=== PATIENT | male | born 1945 | race Caucasian/White ===

== ENCOUNTER 2018-01-09 21:49 | Inpatient (IN) | payer OTHER, MEDICARE ==
[2018-01-09] MEDS ORDERED: ONDANSETRON 4 MG/2 ML VIAL IVP STA ×2 (22:02→22:44)
[2018-01-09] MEDS ORDERED: SODIUM CHLORIDE 0.9% 1,000 ML IV STA (22:02)
[2018-01-09 22:05] LABS: Glucose,Whole Blood 136 mg/dL (75-99)
--- NOTE | 2018-01-09 22:11 | ED ---
Weakness HPI - General Stated complaint: nausea Time Seen by Provider: 01/09/18 21:51 - History of Present Illness Initial comments: Ruiz is a 72-year-old male who presents to the ED via EMS for evaluation of weakness and gait instability. Patient reports that [facility], he states after eating dinner with her he was walking down the [address] when he began to feel as though his whole body was being pulled to the left. He was noted to be falling to the left and holding onto the wall for support. Sanchez at the nursing facility evaluated him and felt as though his speech was a little bit slow but not slurred, at that time 911 was called for transfer to the ER. Patient reports he has a headache and feels pain in his entire left side of his body and feels that his left side of his body is being pulled on. Upon arrival the ER the patient is diaphoretic nauseated and vomiting. - Related Data Allergies Allergy/AdvReac Type Severity Reaction Status Date / Time No Known Allergies Allergy Verified 01/09/18 22:18 Review of Systems ROS Statement: Those systems with pertinent positive or pertinent negative responses have been documented in the HPI. ROS Other: All systems not noted in ROS Statement are negative. Past Medical History Past Medical History: Hyperlipidemia, Hypertension General Exam - General Exam Comments Initial Comments: GENERAL: Patient is well-developed and well-nourished. Patient is vomiting, diaphoretic and appears distressed HENT: Normocephalic, Atraumatic. Neck is soft and supple. No significant lymphadenopathy is noted. Oropharynx is clear. Moist mucous membranes. Neck has full range of motion without eliciting any pain. No carotid bruit EYES: The sclera were anicteric and conjunctiva were pink and moist. Extraocular movements were intact and pupils were equal round and reactive to light. Eyelids were unremarkable. No nystagmus PULMONARY: Unlabored respirations. Good breath sounds bilaterally. No audible rales rhonchi or wheezing was noted. CARDIOVASCULAR: There is a regular rate and rhythm without any murmurs gallops or rubs. ABDOMEN: Soft and nontender with normal bowel sounds. No pulsatile mass palpated SKIN: Skin is clear with no lesions or rashes and otherwise unremarkable. NEUROLOGIC: Patient is alert and oriented x3. Cranial nerves II through XII are grossly intact. Motor and sensory are also intact. Normal speech, volume and content. Symmetrical smile. Normal finger-nose, normal repetitive motions MUSCULOSKELETAL: Normal extremities with adequate strength and full range of motion. No lower extremity swelling or edema. No calf tenderness. LYMPHATICS: No significant lymphadenopathy is noted PSYCHIATRIC: Normal psychiatric evaluation. Limitations: no limitations Course Vital Signs 01/09/18 01/09/18 01/10/18 21:55 22:04 00:00 Temperature Pulse Rate 57 L 57 L 60 Respiratory 15 16 16 Rate Blood Pressure 160/91 147/93 147/81 O2 Sat by Pulse 97 100 95 Oximetry 01/10/18 00:46 Temperature 97.1 F L Pulse Rate 63 Respiratory 15 Rate Blood Pressure 148/86 O2 Sat by Pulse 99 Oximetry EKG Findings - EKG Comments: EKG Findings:: EKG obtained upon arrival at 9:56 PM. Rate of 63, there is significant baseline artifact but there appears to be a PE waves before each QRS , rhythm is sinus, there is prolonged QT with a QTC of 511. No acute ST elevations or depressions. Patient EKG obtained at 11:18 PM. Rate is 71, rhythm is sinus, there is a normal axis, there is a prolonged QT, WA is 126, QRS is 90, QTC is prolonged at 565. There are no acute ST elevations or depressions no evidence of acute ischemia or infarction. Medical Decision Making - Medical Decision Making The patient was seen and examined immediately upon arrival to the emergency department. The patient was reporting that he felt when he was walking that he was being pulled to the left, he felt weakness and was having a headache as well as pain in his left arm. Patient's initial NIH score is 0 he has good strength in the bilateral upper and lower extremity's, good coordination, cranial nerves intact A stroke workup was ordered When of care glucose 136 He was also noted to be vomiting, Zofran was ordered and given Head CT with no acute pathology Chest x-ray with no widening of the mediastinum or evidence of dissection Patient was reevaluated after returning from CT, he is resting much more comfortably, diaphoresis has resolved, is no longer vomiting. He reports feeling better but having pain all over. Repeat EKG was obtained after patient calmed down, EKG with persistently prolonged QTC but no other abnormalities Labs were reviewed, no elevated troponin, The patient was noted to be hypokalemic, IV replacement was ordered Patient's NIH score remained 0, patient remains hemodynamically stable At this time I will plan to admit the patient for subjective weakness, gait instability, headache, left arm pain and paresthesias Admission orders and consult to neurology and cardiology were placed - Lab Data Result diagrams: 01/09/18 21:58 01/09/18 21:58 Lab Results 01/09/18 01/09/18 01/09/18 Range/Units 21:58 21:58 21:58 WBC 8.8 (3.8-10.6) k/uL RBC 4.88 (4.30-5.90) m/uL Hgb 14.2 (13.0-17.5) gm/dL Hct 41.1 (39.0-53.0) % MCV 84.2 (80.0-100.0) fL MCH 29.1 (25.0-35.0) pg MCHC 34.6 (31.0-37.0) g/dL RDW 13.0 (11.5-15.5) % Plt Count 300 (150-450) k/uL Neutrophils % (Manual) 58 % Band Neutrophils % 1 % Lymphocytes % (Manual) 23 % Monocytes % (Manual) 13 % Eosinophils % (Manual) 4 % Basophils % (Manual) 1 % Neutrophils # (Manual) 5.10 (1.3-7.7) k/uL Lymphocytes # (Manual) 2.02 (1.0-4.8) k/uL Monocytes # (Manual) 1.14 H (0-1.0) k/uL Eosinophils # (Manual) 0.35 (0-0.7) k/uL Basophils # (Manual) 0.09 (0-0.2) k/uL Nucleated RBCs 0 (0-0) /100 WBC Manual Slide Review Performed PT (9.0-12.0) sec INR (<1.2) APTT (22.0-30.0) sec Sodium 138 (137-145) mmol/L Potassium 3.2 L (3.5-5.1) mmol/L Chloride 101 (98-107) mmol/L Carbon Dioxide 22 (22-30) mmol/L Anion Gap 15 mmol/L BUN 35 H (9-20) mg/dL Creatinine 1.26 H (0.66-1.25) mg/dL Est GFR (CKD-EPI)AfAm 66 (>60 ml/min/1.73 sqM) Est GFR (CKD-EPI)NonAf 57 (>60 ml/min/1.73 sqM) Glucose 124 H (74-99) mg/dL POC Glucose (mg/dL) (75-99) mg/dL POC Glu Aeronautical Design Engineer ID Calcium 9.8 (8.4-10.2) mg/dL Total Bilirubin 0.7 (0.2-1.3) mg/dL AST 22 (17-59) U/L ALT 26 (21-72) U/L Alkaline Phosphatase 86 (38-126) U/L Total Creatine Kinase 43 L (55-170) U/L CK-MB (CK-2) 0.6 (0.0-2.4) ng/mL CK-MB (CK-2) Rel Index 1.4 Troponin I <0.012 (0.000-0.034) ng/mL Total Protein 6.9 (6.3-8.2) g/dL Albumin 4.5 (3.5-5.0) g/dL 01/09/18 01/09/18 Range/Units 21:58 22:04 WBC (3.8-10.6) k/uL RBC (4.30-5.90) m/uL Hgb (13.0-17.5) gm/dL Hct (39.0-53.0) % MCV (80.0-100.0) fL MCH (25.0-35.0) pg MCHC (31.0-37.0) g/dL RDW (11.5-15.5) % Plt Count (150-450) k/uL Neutrophils % (Manual) % Band Neutrophils % % Lymphocytes % (Manual) % Monocytes % (Manual) % Eosinophils % (Manual) % Basophils % (Manual) % Neutrophils # (Manual) (1.3-7.7) k/uL Lymphocytes # (Manual) (1.0-4.8) k/uL Monocytes # (Manual) (0-1.0) k/uL Eosinophils # (Manual) (0-0.7) k/uL Basophils # (Manual) (0-0.2) k/uL Nucleated RBCs (0-0) /100 WBC Manual Slide Review PT 10.0 (9.0-12.0) sec INR 1.0 (<1.2) APTT 21.1 L (22.0-30.0) sec Sodium (137-145) mmol/L Potassium (3.5-5.1) mmol/L Chloride (98-107) mmol/L Carbon Dioxide (22-30) mmol/L Anion Gap mmol/L BUN (9-20) mg/dL Creatinine (0.66-1.25) mg/dL Est GFR (CKD-EPI)AfAm (>60 ml/min/1.73 sqM) Est GFR (CKD-EPI)NonAf (>60 ml/min/1.73 sqM) Glucose (74-99) mg/dL POC Glucose (mg/dL) 136 H (75-99) mg/dL POC Glu Aeronautical Design Engineer ID Bonilla Alberts Calcium (8.4-10.2) mg/dL Total Bilirubin (0.2-1.3) mg/dL AST (17-59) U/L ALT (21-72) U/L Alkaline Phosphatase (38-126) U/L Total Creatine Kinase (55-170) U/L CK-MB (CK-2) (0.0-2.4) ng/mL CK-MB (CK-2) Rel Index Troponin I (0.000-0.034) ng/mL Total Protein (6.3-8.2) g/dL Albumin (3.5-5.0) g/dL Disposition Clinical Impression: Weakness, Bradycardia, Nausea and vomiting, Hypokalemia, Gait instability, TIA (transient ischemic attack) Disposition: ADMITTED IP TO THIS HOSP Referrals: [facility],Clinic [Primary Care Provider] - 1-2 days
--- NOTE | 2018-01-09 22:37 | CT ---
EXAMINATION TYPE: CT brain wo con for TPA DATE OF EXAM: 01/09/2018 COMPARISON: None HISTORY: Weakness CT DLP: 1023.4 mGycm Automated exposure control for dose reduction was used. FINDINGS: Ventricles of normal size. There is no mass effect nor midline shift. There is no sign of intracrania l hemorrhage. Calvarium is intact. IMPRESSION: NEGATIVE CT SCAN OF THE BRAIN. SMALL MUCOUS RETENTION CYST NOTED IN RIGHT MAXILLARY SINUS.
[2018-01-09 22:54] LABS: HCT 41.1 % (39.0-53.0); HGB 14.2 gm/dL (13.0-17.5); MCH 29.1 pg (25.0-35.0); MCHC 34.6 g/dL (31.0-37.0); MCV 84.2 fL (80.0-100.0); Mean Platelet Volume 7.1; Platelet Count 300 k/uL (150-450); RBC 4.88 m/uL (4.30-5.90); WBC 8.8 k/uL (3.8-10.6)
[2018-01-09 22:56] LABS: Albumin 4.5 g/dL (3.5-5.0); Calcium 9.8 mg/dL (8.4-10.2); Potassium 3.2 mmol/L (3.5-5.1); Total Bilirubin 0.7 mg/dL (0.2-1.3); Total Protein 6.9 g/dL (6.3-8.2)
--- NOTE | 2018-01-09 22:58 | XR ---
EXAMINATION TYPE: XR chest 2V DATE OF EXAM: 01/09/2018 COMPARISON: None HISTORY: Left-sided weakness TECHNIQUE: Frontal and lateral views of the chest are obtained. FINDINGS: Heart and mediastinum are normal. Lungs are clear. Diaphragm is normal. Bony thorax is int act. There are chest leads. IMPRESSION: Normal chest.
[2018-01-09 23:05] LABS: Creatine Kinase 43 U/L (55-170)
[2018-01-09 23:18] LABS: Creatine Kinase MB 0.6 ng/mL (0.0-2.4); Troponin I <0.012 ng/mL (0.000-0.034)
[2018-01-09 23:26] LABS: Partial Thromboplastin Time 21.1 sec (22.0-30.0)
[2018-01-09] MEDS ORDERED: NALOXONE 0.4 MG/ML 1 ML VIAL IV PRN (23:29)
[2018-01-09 23:30] LABS: Band Neutrophils % 1 %; Basophils # (M) 0.09 k/uL (0-0.2); Eosinophils # (M) 0.35 k/uL (0-0.7); Lymphocytes # (M) 2.02 k/uL (1.0-4.8); Monocytes # (M) 1.14 k/uL (0-1.0); Neutrophils % (M) 58 %; Nucleated Red Blood Cells 0 /100 WBC (0-0); Total Cells Counted 100
[2018-01-10] MEDS ORDERED: Potassium Replacement Protocol 1 EACH MISC MISCELLANE PRN (00:26)
[2018-01-10] MEDS: POTASSIUM CHLORIDE 10 MEQ in WATER FOR INJECTION 1 100ML.BAG IVPB SCH ×4 (03:30→09:33)
[2018-01-10 04:53] LABS: Cholesterol 190 mg/dL (<200); HDL Cholesterol 43 mg/dL (40-60); LDL Cholesterol,Calculated 113 mg/dL (0-99); Triglycerides 172 mg/dL (<150)
[2018-01-10 05:05] LABS: Creatine Kinase 37 U/L (55-170)
[2018-01-10 05:18] LABS: Creatine Kinase MB 0.5 ng/mL (0.0-2.4); Troponin I <0.012 ng/mL (0.000-0.034)
--- NOTE | 2018-01-10 08:07 | US ---
EXAMINATION TYPE: US carotid duplex BILAT DATE OF EXAM: 01/10/2018 COMPARISON: NONE CLINICAL HISTORY: Stenosis. Pt states left side weakness EXAM MEASUREMENTS: RIGHT: Peak Systolic Velocity (PSV) cm/sec ----- Right CCA: 97.7 ----- Right ICA: 112.9 ----- Right ECA: 77.9 ICA/CCA ratio: 1.2 RIGHT: End Diastole cm/sec ----- Right CCA: 21.9 ----- Right ICA: 30.5 ----- Right ECA: 7.6 LEFT: Peak Systolic Velocity (PSV) cm/sec ----- Left CCA: 79.2 ----- Left ICA: 87.8 ----- Left ECA: 83.4 ICA/CCA ratio: 1.1 LEFT: End Diastole cm/sec ----- Left CCA: 26.3 ----- Left ICA: 25.2 ----- Left ECA: 12.0 VERTEBRALS (direction of flow): Right Vertebral: Antegrade Left Vertebral: Antegrade Rhythm: Arrhythmia Grayscale images show minimal eccentric plaque at right carotid bulb without significant plaque at le ft carotid bulb. Velocity measurements and ratios remain within normal limits bilaterally. IMPRESSION: No hemodynamically significant stenosis is noted bilaterally. Arrhythmia noted during re al-time scanning however. Advise cardiac Holter monitoring if this is not known finding. Criteria for Assigning % of Stenosis / Diameter reduction (Estimation based on the indirect measurements of the internal carotid artery velocities (ICA PSV). 1. Normal (no stenosis)=ICA PSV < 125 cm/s: ratio < 2.0: ICA EDV<40 cm/s. 2. Less than 50% stenosis=ICA PSV < 125 cm/s: ratio < 2.0: ICA EDV<40 cm/s. 3. 50 to 69% stenosis=ICA PSV of 125 to 230 cm/s: ration 2.0 ? 4.0: ICA EDV 40-100 cm/s. 4. Greater than 70% stenosis to near occlusion= ICA PSV > 230 cm/s: ratio > 4.0: ICA EDV > 100 cm/s. 5. Near occlusion= ICA PSV velocities may be low or undetectable: variable ratio and ICA EDV. 6. Total occlusion=unable to detect flow.
[2018-01-10] MEDS ORDERED: ASPIRIN 325 MG TAB PO SCH (09:00)
[2018-01-10 09:37] LABS: Creatine Kinase 40 U/L (55-170)
[2018-01-10 09:44] LABS: Creatine Kinase MB 0.5 ng/mL (0.0-2.4); Troponin I <0.012 ng/mL (0.000-0.034)
[2018-01-10] MEDS ORDERED: POTASSIUM CHLORIDE ER 20 MEQ TAB.ER PO STA (12:09)
[2018-01-10] MEDS ORDERED: TRIAMCINOLONE ACET 0.1% OINTMENT 15 GM TUBE TOPICAL PRN (12:09)
[2018-01-10] MEDS ORDERED: traMADol 50 MG TAB PO PRN (12:09)
[2018-01-10] MEDS ORDERED: ACETAMINOPHEN TAB 500 MG TAB PO PRN (12:09)
[2018-01-10] MEDS ORDERED: KETOCONAZOLE 2% SHAMPOO 1 APPLIC/ML TOPICAL SCH (12:15)
[2018-01-10] MEDS ORDERED: amLODIPine 5 MG TAB PO SCH (12:15)
--- NOTE | 2018-01-10 12:28 | ECHOF ---
Referral Reason:Thrombus MEASUREMENTS -------- HEIGHT: 172.7 cm WEIGHT: 81.2 kg BP: 145/88 IVSd: 1.5 cm (0.6 - 1.1) LVIDd: 4.5 cm (3.9 - 5.3) LVPWd: 1.3 cm (0.6 - 1.1) IVSs: 1.6 cm LVIDs: 2.8 cm LVPWs: 1.8 cm LAESV Index (A-L): 20.96 ml/m Ao Diam: 3.1 cm (2.0 - 3.7) AV Cusp: 2.2 cm (1.5 - 2.6) LA Diam: 3.2 cm (2.7 - 3.8) MV EXCURSION: 10.759 mm (> 18.000) MV EF SLOPE: 71 mm/s (70 - 150) EPSS: 0.8 cm MV E Ariel: 1.08 m/s MV DecT: 222 ms MV A Ariel: 1.33 m/s MV E/A Ratio: 0.81 RAP: 5.00 mmHg RVSP: 35.32 mmHg FINDINGS -------- Sinus rhythm with extra systolic beats. This was a technically good study. The left ventricular size is normal. There is moderate concentric left ventricular hypertrophy. O verall left ventricular systolic function is normal with, an EF between 55 - 60 %. POSSIBLE MILD IN FERIOR WALL HYPOKINESIS The right ventricle is normal in size and function. The left atrium is normal in size. The right atrium is normal in size. Aortic valve is trileaflet and is mildly thickened. The mitral valve leaflets are mildly thickened. Mild mitral annular calcification present. Mild m itral regurgitation is present. Mild tricuspid regurgitation present. The right ventricular systolic pressure, as measured by Doppl er, is 35.32mmHg. Pulmonic valve appears structurally normal. The aortic root size is normal. The pericardium is normal. CONCLUSIONS -------- 1. Sinus rhythm with extra systolic beats. 2. This was a technically good study. 3. The left ventricular size is normal. 4. There is moderate concentric left ventricular hypertrophy. 5. Overall left ventricular systolic function is normal with, an EF between 55 - 60 %. 6. The right ventricle is normal in size and function. 7. The left atrium is normal in size. 8. The right atrium is normal in size. 9. Aortic valve is trileaflet and is mildly thickened. 10. The mitral valve leaflets are mildly thickened. 11. Mild mitral annular calcification present. 12. Mild mitral regurgitation is present. 13. Mild tricuspid regurgitation present. 14. The right ventricular systolic pressure, as measured by Doppler, is 35.32mmHg. 15. Pulmonic valve appears structurally normal. 16. The aortic root size is normal. 17. The pericardium is normal. HEALTH LEAD: Lizy Perera RDCS
--- NOTE | 2018-01-10 14:48 | P.HPIM ---
History of Present Illness 72-year-old male who presents with the possible weakness and gait instability and appeared to have fallen towards right side patient sees his symptoms were still present when he came to ER although completely resolved at this point of time Patient reports that he was visiting his at the [facility], he states after eating dinner with her he was walking down the [address] when he began to feel as though his whole body was being pulled to the left. He was noted to be falling to the left and holding onto the wall for support. Sanchez at the nursing facility evaluated him and felt as though his speech was a little bit slow but not slurred, at that time 911 was called for transfer to the ER. Patient reports he has a headache and feels pain in his entire left side of his body and feels that his left side of his body is being pulled on. Upon arrival the ER the patient is diaphoretic nauseated and vomiting. Patient had generalized sense of not being well patient denied any seizure-like activity syncope. Review of Systems REVIEW OF SYSTEMS: CONSTITUTIONAL: No fever, no malaise, no fatigue. HEENT: No recent visual problems or hearing problems. Denied any sore throat. CARDIOVASCULAR: No chest pain, orthopnea, PND, no palpitations, no syncope. PULMONARY: No shortness of breath, no cough, no hemoptysis. GASTROINTESTINAL: No diarrhea, no nausea, no vomiting, no abdominal pain. Normoactive bowel sounds. NEUROLOGICAL: As mentioned in HPI HEMATOLOGICAL: Denies any bleeding or petechiae. GENITOURINARY: Denies any burning micturition, frequency, or urgency. MUSCULOSKELETAL/RHEUMATOLOGICAL: Denies any joint pain, swelling, or any muscle pain. ENDOCRINE: Denies any polyuria or polydipsia. The rest of the 14-point review of systems is negative. Past Medical History Past Medical History: Asthma, Cancer, Eye Disorder, Hyperlipidemia, Hypertension , Liver Disease, Osteoarthritis (OA) Additional Past Medical History / Comment(s): Pt states that past 2 weeks has had "blurred" vision and was seen at [facility] in [place] and told he has a "freckle" in that eye and will follow up with them, childhood asthma, liver "problem" before which pt states he was told was d/t taking tylenol #3, past ETOH abuse-sober for 19yrs then started drining 1-2 beers on occasion only, arthritis-bilateral shoulder and knee pains, skin cancer removed from nose. History of Any Multi-Drug Resistant Organisms: None Reported Additional Past Surgical History / Comment(s): colonoscopy, total R knee arthroplasty, bilateral knee arthroscopies, R foot titanium implant, bilateral shoulder surgery, L inguinal hernia repaix x3, septoplasty and skin cancer removed from nose. Past Anesthesia/Blood Transfusion Reactions: No Reported Reaction Smoking Status: Never smoker - Past Family History Father Family Medical History: Cancer Additional Family Medical History / Comment(s): Father had prostrate cancer. He is . Mother Family Medical History: Cancer, Thyroid Disorder Additional Family Medical History / Comment(s): Mother is . Pt states she had thyroid disease/surgeries. He thinks she had cancer in her "back". Medications and Allergies Home Medications Medication Instructions Recorded Confirmed Type Acetaminophen Tab [Tylenol Tab] 500 mg PO BID PRN MDD 8 TABS 01/10/18 01/10/18 History Cetirizine HCl [Zyrtec] 10 - 20 mg PO DAILY PRN 01/10/18 01/10/18 History Clopidogrel Bisulfate [Plavix] 75 mg PO DAILY #30 tab 01/10/18 Rx Colloidal Oatmeal [Eucerin Eczema 1 applic TOPICAL DAILY 01/10/18 01/10/18 History Relief] Cyanocobalamin [Vitamin B-12] 500 mcg PO DAILY 01/10/18 01/10/18 History Docusate [Colace] 100 mg PO TID 01/10/18 01/10/18 History Ferrous Sulfate [Feosol] 325 mg PO DAILY 01/10/18 01/10/18 History Ketoconazole 2% Cream [Nizoral 2%] 1 applic TOPICAL DAILY 01/10/18 01/10/18 History Ketoconazole 2% Shampoo [Nizoral] 1 applic TOPICAL DIRECTED 01/10/18 History Loratadine [Claritin] 10 mg PO DAILY 01/10/18 01/10/18 History Meloxicam [Mobic] 7.5 mg PO BID 01/10/18 01/10/18 History Naloxone HCl [Narcan] 4 mg NASAL DIRECTED 01/10/18 01/10/18 History PARoxetine HCL [Paxil] 20 mg PO DAILY 01/10/18 01/10/18 History Pravastatin Sodium [Pravachol] 10 mg PO HS 01/10/18 01/10/18 History Ranitidine HCl [Zantac] 150 mg PO HS 01/10/18 01/10/18 History Terazosin [Hytrin] 5 mg PO HS 01/10/18 01/10/18 History Triamcinolone 0.1% Ointment 1 applic TOPICAL BID PRN MDD 01/10/18 01/10/18 History [Kenalog 0.1% Ointment] LEGS/TRUNK amLODIPine [Norvasc] 5 mg PO BID 01/10/18 01/10/18 History hydrOXYzine PAMOATE [Vistaril] 25 mg PO QID PRN 01/10/18 01/10/18 History traMADol HCL [Ultram] 100 mg PO Q6HR PRN 01/10/18 01/10/18 History traZODone HCL 50 mg PO HS 01/10/18 01/10/18 History Allergies Allergy/AdvReac Type Severity Reaction Status Date / Time lisinopril Allergy Unknown Verified 01/10/18 09:29 simvastatin [From Zocor] Allergy Unknown Verified 01/10/18 09:29 Physical Exam Vitals: Vital Signs Temp Pulse Pulse Resp BP BP Pulse Ox 01/10/18 12:00 98.2 F 65 18 141/85 96 01/10/18 08:00 98.2 F 18 96 01/10/18 07:00 87 16 145/88 95 01/10/18 06:00 97.1 F L 76 16 130/83 93 L 01/10/18 04:54 16 L 60 H 147/87 95 01/10/18 03:00 61 16 149/82 97 01/10/18 02:00 144/79 96 01/10/18 00:46 97.1 F L 63 15 148/86 99 01/10/18 00:00 60 16 147/81 95 01/09/18 22:04 57 L 16 147/93 100 01/09/18 21:55 57 L 15 160/91 97 Intake and Output 01/09/18 01/10/18 01/10/18 22:59 06:59 14:59 Output Total 1300 Balance -1300 Output: Urine 1300 Other: Voiding Method Urinal Weight 81.193 kg 81.193 kg PHYSICAL EXAMINATION: GENERAL: The patient is alert and oriented x3, not in any acute distress. Well developed, well nourished. HEENT: Pupils are round and equally reacting to light. EOMI. No scleral icterus. No conjunctival pallor. Normocephalic, atraumatic. No pharyngeal erythema. No thyromegaly. CARDIOVASCULAR: S1 and S2 present. No murmurs, rubs, or gallops. PULMONARY: Chest is clear to auscultation, no wheezing or crackles. ABDOMEN: Soft, nontender, nondistended, normoactive bowel sounds. No palpable organomegaly. MUSCULOSKELETAL: No joint swelling or deformity. EXTREMITIES: No cyanosis, clubbing, or pedal edema. NEUROLOGICAL: Gross neurological examination did not reveal any focal deficits. SKIN: No rashes. Results CBC & Chem 7: 01/09/18 21:58 01/09/18 21:58 Labs: Abnormal Lab Results - Last 24 Hours (Table) 01/09/18 01/09/18 01/09/18 Range/Units 21:58 21:58 21:58 Monocytes # (Manual) 1.14 H (0-1.0) k/uL APTT (22.0-30.0) sec Potassium 3.2 L (3.5-5.1) mmol/L BUN 35 H (9-20) mg/dL Creatinine 1.26 H (0.66-1.25) mg/dL Glucose 124 H (74-99) mg/dL POC Glucose (mg/dL) (75-99) mg/dL Total Creatine Kinase 43 L (55-170) U/L Triglycerides (<150) mg/dL LDL Cholesterol, Calc (0-99) mg/dL 01/09/18 01/09/18 01/10/18 Range/Units 21:58 22:04 04:26 Monocytes # (Manual) (0-1.0) k/uL APTT 21.1 L (22.0-30.0) sec Potassium (3.5-5.1) mmol/L BUN (9-20) mg/dL Creatinine (0.66-1.25) mg/dL Glucose (74-99) mg/dL POC Glucose (mg/dL) 136 H (75-99) mg/dL Total Creatine Kinase 37 L (55-170) U/L Triglycerides (<150) mg/dL LDL Cholesterol, Calc (0-99) mg/dL 01/10/18 01/10/18 Range/Units 04:26 08:32 Monocytes # (Manual) (0-1.0) k/uL APTT (22.0-30.0) sec Potassium (3.5-5.1) mmol/L BUN (9-20) mg/dL Creatinine (0.66-1.25) mg/dL Glucose (74-99) mg/dL POC Glucose (mg/dL) (75-99) mg/dL Total Creatine Kinase 40 L (55-170) U/L Triglycerides 172 H (<150) mg/dL LDL Cholesterol, Calc 113 H (0-99) mg/dL Thrombosis Risk Factor Assmnt - Choose All That Apply Any of the Below Risk Factors Present?: Yes Each Factor Represents 1 point: Obesity (BMI >25) Other Risk Factors: Yes Each Risk Factor Represents 2 Points: Age 61-74 years Other congenital or acquired thrombophilia - If yes, enter type in comment: No Thrombosis Risk Factor Assessment Total Risk Factor Score: 3 Thrombosis Risk Factor Assessment Level: Moderate Risk Assessment and Plan Plan: Possibility of transient ischemic attack patient is already on aspirin, patient will be switched to Plavix and neurology will evaluate the patient patient had a carotid Doppler today which did not show any significant abnormality Riccardo and will be obtained CAT scan of the head did not show any significant abnormality either. Further management as per neurology -Hyperlipidemia - hypertension -Acute renal failure secondary to diuretic therapy which will be held patient will be started on IV fluids -Hypokalemia secondary to diuretics is receiving supple will be supplemented
[2018-01-10] MEDS ORDERED: DOCUSATE 100 MG CAP PO SCH (16:00)
[2018-01-10] MEDS: DOCUSATE 100 MG CAP PO SCH ×2 (17:02→21:24)
[2018-01-10] MEDS: SODIUM CHLORIDE 0.9% 1,000 ML IV SCH (17:03)
[2018-01-10] MEDS: amLODIPine 5 MG TAB PO SCH ×2 (17:03→21:23)
[2018-01-10] MEDS ORDERED: PRAVASTATIN SODIUM 20 MG TAB PO SCH ×2 (21:00)
[2018-01-10] MEDS ORDERED: DOXAZOSIN 4 MG TAB PO SCH (21:00)
[2018-01-10] MEDS ORDERED: FAMOTIDINE 20 MG TAB PO SCH (21:00)
[2018-01-10] MEDS ORDERED: traZODone HCL 50 MG TAB PO SCH (21:00)
[2018-01-11] MEDS: SODIUM CHLORIDE 0.9% 1,000 ML IV SCH ×2 (05:15→08:29)
--- NOTE | 2018-01-11 07:42 | P.CRDCN ---
History of Present Illness Consult date: 01/10/18 Requesting physician: Mallory Martínez Reason for Consult (text): chest pain Chief complaint: weakness, gait instability, dizziness History of present illness: This is a pleasant 72-year-old gentleman with history of hypertension. Presented to the emergency department p.m. EMS for evaluation of weakness and gait instability. [facility] and while he was walking down the agosto he began to feel as if his whole body was being pulled to the left. He sat for a bit and felt better but once he started and began ambulating again he felt he was being pulled left and also had complaints of dizziness and complaints of his speech being quiet. Denies complaints of chest discomfort, including pain, pressure, tightness or heaviness. He did complain of a left-sided headache. Also has a history of finding a spot during an eye exam in the left eye for which he is being followed every 3 months as he was told it could be cancer. He denies history of hyperlipidemia or diabetes. He does have an older brother who had an IL at the age of 70. She also admits to previous history of alcoholism, admits to drinking 2 beers about 3 times a week. Upon presentation, computed tomography scan of the brain was negative did show small mucous retention cyst in the right maxillary sinus. Chest x-ray showed normal chest. EKG showed normal sinus rhythm. Carotid Doppler study showed no hemodynamically significant stenosis bilaterally. Also noted arrhythmia during real-time scanning and advise cardiac Holter monitoring. Patient does not have a history of arrhythmias. Thus far, only documented rhythm is sinus. Echocardiogram with Doppler showed moderate concentric left ventricular hypertrophy, normal LV systolic function with an ejection fraction between 55-60%, mild mitral annular calcification, mild mitral regurgitation and mild tricuspid regurgitation. Wanted to have been negative 3. Upon examination, patient is resting comfortably in bed on the cardiac stepdown unit. Denies current complaints of dizziness, lightheadedness, weakness, headache. He denied having any chest discomfort at all. Vital signs are stable. Past Medical History Past Medical History: Asthma, Cancer, Eye Disorder, Hyperlipidemia, Hypertension , Liver Disease, Osteoarthritis (OA) Additional Past Medical History / Comment(s): Pt states that past 2 weeks has had "blurred" vision and was seen at [facility] in [place] and told he has a "freckle" in that eye and will follow up with them, childhood asthma, liver "problem" before which pt states he was told was d/t taking tylenol #3, past ETOH abuse-sober for 19yrs then started drining 1-2 beers on occasion only, arthritis-bilateral shoulder and knee pains, skin cancer removed from nose. History of Any Multi-Drug Resistant Organisms: None Reported Additional Past Surgical History / Comment(s): colonoscopy, total R knee arthroplasty, bilateral knee arthroscopies, R foot titanium implant, bilateral shoulder surgery, L inguinal hernia repaix x3, septoplasty and skin cancer removed from nose. Past Anesthesia/Blood Transfusion Reactions: No Reported Reaction Smoking Status: Never smoker - Past Family History Father Family Medical History: Cancer Additional Family Medical History / Comment(s): Father had prostrate cancer. He is . Mother Family Medical History: Cancer, Thyroid Disorder Additional Family Medical History / Comment(s): Mother is . Pt states she had thyroid disease/surgeries. He thinks she had cancer in her "back". Medications and Allergies Home Medications Medication Instructions Recorded Confirmed Type Acetaminophen Tab [Tylenol Tab] 500 mg PO BID PRN MDD 8 TABS 01/10/18 01/10/18 History Cetirizine HCl [Zyrtec] 10 - 20 mg PO DAILY PRN 01/10/18 01/10/18 History Clopidogrel Bisulfate [Plavix] 75 mg PO DAILY #30 tab 01/10/18 Rx Colloidal Oatmeal [Eucerin Eczema 1 applic TOPICAL DAILY 01/10/18 01/10/18 History Relief] Cyanocobalamin [Vitamin B-12] 500 mcg PO DAILY 01/10/18 01/10/18 History Docusate [Colace] 100 mg PO TID 01/10/18 01/10/18 History Ferrous Sulfate [Feosol] 325 mg PO DAILY 01/10/18 01/10/18 History Ketoconazole 2% Cream [Nizoral 2%] 1 applic TOPICAL DAILY 01/10/18 01/10/18 History Ketoconazole 2% Shampoo [Nizoral] 1 applic TOPICAL DIRECTED 01/10/18 History Loratadine [Claritin] 10 mg PO DAILY 01/10/18 01/10/18 History Meloxicam [Mobic] 7.5 mg PO BID 01/10/18 01/10/18 History Naloxone HCl [Narcan] 4 mg NASAL DIRECTED 01/10/18 01/10/18 History PARoxetine HCL [Paxil] 20 mg PO DAILY 01/10/18 01/10/18 History Pravastatin Sodium [Pravachol] 10 mg PO HS 01/10/18 01/10/18 History Ranitidine HCl [Zantac] 150 mg PO HS 01/10/18 01/10/18 History Terazosin [Hytrin] 5 mg PO HS 01/10/18 01/10/18 History Triamcinolone 0.1% Ointment 1 applic TOPICAL BID PRN MDD 01/10/18 01/10/18 History [Kenalog 0.1% Ointment] LEGS/TRUNK amLODIPine [Norvasc] 5 mg PO BID 01/10/18 01/10/18 History hydrOXYzine PAMOATE [Vistaril] 25 mg PO QID PRN 01/10/18 01/10/18 History traMADol HCL [Ultram] 100 mg PO Q6HR PRN 01/10/18 01/10/18 History traZODone HCL 50 mg PO HS 01/10/18 01/10/18 History Allergies Allergy/AdvReac Type Severity Reaction Status Date / Time lisinopril Allergy Unknown Verified 01/10/18 09:29 simvastatin [From Zocor] Allergy Unknown Verified 01/10/18 09:29 Physical Exam Vitals: Vital Signs Temp Pulse Pulse Resp BP BP Pulse Ox 01/10/18 12:00 98.2 F 65 18 141/85 96 01/10/18 08:00 98.2 F 18 96 01/10/18 07:00 87 16 145/88 95 01/10/18 06:00 97.1 F L 76 16 130/83 93 L 01/10/18 04:54 16 L 60 H 147/87 95 01/10/18 03:00 61 16 149/82 97 01/10/18 02:00 144/79 96 01/10/18 00:46 97.1 F L 63 15 148/86 99 01/10/18 00:00 60 16 147/81 95 01/09/18 22:04 57 L 16 147/93 100 01/09/18 21:55 57 L 15 160/91 97 Intake and Output 01/09/18 01/10/18 01/10/18 22:59 06:59 14:59 Output Total 1300 Balance -1300 Output: Urine 1300 Other: Voiding Method Urinal Weight 81.193 kg 81.193 kg PHYSICAL EXAMINATION: HEENT: Head is atraumatic, normocephalic. Pupils equal, round. Neck is supple. There is no elevated jugular venous pressure. HEART EXAMINATION: Heart sounds regular, S1 and S2 normal. No murmur or gallop heard. CHEST EXAMINATION: Lungs are clear to auscultation and precussion. No chest wall tenderness is noted on palpation or with deep breathing. ABDOMEN: Soft, nontender. Bowel sounds are heard. No organomegaly noted. EXTREMITIES: 2+ peripheral pulses with no evidence of peripheral edema and no calf tenderness noted. NEUROLOGIC patient is awake, alert and oriented x3. . Results 01/09/18 21:58 01/10/18 15:14 Cardiac Enzymes 01/09/18 01/09/18 01/10/18 Range/Units 21:58 21:58 04:26 AST 22 (17-59) U/L CK-MB (CK-2) 0.6 0.5 (0.0-2.4) ng/mL Troponin I <0.012 <0.012 (0.000-0.034) ng/mL 01/10/18 Range/Units 08:32 AST (17-59) U/L CK-MB (CK-2) 0.5 (0.0-2.4) ng/mL Troponin I <0.012 (0.000-0.034) ng/mL Coagulation 01/09/18 Range/Units 21:58 PT 10.0 (9.0-12.0) sec APTT 21.1 L (22.0-30.0) sec Lipids 01/10/18 Range/Units 04:26 Triglycerides 172 H (<150) mg/dL Cholesterol 190 (<200) mg/dL HDL Cholesterol 43 (40-60) mg/dL CBC 01/09/18 Range/Units 21:58 WBC 8.8 (3.8-10.6) k/uL RBC 4.88 (4.30-5.90) m/uL Hgb 14.2 (13.0-17.5) gm/dL Hct 41.1 (39.0-53.0) % Plt Count 300 (150-450) k/uL Comprehensive Metabolic Panel 01/09/18 Range/Units 21:58 Sodium 138 (137-145) mmol/L Potassium 3.2 L (3.5-5.1) mmol/L Chloride 101 (98-107) mmol/L Carbon Dioxide 22 (22-30) mmol/L BUN 35 H (9-20) mg/dL Creatinine 1.26 H (0.66-1.25) mg/dL Glucose 124 H (74-99) mg/dL Calcium 9.8 (8.4-10.2) mg/dL AST 22 (17-59) U/L ALT 26 (21-72) U/L Alkaline Phosphatase 86 (38-126) U/L Total Protein 6.9 (6.3-8.2) g/dL Albumin 4.5 (3.5-5.0) g/dL Current Medications Generic Name Dose Route Start Last Admin Trade Name Freq PRN Reason Stop Dose Admin Acetaminophen 500 mg 01/10/18 12:09 Tylenol Tab PO BID PRN MILD Pain Amlodipine Besylate 5 mg 01/10/18 12:15 Norvasc PO BID [facility] Aspirin 325 mg 01/10/18 09:00 01/10/18 11:04 Aspirin PO 325 mg DAILY [facility] Administration Clotrimazole 1 applic 01/11/18 09:00 Lotrimin Cream TOPICAL DAILY [facility] Docusate Sodium 100 mg 01/10/18 16:00 Colace PO TID [facility] Doxazosin Mesylate 4 mg 01/10/18 21:00 Cardura PO HS [facility] Famotidine 20 mg 01/10/18 21:00 Pepcid PO HS [facility] Ketoconazole 1 applic 01/10/18 12:15 Nizoral TOPICAL DIRECTED [facility] Loratadine 10 mg 01/11/18 09:00 Claritin PO DAILY [facility] Miscellaneous Information 1 each 01/10/18 00:26 Potassium Per Protocol MISCELLANE DAILY PRN Per Protocol Protocol Multi-Ingred Cream/Lotion/Oil/Oint 1 applic 01/11/18 09:00 Eucerin Cream TOPICAL DAILY [facility] Naloxone HCl 0.2 mg 01/09/18 23:29 Narcan IV Q2M PRN Opioid Reversal Paroxetine HCl 20 mg 01/11/18 09:00 Paxil PO DAILY [facility] Pravastatin Sodium 10 mg 01/10/18 21:00 Pravachol PO HS [facility]EE[facility] Tramadol HCl 100 mg 01/10/18 12:09 Ultram PO Q6HR PRN MODERATE Pain Trazodone HCl 50 mg 01/10/18 21:00 Desyrel PO HS DEENA Triamcinolone Acetonide 1 applic 01/10/18 12:09 Kenalog TOPICAL BID PRN ITCHING/IRRITATION Intake and Output 01/09/18 01/10/18 01/10/18 22:59 06:59 14:59 Output Total 1300 Balance -1300 Output: Urine 1300 Other: Voiding Method Urinal Weight 81.193 kg 81.193 kg Patient Weight 01/11/18 06:59 Weight 81.193 kg 01/09/18 21:58 01/09/18 21:58 Assessment and Plan Assessment: #1 symptoms of left-sided weakness, dizziness and gait instability #2 hypertension 3 hyperlipidemia 4. History of alcoholism Plan: From help desk team leader perspective, medications were reviewed and we will continue the same at this time. Change aspirin to 81 mg daily. Monitor the patient for arrhythmias. We will continue to follow the patient and write further recommendations accordingly. ROLL UP GUIDER OPERATOR note has been reviewed, I agree with a documented findings and plan of care. Patient was seen and examined.
[2018-01-11] MEDS: DOCUSATE 100 MG CAP PO SCH (08:27)
[2018-01-11] MEDS: amLODIPine 5 MG TAB PO SCH (08:27)
[2018-01-11 08:36] LABS: Anion Gap 6 mmol/L; Blood Urea Nitrogen 18 mg/dL (9-20); Calcium 8.7 mg/dL (8.4-10.2); Carbon Dioxide 28 mmol/L (22-30); Chloride 109 mmol/L (98-107); Glucose 91 mg/dL (74-99); Sodium 143 mmol/L (137-145)
[2018-01-11] MEDS ORDERED: PARoxetine 20 MG TAB PO SCH (09:00)
[2018-01-11] MEDS ORDERED: LORATADINE 10 MG TAB PO SCH (09:00)
[2018-01-11] MEDS ORDERED: ASPIRIN 81 MG PO SCH (09:00)
[2018-01-11] MEDS ORDERED: MINERAL OIL-WHITE PETROLATUM 120 GM JAR TOPICAL SCH (09:00)
[2018-01-11] MEDS ORDERED: CLOTRIMAZOLE 1% CREAM 15 GM TUBE TOPICAL SCH (09:00)
--- NOTE | 2018-01-11 09:07 | CONS ---
CONSULTATION DATE OF CONSULTATION: 01/10/2018 CHIEF COMPLAINT: Weakness. HISTORY OF PRESENT ILLNESS: Mr. Feliciano is a pleasant 72-year-old male, who was being evaluated today on 01/10/2018 by the Neurology Service per the request of Dr. Martínez for an episode of weakness. The patient states that he was at the skilled nursing visiting his . He was at his normal state of health without any complaints. When he left her room to go gated newspaper. He made it to the other side of the skilled nursing, got the newspaper, and on his way back, felt very weak. He felt that the weakness was generalized and it was from his neck down. He does not recall having any numbness or tingling. The nursing staff noticed this and made the patient sit down. After sitting down for a few minutes, he tried to get back up. Again felt pretty weak. He was brought into [facility] room for further workup and management. A CT scan of the brain was done, which was normal. A carotid Doppler was done, which showed no hemodynamically significant stenosis but there was evidence of arrhythmia on the study. His CBC and cardiac enzymes were normal. His comprehensive metabolic profile showed hypokalemia at 3.2, and azotemia with a BUN full of 35 and creatinine of 1.26. The patient was admitted for further workup and management. at the time of my evaluation, he is lying in his bed and appears to be in no acute distress. He denies any recurrence of any neurological symptoms since his admission. Overall, he feels like his symptoms lasted a couple of hours. He is on anti-platelet therapy at home with aspirin and Plavix. During the episode, he also noticed that he was off balance and his voice had changed. Again, all these symptoms have resolved. PAST MEDICAL HISTORY: Asthma, dyslipidemia, hypertension, arthritis. History of alcohol abuse, skin cancer, history of orthopedic surgeries, skin cancer resection, hernia repair. SOCIAL HISTORY: He denies any tobacco or drug use. He does have a history of alcohol abuse. FAMILY HISTORY: Positive for cancer. HOME MEDICATIONS: Reviewed in the chart. ALLERGIES: LISINOPRIL and ZOCOR. REVIEW OF SYSTEMS: CONSTITUTIONAL: Negative. EYES: Positive for occasional blurred vision. ENT: As mentioned above. CARDIOVASCULAR: As mentioned above. RESPIRATORY: Negative. NEUROLOGICAL: As mentioned above. GASTROINTESTINAL: Negative. GENITOURINARY: Negative. DERMATOLOGICAL: Negative. PSYCHIATRIC: Negative. ENDOCRINE: Negative. MUSCULOSKELETAL: Positive for occasional joint pain. PHYSICAL EXAM: Vital signs show a temperature of 98.2, pulse 65, respiration 18, blood pressure 141/85. GENERAL APPEARANCE: The patient is a well-developed, elderly male, who appears to be in no acute distress. HEENT: Normocephalic, atraumatic, no facial asymmetry is seen. NECK: Supple with no masses felt. CARDIOVASCULAR: Regular rate and rhythm. ABDOMEN: Nontender nondistended. EXTREMITIES: Showed no edema or clubbing. NEUROLOGICAL EXAM: The patient is awake and oriented x3. Speech and language are normal. Strength is full in all 4 extremities. Sensory exam was normal to light touch in all 4 extremities. No pronator drift is seen. Obdden-hszo-[id number] testing showed no dysmetria. No facial asymmetry is seen on cranial nerve testing. No tremors or seizure-like activity is seen. IMPRESSION: 1. Transient generalized weakness. 2. Questionable transient ischemic attack. 3. Cardiac dysrhythmia. 4. Renal insufficiency. RECOMMENDATION: The patient did have a transient episode of weakness with associated disequilibrium and dysphonia. His symptoms were nonlateralizing and I doubt any in his schematic etiology for his symptoms unless he had cerebellar and brain stem affect/involvement. Either way, the patient is already on Plavix and aspirin. His carotid Doppler showed no hemodynamically significant stenosis but there was evidence of dysrhythmia on the study. I do recommend continue telemetry monitoring and Cardiology consultation. His fasting lipid panel did show elevated LDL and his Pravachol has been increased from 10 mg daily to 20 mg daily. I will order an EEG and a serum homocystine level. Continue IV hydration as tolerated. Continue neuro checks. I will continue to follow with you. Further recommendations to follow. Thank you for allowing me to participate in the care of your patient. If you have any questions, please feel free to contact me. MMODL / IJN: [id number] /
--- NOTE | 2018-01-11 09:16 | P.PN ---
Subjective Progress Note Date: 01/11/18 Principal diagnosis: Dizziness and lightheadedness This is a pleasant 72-year-old gentleman with history of hypertension. Presented to the emergency department p.m. EMS for evaluation of weakness and gait instability. He was at [place] is attending his and while he was walking down the agosto he began to feel as if his whole body was being pulled to the left. He sat for a bit and felt better but once he started and began ambulating again he felt he was being pulled left and also had complaints of dizziness and complaints of his speech being quiet. Denies complaints of chest discomfort, including pain, pressure, tightness or heaviness. He did complain of a left-sided headache. Also has a history of finding a spot during an eye exam in the left eye for which he is being followed every 3 months as he was told it could be cancer. He denies history of hyperlipidemia or diabetes. He does have an older brother who had an UT at the age of 70. He also admits to previous history of alcoholism, admits to drinking 2 beers about 3 times a week. Upon presentation, computed tomography scan of the brain was negative did show small mucous retention cyst in the right maxillary sinus. Chest x-ray showed normal chest. EKG showed normal sinus rhythm. Carotid Doppler study showed no hemodynamically significant stenosis bilaterally. Also noted arrhythmia during real-time scanning and advise cardiac Holter monitoring. Patient does not have a history of arrhythmias. Thus far, only documented rhythm is sinus. Echocardiogram with Doppler showed moderate concentric left ventricular hypertrophy, normal LV systolic function with an ejection fraction between 55-60%, mild mitral annular calcification, mild mitral regurgitation and mild tricuspid regurgitation. On follow-up with the patient today, January [id number], the patient denies having any chest pain or discomfort. No arrhythmia noted overnight. The patient was seen and evaluated by the neurology service. Objective - Vital Signs Vital signs: Vital Signs Temp 97.9 F 01/11/18 04:00 Pulse 76 01/11/18 04:00 Resp 18 01/11/18 04:00 BP 141/78 01/11/18 04:00 Pulse Ox 95 01/11/18 04:00 Intake & Output 01/10/18 01/11/18 01/11/18 18:59 06:59 18:59 Intake Total 120 600 240 Output Total 1300 0 Balance -1180 600 240 Weight 81.193 kg 74 kg Intake: Intake, IV Titration 600 Amount Sodium Chloride 0.9% 1, 600 000 ml @ 100 mls/hr IV . Q10H [facility] Rx#:[id number] Oral 120 240 Output: Urine 1300 0 Other: Voiding Method Urinal Urinal # Voids 1 - Constitutional General appearance: Present: no acute distress - Respiratory Respiratory: bilateral: CTA - Cardiovascular Rhythm: regular Heart sounds: normal: S1, S2 - Labs CBC & Chem 7: 01/09/18 21:58 01/11/18 06:44 Labs: Abnormal Lab Results - Last 24 Hours (Table) 01/10/18 01/11/18 Range/Units 08:32 06:44 Chloride 109 H (98-107) mmol/L Total Creatine Kinase 40 L (55-170) U/L Assessment and Plan Assessment: Assessment Presyncope Plan Cardiac arrhythmia was ruled out The echo did not show any significant abnormalities The patient was ruled out for acute coronary event
[2018-01-11 13:23] VITALS: BP 137/85; PULSE 66; RESP 22; TEMP 97.1
--- NOTE | 2018-01-11 15:01 | P.PN ---
Subjective Progress Note Date: 01/11/18 Principal diagnosis: Weakness This pleasant 72 male is continuing be evaluated by the neurology service for an episode of weakness. Water assisted visiting his , he had an episode of generalized weakness. After sitting up for a few minutes he tried to get back up and still felt weak. She was brought to [facility] emergency room. CT of the brain was normal. Carotid Doppler showed no hemodynamically significant stenosis. There may have been evidence of an arrhythmia on his EKG. Cardiology has evaluated and cleared him. With no evidence of underlying arrhythmia. He has had no recurrence of any neurological symptoms since his admission. Physical therapy is evaluating him at the time of my exam. An EEG has been performed earlier today. Objective - Vital Signs Vital signs: Vital Signs Temp 97.1 F L 01/11/18 12:00 Pulse 66 01/11/18 12:00 Resp 22 01/11/18 12:00 BP 137/85 01/11/18 12:00 Pulse Ox 95 01/11/18 12:00 Intake & Output 01/10/18 01/11/18 01/11/18 18:59 06:59 18:59 Intake Total 120 600 420 Output Total 1300 0 Balance -1180 600 420 Weight 81.193 kg 74 kg Intake: Intake, IV Titration 600 Amount Sodium Chloride 0.9% 1, 600 000 ml @ 100 mls/hr IV . Q10H [facility] Rx#:[id number] Oral 120 420 Output: Urine 1300 0 Other: Voiding Method Urinal Urinal Urinal # Voids 1 - Constitutional General appearance: Present: average body habitus, cooperative, no acute distress - EENT Eyes: Present: EOMI, PERRLA. Absent: abnormal pupil, ptosis ENT: Present: hearing grossly normal - Neck Neck: Present: normal ROM. Absent: rigidity - Respiratory Respiratory: negative: prolonged expiration, prolonged inspiration - Cardiovascular Rhythm: regular - Gastrointestinal General gastrointestinal: Absent: distended, tenderness - Neurologic Neurologic Comment(s): The patient is alert awake and oriented 3. Speech and language are normal. There is no facial asymmetry. Strength is 5 out of 5 in bilateral upper and lower extremities. There is no sensory deficit. No tremors or seizures are seen. Cranial nerves II through XII are intact globally. - Labs CBC & Chem 7: 01/09/18 21:58 01/11/18 06:44 Labs: Abnormal Lab Results - Last 24 Hours (Table) 01/11/18 Range/Units 06:44 Chloride 109 H (98-107) mmol/L Assessment and Plan (1) Bradycardia Current Visit: Yes Status: Acute Code(s): R00.1 - BRADYCARDIA, UNSPECIFIED SNOMED Code(s): 51194512 (2) Weakness Current Visit: Yes Status: Resolved Code(s): R53.1 - WEAKNESS SNOMED Code( s): 88560613 (3) TIA (transient ischemic attack) Current Visit: Yes Status: Suspected Code(s): G45.9 - TRANSIENT CEREBRAL ISCHEMIC ATTACK, UNSPECIFIED SNOMED Code(s): 362296509 Plan: The patient's transient episode of weakness and disequilibrium could possibly be an episode of transient cerebral ischemia. However, his weakness was nonlateralizing which makes it less likely. He will continue aspirin 325 mg and Pravachol 20 mg. Continue cardiology consultation if needed. An EEG has been performed. Barring any unforeseen abnormalities on the EEG he would be cleared from a neurological standpoint. I have performed a history and physical on the above patient. I have reviewed the above note, and agree.
--- NOTE | 2018-01-11 15:32 | P.DS ---
Providers Date of admission: 01/10/18 00:55 Attending physician: Mallory Martínez Consults: 01/09/18 23:31 Consult Physician Routine Consulting Provider: [facility] Consult Reason/Comments: chest pain Do you want consulting provider notified?: Yes, Notify in am 01/10/18 09:11 Consult Physician Routine Consulting Provider: Erendira Arroyo Consult Reason/Comments: weakness, slurred speech Do you want consulting provider notified?: Yes Primary care physician: [facility] Hospital Course: 72-year-old admitted for an episode of generalized weakness was a valid for TIA. Patient did didn't have any symptoms when here about a year. Patient was a valid by neurology underwent the TIA workup with the CAT scan carotid Doppler echo cardiomyopathy which are essentially within normal limits and patient is being discharged today increasing the dose of statin no other changes in medications are being made at this time. PHYSICAL EXAMINATION: GENERAL: The patient is alert and oriented x3, not in any acute distress. Well developed, well nourished. HEENT: Pupils are round and equally reacting to light. EOMI. No scleral icterus. No conjunctival pallor. Normocephalic, atraumatic. No pharyngeal erythema. No thyromegaly. CARDIOVASCULAR: S1 and S2 present. No murmurs, rubs, or gallops. PULMONARY: Chest is clear to auscultation, no wheezing or crackles. ABDOMEN: Soft, nontender, nondistended, normoactive bowel sounds. No palpable organomegaly. MUSCULOSKELETAL: No joint swelling or deformity. EXTREMITIES: No cyanosis, clubbing, or pedal edema. NEUROLOGICAL: Gross neurological examination did not reveal any focal deficits. SKIN: No rashes. Please refer to my dictation of [facility] for further details of the other medical problems hospitalization course. Plan - Discharge Summary Discharge Rx Participant: No New Discharge Prescriptions: New Pravastatin Sodium [Pravachol] 20 mg PO HS tab Continue Cyanocobalamin [Vitamin B-12] 500 mcg PO DAILY hydrOXYzine PAMOATE [Vistaril] 25 mg PO QID PRN PRN Reason: Itching Ranitidine HCl [Zantac] 150 mg PO HS Ferrous Sulfate [Iron (65 MG Elemental)] 325 mg PO DAILY traZODone HCL 50 mg PO HS Triamcinolone 0.1% Ointment [Kenalog 0.1% Ointment] 1 applic TOPICAL BID PRN MDD LEGS/TRUNK PRN Reason: ITCHING/IRRITATION Colloidal Oatmeal [Eucerin Eczema Relief] 1 applic TOPICAL DAILY traMADol HCL [Ultram] 100 mg PO Q6HR PRN PRN Reason: Pain Terazosin [Hytrin] 5 mg PO HS Naloxone HCl [Narcan] 4 mg NASAL DIRECTED PARoxetine HCL [Paxil] 20 mg PO DAILY Meloxicam [Mobic] 7.5 mg PO BID Acetaminophen Tab [Tylenol] 500 mg PO BID PRN MDD 8 TABS PRN Reason: Pain Ketoconazole 2% Shampoo [Nizoral] 1 applic TOPICAL DIRECTED Ketoconazole 2% Cream [Nizoral 2%] 1 applic TOPICAL DAILY Docusate [Colace] 100 mg PO TID amLODIPine [Norvasc] 5 mg PO BID Loratadine [Claritin] 10 mg PO DAILY Cetirizine HCl [Zyrtec] 10 - 20 mg PO DAILY PRN PRN Reason: Itching Discontinued Pravastatin Sodium [Pravachol] 10 mg PO HS Hydrochlorothiazide [Hydrodiuril] 50 mg PO DAILY Aspirin EC [Ecotrin] 325 mg PO DAILY Discharge Medication List Acetaminophen Tab [Tylenol] 500 mg PO BID PRN MDD 8 TABS 01/10/18 [History] Cetirizine HCl [Zyrtec] 10 - 20 mg PO DAILY PRN 01/10/18 [History] Colloidal Oatmeal [Eucerin Eczema Relief] 1 applic TOPICAL DAILY 01/10/18 [ History] Cyanocobalamin [Vitamin B-12] 500 mcg PO DAILY 01/10/18 [History] Docusate [Colace] 100 mg PO TID 01/10/18 [History] Ferrous Sulfate [Iron (65 MG Elemental)] 325 mg PO DAILY 01/10/18 [History] Ketoconazole 2% Cream [Nizoral 2%] 1 applic TOPICAL DAILY 01/10/18 [History] Ketoconazole 2% Shampoo [Nizoral] 1 applic TOPICAL DIRECTED 01/10/18 [History ] Loratadine [Claritin] 10 mg PO DAILY 01/10/18 [History] Meloxicam [Mobic] 7.5 mg PO BID 01/10/18 [History] Naloxone HCl [Narcan] 4 mg NASAL DIRECTED 01/10/18 [History] PARoxetine HCL [Paxil] 20 mg PO DAILY 01/10/18 [History] Ranitidine HCl [Zantac] 150 mg PO HS 01/10/18 [History] Terazosin [Hytrin] 5 mg PO HS 01/10/18 [History] Triamcinolone 0.1% Ointment [Kenalog 0.1% Ointment] 1 applic TOPICAL BID PRN MDD LEGS/TRUNK 01/10/18 [History] amLODIPine [Norvasc] 5 mg PO BID 01/10/18 [History] hydrOXYzine PAMOATE [Vistaril] 25 mg PO QID PRN 01/10/18 [History] traMADol HCL [Ultram] 100 mg PO Q6HR PRN 01/10/18 [History] traZODone HCL 50 mg PO HS 01/10/18 [History] Pravastatin Sodium [Pravachol] 20 mg PO HS tab 01/11/18 [Rx] Follow up Appointment(s)/Referral(s): Eusebio Hill MD [STAFF PHYSICIAN] - 01/17/18 9:45 am (wednesday) Erendira Arroyo MD [STAFF PHYSICIAN] - 3 Weeks (Spoke to clinical nurse reviewer. Office will call with appointment time) [facility],Clinic [Primary Care Provider] - 3 Days (Please call to make appointment.) Patient Instructions/Handouts: Transient Ischemic Attack (ED), Weakness (DC) Discharge Disposition: HOME SELF-CARE
--- NOTE | 2018-01-11 18:16 | EEG ---
ELECTROENCEPHALOGRAM REPORT DATE OF SERVICE: 01/11/2018 REASON FOR TESTING: Transient ischemic attack. DESCRIPTION OF THE PROCEDURE: This EEG was performed using a 21-channel digital electroencephalograph, following international 10-20 system. DESCRIPTION OF THE RECORDING: From the beginning of the tracing, and with the patient's eyes closed, the background rhythm was mostly consisting of 9 Hz alpha frequency in the posterior occipital leads. No obvious asymmetry is seen. Photic stimulation was performed with no driving response seen. No pathological waves were elicited. Hyperventilation was not performed. Occasional movement and muscle artifacts are seen. The patient remains awake throughout the tracing. No epileptiform discharges were seen. His EKG lead showed an irregularly irregular rhythm with a normal rate. INTERPRETATION: This awake EEG can be considered within normal limits, except his EKG lead showed an irregularly irregular rhythm with a normal rate. No epileptiform discharges were seen. The absence of epileptiform discharges does not rule out the diagnosis of epilepsy; therefore clinical correlation is recommended. FOUZIA / TONY: [id number] /
== END 2018-01-11 18:22 | disposition home or self-care (01) | DRG 948 ==
LOC: EC 21:49 → 3SCARD 01-10 00:55
PROVIDERS: ADMIT Internal Medicine; ATTEND Internal Medicine
DX: R53.1 Weakness (principal); N17.9 Acute kidney failure, unspecified; E78.5 Hyperlipidemia, unspecified; E87.6 Hypokalemia; I08.1 Rheumatic disorders of both mitral and tricuspid valves; I10 Essential (primary) hypertension; T50.2X5A Adverse effect of carbonic-anhydrase inhibitors, benzothiadiazides and other diuretics, initial encounter; H53.8 Other visual disturbances; R00.1 Bradycardia, unspecified; R26.9 Unspecified abnormalities of gait and mobility; R94.31 Abnormal electrocardiogram [ECG] [EKG]; R51 Headache; M79.602 Pain in left arm; I65.23 Occlusion and stenosis of bilateral carotid arteries; M19.012 Primary osteoarthritis, left shoulder; M19.011 Primary osteoarthritis, right shoulder; M17.0 Bilateral primary osteoarthritis of knee; D49.81 Neoplasm of unspecified behavior of retina and choroid; J34.1 Cyst and mucocele of nose and nasal sinus; F10.21 Alcohol dependence, in remission; Z96.651 Presence of right artificial knee joint; Z85.828 Personal history of other malignant neoplasm of skin; Z79.02 Long term (current) use of antithrombotics/antiplatelets; Z79.82 Long term (current) use of aspirin; Z79.899 Other long term (current) drug therapy; Z88.8 Allergy status to other drugs, medicaments and biological substances; Z80.9 Family history of malignant neoplasm, unspecified; Z83.49 Family history of other endocrine, nutritional and metabolic diseases
CPT/HCPCS: 36415; 70450; 71046; 80048; 80053; 80061; 82550; 82553; 83090; 84132; 84484; 85025; 85610; 85730; 93306; 93880; 95816; 96361; 96365; 96366; 96375; 99285

== ENCOUNTER 2018-01-19 16:07 | Inpatient (IN) | payer OTHER, MEDICARE ==
[2018-01-19] MEDS ORDERED: SODIUM CHLORIDE 0.9% 1,000 ML IV STA (16:14)
--- NOTE | 2018-01-19 16:21 | ED ---
Neuro HPI - General Chief Complaint: Neuro Symptoms/Deficit Stated Complaint: poss CVA Time Seen by Provider: 01/19/18 16:07 Source: patient, EMS, RN notes reviewed Mode of arrival: EMS Limitations: no limitations - History of Present Illness Is the patient presenting with stroke symptoms?: No Initial Comments: This is a 72-year-old male(seen about a week ago for was believed to be a TIA who presents today with complaints of onset of left upper extremity around 3:30 today. Per paramedics when he arrived he had good vegetable trimmer strength bilaterally was able move everything no asymmetry but he seemed to have some slight left facial asymmetry and decreased vegetable trimmer strength on the left [facility] emergency department. No recent trauma no fevers chills nausea vomiting sweats or other symptoms. Patient does state he had a complete workup except for an MRI due to metal in his body when he was here. He believes he is a somewhat better with respect to his left upper extremity - Related Data Home Medications: Home Medications Medication Instructions Recorded Confirmed Acetaminophen Tab [Tylenol] 500 mg PO BID PRN MDD 8 TABS 01/10/18 01/19/18 Cetirizine HCl [Zyrtec] 10 - 20 mg PO DAILY PRN 01/10/18 01/19/18 Colloidal Oatmeal [Eucerin Eczema 1 applic TOPICAL DAILY 01/10/18 01/19/18 Relief] Cyanocobalamin [Vitamin B-12] 500 mcg PO DAILY 01/10/18 01/19/18 Docusate [Colace] 100 mg PO TID 01/10/18 01/19/18 Ferrous Sulfate [Iron (65 MG 325 mg PO DAILY 01/10/18 01/19/18 Elemental)] Ketoconazole 2% Cream [Nizoral 2%] 1 applic TOPICAL DAILY 01/10/18 01/19/18 Ketoconazole 2% Shampoo [Nizoral] 1 applic TOPICAL DIRECTED 01/10/18 01/19/18 Loratadine [Claritin] 10 mg PO DAILY 01/10/18 01/19/18 Meloxicam [Mobic] 7.5 mg PO BID 01/10/18 01/19/18 Naloxone HCl [Narcan] 4 mg NASAL DIRECTED 01/10/18 01/19/18 PARoxetine HCL [Paxil] 20 mg PO DAILY 01/10/18 01/19/18 Ranitidine HCl [Zantac] 150 mg PO HS 01/10/18 01/19/18 Terazosin [Hytrin] 5 mg PO HS 01/10/18 01/19/18 Triamcinolone 0.1% Ointment 1 applic TOPICAL BID PRN MDD 01/10/18 01/19/18 [Kenalog 0.1% Ointment] LEGS/TRUNK amLODIPine [Norvasc] 5 mg PO BID 01/10/18 01/19/18 hydrOXYzine PAMOATE [Vistaril] 25 mg PO QID PRN 01/10/18 01/19/18 traMADol HCL [Ultram] 100 mg PO Q6HR PRN 01/10/18 01/19/18 traZODone HCL 50 mg PO HS 01/10/18 01/19/18 Previous Rx's Medication Instructions Recorded Aspirin 81 mg PO DAILY #30 chewable 01/11/18 Atorvastatin Calcium [Lipitor] 20 mg PO HS #30 tab 01/11/18 Allergies/Adverse Reactions: Allergies Allergy/AdvReac Type Severity Reaction Status Date / Time lisinopril Allergy Unknown Verified 01/19/18 16:50 simvastatin [From Zocor] Allergy Unknown Verified 01/19/18 16:50 Review of Systems ROS Statement: Those systems with pertinent positive or pertinent negative responses have been documented in the HPI. ROS Other: All systems not noted in ROS Statement are negative. General Exam - General Exam Comments Initial Comments: This is a well-developed well-nourished awake alert anxious oriented 3 male Limitations: no limitations General appearance: alert, anxious Head exam: Present: atraumatic, normocephalic, normal inspection Eye exam: Present: normal appearance, PERRL, EOMI. Absent: scleral icterus, conjunctival injection, periorbital swelling ENT exam: Present: mucous membranes dry Neck exam: Present: normal inspection, full ROM, other (No stridor JVD or bruits ). Absent: tenderness, meningismus, lymphadenopathy Respiratory exam: Present: normal lung sounds bilaterally. Absent: respiratory distress, wheezes, rales, rhonchi, stridor Cardiovascular Exam: Present: normal rhythm, bradycardia, normal heart sounds. Absent: systolic murmur, diastolic murmur, rubs, gallop, clicks GI/Abdominal exam: Present: soft, normal bowel sounds. Absent: distended, tenderness, guarding, rebound, rigid Rectal exam: Present: deferred Extremities exam: Present: normal inspection, normal capillary refill. Absent: full ROM, tenderness Back exam: Present: normal inspection Neurological exam: Present: alert, oriented X3, CN II-XII intact, motor sensory deficit (Some decreased range of motion left upper extremity) Psychiatric exam: Present: normal affect, normal mood Skin exam: Present: warm, dry, intact, normal color. Absent: rash Stroke MDM - Lab Data Result diagrams: 01/19/18 16:24 01/19/18 16:24 Lab Results 01/19/18 01/19/18 01/19/18 Range/Units 16:24 16:24 16:24 WBC 5.8 (3.8-10.6) k/uL RBC 4.49 (4.30-5.90) m/uL Hgb 13.3 (13.0-17.5) gm/dL Hct 39.8 (39.0-53.0) % MCV 88.6 (80.0-100.0) fL MCH 29.6 (25.0-35.0) pg MCHC 33.4 (31.0-37.0) g/dL RDW 13.3 (11.5-15.5) % Plt Count 253 (150-450) k/uL Neutrophils % 63 % Lymphocytes % 18 % Monocytes % 7 % Eosinophils % 8 % Basophils % 1 % Neutrophils # 3.7 (1.3-7.7) k/uL Lymphocytes # 1.0 (1.0-4.8) k/uL Monocytes # 0.4 (0-1.0) k/uL Eosinophils # 0.5 (0-0.7) k/uL Basophils # 0.0 (0-0.2) k/uL PT (9.0-12.0) sec INR (<1.2) APTT (22.0-30.0) sec Sodium 139 (137-145) mmol/L Potassium 4.5 (3.5-5.1) mmol/L Chloride 109 H (98-107) mmol/L Carbon Dioxide 21 L (22-30) mmol/L Anion Gap 9 mmol/L BUN 14 (9-20) mg/dL Creatinine 0.92 (0.66-1.25) mg/dL Est GFR (CKD-EPI)AfAm >90 (>60 ml/min/1.73 sqM) Est GFR (CKD-EPI)NonAf 84 (>60 ml/min/1.73 sqM) Glucose 116 H (74-99) mg/dL Calcium 9.5 (8.4-10.2) mg/dL Magnesium 2.0 (1.6-2.3) mg/dL Total Bilirubin 0.6 (0.2-1.3) mg/dL AST 31 (17-59) U/L ALT 48 (21-72) U/L Alkaline Phosphatase 85 (38-126) U/L Total Creatine Kinase 52 L (55-170) U/L CK-MB (CK-2) 0.6 (0.0-2.4) ng/mL CK-MB (CK-2) Rel Index 1.2 Troponin I <0.012 (0.000-0.034) ng/mL Total Protein 6.5 (6.3-8.2) g/dL Albumin 4.1 (3.5-5.0) g/dL TSH 1.180 (0.465-4.680) mIU/L Urine Color Urine Appearance (Clear) Urine pH (5.0-8.0) Ur Specific [place] (1.001-1.035) Urine Protein (Negative) Urine Glucose (UA) (Negative) Urine Ketones (Negative) Urine Blood (Negative) Urine Nitrite (Negative) Urine Bilirubin (Negative) Urine Urobilinogen (<2.0) mg/dL Ur Leukocyte Esterase (Negative) Urine RBC (0-5) /hpf Urine WBC (0-5) /hpf Urine Mucus (None) /hpf 01/19/18 01/19/18 Range/Units 17:50 19:20 WBC (3.8-10.6) k/uL RBC (4.30-5.90) m/uL Hgb (13.0-17.5) gm/dL Hct (39.0-53.0) % MCV (80.0-100.0) fL MCH (25.0-35.0) pg MCHC (31.0-37.0) g/dL RDW (11.5-15.5) % Plt Count (150-450) k/uL Neutrophils % % Lymphocytes % % Monocytes % % Eosinophils % % Basophils % % Neutrophils # (1.3-7.7) k/uL Lymphocytes # (1.0-4.8) k/uL Monocytes # (0-1.0) k/uL Eosinophils # (0-0.7) k/uL Basophils # (0-0.2) k/uL PT 10.2 (9.0-12.0) sec INR 1.0 (<1.2) APTT 22.3 (22.0-30.0) sec Sodium (137-145) mmol/L Potassium (3.5-5.1) mmol/L Chloride (98-107) mmol/L Carbon Dioxide (22-30) mmol/L Anion Gap mmol/L BUN (9-20) mg/dL Creatinine (0.66-1.25) mg/dL Est GFR (CKD-EPI)AfAm (>60 ml/min/1.73 sqM) Est GFR (CKD-EPI)NonAf (>60 ml/min/1.73 sqM) Glucose (74-99) mg/dL Calcium (8.4-10.2) mg/dL Magnesium (1.6-2.3) mg/dL Total Bilirubin (0.2-1.3) mg/dL AST (17-59) U/L ALT (21-72) U/L Alkaline Phosphatase (38-126) U/L Total Creatine Kinase (55-170) U/L CK-MB (CK-2) (0.0-2.4) ng/mL CK-MB (CK-2) Rel Index Troponin I (0.000-0.034) ng/mL Total Protein (6.3-8.2) g/dL Albumin (3.5-5.0) g/dL TSH (0.465-4.680) mIU/L Urine Color Yellow Urine Appearance Cloudy (Clear) Urine pH 8.5 H (5.0-8.0) Ur Specific [place] 1.013 (1.001-1.035) Urine Protein 1+ H (Negative) Urine Glucose (UA) Negative (Negative) Urine Ketones 2+ H (Negative) Urine Blood Negative (Negative) Urine Nitrite Negative (Negative) Urine Bilirubin Negative (Negative) Urine Urobilinogen <2.0 (<2.0) mg/dL Ur Leukocyte Esterase Negative (Negative) Urine RBC <1 (0-5) /hpf Urine WBC 2 (0-5) /hpf Urine Mucus Rare H (None) /hpf - NIH Stroke Scale 1a. Level of Consciousness: (0) alert 1b. LOC Questions: (0) answers correctly 1c. LOC Commands: (0) performs tasks correctly 2. Best Gaze: (0) normal 3. Visual: (0) no visual loss 4. Facial Palsy: (0) normal symmetrical movement 5a. Motor Arm Left: (1) drift 5b. Motor Arm Right: (0) no drift 6a. Motor Leg Left: (0) no drift 6b. Motor Leg Right: (0) no drift 7. Limb Ataxia: (1) present 1 limb 8. Sensory: (0) normal 9. Best Language: (0) no aphasia 10. Dysarthria: (0) normal 11. Extinction/Inattention: (0) no abnormality (Examination of the left upper extremity is inconsistent patient time was spontaneously other time state he can 't) - Medical Decision Making I did review the imaging and report no acute findings. - EKG Data -: EKG Interpreted by Me EKG shows normal: sinus rhythm, axis, intervals, QRS complexes, ST-T waves Rate: bradycardia (Bradycardia with a rate of 51. Interval 1:30 QRS duration 84 QT since QTC 516/[address]-T wave changes) Past Medical History Past Medical History: Asthma, Cancer, CVA/TIA, Eye Disorder, Hyperlipidemia, Hypertension, Liver Disease, Osteoarthritis (OA) Additional Past Medical History / Comment(s): Pt states that past 2 weeks has had "blurred" vision and was seen at [facility] in [place] and told he has a "freckle" in that eye and will follow up with them, childhood asthma, liver "problem" before which pt states he was told was d/t taking tylenol #3, past ETOH abuse-sober for 19yrs then started drining 1-2 beers on occasion only, arthritis-bilateral shoulder and knee pains, skin cancer removed from nose. History of Any Multi-Drug Resistant Organisms: None Reported Past Surgical History: Hernia Repair Additional Past Surgical History / Comment(s): colonoscopy, total R knee arthroplasty, bilateral knee arthroscopies, R foot titanium implant, bilateral shoulder surgery, L inguinal hernia repaix x3, septoplasty and skin cancer removed from nose. Past Anesthesia/Blood Transfusion Reactions: No Reported Reaction Past Psychological History: Depression Smoking Status: Never smoker Past Alcohol Use History: Daily Past Drug Use History: None Reported - Past Family History Father Family Medical History: Cancer Additional Family Medical History / Comment(s): Father had prostrate cancer. He is . Mother Family Medical History: Cancer, Thyroid Disorder Additional Family Medical History / Comment(s): Mother is . Pt states she had thyroid disease/surgeries. He thinks she had cancer in her "back". Course Vital Signs 01/19/18 01/19/18 01/19/18 16:09 17:00 17:55 Temperature 97.5 F L Pulse Rate 54 L 58 L Respiratory 18 18 Rate Blood Pressure 124/80 133/75 154/83 O2 Sat by Pulse 99 98 Oximetry 01/19/18 01/19/18 19:00 20:00 Temperature Pulse Rate 62 53 L Respiratory 20 18 Rate Blood Pressure 173/87 126/83 O2 Sat by Pulse 97 95 Oximetry - Reevaluation(s) Reevaluation #1: 01/19/18 20:37 Reevaluation patient appears to be moving his left upper extremity better he does state he has numbness her left side of his extremities. Disposition Clinical Impression: Transient cerebral ischemia Disposition: ADMITTED IP TO THIS HOSP Condition: Stable Referrals: [facility],Clinic [Primary Care Provider] - 1-2 days
--- NOTE | 2018-01-19 17:47 | CT ---
EXAMINATION TYPE: CT brain veronica banks DATE OF EXAM: 01/19/2018 COMPARISON: CT brain 01/09/2018 HISTORY: Left sided arm numbness and weakness CT DLP: 1412.9 mGycm Automated exposure control for dose reduction was used. TECHNIQUE: CT scan of the head and cervical spine are performed without contrast. FINDINGS: There is mild cerebral cortical atrophy. There is no mass effect nor midline shift. There is no sign of intracranial hemorrhage. The calvarium is intact. There is small mucus retention cyst right maxillary sinus. Cervical vertebra have fairly normal spacing and alignment. Posterior elements are intact. There is m ild hypertrophic facet arthropathy throughout the cervical spine. The skull base is intact. IMPRESSION: Negative CT scan of the brain. No change. No acute abnormality of the cervical spine. Mild facet arthropathy.
[2018-01-19 17:56] LABS: Basophils % (A) 1 %; Eosinophils # (A) 0.5 k/uL (0-0.7); Eosinophils % (A) 8 %; HCT 39.8 % (39.0-53.0); HGB 13.3 gm/dL (13.0-17.5); Lymphocytes % (A) 18 %; MCH 29.6 pg (25.0-35.0); MCHC 33.4 g/dL (31.0-37.0); MCV 88.6 fL (80.0-100.0); Mean Platelet Volume 8.2; Monocytes # (A) 0.4 k/uL (0-1.0); Monocytes % (A) 7 %; Neutrophils # (A) 3.7 k/uL (1.3-7.7); Neutrophils % (A) 63 %; Platelet Count 253 k/uL (150-450); RBC 4.49 m/uL (4.30-5.90); RDW 13.3 % (11.5-15.5); WBC 5.8 k/uL (3.8-10.6)
[2018-01-19 18:02] LABS: ALT 48 U/L (21-72); AST 31 U/L (17-59); Albumin 4.1 g/dL (3.5-5.0); Alkaline Phosphatase 85 U/L (38-126); Anion Gap 9 mmol/L; Blood Urea Nitrogen 14 mg/dL (9-20); Calcium 9.5 mg/dL (8.4-10.2); Carbon Dioxide 21 mmol/L (22-30); Chloride 109 mmol/L (98-107); Glucose 116 mg/dL (74-99); Potassium 4.5 mmol/L (3.5-5.1); Sodium 139 mmol/L (137-145); Total Bilirubin 0.6 mg/dL (0.2-1.3); Total Protein 6.5 g/dL (6.3-8.2)
[2018-01-19 18:10] LABS: Creatine Kinase 52 U/L (55-170)
--- NOTE | 2018-01-19 18:22 | XR ---
EXAMINATION TYPE: XR chest 2V DATE OF EXAM: 01/19/2018 COMPARISON: 01/09/2018 HISTORY: Left-sided weakness TECHNIQUE: Frontal and lateral views of the chest are obtained. FINDINGS: There is no heart failure nor confluent pneumonic infiltrate. Costophrenic angles are sabrina r. Bony thorax is intact. There are chest leads. IMPRESSION: No active cardiopulmonary disease. Normal heart. No change.
[2018-01-19 18:25] LABS: Creatine Kinase MB 0.6 ng/mL (0.0-2.4); Troponin I <0.012 ng/mL (0.000-0.034)
[2018-01-19 19:12] LABS: Partial Thromboplastin Time 22.3 sec (22.0-30.0); Prothrombin Time 10.2 sec (9.0-12.0)
[2018-01-19 19:34] LABS: Appearance,Urine Cloudy (Clear); Bilirubin,Urine Negative (Negative); Blood,Urine Negative (Negative); Color,Urine Yellow; Glucose,Urine (UA) Negative (Negative); Ketones,Urine 2+ (Negative); Leukocyte Esterase,Urine Negative (Negative); Mucus,Urine Rare /hpf; Nitrite,Urine Negative (Negative); PH, Urine 8.5 (5.0-8.0); Protein,Urine 1+ (Negative); RBC,Urine <1 /hpf (0-5); Specific Gravity,Urine 1.013 (1.001-1.035); Urobilinogen,Urine <2.0 mg/dL (<2.0); WBC,Urine 2 /hpf (0-5)
[2018-01-19] MEDS ORDERED: ONDANSETRON 4 MG/2 ML VIAL IVP STA (20:47)
[2018-01-19] MEDS ORDERED: hydrOXYzine PAMOATE 25 MG CAP PO PRN (21:05)
[2018-01-19] MEDS ORDERED: ACETAMINOPHEN TAB 500 MG TAB PO PRN (21:05)
[2018-01-19] MEDS ORDERED: traMADol 50 MG TAB PO PRN (21:05)
[2018-01-19] MEDS ORDERED: TRIAMCINOLONE ACET 0.1% OINTMENT 15 GM TUBE TOPICAL PRN (21:05)
[2018-01-19] MEDS ORDERED: LORATADINE 10 MG TAB PO PRN (21:05)
[2018-01-19] MEDS: KETOCONAZOLE 2% SHAMPOO 1 APPLIC/ML TOPICAL SCH (22:26)
[2018-01-19] MEDS: NALOXONE HCL 4 MG NASAL SCH (22:27)
[2018-01-19] MEDS: DOCUSATE 100 MG CAP PO SCH (22:27)
[2018-01-19] MEDS: FAMOTIDINE 20 MG/2 ML VIAL IV SCH (22:40)
[2018-01-19] MEDS: SODIUM CHLORIDE 0.9% 1,000 ML IV SCH (22:41)
[2018-01-20] MEDS: SODIUM CHLORIDE 0.9% 1,000 ML IV SCH ×2 (05:40→18:16)
[2018-01-20 07:37] LABS: Cholesterol 124 mg/dL (<200); HDL Cholesterol 41 mg/dL (40-60); LDL Cholesterol,Calculated 72 mg/dL (0-99); Triglycerides 55 mg/dL (<150)
[2018-01-20] MEDS ORDERED: LORATADINE 10 MG TAB PO SCH (09:00)
[2018-01-20] MEDS ORDERED: NON-FORMULARY DRUG (Colloidal Oatmeal [Eucerin Eczema Relief] 1 APPLIC) TOPICAL SCH (09:00)
[2018-01-20] MEDS ORDERED: NON-FORMULARY DRUG (Ketoconazole 2% Cream 1 APPLIC) TOPICAL SCH (09:00)
[2018-01-20] MEDS: FAMOTIDINE 20 MG/2 ML VIAL IV SCH ×2 (11:31→20:12)
[2018-01-20] MEDS: DOCUSATE 100 MG CAP PO SCH ×3 (15:09→20:13)
[2018-01-20] MEDS: FERROUS SULFATE 325 MG TAB PO SCH (15:09)
[2018-01-20] MEDS: CYANOCOBALAMIN 500 MCG TAB PO SCH (15:09)
[2018-01-20] MEDS: MELOXICAM 7.5 MG TAB PO SCH ×2 (15:09→20:13)
[2018-01-20] MEDS: amLODIPine 5 MG TAB PO SCH ×2 (15:09→20:12)
[2018-01-20] MEDS: CLOPIDOGREL 75 MG TAB PO SCH (15:09)
[2018-01-20] MEDS: PARoxetine 20 MG TAB PO SCH (15:10)
[2018-01-20] MEDS ORDERED: ACETAMINOPHEN SUPPOSITORY 650 MG SUPP RECTAL STA (15:57)
--- NOTE | 2018-01-20 16:10 | FL ---
EXAMINATION TYPE: FL barium swallow w video DATE OF EXAM: 01/20/2018 MODIFIED SWALLOW / DEGLUTITION STUDY CLINICAL HISTORY: Dysphagia. TECHNIQUE: Deglutition study is performed utilizing thin liquid barium, honey and nectar thick liqui d barium, barium thick applesauce, and barium coated cracker. 2 min 55 sec fl time. The exam was vid eo recorded and therefore no fluoroscopic images were saved. COMPARISON: None. FINDINGS: The oral and pharyngeal phases show delayed initiation and propagation with all modalities tested. There is incomplete epiglottic closure and poor pharyngeal excursion. Normal mastication is s een with solid modalities tested. Repeated laryngeal transient penetration was seen with the thin, ho scotty, and nectar thick barium consistencies. Inconsistent swallow is seen as aspiration was appreciate d with the thin consistency in the setting of large volume vallecular retention at the end of the exa mination. No significant pharyngeal residue was appreciated. IMPRESSION: Inconsistent swallow. Jas aspiration with thin consistency limited to the setting of la rge volume vallecular retention of barium coated cracker. Persistent laryngeal penetration with thin ner consistencies. Please refer to speech therapist notes for further details if necessary.
[2018-01-20] MEDS ORDERED: MORPHINE SULFATE 2 MG/ML SYRINGE IVP STA (16:15)
[2018-01-20] MEDS: ASPIRIN 300 MG SUPP RECTAL SCH (16:22)
--- NOTE | 2018-01-20 17:11 | P.CNNES ---
History of Present Illness Consult date: 01/20/18 Requesting physician: Con Bhakta Reason for Consult: TIA History of Present Illness: Patient is a pleasant 72-year-old male who is being evaluated by the neurology service on 01/20/2018 per the request of Dr. Bhakta for TIA. Patient was recently seen approximately a week ago with complaints of weakness. Patient was visiting in the group home and felt very weak from the neck down. He does not recall having any numbness or tingling. Patient was brought to [facility] for further workup and management. Computed tomography scan of the brain at that time was normal. A carotid Doppler was done at previous visit which showed no hemodynamically significant stenosis but did show evidence of arrhythmia on the study. Patient presents this admission with same complaints of generalized weakness. Patient does state weakness seems to be more on the left as compared to the right. Patient does have slight left facial droop and is having significant difficulty swallowing. Patient had barium swallow study which showed ana aspiration with thin consistencies. Patient is nothing by mouth at this time and will have a repeat swallow study done in the morning. Computed tomography scan of the brain on this admission showed no acute abnormality. Patient also had computed tomography scan of the cervical spine which showed no acute abnormality as well. CT of the cervical spine did show mild facet arthropathy. Patient had EEG done approximately a week ago which was within normal limits. Patient cannot have an MRI due to metal in his body. Vital signs on admission when 97.5 , pulse rate 54, respirations 18, blood pressure 124/80, and oxygen saturation 99% on room air. At the time of my evaluation, patient is resting comfortably in bed and appears to be in no acute distress. Review of Systems REVIEW OF SYSTEMS: Otherwise unremarkable and noncontributory. Past Medical History Past Medical History: Asthma, Cancer, CVA/TIA, Eye Disorder, Hyperlipidemia, Hypertension, Liver Disease, Osteoarthritis (OA) Additional Past Medical History / Comment(s): Pt states that past 2 weeks has had "blurred" vision and was seen at [facility] in [place] and told he has a "freckle" in that eye and will follow up with them, childhood asthma, liver "problem" before which pt states he was told was d/t taking tylenol #3, past ETOH abuse-sober for 19yrs then started drining 1-2 beers on occasion only, arthritis-bilateral shoulder and knee pains, skin cancer removed from nose. History of Any Multi-Drug Resistant Organisms: None Reported Past Surgical History: Hernia Repair Additional Past Surgical History / Comment(s): colonoscopy, total R knee arthroplasty, bilateral knee arthroscopies, R foot titanium implant, bilateral shoulder surgery, L inguinal hernia repaix x3, septoplasty and skin cancer removed from nose. Past Anesthesia/Blood Transfusion Reactions: No Reported Reaction Past Psychological History: Depression Additional Psychological History / Comment(s): Pt resides alone. His spouse is in a prison care facilty. Pt is independent. He is a [place] vet. Smoking Status: Never smoker Past Alcohol Use History: Daily Additional Past Alcohol Use History / Comment(s): Pt statess he has past ETOH abuse and was sober for 19 yrs. He states he started drinking 1-2 beers on occasion only since about 2005. Past Drug Use History: None Reported - Past Family History Father Family Medical History: Cancer Additional Family Medical History / Comment(s): Father had prostrate cancer. He is . Mother Family Medical History: Cancer, Thyroid Disorder Additional Family Medical History / Comment(s): Mother is . Pt states she had thyroid disease/surgeries. He thinks she had cancer in her "back". Medications and Allergies Home Medications Medication Instructions Recorded Confirmed Type Acetaminophen Tab [Tylenol] 500 mg PO BID PRN MDD 8 TABS 01/10/18 01/19/18 History Cetirizine HCl [Zyrtec] 10 - 20 mg PO DAILY PRN 01/10/18 01/19/18 History Colloidal Oatmeal [Eucerin Eczema 1 applic TOPICAL DAILY 01/10/18 01/19/18 History Relief] Cyanocobalamin [Vitamin B-12] 500 mcg PO DAILY 01/10/18 01/19/18 History Docusate [Colace] 100 mg PO TID 01/10/18 01/19/18 History Ferrous Sulfate [Iron (65 MG 325 mg PO DAILY 01/10/18 01/19/18 History Elemental)] Ketoconazole 2% Cream [Nizoral 2%] 1 applic TOPICAL DAILY 01/10/18 01/19/18 History Ketoconazole 2% Shampoo [Nizoral] 1 applic TOPICAL DIRECTED 01/10/18 History Loratadine [Claritin] 10 mg PO DAILY 01/10/18 01/19/18 History Meloxicam [Mobic] 7.5 mg PO BID 01/10/18 01/19/18 History Naloxone HCl [Narcan] 4 mg NASAL DIRECTED 01/10/18 01/19/18 History PARoxetine HCL [Paxil] 20 mg PO DAILY 01/10/18 01/19/18 History Ranitidine HCl [Zantac] 150 mg PO HS 01/10/18 01/19/18 History Terazosin [Hytrin] 5 mg PO HS 01/10/18 01/19/18 History Triamcinolone 0.1% Ointment 1 applic TOPICAL BID PRN MDD 01/10/18 01/19/18 History [Kenalog 0.1% Ointment] LEGS/TRUNK amLODIPine [Norvasc] 5 mg PO BID 01/10/18 01/19/18 History hydrOXYzine PAMOATE [Vistaril] 25 mg PO QID PRN 01/10/18 01/19/18 History traMADol HCL [Ultram] 100 mg PO Q6HR PRN 01/10/18 01/19/18 History traZODone HCL 50 mg PO HS 01/10/18 01/19/18 History Aspirin 81 mg PO DAILY #30 chewable 01/11/18 01/19/18 Rx Atorvastatin Calcium [Lipitor] 20 mg PO HS #30 tab 01/11/18 01/19/18 Rx Allergies Allergy/AdvReac Type Severity Reaction Status Date / Time lisinopril Allergy Unknown Verified 01/19/18 16:50 simvastatin [From Zocor] Allergy Unknown Verified 01/19/18 16:50 Physical Examination - Vital Signs Vital Signs: Vital Signs Temp Pulse Pulse Resp BP BP Pulse Ox 01/20/18 16:00 97.8 F 67 17 166/64 96 01/20/18 11:33 98.1 F 69 16 138/72 96 01/20/18 11:16 63 16 01/20/18 08:00 59 L 16 01/20/18 07:57 97.7 F 59 L 16 134/71 96 01/20/18 04:00 97.8 F 80 16 128/64 97 01/20/18 00:00 97.8 F 68 18 147/79 96 01/19/18 21:49 97.8 F 56 L 18 128/80 96 01/19/18 21:39 97.8 F 70 18 158/70 97 01/19/18 20:00 53 L 18 126/83 95 01/19/18 19:00 62 20 173/87 97 01/19/18 17:55 58 L 18 154/83 98 01/19/18 17:00 133/75 Intake and Output 01/20/18 01/20/18 01/20/18 06:59 14:59 22:59 Intake Total 480 Output Total 300 600 Balance 180 -600 Intake: Oral 480 Output: Urine 300 600 Other: Voiding Method Urinal Urinal Urinal # Voids 2 Weight 71.214 kg PHYSICAL EXAM: GENERAL APPEARANCE: Patient is a well-developed, male who appears to be in no acute distress. HEENT: Normocephalic, atraumatic, facial asymmetry is seen. Neck is supple with no masses felt. CARDIOVASCULAR: Regular rate and rhythm. ABDOMEN: Nontender, nondistended. EXTREMITIES: Show no edema or clubbing. NEUROLOGICAL EXAM: Patient is awake, alert, and oriented 3. Speech and language are normal. Strength is 5/5 in right upper and lower extremity. During that is 4/5 in left upper extremity and 5-/5 in left lower extremity. Sensory exam to light touch is decreased on left upper and lower extremity. Trace left facial droop seen on cranial nerve testing. No tremors or seizure- like activity noted. Results - Laboratory Findings CBC and BMP: 01/19/18 16:24 01/19/18 16:24 Abnormal Lab Findings: Abnormal Labs 01/19/18 01/19/18 01/19/18 16:24 16:24 19:20 Chloride 109 H Carbon Dioxide 21 L Glucose 116 H Total Creatine Kinase 52 L Urine pH 8.5 H Urine Protein 1+ H Urine Ketones 2+ H Urine Mucus Rare H Assessment and Plan Plan: Impression: 1. Possible CVA 2. Left-sided weakness, improving 3. Left-sided sensory deficit 4. Dysphagia 5. History of TIA 6. Hyperlipidemia 7. Questionable cardiac arrhythmia Recommendation: The patient did have episode of left-sided weakness, left-sided sensory deficit, and dysphagia. Patient has mild left facial droop. Symptoms are slowly resolving. Patient is unable to have MRI due to metal in his body. I will repeat a CT of the brain in the morning. Continue antiplatelet therapy in the form of rectal aspirin 300 mg daily. I recommend PT OT to evaluate and treat. Continue speech therapy and swallow evaluation. Patient's lipid panel was recently elevated and statin drug was increased. Once patient has been cleared from swallow standpoint, patient can be switched to oral aspirin and statin drug will be resumed. Serum homocystine level was normal. EEG was normal. Carotid Doppler showed no significant stenosis. Continue neurological checks. Continue medical management. I will continue to follow with you. Further recommendations to follow. Thank you for allowing me to participate in the care of your patient. Feel free to call with any questions or concerns. I performed an examination of the patient and discussed the management with the SOCIAL MEDIA MARKETING ANALYST. I have reviewed the SOCIAL MEDIA MARKETING ANALYST notes and agree with the findings and plan of care.
[2018-01-20] MEDS: ATORVASTATIN 20 MG TAB PO SCH (20:12)
[2018-01-20] MEDS: DOXAZOSIN 4 MG TAB PO SCH (20:12)
[2018-01-20] MEDS: KETOCONAZOLE 2% SHAMPOO 1 APPLIC/ML TOPICAL SCH (20:13)
[2018-01-20] MEDS: NALOXONE HCL 4 MG NASAL SCH (20:13)
[2018-01-20] MEDS: traZODone HCL 50 MG TAB PO SCH (20:13)
[2018-01-20] MEDS ORDERED: NON-FORMULARY DRUG (Ranitidine Hcl [Zantac] 150 MG) PO SCH (21:00)
[2018-01-20] MEDS ORDERED: ASPIRIN 325 MG TAB PO SCH (21:04)
--- NOTE | 2018-01-20 21:38 | P.HPIM ---
History of Present Illness H&P Date: 01/20/18 Chief Complaint: Left-sided weakness Patient is a 72-year-old male with a known history of CVA/TIA, hypertension, hyperlipidemia, osteoarthritis, asthma, PE was history of alcohol abuse and multiple other medical problems presented to ER with complaints of left-sided weakness at around 3:30 PM yesterday. Patient went to store and suddenly developed left-sided weakness while he was walking. Patient leaned onto the boxs and to the floor. Denied any fall or streaking movements. Patient was brought to the hospital by EMS. Patient did have a good aqua ammonia operator bilaterally and was able to move everything by the time EMS arrived. Patient was having some left facial asymmetry and some residual left-sided weakness when he was seen in the emergency room. Patient was admitted to the hospital about a week ago with the TIA and had a workup including CT brain was normal. Carotid duplex showed no hemodynamically significant stenosis. Patient was found have bradycardic with heart rate around 50s at the time and was seen by cardiology. Recommended to follow-up as an outpatient for cardiac monitoring which is supposed to follow in next 1-2 days. MRI of the brain could not be done due to metal plates in the right shoulder and also bilateral ankles. EEG was normal at this time. Patient did improve clinically and was sent home. Patient denied any complaints of chest pain or shortness of breath. No fever no chills. No nausea vomiting or diarrhea. Patient has not been eating very well recently. Patient uses by himself and is at the extended care facility. Patient does have improvement in left sided weakness currently. Otherwise patient failed swallow evaluation and barium swallow was done which also showed dyslogia. Currently patient is nothing by mouth. Neurology was consulted for further evaluation. Heart rate was in 50s when he came to the hospital. CT head showed no acute abnormality. EKG showed sinus bradycardia CT cervical spine showed mild facet arthropathy Review of Systems Constitutional: Patient denies any fever or chills . No generalized weakness or weight loss. Abdomen: Patient denied nausea vomiting and diarrhea and abdominal pain. Cardiovascular: Patient denies any chest pain or short of breath no palpitations. Respiratory: patient denied any cough is from production. No shortness of breath Neurologic: Patient denied any numbness or tingling or headache. Left sided weakness. Musculoskeletal: Patient denies any complaints of joint swelling or deformity. Skin: Negative Psychiatric: Negative Endocrine: No heat or cold intolerance. No recent weight gain. Genitourinary: No dysuria or hematuria. All other 14 point ROS negative except the above Past Medical History Past Medical History: Asthma, Cancer, CVA/TIA, Eye Disorder, Hyperlipidemia, Hypertension, Liver Disease, Osteoarthritis (OA) Additional Past Medical History / Comment(s): Pt states that past 2 weeks has had "blurred" vision and was seen at [facility] in [place] and told he has a "freckle" in that eye and will follow up with them, childhood asthma, liver "problem" before which pt states he was told was d/t taking tylenol #3, past ETOH abuse-sober for 19yrs then started drining 1-2 beers on occasion only, arthritis-bilateral shoulder and knee pains, skin cancer removed from nose. History of Any Multi-Drug Resistant Organisms: None Reported Past Surgical History: Hernia Repair Additional Past Surgical History / Comment(s): colonoscopy, total R knee arthroplasty, bilateral knee arthroscopies, R foot titanium implant, bilateral shoulder surgery, L inguinal hernia repaix x3, septoplasty and skin cancer removed from nose. Past Anesthesia/Blood Transfusion Reactions: No Reported Reaction Past Psychological History: Depression Additional Psychological History / Comment(s): Pt resides alone. His spouse is in a retirement care facilty. Pt is independent. He is a [place] vet. Smoking Status: Never smoker Past Alcohol Use History: Daily Additional Past Alcohol Use History / Comment(s): Pt statess he has past ETOH abuse and was sober for 19 yrs. He states he started drinking 1-2 beers on occasion only since about 2005. Past Drug Use History: None Reported - Past Family History Father Family Medical History: Cancer Additional Family Medical History / Comment(s): Father had prostrate cancer. He is . Mother Family Medical History: Cancer, Thyroid Disorder Additional Family Medical History / Comment(s): Mother is . Pt states she had thyroid disease/surgeries. He thinks she had cancer in her "back". Medications and Allergies Home Medications Medication Instructions Recorded Confirmed Type Acetaminophen Tab [Tylenol] 500 mg PO BID PRN MDD 8 TABS 01/10/18 01/19/18 History Cetirizine HCl [Zyrtec] 10 - 20 mg PO DAILY PRN 01/10/18 01/19/18 History Colloidal Oatmeal [Eucerin Eczema 1 applic TOPICAL DAILY 01/10/18 01/19/18 History Relief] Cyanocobalamin [Vitamin B-12] 500 mcg PO DAILY 01/10/18 01/19/18 History Docusate [Colace] 100 mg PO TID 01/10/18 01/19/18 History Ferrous Sulfate [Iron (65 MG 325 mg PO DAILY 01/10/18 01/19/18 History Elemental)] Ketoconazole 2% Cream [Nizoral 2%] 1 applic TOPICAL DAILY 01/10/18 01/19/18 History Ketoconazole 2% Shampoo [Nizoral] 1 applic TOPICAL DIRECTED 01/10/18 History Loratadine [Claritin] 10 mg PO DAILY 01/10/18 01/19/18 History Meloxicam [Mobic] 7.5 mg PO BID 01/10/18 01/19/18 History Naloxone HCl [Narcan] 4 mg NASAL DIRECTED 01/10/18 01/19/18 History PARoxetine HCL [Paxil] 20 mg PO DAILY 01/10/18 01/19/18 History Ranitidine HCl [Zantac] 150 mg PO HS 01/10/18 01/19/18 History Terazosin [Hytrin] 5 mg PO HS 01/10/18 01/19/18 History Triamcinolone 0.1% Ointment 1 applic TOPICAL BID PRN MDD 01/10/18 01/19/18 History [Kenalog 0.1% Ointment] LEGS/TRUNK amLODIPine [Norvasc] 5 mg PO BID 01/10/18 01/19/18 History hydrOXYzine PAMOATE [Vistaril] 25 mg PO QID PRN 01/10/18 01/19/18 History traMADol HCL [Ultram] 100 mg PO Q6HR PRN 01/10/18 01/19/18 History traZODone HCL 50 mg PO HS 01/10/18 01/19/18 History Aspirin 81 mg PO DAILY #30 chewable 01/11/18 01/19/18 Rx Atorvastatin Calcium [Lipitor] 20 mg PO HS #30 tab 01/11/18 01/19/18 Rx Allergies Allergy/AdvReac Type Severity Reaction Status Date / Time lisinopril Allergy Unknown Verified 01/19/18 16:50 simvastatin [From Zocor] Allergy Unknown Verified 01/19/18 16:50 Physical Exam Vitals: Vital Signs Temp Pulse Pulse Resp BP BP Pulse Ox 01/20/18 08:00 59 L 16 01/20/18 07:57 97.7 F 59 L 16 134/71 96 01/20/18 04:00 97.8 F 80 16 128/64 97 01/20/18 00:00 97.8 F 68 18 147/79 96 01/19/18 21:49 97.8 F 56 L 18 128/80 96 01/19/18 21:39 97.8 F 70 18 158/70 97 01/19/18 20:00 53 L 18 126/83 95 01/19/18 19:00 62 20 173/87 97 01/19/18 17:55 58 L 18 154/83 98 01/19/18 17:00 133/75 01/19/18 16:09 97.5 F L 54 L 18 124/80 99 Intake and Output 01/19/18 01/20/18 01/20/18 22:59 06:59 14:59 Intake Total 480 480 Output Total 300 Balance 480 180 Intake: Oral 480 480 Output: Urine 300 Other: Voiding Method Urinal Urinal # Voids 2 2 Weight 79.333 kg 71.214 kg PHYSICAL EXAMINATION: Patient is lying in the bed comfortably, no acute distress, awake alert and oriented.. HEENT: Normocephalic. Neck is supple. Pupils reactive. Nostrils clear. Oral cavity is moist. Ears reveal no drainage. Neck reveals no JVD, carotid bruits, or thyromegaly. CHEST EXAMINATION: Trachea is central. Symmetrical expansion. Lung olivas clear to auscultation and percussion. CARDIAC: Normal S1, S2 with no gallops. No murmurs ABDOMEN: Soft. Bowel sounds normal. No organomegaly. No abdominal bruits. Extremities: reveal no edema. No clubbing or cyanosis Neurologically awake, alert, oriented x3 with well-coordinated movements. Patient does have left-sided weakness with muscle strength 4 /5 Skin: No rash or skin lesions. Psychiatric: Coperative. Nonsuicidal Musculoskeletal: No joint swelling or deformity. Normal range of motion. Results CBC & Chem 7: 01/19/18 16:24 01/19/18 16:24 Labs: Abnormal Lab Results - Last 24 Hours (Table) 01/19/18 01/19/18 01/19/18 Range/Units 16:24 16:24 19:20 Chloride 109 H (98-107) mmol/L Carbon Dioxide 21 L (22-30) mmol/L Glucose 116 H (74-99) mg/dL Total Creatine Kinase 52 L (55-170) U/L Urine pH 8.5 H (5.0-8.0) Urine Protein 1+ H (Negative) Urine Ketones 2+ H (Negative) Urine Mucus Rare H (None) /hpf Thrombosis Risk Factor Assmnt - DVT/VTE Prophylaxis DVT/VTE Prophylaxis: Pharmacologic Prophylaxis ordered - Choose All That Apply Each Risk Factor Represents 2 Points: Age 61-74 years Thrombosis Risk Factor Assessment Total Risk Factor Score: 2 Thrombosis Risk Factor Assessment Level: Low Risk Assessment and Plan Assessment: Left-sided weakness due to TIA. Possible CVA Dysphagia and failed swallow evaluation Recent history of TIA. Stroke workup was negative. MRI could not be done due to metal in the body. Hypertension Hyperlipidemia Sinus bradycardia. Questionable arrhythmia. Osteoarthritis Previous history of alcohol abuse DVT prophylaxis Plan: Patient will be continued on telemetry monitoring. Currently with aspirin Plavix and statins. Neurology and cardiology was consulted. Continue to follow closely and further recommendations based on the clinical course. Patient failed swallow evaluation with barium swallow study. Currently aspirin is being given rectally. Repeat CT head was ordered as per neurology recommendations. Prognosis is guarded. Time with Patient: Greater than 30
[2018-01-20] MEDS: HEPARIN SODIUM,PORCINE 5,000 UNIT/ML 1 ML VIAL SQ SCH (22:48)
[2018-01-21] MEDS: SODIUM CHLORIDE 0.9% 1,000 ML IV SCH (00:39)
[2018-01-21] MEDS ORDERED: SODIUM CHLORIDE 0.9% 1,000 ML IV SCH (05:15)
--- NOTE | 2018-01-21 08:28 | CT ---
EXAMINATION TYPE: CT brain wo con DATE OF EXAM: 01/21/2018 COMPARISON: 01/19/2018 INDICATION: CVA/TIA DLP: 1061.4 mGycm, Automated exposure control for dose reduction was used. CONTRAST: None CT of the brain is performed utilizing 3 mm thick sections through the posterior fossa and 3 mm thick sections through the remaining calvarium. Study is not performed within 24 hours of arrival to the hospital. No abnormal hyperdensity is present to suggest an acute intracranial hemorrhage. No mass lesion is evident. No acute infarcts are evident. Some mild white matter hypodensity may be present suggesting underlyin g chronic white matter ischemic changes. Findings are stable from the comparison. Ventricles and sulci are appropriate for the patient age. Small retention cyst is within the right maxillary sinus. Remaining paranasal sinuses and mastoid air cells are clear. IMPRESSIONS: 1. No significant interval change from comparison. 2. No acute intracranial process.
--- NOTE | 2018-01-21 08:53 | P.CRDCN ---
History of Present Illness Consult date: 01/21/18 Requesting physician: Brandyn Brar Reason for Consult (text): r/o cva Chief complaint: Left-sided weakness History of present illness: This is a 72-year-old gentleman with history of hypertension, who was recently in the hospital with a TIA approximately a week and a half ago. He presents to the hospital on this admission with a left-sided weakness, he also states that he is having a double vision and extreme weakness. According to the patient, he states that he feels a lot worse than he did a week and a half ago. Patient is unable to swallow, and he states that this is been present since his admission a week and a half ago. He was seen in consultation at that time by cardiology, he had no atrial fibrillation during that admission, was advised to have a Holter monitor in place, he states that this just arrived to his home prior to coming back on this admission. Patient does have history of hyperlipidemia and history of alcoholism. He had an echocardiogram with Doppler study performed on the of this month which revealed an ejection fraction of 55-60%. EKG on admission here showed a sinus bradycardia with no acute changes. Chest x-ray did not reveal any acute changes. CT of the head and cervical spine did not reveal any acute abnormality. Swallow evaluation was performed which revealed inconsistent swallow. Jas aspiration with thin consistency limited to the setting of large-volume vallecular retention of the barium coated cracker. Persistent laryngeal penetration with thin or consistencies. Evaluation by speech therapy for further swallow workup today. CAT scan of the brain did not reveal any significant interval change. No acute intracranial process. Blood pressure 156/70 with a heart rate in the 60s, 90% on 2 L of oxygen. White blood cell count 5.8, hemoglobin 13.3, platelet count 253. Sodium 139, potassium 4.5, BUN 14, creatinine 0.9. Troponins negative. TSH normal. At the time of my examination this morning, patient does complain of difficulty in swallowing, he is coughing up a significant amount of yellow sputum this morning. He is also complaining of some double vision and mild headache this morning. Past Medical History Past Medical History: Asthma, Cancer, CVA/TIA, Eye Disorder, Hyperlipidemia, Hypertension, Liver Disease, Osteoarthritis (OA) Additional Past Medical History / Comment(s): Pt states that past 2 weeks has had "blurred" vision and was seen at [facility] in [place] and told he has a "freckle" in that eye and will follow up with them, childhood asthma, liver "problem" before which pt states he was told was d/t taking tylenol #3, past ETOH abuse-sober for 19yrs then started drining 1-2 beers on occasion only, arthritis-bilateral shoulder and knee pains, skin cancer removed from nose. History of Any Multi-Drug Resistant Organisms: None Reported Past Surgical History: Hernia Repair Additional Past Surgical History / Comment(s): colonoscopy, total R knee arthroplasty, bilateral knee arthroscopies, R foot titanium implant, bilateral shoulder surgery, L inguinal hernia repaix x3, septoplasty and skin cancer removed from nose. Past Anesthesia/Blood Transfusion Reactions: No Reported Reaction Past Psychological History: Depression Additional Psychological History / Comment(s): Pt resides alone. His spouse is in a long-term care facilty. Pt is independent. He is a [place] vet. Smoking Status: Never smoker Past Alcohol Use History: Daily Additional Past Alcohol Use History / Comment(s): Pt statess he has past ETOH abuse and was sober for 19 yrs. He states he started drinking 1-2 beers on occasion only since about 2005. Past Drug Use History: None Reported - Past Family History Father Family Medical History: Cancer Additional Family Medical History / Comment(s): Father had prostrate cancer. He is . Mother Family Medical History: Cancer, Thyroid Disorder Additional Family Medical History / Comment(s): Mother is . Pt states she had thyroid disease/surgeries. He thinks she had cancer in her "back". Medications and Allergies Home Medications Medication Instructions Recorded Confirmed Type Acetaminophen Tab [Tylenol] 500 mg PO BID PRN MDD 8 TABS 01/10/18 01/19/18 History Cetirizine HCl [Zyrtec] 10 - 20 mg PO DAILY PRN 01/10/18 01/19/18 History Colloidal Oatmeal [Eucerin Eczema 1 applic TOPICAL DAILY 01/10/18 01/19/18 History Relief] Cyanocobalamin [Vitamin B-12] 500 mcg PO DAILY 01/10/18 01/19/18 History Docusate [Colace] 100 mg PO TID 01/10/18 01/19/18 History Ferrous Sulfate [Iron (65 MG 325 mg PO DAILY 01/10/18 01/19/18 History Elemental)] Ketoconazole 2% Cream [Nizoral 2%] 1 applic TOPICAL DAILY 01/10/18 01/19/18 History Ketoconazole 2% Shampoo [Nizoral] 1 applic TOPICAL DIRECTED 01/10/18 History Loratadine [Claritin] 10 mg PO DAILY 01/10/18 01/19/18 History Meloxicam [Mobic] 7.5 mg PO BID 01/10/18 01/19/18 History Naloxone HCl [Narcan] 4 mg NASAL DIRECTED 01/10/18 01/19/18 History PARoxetine HCL [Paxil] 20 mg PO DAILY 01/10/18 01/19/18 History Ranitidine HCl [Zantac] 150 mg PO HS 01/10/18 01/19/18 History Terazosin [Hytrin] 5 mg PO HS 01/10/18 01/19/18 History Triamcinolone 0.1% Ointment 1 applic TOPICAL BID PRN MDD 01/10/18 01/19/18 History [Kenalog 0.1% Ointment] LEGS/TRUNK amLODIPine [Norvasc] 5 mg PO BID 01/10/18 01/19/18 History hydrOXYzine PAMOATE [Vistaril] 25 mg PO QID PRN 01/10/18 01/19/18 History traMADol HCL [Ultram] 100 mg PO Q6HR PRN 01/10/18 01/19/18 History traZODone HCL 50 mg PO HS 01/10/18 01/19/18 History Aspirin 81 mg PO DAILY #30 chewable 01/11/18 01/19/18 Rx Atorvastatin Calcium [Lipitor] 20 mg PO HS #30 tab 01/11/18 01/19/18 Rx Allergies Allergy/AdvReac Type Severity Reaction Status Date / Time lisinopril Allergy Unknown Verified 01/19/18 16:50 simvastatin [From Zocor] Allergy Unknown Verified 01/19/18 16:50 Physical Exam Vitals: Vital Signs Temp Pulse Resp BP Pulse Ox 01/21/18 03:15 98.0 F 65 18 156/75 90 L 01/21/18 00:00 98.1 F 75 20 153/98 91 L 01/20/18 20:00 97.6 F 83 20 153/83 90 L 01/20/18 18:15 173/84 01/20/18 16:00 97.8 F 67 17 166/64 96 01/20/18 11:33 98.1 F 69 16 138/72 96 01/20/18 11:16 63 16 Intake and Output 01/20/18 01/21/18 01/21/18 22:59 06:59 14:59 Output Total 300 300 Balance -300 -300 Output: Urine 300 300 Other: Voiding Method Urinal Urinal Weight 70.76 kg PHYSICAL EXAMINATION: GENERAL: 72-year-old gentleman in no acute distress at the time of my examination HEENT: Head is atraumatic, normocephalic. Pupils equal, round. Sclera anicteric. Conjunctiva are clear. Mucous membranes of the mouth are moist. Neck is supple. There is no elevated jugular venous pressure. No carotid bruit is heard. HEART EXAMINATION: Heart S1, S2 normal. No murmur or gallop heard. CHEST EXAMINATION: Lungs are clear to auscultation and precussion. No chest wall tenderness is noted on palpation or with deep breathing. ABDOMEN: Soft, nontender. Bowel sounds are heard. No organomegaly noted. EXTREMITIES: 2+ peripheral pulses with no evidence of peripheral edema and no calf tenderness noted. NEUROLOGIC patient is awake, alert and oriented X3 patient does have weakness noted in the left side of his body, arm and leg both. Trace of left facial droop is noted. . Results 01/19/18 16:24 01/19/18 16:24 Current Medications Generic Name Dose Route Start Last Admin Trade Name Jayson PRN Reason Stop Dose Admin Acetaminophen 500 mg 01/19/18 21:05 Tylenol Tab PO BID PRN Mild Pain Amlodipine Besylate 5 mg 01/20/18 09:00 01/20/18 20:12 Norvasc PO Not Given BID DEENA Aspirin 300 mg 01/20/18 15:30 01/20/18 16:22 Aspirin RECTAL 300 mg DAILY DEENA Administration Atorvastatin Calcium 20 mg 01/20/18 21:00 01/20/18 20:12 Lipitor PO Not Given HS DEENA Clopidogrel Bisulfate 75 mg 01/20/18 09:00 01/20/18 15:09 Plavix PO Not Given DAILY [facility] Cyanocobalamin 500 mcg 01/20/18 09:00 01/20/18 15:09 Vitamin B-12 PO Not Given DAILY [facility] Docusate Sodium 100 mg 01/19/18 22:00 01/20/18 20:13 Colace PO Not Given TID [facility] Doxazosin Mesylate 4 mg 01/20/18 21:00 01/20/18 20:12 Cardura PO Not Given HS [facility] Famotidine 20 mg 01/19/18 21:00 01/20/18 20:12 Pepcid IV Not Given Q12HR [facility] Ferrous Sulfate 325 mg 01/20/18 09:00 01/20/18 15:09 Feosol PO Not Given DAILY [facility] Heparin Sodium (Porcine) 5,000 unit 01/21/18 00:00 01/20/18 22:48 Heparin SQ 5,000 unit Q8HR [facility] Administration Hydroxyzine Pamoate 25 mg 01/19/18 21:05 Vistaril PO QID PRN Itching Sodium Chloride 1,000 mls @ 50 mls/hr 01/21/18 05:15 01/21/18 05:45 Saline 0.9% IV Not Given .Q20H [facility] Ketoconazole 1 applic 01/19/18 21:15 01/20/18 20:13 Nizoral TOPICAL Not Given DIRECTED [facility] Loratadine 10 mg 01/19/18 21:05 Claritin PO DAILY PRN ALLERGY SYMPTOMS Meloxicam 7.5 mg 01/20/18 09:00 01/20/18 20:13 Mobic PO Not Given BID [facility] Naloxone Hcl [Narcan 4 mg 01/19/18 21:15 01/20/18 20:13 ] 4 Mg NASAL Not Given DIRECTED [facility] Paroxetine HCl 20 mg 01/20/18 09:00 01/20/18 15:10 Paxil PO Not Given DAILY [facility] Tramadol HCl 100 mg 01/19/18 21:05 Ultram PO Q6HR PRN Moderate Pain Trazodone HCl 50 mg 01/20/18 21:00 01/20/18 20:13 Desyrel PO Not Given HS [facility] Triamcinolone Acetonide 1 applic 01/19/18 21:05 Kenalog TOPICAL BID PRN ITCHING/IRRITATION Intake and Output 01/20/18 01/21/18 01/21/18 22:59 06:59 14:59 Output Total 300 300 Balance -300 -300 Output: Urine 300 300 Other: Voiding Method Urinal Urinal Weight 70.76 kg 01/19/18 16:24 01/19/18 16:24 EKG Interpretations (text) EKG shows a sinus bradycardia with no acute changes. Assessment and Plan Plan: Assessment and plan #1 left-sided weakness with associated double vision, rule out CVA. #2 recent TIA #3 hypertension #4 hyperlipidemia #5 history of alcoholism #6 dysphasia Plan Echocardiogram with Doppler study was performed one week ago which revealed a normal left ventricular systolic function. We will continue to monitor for any atrial fibrillation, at present he remains in normal sinus rhythm. Further recommendations to follow. DNP note has been reviewed, I agree with a documented findings and plan of care. Patient was seen and examined.
[2018-01-21] MEDS: ASPIRIN 300 MG SUPP RECTAL SCH (12:00)
[2018-01-21] MEDS: FAMOTIDINE 20 MG/2 ML VIAL IV SCH ×2 (12:00→20:23)
[2018-01-21] MEDS: HEPARIN SODIUM,PORCINE 5,000 UNIT/ML 1 ML VIAL SQ SCH ×3 (12:00→23:17)
[2018-01-21] MEDS: amLODIPine 5 MG TAB PO SCH ×2 (15:45→20:23)
[2018-01-21] MEDS: CLOPIDOGREL 75 MG TAB PO SCH (15:45)
[2018-01-21] MEDS: FERROUS SULFATE 325 MG TAB PO SCH (15:46)
[2018-01-21] MEDS: PARoxetine 20 MG TAB PO SCH (15:46)
[2018-01-21] MEDS: MELOXICAM 7.5 MG TAB PO SCH ×2 (15:46→20:23)
[2018-01-21] MEDS: DOCUSATE 100 MG CAP PO SCH ×2 (15:46→20:23)
[2018-01-21] MEDS: CYANOCOBALAMIN 500 MCG TAB PO SCH (15:46)
[2018-01-21] MEDS ORDERED: cloNIDine 0.1 MG/24HR PATCH TRANSDERM SCH (19:00)
[2018-01-21] MEDS: NALOXONE HCL 4 MG NASAL SCH (20:23)
[2018-01-21] MEDS: KETOCONAZOLE 2% SHAMPOO 1 APPLIC/ML TOPICAL SCH (20:23)
[2018-01-21] MEDS: traZODone HCL 50 MG TAB PO SCH (20:23)
[2018-01-21] MEDS: ATORVASTATIN 20 MG TAB PO SCH (20:23)
[2018-01-21] MEDS: DOXAZOSIN 4 MG TAB PO SCH (20:23)
[2018-01-21] MEDS ORDERED: cloNIDine 0.2 MG/24HR PATCH TRANSDERM SCH (22:00)
--- NOTE | 2018-01-21 22:11 | P.PN ---
Subjective Progress Note Date: 01/21/18 Patient is a 72-year-old male who is being followed by the neurology service for left-sided weakness. Patient was recently hospitalized approximately a week ago for TIA. Patient was sent home but only felt he was getting worse and came back to the hospital. Patient reports dysphagia and has failed his swallow test and remains nothing by mouth. Patient reports having double vision and continues to have left-sided weakness. CT of the head and cervical spine showed no acute abnormality. Follow-up computed tomography scan of the brain did not reveal any significant interval change. Patient stated he could not have an MRI due to the metal in his body. I had ordered an MRI of the brain and this was able to be performed today. At the time of my evaluation , patient is resting comfortably in bed and appears to be mildly frustrated with the inability to swallow. Patient does not appear to be in any acute distress. Objective - Vital Signs Vital signs: Vital Signs Temp 97.9 F 01/21/18 20:00 Pulse 68 01/21/18 20:00 Resp 19 01/21/18 20:00 BP 175/90 01/21/18 20:00 Pulse Ox 93 L 01/21/18 20:00 Intake & Output 01/21/18 01/21/18 01/22/18 06:59 18:59 06:59 Intake Total 10 Output Total 600 625 Balance -600 -625 10 Weight 70.76 kg Intake: IV 10 Invasive Line 2 10 Output: Urine 600 625 Other: Voiding Method Urinal Urinal # Voids 1 # Bowel Movements 0 - Exam PHYSICAL EXAM: GENERAL APPEARANCE: Patient is a well-developed, male who appears to be in no acute distress. HEENT: Normocephalic, atraumatic, no facial asymmetry is seen. Neck is supple with no masses felt. CARDIOVASCULAR: Regular rate and rhythm. ABDOMEN: Nontender, nondistended. EXTREMITIES: Show no edema or clubbing. NEUROLOGICAL EXAM: Patient is awake, alert, and oriented 3. Speech and language are normal. Voice is extremely hoarse. Strength is 5/5 in right upper and lower extremity. Strength is 4/5 in left upper extremity and 5-/5 in left lower extremity. Sensory exam to light touch is decreased in the left upper and lower extremity. Trace left facial droop is seen on cranial nerve testing. No tremors or seizure-like activity noted. - Labs CBC & Chem 7: 01/19/18 16:24 01/19/18 16:24 Assessment and Plan Plan: Impression: 1. Possible CVA 2. Left-sided weakness, improving 3. Left-sided sensory deficit 4. Dysphagia 5. History of TIA 6. Hyperlipidemia 7. Questionable cardiac arrhythmia Recommendation: The patient did have episode of left-sided weakness, left-sided sensory deficit, and dysphagia. Patient has mild left facial droop. Strength is slowly returning, however, dysphagia continues. Patient had repeat CT of the brain which showed no significant interval change. MRI of the brain was done and results are pending. Continue antiplatelet therapy in the form of rectal aspirin 300 mg daily. Continue PT OT to evaluate and treat. Continue speech therapy and swallow evaluation. Patient's lipid panel was recently elevated and statin drug was increased. Once patient has been cleared from swallow standpoint, patient can be switched to oral aspirin and statin drug will be resumed. Serum homocystine level was normal. EEG was normal. Carotid Doppler showed no significant stenosis. Continue neurological checks. Continue medical management. I will continue to follow with you. Further recommendations to follow. I performed an examination of the patient and discussed the management with the AUT[employer] WHEEL ALIGNMENT SPECIALIST. I have reviewed the AUT[employer] WHE[employer] ALIGNMENT SPECIALIST notes and agree with the findings and plan of care.
--- NOTE | 2018-01-21 22:18 | MR ---
EXAMINATION TYPE: MR brain wo/w con DATE OF EXAM: 01/21/2018 COMPARISON: CT brain from earlier today. HISTORY: rule out stroke, Left side weakness, unable to swallow TECHNIQUE: Multiplanar, multisequence images of the brain and brainstem is performed without and with IV contras t, utilizing 7.5 mL intravenous Gadavist . FINDINGS: Diffusion weighted images demonstrate an area of increased signal on diffusion weighted dixie ges with diminished signal on ADC mapping that shows low T1 and increased T2 signal without enhanceme nt involving the dorsal left aspect of the medulla consistent with evolving acute infarct measuring 1 1 mm AP diameter by 9 mm transverse diameter seen best on axial image 5 of T2 and FLAIR weighted sequ ences. There is no worrisome extra-axial fluid collection. There is ventricular and sulcal prominence consis tent with mild age-related cerebral atrophy. There are focal and confluent areas of T2 hyperintensity seen throughout the deep and periventricular white matter. Lesions are nonspecific in appearance and distribution are most likely on basis of product of chronic small vessel ischemic change in patient of this age. Midline structures demonstrate normal morphology. The craniocervical junction appears within normal limits. Post contrast images demonstrate no abnormal enhancement. The dural venous sinuses appear pa tent. There is 1.1 cm mucous retention cyst or polyp in the medial right maxillary sinus otherwise pa ranasal sinuses are clear. IMPRESSION: 1. 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 2. Background of mild diffuse cerebral atrophy and moderate chronic small vessel ischemic change is n oted. A Yellow level critical message alert has been initiated for Kin Urban MD via the [employer] Critical Results System on 01/21/2018 10:15 PM. This message alert has been sent to Ronnell Urban MD via the preferences provided by the clinician for the receipt of Radiology Critical Fin dings. Message ID [id number].
[2018-01-21] MEDS: DEXTROSE 5%-0.45% NACL 1,000 ML IV SCH (23:17)
[2018-01-22] MEDS: CLOPIDOGREL 75 MG TAB PO SCH (09:59)
[2018-01-22] MEDS: amLODIPine 5 MG TAB PO SCH ×2 (09:59→19:43)
[2018-01-22] MEDS: CYANOCOBALAMIN 500 MCG TAB PO SCH (09:59)
[2018-01-22] MEDS: FERROUS SULFATE 325 MG TAB PO SCH (09:59)
[2018-01-22] MEDS: PARoxetine 20 MG TAB PO SCH (09:59)
[2018-01-22] MEDS: MELOXICAM 7.5 MG TAB PO SCH ×2 (09:59→19:43)
[2018-01-22] MEDS: DOCUSATE 100 MG CAP PO SCH ×3 (09:59→19:43)
[2018-01-22] MEDS: HEPARIN SODIUM,PORCINE 5,000 UNIT/ML 1 ML VIAL SQ SCH ×3 (10:03→23:30)
[2018-01-22] MEDS: FAMOTIDINE 20 MG/2 ML VIAL IV SCH ×2 (10:04→20:00)
[2018-01-22] MEDS: DEXTROSE 5%-0.45% NACL 1,000 ML IV SCH ×2 (10:05→23:30)
[2018-01-22] MEDS: ASPIRIN 300 MG SUPP RECTAL SCH (12:08)
--- NOTE | 2018-01-22 13:28 | P.PN ---
Subjective Progress Note Date: 01/22/18 This is a 72-year-old gentleman with history of hypertension, who was recently in the hospital with a TIA approximately a week and a half ago. He presents to the hospital on this admission with a left-sided weakness, he also states that he is having a double vision and extreme weakness. According to the patient, he states that he feels a lot worse than he did a week and a half ago. Patient is unable to swallow, and he states that this is been present since his admission a week and a half ago. He was seen in consultation at that time by cardiology, he had no atrial fibrillation during that admission, was advised to have a Holter monitor in place, he states that this just arrived to his home prior to coming back on this admission. Patient does have history of hyperlipidemia and history of alcoholism. He had an echocardiogram with Doppler study performed on the of this month which revealed an ejection fraction of 55-60%. EKG on admission here showed a sinus bradycardia with no acute changes. Chest x-ray did not reveal any acute changes. CT of the head and cervical spine did not reveal any acute abnormality. Swallow evaluation was performed which revealed inconsistent swallow. Jas aspiration with thin consistency limited to the setting of large-volume vallecular retention of the barium coated cracker. Persistent laryngeal penetration with thin or consistencies. Evaluation by speech therapy for further swallow workup today. CAT scan of the brain did not reveal any significant interval change. No acute intracranial process. Blood pressure 156/70 with a heart rate in the 60s, 90% on 2 L of oxygen. White blood cell count 5.8, hemoglobin 13.3, platelet count 253. Sodium 139, potassium 4.5, BUN 14, creatinine 0.9. Troponins negative. TSH normal. At the time of my examination this morning, patient does complain of difficulty in swallowing, he is coughing up a significant amount of yellow sputum this morning. He is also complaining of some double vision and mild headache this morning. 01/22/2018 had an MRI of the brain performed which revealed an evolving 1.1 cm acute infarct involving the left dorsal aspect of the medulla in the brainstem. No evidence of any atrial fibrillation. Hemodynamically stable. Still nothing by mouth because of difficulty in swallowing. Objective - Vital Signs Vital signs: Vital Signs Temp 96.9 F L 01/22/18 08:00 Pulse 53 L 01/22/18 08:00 Resp 18 01/22/18 08:00 BP 135/68 01/22/18 08:00 Pulse Ox 95 01/22/18 08:00 Intake & Output 01/21/18 01/22/18 01/22/18 18:59 06:59 18:59 Intake Total 235 0 Output Total 625 Balance -625 235 0 Weight 86.5 kg Intake: IV 10 Invasive Line 2 10 Intake, IV Titration 225 Amount Dextrose 5%-0.45% NaCl 1, 225 000 ml @ 75 mls/hr IV . [id number] [facility] Rx#:[id number] Oral 0 Output: Urine 625 Other: Voiding Method Urinal # Voids 1 # Bowel Movements 0 1 - Exam PHYSICAL EXAMINATION: GENERAL: 72-year-old gentleman in no acute distress at the time of my examination HEENT: Head is atraumatic, normocephalic. Pupils equal, round. Sclera anicteric. Conjunctiva are clear. Mucous membranes of the mouth are moist. Neck is supple. There is no elevated jugular venous pressure. No carotid bruit is heard. HEART EXAMINATION: Heart S1, S2 normal. No murmur or gallop heard. CHEST EXAMINATION: Lungs are clear to auscultation and precussion. No chest wall tenderness is noted on palpation or with deep breathing. ABDOMEN: Soft, nontender. Bowel sounds are heard. No organomegaly noted. EXTREMITIES: 2+ peripheral pulses with no evidence of peripheral edema and no calf tenderness noted. NEUROLOGIC patient is awake, alert and oriented X3 patient does have weakness noted in the left side of his body, arm and leg both. Trace of left facial droop is noted. . - Labs CBC & Chem 7: 01/19/18 16:24 01/19/18 16:24 Assessment and Plan Plan: Assessment and plan #1 left-sided weakness with associated double vision, rule out CVA. #2 recent TIA #3 hypertension #4 hyperlipidemia #5 history of alcoholism #6 dysphasia Plan Echocardiogram with Doppler study was performed one week ago which revealed a normal left ventricular systolic function. No evidence of any atrial fibrillation. We will follow this patient with you now on an as-needed basis only, please don't hesitate to call with any questions. 30 day event monitor on discharge as previously ordered. Follow-up appointment in the office. DNP note has been reviewed, I agree with a documented findings and plan of care. Patient was seen and examined.
--- NOTE | 2018-01-22 17:44 | P.PN ---
Subjective Progress Note Date: 01/22/18 Patient is a 72-year-old male who is being followed by the neurology service for left-sided weakness. Patient was recently hospitalized approximately a week ago for TIA. Patient was sent home but only felt he was getting worse and came back to the hospital. Patient reports dysphagia and has failed his swallow test and remains nothing by mouth. Patient reports having double vision and continues to have left-sided weakness. CT of the head and cervical spine showed no acute abnormality. Follow-up computed tomography scan of the brain did not reveal any significant interval change. Patient stated he could not have an MRI due to the metal in his body. I had ordered an MRI of the brain and this was able to be performed today. At the time of my evaluation , patient is resting comfortably in bed and appears to be mildly frustrated with the inability to swallow. Patient does not appear to be in any acute distress. 01/22/2018 Patient is a 72-year-old male who is being followed by the neurology service for CVA. Patient was having left-sided weakness, double vision, and dysphagia at home and came to [facility] for further evaluation. EKG on admission showed sinus bradycardia and cardiology is following. CT of the head and cervical spine showed no acute abnormality. Follow-up CT of the brain did not reveal any significant interval change. MRI of the brain was ordered which showed an evolving 1.1 cm acute infarct involving the left dorsal aspect of the medulla in the brainstem. MRI also revealed mild diffuse cerebral atrophy and moderate chronic small vessel ischemic changes. Patient continues to have difficulty swallowing. Patient continues to be nothing by mouth. Patient will likely have a PEG tube placed prior to rehab placement. At the time of my evaluation, patient is resting comfortably in bed and appears to be in no acute distress. Objective - Vital Signs Vital signs: Vital Signs Temp 96.9 F L 01/22/18 08:00 Pulse 56 L 01/22/18 12:00 Resp 18 01/22/18 12:00 BP 137/69 01/22/18 12:00 Pulse Ox 96 01/22/18 12:00 Intake & Output 01/21/18 01/22/18 01/22/18 18:59 06:59 18:59 Intake Total 235 0 Output Total 625 Balance -625 235 0 Weight 86.5 kg Intake: IV 10 Invasive Line 2 10 Intake, IV Titration 225 Amount Dextrose 5%-0.45% NaCl 1, 225 000 ml @ 75 mls/hr IV . [id number] [facility] Rx#:[id number] Oral 0 Output: Urine 625 Other: Voiding Method Urinal # Voids 1 # Bowel Movements 0 1 - Exam PHYSICAL EXAM: GENERAL APPEARANCE: Patient is a well-developed, male who appears to be in no acute distress. HEENT: Normocephalic, atraumatic, no facial asymmetry is seen. Neck is supple with no masses felt. CARDIOVASCULAR: Regular rate and rhythm. ABDOMEN: Nontender, nondistended. EXTREMITIES: Show no edema or clubbing. NEUROLOGICAL EXAM: Patient is awake, alert, and oriented 3. Speech and language are normal. Voice is extremely hoarse. Strength is 5/5 in right upper and lower extremity. Strength is 4/5 in left upper extremity and 4/5 in left lower extremity. Sensory exam to light touch is decreased in the left upper and lower extremity. Trace left facial droop is seen on cranial nerve testing. No tremors or seizure-like activity noted. - Labs CBC & Chem 7: 01/19/18 16:24 01/19/18 16:24 Assessment and Plan Plan: Impression: 1. CVA, brainstem infarct 2. Left-sided weakness, improving 3. Left-sided sensory deficit 4. Dysphagia 5. History of TIA 6. Hyperlipidemia 7. Questionable cardiac arrhythmia Recommendation: The patient did have episode of left-sided weakness, left-sided sensory deficit, and dysphagia. Patient has mild left facial droop. Strength is slowly returning, however, dysphagia continues. Patient had repeat CT of the brain which showed no significant interval change. MRI of the brain was done and an evolving 1.1 cm acute infarct involving the left dorsal aspect of the maneuver in the brainstem. Continue antiplatelet therapy in the form of rectal aspirin 300 mg daily. Continue PT OT to evaluate and treat. Continue speech therapy and swallow evaluation. Patient will likely need a PEG tube placed prior to transfer to rehab. Patient's lipid panel was recently elevated and statin drug was increased. Serum homocystine level was normal. EEG was normal. Carotid Doppler showed no significant stenosis. Continue neurological checks. Continue medical management. I will continue to follow with you. Further recommendations to follow. I performed an examination of the patient and discussed the management with the INSURANCE SALES AGENT. I have reviewed the INSURANCE SALES AGENT notes and agree with the findings and plan of care.
[2018-01-22] MEDS: ATORVASTATIN 20 MG TAB PO SCH (19:43)
[2018-01-22] MEDS: KETOCONAZOLE 2% SHAMPOO 1 APPLIC/ML TOPICAL SCH (19:43)
[2018-01-22] MEDS: traZODone HCL 50 MG TAB PO SCH (19:43)
[2018-01-22] MEDS: NALOXONE HCL 4 MG NASAL SCH (19:43)
[2018-01-22] MEDS: DOXAZOSIN 4 MG TAB PO SCH (19:43)
[2018-01-23 06:00] LABS: Glucose,Whole Blood 120 mg/dL (75-99)
[2018-01-23] MEDS: MELOXICAM 7.5 MG TAB PO SCH ×2 (08:47→19:27)
[2018-01-23] MEDS: PARoxetine 20 MG TAB PO SCH (08:47)
[2018-01-23] MEDS: DOCUSATE 100 MG CAP PO SCH ×3 (08:47→19:28)
[2018-01-23] MEDS: CLOPIDOGREL 75 MG TAB PO SCH (08:47)
[2018-01-23] MEDS: FERROUS SULFATE 325 MG TAB PO SCH (08:47)
[2018-01-23] MEDS: CYANOCOBALAMIN 500 MCG TAB PO SCH (08:47)
[2018-01-23] MEDS: amLODIPine 5 MG TAB PO SCH ×2 (08:47→19:27)
[2018-01-23] MEDS: HEPARIN SODIUM,PORCINE 5,000 UNIT/ML 1 ML VIAL SQ SCH ×3 (08:57→23:31)
[2018-01-23] MEDS: FAMOTIDINE 20 MG/2 ML VIAL IV SCH ×2 (08:57→20:25)
[2018-01-23] MEDS: ASPIRIN 300 MG SUPP RECTAL SCH (09:05)
[2018-01-23] MEDS: DEXTROSE 5%-0.45% NACL 1,000 ML IV SCH ×2 (12:29→23:31)
--- NOTE | 2018-01-23 15:48 | P.PN ---
Subjective Progress Note Date: 01/23/18 Patient is a 72-year-old male who is being followed by the neurology service for left-sided weakness. Patient was recently hospitalized approximately a week ago for TIA. Patient was sent home but only felt he was getting worse and came back to the hospital. Patient reports dysphagia and has failed his swallow test and remains nothing by mouth. Patient reports having double vision and continues to have left-sided weakness. CT of the head and cervical spine showed no acute abnormality. Follow-up computed tomography scan of the brain did not reveal any significant interval change. Patient stated he could not have an MRI due to the metal in his body. I had ordered an MRI of the brain and this was able to be performed today. At the time of my evaluation , patient is resting comfortably in bed and appears to be mildly frustrated with the inability to swallow. Patient does not appear to be in any acute distress. 01/22/2018 Patient is a 72-year-old male who is being followed by the neurology service for CVA. Patient was having left-sided weakness, double vision, and dysphagia at home and came to [facility] for further evaluation. EKG on admission showed sinus bradycardia and cardiology is following. CT of the head and cervical spine showed no acute abnormality. Follow-up CT of the brain did not reveal any significant interval change. MRI of the brain was ordered which showed an evolving 1.1 cm acute infarct involving the left dorsal aspect of the medulla in the brainstem. MRI also revealed mild diffuse cerebral atrophy and moderate chronic small vessel ischemic changes. Patient continues to have difficulty swallowing. Patient continues to be nothing by mouth. Patient will likely have a PEG tube placed prior to rehab placement. At the time of my evaluation, patient is resting comfortably in bed and appears to be in no acute distress. 01/23/2018 Patient is a 72-year-old male who is being followed by the neurology service for CVA. Patient is having improvement in left-sided weakness. He continues to complain of double vision and dysphagia. Patient remains nothing by mouth. Patient will have another swallow eval done in the morning and if he fails he will likely need a PEG tube. At the time of my evaluation, patient's resting comfortably in bed and appears to be in no acute distress. Objective - Vital Signs Vital signs: Vital Signs Temp 96.9 F L 01/23/18 08:30 Pulse 51 L 01/23/18 12:00 Resp 17 01/23/18 12:00 BP 128/66 01/23/18 12:00 Pulse Ox 95 01/23/18 12:00 Intake & Output 01/22/18 01/23/18 01/23/18 18:59 06:59 18:59 Intake Total 600 450 Output Total 400 Balance 600 450 -400 Weight 69.5 kg Intake: Intake, IV Titration 600 450 Amount Dextrose 5%-0.45% NaCl 1, 600 450 000 ml @ 75 mls/hr IV . [id number] [facility] Rx#:[id number] Oral 0 Output: Urine 400 Other: Voiding Method Diaper Urinal Incontinent # Voids 2 0 # Bowel Movements 1 - Exam PHYSICAL EXAM: GENERAL APPEARANCE: Patient is a well-developed, male who appears to be in no acute distress. HEENT: Normocephalic, atraumatic, no facial asymmetry is seen. Neck is supple with no masses felt. CARDIOVASCULAR: Regular rate and rhythm. ABDOMEN: Nontender, nondistended. EXTREMITIES: Show no edema or clubbing. NEUROLOGICAL EXAM: Patient is awake, alert, and oriented 3. Speech and language are normal. Voice is extremely hoarse. Strength is 5/5 in right upper and lower extremity. Strength is 4/5 in left upper extremity and 4 -/5 in left lower extremity. Sensory exam to light touch is decreased in the left upper and lower extremity. Trace left facial droop is seen on cranial nerve testing. No tremors or seizure-like activity noted. - Labs CBC & Chem 7: 01/19/18 16:24 01/19/18 16:24 Labs: Abnormal Lab Results - Last 24 Hours (Table) 01/23/18 Range/Units 05:59 POC Glucose (mg/dL) 120 H (75-99) mg/dL Assessment and Plan Plan: Impression: 1. CVA, brainstem infarct 2. Left-sided weakness, improving 3. Left-sided sensory deficit 4. Dysphagia 5. History of TIA 6. Hyperlipidemia 7. Questionable cardiac arrhythmia Recommendation: The patient did have episode of left-sided weakness, left-sided sensory deficit, and dysphagia. Patient has mild left facial droop. Strength is slowly returning, however, dysphagia continues. Patient had repeat CT of the brain which showed no significant interval change. MRI of the brain was done and an evolving 1.1 cm acute infarct involving the left dorsal aspect of the maneuver in the brainstem. Continue antiplatelet therapy in the form of rectal aspirin 300 mg daily. Continue PT OT. Continue speech therapy and swallow evaluation. Patient will likely need a PEG tube placed prior to transfer to rehab. Patient's lipid panel was recently elevated and statin drug was increased. Serum homocystine level was normal. EEG was normal. Carotid Doppler showed no significant stenosis. Continue neurological checks. Continue medical management. Patient is stable for transfer to inpatient rehab from a neurological standpoint. I will continue to follow with you on an as- needed basis. Feel free to call with any questions or concerns. I performed an examination of the patient and discussed the management with the GUM COOK. I have reviewed the GUM COOK notes and agree with the findings and plan of care.
[2018-01-23] MEDS: DOXAZOSIN 4 MG TAB PO SCH (19:27)
[2018-01-23] MEDS: ATORVASTATIN 20 MG TAB PO SCH (19:27)
[2018-01-23] MEDS: KETOCONAZOLE 2% SHAMPOO 1 APPLIC/ML TOPICAL SCH (19:28)
[2018-01-23] MEDS: NALOXONE HCL 4 MG NASAL SCH (19:28)
[2018-01-23] MEDS: traZODone HCL 50 MG TAB PO SCH (19:28)
--- NOTE | 2018-01-23 23:07 | P.PN ---
Subjective Progress Note Date: 01/23/18 Principal diagnosis: Acute CVA Patient is a 72-year-old male with a known history of CVA/TIA, hypertension, hyperlipidemia, osteoarthritis, asthma, PE was history of alcohol abuse and multiple other medical problems presented to ER with complaints of left-sided weakness at around 3:30 PM yesterday. Patient went to store and suddenly developed left-sided weakness while he was walking. Patient leaned onto the boxs and to the floor. Denied any fall or streaking movements. Patient was brought to the hospital by EMS. Patient did have a good anthropometrist bilaterally and was able to move everything by the time EMS arrived. Patient was having some left facial asymmetry and some residual left-sided weakness when he was seen in the emergency room. Patient was admitted to the hospital about a week ago with the TIA and had a workup including CT brain was normal. Carotid duplex showed no hemodynamically significant stenosis. Patient was found have bradycardic with heart rate around 50s at the time and was seen by cardiology. Recommended to follow-up as an outpatient for cardiac monitoring which is supposed to follow in next 1-2 days. MRI of the brain could not be done due to metal plates in the right shoulder and also bilateral ankles. EEG was normal at this time. Patient did improve clinically and was sent home. Patient denied any complaints of chest pain or shortness of breath. No fever no chills. No nausea vomiting or diarrhea. Patient has not been eating very well recently. Patient uses by himself and is at the extended care facility. Patient does have improvement in left sided weakness currently. Otherwise patient failed swallow evaluation and barium swallow was done which also showed dyslogia. Currently patient is nothing by mouth. Neurology was consulted for further evaluation. Heart rate was in 50s when he came to the hospital. CT head showed no acute abnormality. EKG showed sinus bradycardia CT cervical spine showed mild facet arthropathy 01/23/2018 Patient says that his left sided weakness is improving. Able to lift his hand overhead slowly. Otherwise patient still having diplopia and left eyes covered at this time. Patient will be evaluated for swallowing tomorrow again. Patient will be continued on IV fluids and continued to monitor closely. Appears to be comfortable compared to yesterday. Neurology is following. Denied any chest pain or shortness of breath. No nausea vomiting or abdominal pain. No diarrhea. Current medications reviewed Objective - Vital Signs Vital signs: Vital Signs Temp 96.9 F L 01/23/18 08:30 Pulse 51 L 01/23/18 12:00 Resp 17 01/23/18 12:00 BP 128/66 01/23/18 12:00 Pulse Ox 95 01/23/18 12:00 Intake & Output 01/22/18 01/23/18 01/23/18 18:59 06:59 18:59 Intake Total 600 450 Output Total 400 Balance 600 450 -400 Weight 69.5 kg Intake: Intake, IV Titration 600 450 Amount Dextrose 5%-0.45% NaCl 1, 600 450 000 ml @ 75 mls/hr IV . [id number] [facility] Rx#:[id number] Oral 0 Output: Urine 400 Other: Voiding Method Diaper Urinal Incontinent # Voids 2 0 # Bowel Movements 1 - Exam PHYSICAL EXAMINATION: Patient is lying in the bed comfortably, no acute distress, awake alert and oriented.. HEENT: Normocephalic. Neck is supple. Pupils reactive. Nostrils clear. Oral cavity is moist. Ears reveal no drainage. Neck reveals no JVD, carotid bruits, or thyromegaly. CHEST EXAMINATION: Trachea is central. Symmetrical expansion. Lung olivas clear to auscultation and percussion. CARDIAC: Normal S1, S2 with no gallops. No murmurs ABDOMEN: Soft. Bowel sounds normal. No organomegaly. No abdominal bruits. Extremities: reveal no edema. No clubbing or cyanosis Neurologically awake, alert, oriented x3 with well-coordinated movements. Left eye double vision and was covered. Left upper extremity minimal weakness. Skin: No rash or skin lesions. Psychiatric: Coperative. Nonsuicidal Musculoskeletal: No joint swelling or deformity. Normal range of motion. - Labs CBC & Chem 7: 01/19/18 16:24 01/19/18 16:24 Labs: Abnormal Lab Results - Last 24 Hours (Table) 01/23/18 Range/Units 05:59 POC Glucose (mg/dL) 120 H (75-99) mg/dL Assessment and Plan Assessment: Left-sided weakness due acute CVA involving brainstem. Dysphagia and failed swallow evaluation Recent history of TIA. Stroke workup was negative. MRI could not be done due to metal in the body. Hypertension Hyperlipidemia Sinus bradycardia. Questionable arrhythmia. Osteoarthritis Previous history of alcohol abuse DVT prophylaxis Plan: Patient will be continued on telemetry monitoring. Currently with aspirin Plavix and statins. Neurology and cardiology was consulted. Continue to follow closely and further recommendations based on the clinical course. Patient failed swallow evaluation with barium swallow study. Currently aspirin is being given rectally. Patient had repeat CT of the brain which showed no significant interval change. MRI of the brain was done and an evolving 1.1 cm acute infarct involving the left dorsal aspect of the maneuver in the brainstem. Continue antiplatelet therapy in the form of rectal aspirin 300 mg daily. Continue PT OT. Continue speech therapy and swallow evaluation. Patient will likely need a PEG tube placed prior to transfer to rehab. Patient's lipid panel was recently elevated and statin drug was increased. Serum homocystine level was normal. EEG was normal. Carotid Doppler showed no significant stenosis. Continue neurological checks. Possible transfer to rehab when stable. Time with Patient: Greater than 30
[2018-01-23] MEDS: MORPHINE SULFATE 2 MG/ML SYRINGE IVP PRN (23:31)
[2018-01-24 06:27] LABS: Glucose,Whole Blood 118 mg/dL (75-99)
--- NOTE | 2018-01-24 06:39 | P.CONS ---
History of Present Illness - Chief Complaint Gait ataxia - History of Present Illness I had the opportunity to see patient for inpatient rehab consultation with regard to gait ataxia. He was admitted to [facility] January 19 with left arm weakness. History of TIA symptoms one week earlier. Seen in consultation by cardiology as well as neurology, Dr. Arroyo. Chest x-ray negative. Head CT negative 2. Brain MRI demonstrated evolving left medullary infarct as well as cerebral atrophy and ischemic change. PT reports moderate assistance for bed mobility and 2 person moderate assistance for transfer. OT reports minimal assistance for upper dressing, total assistance for lower dressing and toileting , maximal assistance for bathing and for bed mobility. Speech therapy assess swallowing unsafe and recommending nothing by mouth. Hospital notes indicating considering PEG tube. Previous functional history as elicited from patient: 72-year-old right-handed white male who is lives in [facility] home alone. and skilled nursing. Patient describes independent with own cooking, laundry, driving, tub bath. His been using standard cane for gait for the last week. Regular doctors the [facility]. History smoking in the remote past and 2 drinks a day. Family history both parents with cancer. Review of Systems Review of systems: ENT: Denies sneezes or discharge. Eyes: Double vision and left eye has patch. Cardiac: Denies chest pain or palpitation. Pulmonary: Denies cough or shortness of breath. Gastrointestinal: Denies nausea, emesis, constipation, diarrhea. Genitourinary: Denies discharge or frequency. Musculoskeletal: Denies muscle or bone aches. Neurologic: Left leg weakness. Discoordination left side. Endocrine: Denies shakes or sweats. Oncology: Denies cancers. Dermatologic: Denies rash, itching, pruritus. ALLERGY/immunology: Denies sneezes, rashes. Past Medical History Past Medical History: Asthma, Cancer, CVA/TIA, Eye Disorder, Hyperlipidemia, Hypertension, Liver Disease, Osteoarthritis (OA) Additional Past Medical History / Comment(s): Pt states that past 2 weeks has had "blurred" vision and was seen at [facility] in [place] and told he has a "freckle" in that eye and will follow up with them, childhood asthma, liver "problem" before which pt states he was told was d/t taking tylenol #3, past ETOH abuse-sober for 19yrs then started drining 1-2 beers on occasion only, arthritis-bilateral shoulder and knee pains, skin cancer removed from nose. History of Any Multi-Drug Resistant Organisms: None Reported Past Surgical History: Hernia Repair Additional Past Surgical History / Comment(s): colonoscopy, total R knee arthroplasty, bilateral knee arthroscopies, R foot titanium implant, bilateral shoulder surgery, L inguinal hernia repaix x3, septoplasty and skin cancer removed from nose. Past Anesthesia/Blood Transfusion Reactions: No Reported Reaction Past Psychological History: Depression Additional Psychological History / Comment(s): Pt resides alone. His spouse is in a dedicated intermodal truck driver care facilty. Pt is independent. He is a [place] vet. Smoking Status: Never smoker Past Alcohol Use History: Daily Additional Past Alcohol Use History / Comment(s): Pt statess he has past ETOH abuse and was sober for 19 yrs. He states he started drinking 1-2 beers on occasion only since about 2005. Past Drug Use History: None Reported - Past Family History Father Family Medical History: Cancer Additional Family Medical History / Comment(s): Father had prostrate cancer. He is . Mother Family Medical History: Cancer, Thyroid Disorder Additional Family Medical History / Comment(s): Mother is . Pt states she had thyroid disease/surgeries. He thinks she had cancer in her "back". Medications and Allergies Home Medications Medication Instructions Recorded Confirmed Type Acetaminophen Tab [Tylenol] 500 mg PO BID PRN MDD 8 TABS 01/10/18 01/19/18 History Cetirizine HCl [Zyrtec] 10 - 20 mg PO DAILY PRN 01/10/18 01/19/18 History Colloidal Oatmeal [Eucerin Eczema 1 applic TOPICAL DAILY 01/10/18 01/19/18 History Relief] Cyanocobalamin [Vitamin B-12] 500 mcg PO DAILY 01/10/18 01/19/18 History Docusate [Colace] 100 mg PO TID 01/10/18 01/19/18 History Ferrous Sulfate [Iron (65 MG 325 mg PO DAILY 01/10/18 01/19/18 History Elemental)] Ketoconazole 2% Cream [Nizoral 2%] 1 applic TOPICAL DAILY 01/10/18 01/19/18 History Ketoconazole 2% Shampoo [Nizoral] 1 applic TOPICAL DIRECTED 01/10/18 History Loratadine [Claritin] 10 mg PO DAILY 01/10/18 01/19/18 History Meloxicam [Mobic] 7.5 mg PO BID 01/10/18 01/19/18 History Naloxone HCl [Narcan] 4 mg NASAL DIRECTED 01/10/18 01/19/18 History PARoxetine HCL [Paxil] 20 mg PO DAILY 01/10/18 01/19/18 History Ranitidine HCl [Zantac] 150 mg PO HS 01/10/18 01/19/18 History Terazosin [Hytrin] 5 mg PO HS 01/10/18 01/19/18 History Triamcinolone 0.1% Ointment 1 applic TOPICAL BID PRN MDD 01/10/18 01/19/18 History [Kenalog 0.1% Ointment] LEGS/TRUNK amLODIPine [Norvasc] 5 mg PO BID 01/10/18 01/19/18 History hydrOXYzine PAMOATE [Vistaril] 25 mg PO QID PRN 01/10/18 01/19/18 History traMADol HCL [Ultram] 100 mg PO Q6HR PRN 01/10/18 01/19/18 History traZODone HCL 50 mg PO HS 01/10/18 01/19/18 History Aspirin 81 mg PO DAILY #30 chewable 01/11/18 01/19/18 Rx Atorvastatin Calcium [Lipitor] 20 mg PO HS #30 tab 01/11/18 01/19/18 Rx Allergies Allergy/AdvReac Type Severity Reaction Status Date / Time lisinopril Allergy Unknown Verified 01/19/18 16:50 simvastatin [From Zocor] Allergy Unknown Verified 01/19/18 16:50 Physical Exam Vitals: Vital Signs Temp Pulse Resp BP Pulse Ox 01/24/18 03:50 98.2 F 48 L 14 164/72 96 01/24/18 00:00 97.5 F L 42 L 14 166/74 99 01/23/18 20:00 97.9 F 49 L 16 156/75 97 01/23/18 16:00 97 F L 52 L 17 164/79 96 01/23/18 12:00 51 L 17 128/66 95 01/23/18 09:05 95 01/23/18 08:30 96.9 F L 45 L 18 137/69 97 Intake and Output 01/23/18 01/23/18 01/24/18 14:59 22:59 06:59 Intake Total 525 Output Total 400 1000 200 Balance 125 -1000 -200 Intake: Intake, IV Titration 525 Amount Dextrose 5%-0.45% NaCl 1, 525 000 ml @ 75 mls/hr IV . [id number] [facility] Rx#:[id number] Output: Urine 400 1000 200 Other: Voiding Method Urinal Urinal # Voids 0 # Bowel Movements 0 Weight 74.5 kg Skin: Good color, texture, turgor. General: Thin build and comfortable appearance. Head: Normocephalic, atraumatic. Eyes: Patch over left eye. Ears: Symmetric. Hearing within normal limits. Mouth: Clear. Neck: Supple. Carotid without bruit. Cardiac: Regular rate and rhythm. Lungs: Clear anteriorly and posteriorly. Abdomen: Soft active nontender. Extremities: Normal tone. Neurological: Mental status: Alert, cooperative, pleasant. Discoordination left arm and leg. Cranial nerves: Symmetric facial tone and trapezius. Motor: Active movement both arms and right leg. Left leg poor. Sensation: Intact throughout. DTRs: Symmetric and equal throughout. Mobility: Requires assistance for bed mobility. Results CBC & Chem 7: 01/19/18 16:24 01/19/18 16:24 Labs: Abnormal Lab Results - Last 24 Hours (Table) 01/24/18 Range/Units 05:46 POC Glucose (mg/dL) 118 H (75-99) mg/dL Assessment and Plan (1) Gait instability Current Visit: No Status: Acute Code(s): R26.81 - UNSTEADINESS ON FEET SNOMED Code(s): 01144317 Plan: Impression: 1. Gait disturbance. 2. 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 3. Diplopia. 4. Dysphagia. 5. Hypertension. 6. Dyslipidemia. 7. Asthma. 8. Osteoarthritis. Comments and plan: At this time PT, OT, RIVETER HELPER all ongoing. Definite safety concerns noted. Appears to be participating with therapy. Main problem is patient has no real help or support for discharge home. He is hopeful for much support services.
[2018-01-24] MEDS: ASPIRIN 300 MG SUPP RECTAL SCH (08:09)
[2018-01-24] MEDS: MORPHINE SULFATE 2 MG/ML SYRINGE IVP PRN ×3 (08:09→23:35)
[2018-01-24 08:11] LABS: Basophils % (A) 0 %; Eosinophils # (A) 0.2 k/uL (0-0.7); Eosinophils % (A) 1 %; HCT 37.2 % (39.0-53.0); HGB 12.8 gm/dL (13.0-17.5); Lymphocytes # (A) 0.8 k/uL (1.0-4.8); Lymphocytes % (A) 7 %; MCH 30.4 pg (25.0-35.0); MCHC 34.5 g/dL (31.0-37.0); MCV 88.1 fL (80.0-100.0); Mean Platelet Volume 7.9; Monocytes # (A) 0.8 k/uL (0-1.0); Monocytes % (A) 7 %; Neutrophils # (A) 9.6 k/uL (1.3-7.7); Neutrophils % (A) 83 %; Platelet Count 258 k/uL (150-450); RBC 4.23 m/uL (4.30-5.90); WBC 11.6 k/uL (3.8-10.6)
[2018-01-24] MEDS: DOCUSATE 100 MG CAP PO SCH ×3 (08:11→19:48)
[2018-01-24] MEDS: CLOPIDOGREL 75 MG TAB PO SCH (08:11)
[2018-01-24] MEDS: FERROUS SULFATE 325 MG TAB PO SCH (08:11)
[2018-01-24] MEDS: MELOXICAM 7.5 MG TAB PO SCH ×2 (08:11→19:49)
[2018-01-24] MEDS: PARoxetine 20 MG TAB PO SCH (08:11)
[2018-01-24] MEDS: CYANOCOBALAMIN 500 MCG TAB PO SCH (08:11)
[2018-01-24] MEDS: amLODIPine 5 MG TAB PO SCH ×2 (08:11→19:49)
[2018-01-24] MEDS: FAMOTIDINE 20 MG/2 ML VIAL IV SCH ×2 (08:14→20:06)
[2018-01-24] MEDS: HEPARIN SODIUM,PORCINE 5,000 UNIT/ML 1 ML VIAL SQ SCH ×3 (08:14→23:35)
[2018-01-24 08:40] LABS: Anion Gap 8 mmol/L; Blood Urea Nitrogen 14 mg/dL (9-20); Calcium 8.3 mg/dL (8.4-10.2); Carbon Dioxide 21 mmol/L (22-30); Chloride 109 mmol/L (98-107); Glucose 113 mg/dL (74-99); Potassium 3.3 mmol/L (3.5-5.1); Sodium 138 mmol/L (137-145)
[2018-01-24] MEDS ORDERED: Potassium Replacement Protocol 1 EACH MISC MISCELLANE PRN (11:35)
--- NOTE | 2018-01-24 12:12 | P.GSCN ---
History of Present Illness Consult date: 01/24/18 Reason for Consult: Malnutrition History of present illness: Patient admitted last week after acute CVA. Patient has esophageal dysfunction as a result of his recent stroke. Speech pathology is advising he remain nothing by mouth. We are consulted for PEG tube placement. Patient is quite alert. He is requesting the PEG tube be placed as soon as possible. 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 She is also supportive of his decision to proceed with PEG tube placement. No previous gastric problems. No previous upper abdominal surgeries. Review of Systems The patient denies any acute changes in hearing, no dysphagia or odynophagia, no chest pain or shortness of breath, no dysuria or hematuria, no headache, no runny nose, no rectal bleeding or melena, no unexplained weight loss Past Medical History Past Medical History: Asthma, Cancer, CVA/TIA, Eye Disorder, Hyperlipidemia, Hypertension, Liver Disease, Osteoarthritis (OA) Additional Past Medical History / Comment(s): Pt states that past 2 weeks has had "blurred" vision and was seen at [facility] in [place] and told he has a "freckle" in that eye and will follow up with them, childhood asthma, liver "problem" before which pt states he was told was d/t taking tylenol #3, past ETOH abuse-sober for 19yrs then started drining 1-2 beers on occasion only, arthritis-bilateral shoulder and knee pains, skin cancer removed from nose. History of Any Multi-Drug Resistant Organisms: None Reported Past Surgical History: Hernia Repair Additional Past Surgical History / Comment(s): colonoscopy, total R knee arthroplasty, bilateral knee arthroscopies, R foot titanium implant, bilateral shoulder surgery, L inguinal hernia repaix x3, septoplasty and skin cancer removed from nose. Past Anesthesia/Blood Transfusion Reactions: No Reported Reaction Past Psychological History: Depression Additional Psychological History / Comment(s): Pt resides alone. His spouse is in a [facility] care facilty. Pt is independent. He is a [place] vet. Smoking Status: Never smoker Past Alcohol Use History: Daily Additional Past Alcohol Use History / Comment(s): Pt statess he has past ETOH abuse and was sober for 19 yrs. He states he started drinking 1-2 beers on occasion only since about 2005. Past Drug Use History: None Reported - Past Family History Father Family Medical History: Cancer Additional Family Medical History / Comment(s): Father had prostrate cancer. He is . Mother Family Medical History: Cancer, Thyroid Disorder Additional Family Medical History / Comment(s): Mother is . Pt states she had thyroid disease/surgeries. He thinks she had cancer in her "back". Medications and Allergies Home Medications Medication Instructions Recorded Confirmed Type Acetaminophen Tab [Tylenol] 500 mg PO BID PRN MDD 8 TABS 01/10/18 01/19/18 History Cetirizine HCl [Zyrtec] 10 - 20 mg PO DAILY PRN 01/10/18 01/19/18 History Colloidal Oatmeal [Eucerin Eczema 1 applic TOPICAL DAILY 01/10/18 01/19/18 History Relief] Cyanocobalamin [Vitamin B-12] 500 mcg PO DAILY 01/10/18 01/19/18 History Docusate [Colace] 100 mg PO TID 01/10/18 01/19/18 History Ferrous Sulfate [Iron (65 MG 325 mg PO DAILY 01/10/18 01/19/18 History Elemental)] Ketoconazole 2% Cream [Nizoral 2%] 1 applic TOPICAL DAILY 01/10/18 01/19/18 History Ketoconazole 2% Shampoo [Nizoral] 1 applic TOPICAL DIRECTED 01/10/18 History Loratadine [Claritin] 10 mg PO DAILY 01/10/18 01/19/18 History Meloxicam [Mobic] 7.5 mg PO BID 01/10/18 01/19/18 History Naloxone HCl [Narcan] 4 mg NASAL DIRECTED 01/10/18 01/19/18 History PARoxetine HCL [Paxil] 20 mg PO DAILY 01/10/18 01/19/18 History Ranitidine HCl [Zantac] 150 mg PO HS 01/10/18 01/19/18 History Terazosin [Hytrin] 5 mg PO HS 01/10/18 01/19/18 History Triamcinolone 0.1% Ointment 1 applic TOPICAL BID PRN MDD 01/10/18 01/19/18 History [Kenalog 0.1% Ointment] LEGS/TRUNK amLODIPine [Norvasc] 5 mg PO BID 01/10/18 01/19/18 History hydrOXYzine PAMOATE [Vistaril] 25 mg PO QID PRN 01/10/18 01/19/18 History traMADol HCL [Ultram] 100 mg PO Q6HR PRN 01/10/18 01/19/18 History traZODone HCL 50 mg PO HS 01/10/18 01/19/18 History Aspirin 81 mg PO DAILY #30 chewable 01/11/18 01/19/18 Rx Atorvastatin Calcium [Lipitor] 20 mg PO HS #30 tab 01/11/18 01/19/18 Rx Allergies Allergy/AdvReac Type Severity Reaction Status Date / Time lisinopril Allergy Unknown Verified 01/19/18 16:50 simvastatin [From Zocor] Allergy Unknown Verified 01/19/18 16:50 Surgical - Exam Vital Signs Temp Pulse Resp BP Pulse Ox 97.5 F L 54 L 18 124/80 99 01/19/18 16:09 01/19/18 16:09 01/19/18 16:09 01/19/18 16:09 01/19/18 16:09 Physical exam: General: Well-developed, well-nourished HEENT: Normocephalic, sclerae nonicteric, patch over left eye Abdomen: Nontender, nondistended Extremities: Left-sided weakness Neuro: Alert and oriented Results - Labs 01/24/18 07:34 01/24/18 07:34 Abnormal Lab Results - Last 24 Hours (Table) 01/24/18 01/24/18 01/24/18 Range/Units 05:46 07:34 07:34 WBC 11.6 H (3.8-10.6) k/uL RBC 4.23 L (4.30-5.90) m/uL Hgb 12.8 L (13.0-17.5) gm/dL Hct 37.2 L (39.0-53.0) % Neutrophils # 9.6 H (1.3-7.7) k/uL Lymphocytes # 0.8 L (1.0-4.8) k/uL Potassium 3.3 L (3.5-5.1) mmol/L Chloride 109 H (98-107) mmol/L Carbon Dioxide 21 L (22-30) mmol/L Creatinine 0.65 L (0.66-1.25) mg/dL Glucose 113 H (74-99) mg/dL POC Glucose (mg/dL) 118 H (75-99) mg/dL Calcium 8.3 L (8.4-10.2) mg/dL Diabetes panel 01/24/18 Range/Units 07:34 Sodium 138 (137-145) mmol/L Potassium 3.3 L (3.5-5.1) mmol/L Chloride 109 H (98-107) mmol/L Carbon Dioxide 21 L (22-30) mmol/L BUN 14 (9-20) mg/dL Creatinine 0.65 L (0.66-1.25) mg/dL Glucose 113 H (74-99) mg/dL Calcium 8.3 L (8.4-10.2) mg/dL Calcium panel 01/24/18 Range/Units 07:34 Calcium 8.3 L (8.4-10.2) mg/dL Pituitary panel 01/24/18 Range/Units 07:34 Sodium 138 (137-145) mmol/L Potassium 3.3 L (3.5-5.1) mmol/L Chloride 109 H (98-107) mmol/L Carbon Dioxide 21 L (22-30) mmol/L BUN 14 (9-20) mg/dL Creatinine 0.65 L (0.66-1.25) mg/dL Glucose 113 H (74-99) mg/dL Calcium 8.3 L (8.4-10.2) mg/dL Adrenal panel 01/24/18 Range/Units 07:34 Sodium 138 (137-145) mmol/L Potassium 3.3 L (3.5-5.1) mmol/L Chloride 109 H (98-107) mmol/L Carbon Dioxide 21 L (22-30) mmol/L BUN 14 (9-20) mg/dL Creatinine 0.65 L (0.66-1.25) mg/dL Glucose 113 H (74-99) mg/dL Calcium 8.3 L (8.4-10.2) mg/dL Assessment and Plan (1) Protein calorie malnutrition Narrative/Plan: Patient with recent CVA and lack of oral intake. We'll proceed with PEG tube placement. Risks of bleeding, infection, bowel injury, catheter misplacement reviewed. Patient understands and wishes to proceed. Current Visit: Yes Status: Acute Code(s): E46 - UNSPECIFIED PROTEIN-CALORIE MALNUTRITION SNOMED Code(s): 088289193
[2018-01-24] MEDS ORDERED: POTASSIUM CHLORIDE 20 MEQ in WATER FOR INJECTION 1 100ML.BAG IVPB STA (12:29)
[2018-01-24] MEDS: DEXTROSE 5%-0.45% NACL 1,000 ML IV SCH (15:35)
--- NOTE | 2018-01-24 15:54 | P.PN ---
Subjective Progress Note Date: 01/24/18 This is a 72-year-old gentleman with history of hypertension, who was recently in the hospital with a TIA approximately a week and a half ago. He presents to the hospital on this admission with a left-sided weakness, he also states that he is having a double vision and extreme weakness. According to the patient, he states that he feels a lot worse than he did a week and a half ago. Patient is unable to swallow, and he states that this is been present since his admission a week and a half ago. He was seen in consultation at that time by cardiology, he had no atrial fibrillation during that admission, was advised to have a Holter monitor in place, he states that this just arrived to his home prior to coming back on this admission. Patient does have history of hyperlipidemia and history of alcoholism. He had an echocardiogram with Doppler study performed on the of this month which revealed an ejection fraction of 55-60%. EKG on admission here showed a sinus bradycardia with no acute changes. Chest x-ray did not reveal any acute changes. CT of the head and cervical spine did not reveal any acute abnormality. Swallow evaluation was performed which revealed inconsistent swallow. Jas aspiration with thin consistency limited to the setting of large-volume vallecular retention of the barium coated cracker. Persistent laryngeal penetration with thin or consistencies. Evaluation by speech therapy for further swallow workup today. CAT scan of the brain did not reveal any significant interval change. No acute intracranial process. Blood pressure 156/70 with a heart rate in the 60s, 90% on 2 L of oxygen. White blood cell count 5.8, hemoglobin 13.3, platelet count 253. Sodium 139, potassium 4.5, BUN 14, creatinine 0.9. Troponins negative. TSH normal. At the time of my examination this morning, patient does complain of difficulty in swallowing, he is coughing up a significant amount of yellow sputum this morning. He is also complaining of some double vision and mild headache this morning. 01/22/2018 Patient had an MRI of the brain performed which revealed an evolving 1.1 cm acute infarct involving the left dorsal aspect of the medulla in the brainstem. No evidence of any atrial fibrillation. Hemodynamically stable. Still nothing by mouth because of difficulty in swallowing. 01/24/2018 Patient was seen and examined this morning, hemodynamically stable. White blood cell count 11.6, hemoglobin 12.8, platelet count 258. Sodium 138, potassium 3.3, BUN 14, creatinine 0.6. Objective - Vital Signs Vital signs: Vital Signs Temp 98.7 F 01/24/18 12:00 Pulse 52 L 01/24/18 12:00 Resp 16 01/24/18 12:00 BP 175/75 01/24/18 12:00 Pulse Ox 96 01/24/18 12:00 Intake & Output 01/23/18 01/24/18 01/24/18 18:59 06:59 18:59 Intake Total 525 450 Output Total 1200 400 Balance -675 -400 450 Weight 74.5 kg 74.5 kg Intake: Intake, IV Titration 525 450 Amount Dextrose 5%-0.45% NaCl 1, 525 450 000 ml @ 75 mls/hr IV . [id number] DEENA Rx#:[id number] Output: Urine 1200 400 Other: Voiding Method Urinal Urinal # Voids 0 1 # Bowel Movements 0 - Exam PHYSICAL EXAMINATION: GENERAL: 72-year-old gentleman in no acute distress at the time of my examination HEENT: Head is atraumatic, normocephalic. Pupils equal, round. Sclera anicteric. Conjunctiva are clear. Mucous membranes of the mouth are moist. Neck is supple. There is no elevated jugular venous pressure. No carotid bruit is heard. HEART EXAMINATION: Heart S1, S2 normal. No murmur or gallop heard. CHEST EXAMINATION: Lungs are clear to auscultation and precussion. No chest wall tenderness is noted on palpation or with deep breathing. ABDOMEN: Soft, nontender. Bowel sounds are heard. No organomegaly noted. EXTREMITIES: 2+ peripheral pulses with no evidence of peripheral edema and no calf tenderness noted. NEUROLOGIC patient is awake, alert and oriented X3 patient does have weakness noted in the left side of his body, arm and leg both. Trace of left facial droop is noted. . - Labs CBC & Chem 7: 01/24/18 07:34 01/24/18 07:34 Labs: Abnormal Lab Results - Last 24 Hours (Table) 01/24/18 01/24/18 01/24/18 Range/Units 05:46 07:34 07:34 WBC 11.6 H (3.8-10.6) k/uL RBC 4.23 L (4.30-5.90) m/uL Hgb 12.8 L (13.0-17.5) gm/dL Hct 37.2 L (39.0-53.0) % Neutrophils # 9.6 H (1.3-7.7) k/uL Lymphocytes # 0.8 L (1.0-4.8) k/uL Potassium 3.3 L (3.5-5.1) mmol/L Chloride 109 H (98-107) mmol/L Carbon Dioxide 21 L (22-30) mmol/L Creatinine 0.65 L (0.66-1.25) mg/dL Glucose 113 H (74-99) mg/dL POC Glucose (mg/dL) 118 H (75-99) mg/dL Calcium 8.3 L (8.4-10.2) mg/dL Assessment and Plan Plan: Assessment and plan #1 left-sided weakness with associated double vision, rule out CVA. #2 recent TIA #3 hypertension #4 hyperlipidemia #5 history of alcoholism #6 dysphasia Plan No evidence of any atrial fibrillation. From cardiology's perspective, we will recommend patient wear the event monitor he has at home. We will follow him along with you now on an as-needed basis only, please don't hesitate to call with any questions. DNP note has been reviewed, I agree with a documented findings and plan of care. Patient was seen and examined.
[2018-01-24] MEDS: traZODone HCL 50 MG TAB PO SCH (19:48)
[2018-01-24] MEDS: ATORVASTATIN 20 MG TAB PO SCH (19:49)
[2018-01-24] MEDS: DOXAZOSIN 4 MG TAB PO SCH (19:49)
[2018-01-24] MEDS: KETOCONAZOLE 2% SHAMPOO 1 APPLIC/ML TOPICAL SCH (19:55)
[2018-01-24] MEDS: NALOXONE HCL 4 MG NASAL SCH (19:55)
[2018-01-24] MEDS ORDERED: hydrALAZINE HCL 20 MG/ML 1 ML VIAL IVP PRN (21:36)
--- NOTE | 2018-01-24 23:33 | P.PN ---
Subjective Progress Note Date: 01/24/18 Principal diagnosis: Acute CVA Patient is a 72-year-old male with a known history of CVA/TIA, hypertension, hyperlipidemia, osteoarthritis, asthma, PE was history of alcohol abuse and multiple other medical problems presented to ER with complaints of left-sided weakness at around 3:30 PM yesterday. Patient went to store and suddenly developed left-sided weakness while he was walking. Patient leaned onto the boxs and to the floor. Denied any fall or streaking movements. Patient was brought to the hospital by EMS. Patient did have a good international student advisor bilaterally and was able to move everything by the time EMS arrived. Patient was having some left facial asymmetry and some residual left-sided weakness when he was seen in the emergency room. Patient was admitted to the hospital about a week ago with the TIA and had a workup including CT brain was normal. Carotid duplex showed no hemodynamically significant stenosis. Patient was found have bradycardic with heart rate around 50s at the time and was seen by cardiology. Recommended to follow-up as an outpatient for cardiac monitoring which is supposed to follow in next 1-2 days. MRI of the brain could not be done due to metal plates in the right shoulder and also bilateral ankles. EEG was normal at this time. Patient did improve clinically and was sent home. Patient denied any complaints of chest pain or shortness of breath. No fever no chills. No nausea vomiting or diarrhea. Patient has not been eating very well recently. Patient uses by himself and is at the extended care facility. Patient does have improvement in left sided weakness currently. Otherwise patient failed swallow evaluation and barium swallow was done which also showed dyslogia. Currently patient is nothing by mouth. Neurology was consulted for further evaluation. Heart rate was in 50s when he came to the hospital. CT head showed no acute abnormality. EKG showed sinus bradycardia CT cervical spine showed mild facet arthropathy 01/23/2018 Patient says that his left sided weakness is improving. Able to lift his hand overhead slowly. Otherwise patient still having diplopia and left eyes covered at this time. Patient will be evaluated for swallowing tomorrow again. Patient will be continued on IV fluids and continued to monitor closely. Appears to be comfortable compared to yesterday. Neurology is following. 01/24/2018 Patient failed swallow evaluation again today. Gen. surgery was consulted for PEG tube placement. Otherwise patient denied any chest pain or shortness of breath. Left-sided weakness is slightly improving. Continued on IV hydration and current medications. Denied any chest pain or shortness of breath. No nausea vomiting or abdominal pain. No diarrhea. Current medications reviewed Objective - Vital Signs Vital signs: Vital Signs Temp 98.7 F 01/24/18 12:00 Pulse 52 L 01/24/18 12:00 Resp 16 01/24/18 12:00 BP 175/75 01/24/18 12:00 Pulse Ox 96 01/24/18 12:00 Intake & Output 01/23/18 01/24/18 01/24/18 18:59 06:59 18:59 Intake Total 525 450 Output Total 1200 400 Balance -675 -400 450 Weight 74.5 kg 74.5 kg Intake: Intake, IV Titration 525 450 Amount Dextrose 5%-0.45% NaCl 1, 525 450 000 ml @ 75 mls/hr IV . [id number] DEENA Rx#:[id number] Output: Urine 1200 400 Other: Voiding Method Urinal Urinal # Voids 0 1 # Bowel Movements 0 - Exam PHYSICAL EXAMINATION: Patient is lying in the bed comfortably, no acute distress, awake alert and oriented.. HEENT: Normocephalic. Neck is supple. Pupils reactive. Nostrils clear. Oral cavity is moist. Ears reveal no drainage. Neck reveals no JVD, carotid bruits, or thyromegaly. CHEST EXAMINATION: Trachea is central. Symmetrical expansion. Lung olivas clear to auscultation and percussion. CARDIAC: Normal S1, S2 with no gallops. No murmurs ABDOMEN: Soft. Bowel sounds normal. No organomegaly. No abdominal bruits. Extremities: reveal no edema. No clubbing or cyanosis Neurologically awake, alert, oriented x3 with well-coordinated movements. Left eye double vision and was covered. Left upper extremity minimal weakness. Skin: No rash or skin lesions. Psychiatric: Coperative. Nonsuicidal Musculoskeletal: No joint swelling or deformity. Normal range of motion. - Labs CBC & Chem 7: 01/24/18 07:34 01/24/18 07:34 Labs: Abnormal Lab Results - Last 24 Hours (Table) 01/24/18 01/24/18 01/24/18 Range/Units 05:46 07:34 07:34 WBC 11.6 H (3.8-10.6) k/uL RBC 4.23 L (4.30-5.90) m/uL Hgb 12.8 L (13.0-17.5) gm/dL Hct 37.2 L (39.0-53.0) % Neutrophils # 9.6 H (1.3-7.7) k/uL Lymphocytes # 0.8 L (1.0-4.8) k/uL Potassium 3.3 L (3.5-5.1) mmol/L Chloride 109 H (98-107) mmol/L Carbon Dioxide 21 L (22-30) mmol/L Creatinine 0.65 L (0.66-1.25) mg/dL Glucose 113 H (74-99) mg/dL POC Glucose (mg/dL) 118 H (75-99) mg/dL Calcium 8.3 L (8.4-10.2) mg/dL Assessment and Plan Assessment: Left-sided weakness due acute CVA involving brainstem. Dysphagia and failed swallow evaluation Recent history of TIA. Stroke workup was negative. MRI could not be done due to metal in the body. Hypertension Hyperlipidemia Sinus bradycardia. Questionable arrhythmia. Osteoarthritis Previous history of alcohol abuse DVT prophylaxis Plan: Patient will be continued on telemetry monitoring. Currently with aspirin Plavix and statins. Neurology and cardiology was consulted. Continue to follow closely and further recommendations based on the clinical course. Patient failed swallow evaluation with barium swallow study. Currently aspirin is being given rectally. Patient had repeat CT of the brain which showed no significant interval change. MRI of the brain was done and an evolving 1.1 cm acute infarct involving the left dorsal aspect of the maneuver in the brainstem. Continue antiplatelet therapy in the form of rectal aspirin 300 mg daily. Continue PT OT. Continue speech therapy and swallow evaluation. Patient will need a PEG tube placed prior to transfer to rehab. Patient's lipid panel was recently elevated and statin drug was increased. Serum homocystine level was normal. EEG was normal. Carotid Doppler showed no significant stenosis. Continue neurological checks. Possible transfer to rehab when stable. Time with Patient: Greater than 30
[2018-01-25] MEDS: MORPHINE SULFATE 2 MG/ML SYRINGE IVP PRN (05:12)
[2018-01-25] MEDS: DEXTROSE 5%-0.45% NACL 1,000 ML IV SCH ×2 (05:12→18:13)
[2018-01-25 05:51] LABS: Glucose,Whole Blood 112 mg/dL (75-99)
[2018-01-25 07:02] LABS: Anion Gap 11 mmol/L; Blood Urea Nitrogen 11 mg/dL (9-20); Calcium 8.9 mg/dL (8.4-10.2); Carbon Dioxide 22 mmol/L (22-30); Chloride 107 mmol/L (98-107); Glucose 108 mg/dL (74-99); Potassium 3.6 mmol/L (3.5-5.1); Sodium 140 mmol/L (137-145)
[2018-01-25] MEDS: HEPARIN SODIUM,PORCINE 5,000 UNIT/ML 1 ML VIAL SQ SCH ×3 (08:50→23:44)
[2018-01-25] MEDS: DOCUSATE 100 MG CAP PO SCH ×3 (12:40→23:44)
[2018-01-25] MEDS: FAMOTIDINE 20 MG/2 ML VIAL IV SCH ×2 (12:49→21:12)
[2018-01-25] MEDS ORDERED: PROPOFOL 10 MG/ML 20 ML VIAL IV ONE (13:24)
[2018-01-25] MEDS ORDERED: LIDOCAINE 1% INJ 10MG/ML (20 ML MDV) ONE (13:24)
[2018-01-25] MEDS ORDERED: fentaNYL (PF) 50 MCG/ML 2 ML AMP ONE (13:24)
[2018-01-25] MEDS ORDERED: MIDAZOLAM 2 MG/2 ML VIAL ONE (13:24)
--- NOTE | 2018-01-25 13:41 | P.PCN ---
Date of Procedure: 01/25/18 Procedure(s) Performed: PREOPERATIVE DIAGNOSIS: Malnutrition POSTOPERATIVE DIAGNOSIS: Same PROCEDURE: EGD with PEG tube placement SURGEON: Michael EBL: Minimal ANESTHESIA: Sedation COMPLICATIONS: None OPERATIVE PROCEDURE: The patient was placed in the supine position on the endoscopy table. The patient was sedated per anesthesia that time. The Olympus gastroscope was inserted into the oropharynx and passed under direct visualization to the region of the duodenum. No obstruction was seen. The pylorus was widely patent. The stomach was carefully inspected. The stomach was fully insufflated with air. The abdominal wall was inspected. The light was seen shining through the abdominal wall in the left upper quadrant. This site was chosen for PEG tube placement. The area was prepped in the usual sterile fashion. This area was then localized with lidocaine. A small vertical incision was made using the scalpel. The Seldinger needle was advanced into the lumen of the stomach the wire was advanced. The wire was grasped with an endoscopic snare. The wire was pulled through the oropharynx. The catheter was then threaded over the guidewire and the guidewire and catheter were pulled anteriorly until the hub of the PEG tube catheter was seated against the anterior wall the stomach. The circular bolster was applied and tightened down. The endoscope was then readvanced into the stomach. There was no evidence of any bleeding and there was appropriate tightness on the bolster. The catheter was cut appropriately. The dual port feeding adapter was applied. DISPOSITION: Stable to recovery room
[2018-01-25] MEDS ORDERED: IV FLUID CONTINUATION 1,000 ML IV ONE (13:44)
[2018-01-25] MEDS: FERROUS SULFATE 325 MG TAB PO SCH (16:41)
[2018-01-25] MEDS: CYANOCOBALAMIN 500 MCG TAB PO SCH (17:08)
[2018-01-25] MEDS: MELOXICAM 7.5 MG TAB PO SCH (18:12)
[2018-01-25] MEDS: PARoxetine 20 MG TAB PO SCH (18:12)
[2018-01-25] MEDS: amLODIPine 5 MG TAB PO SCH ×2 (18:12→21:12)
[2018-01-25] MEDS: CLOPIDOGREL 75 MG TAB PO SCH (18:13)
[2018-01-25] MEDS: ASPIRIN 300 MG SUPP RECTAL SCH (18:13)
[2018-01-25] MEDS: DOXAZOSIN 4 MG TAB PO SCH (21:12)
[2018-01-25] MEDS: ATORVASTATIN 20 MG TAB PO SCH (21:12)
[2018-01-25] MEDS: traZODone HCL 50 MG TAB PO SCH (21:12)
[2018-01-25] MEDS: KETOCONAZOLE 2% SHAMPOO 1 APPLIC/ML TOPICAL SCH (22:09)
[2018-01-25] MEDS: NALOXONE HCL 4 MG NASAL SCH (22:10)
[2018-01-26] MEDS: MELOXICAM 7.5 MG TAB PO SCH ×3 (06:37→21:07)
[2018-01-26] MEDS: PARoxetine 20 MG TAB PO SCH (10:29)
[2018-01-26] MEDS: FERROUS SULFATE 325 MG TAB PO SCH (10:29)
[2018-01-26] MEDS: HEPARIN SODIUM,PORCINE 5,000 UNIT/ML 1 ML VIAL SQ SCH ×3 (10:29→22:52)
[2018-01-26] MEDS: CYANOCOBALAMIN 500 MCG TAB PO SCH (10:29)
[2018-01-26] MEDS: CLOPIDOGREL 75 MG TAB PO SCH (10:29)
[2018-01-26] MEDS: DOCUSATE 100 MG CAP PO SCH ×3 (10:30→21:06)
[2018-01-26] MEDS: amLODIPine 5 MG TAB PO SCH ×2 (10:30→21:06)
[2018-01-26] MEDS: ASPIRIN 325 MG TAB PO SCH (10:34)
[2018-01-26] MEDS: FAMOTIDINE 20 MG/2 ML VIAL IV SCH ×2 (10:34→21:07)
[2018-01-26 11:40] VITALS: BMI 25.2
--- NOTE | 2018-01-26 12:48 | P.PN ---
Subjective Progress Note Date: 01/25/18 Principal diagnosis: Acute CVA Patient is a 72-year-old male with a known history of CVA/TIA, hypertension, hyperlipidemia, osteoarthritis, asthma, PE was history of alcohol abuse and multiple other medical problems presented to ER with complaints of left-sided weakness at around 3:30 PM yesterday. Patient went to store and suddenly developed left-sided weakness while he was walking. Patient leaned onto the boxs and to the floor. Denied any fall or streaking movements. Patient was brought to the hospital by EMS. Patient did have a good exercise manager bilaterally and was able to move everything by the time EMS arrived. Patient was having some left facial asymmetry and some residual left-sided weakness when he was seen in the emergency room. Patient was admitted to the hospital about a week ago with the TIA and had a workup including CT brain was normal. Carotid duplex showed no hemodynamically significant stenosis. Patient was found have bradycardic with heart rate around 50s at the time and was seen by cardiology. Recommended to follow-up as an outpatient for cardiac monitoring which is supposed to follow in next 1-2 days. MRI of the brain could not be done due to metal plates in the right shoulder and also bilateral ankles. EEG was normal at this time. Patient did improve clinically and was sent home. Patient denied any complaints of chest pain or shortness of breath. No fever no chills. No nausea vomiting or diarrhea. Patient has not been eating very well recently. Patient uses by himself and is at the extended care facility. Patient does have improvement in left sided weakness currently. Otherwise patient failed swallow evaluation and barium swallow was done which also showed dyslogia. Currently patient is nothing by mouth. Neurology was consulted for further evaluation. Heart rate was in 50s when he came to the hospital. CT head showed no acute abnormality. EKG showed sinus bradycardia CT cervical spine showed mild facet arthropathy 01/23/2018 Patient says that his left sided weakness is improving. Able to lift his hand overhead slowly. Otherwise patient still having diplopia and left eyes covered at this time. Patient will be evaluated for swallowing tomorrow again. Patient will be continued on IV fluids and continued to monitor closely. Appears to be comfortable compared to yesterday. Neurology is following. 01/24/2018 Patient failed swallow evaluation again today. Gen. surgery was consulted for PEG tube placement. Otherwise patient denied any chest pain or shortness of breath. Left-sided weakness is slightly improving. Continued on IV hydration and current medications. 01/25/2018 Patient denied any new complaints today. Scheduled for PEG tube placement today afternoon. Left-sided weakness slightly improved. Otherwise patient feels that left leg is very heavy otherwise. Still having diplopia. No fever no chills. Continued on IV hydration. Continue the PT OT and speech therapy. Denied any chest pain or shortness of breath. No nausea vomiting or abdominal pain. No diarrhea. Current medications reviewed Objective - Vital Signs Vital signs: Vital Signs Temp 98.8 F 01/25/18 08:00 Pulse 66 01/25/18 08:00 Resp 16 01/25/18 11:46 BP 171/85 01/25/18 08:00 Pulse Ox 97 01/25/18 08:00 Intake & Output 01/24/18 01/25/18 01/25/18 18:59 06:59 18:59 Intake Total 450 700 Output Total 1300 300 Balance 450 -600 -300 Weight 74.5 kg 74 kg Intake: Intake, IV Titration 450 700 Amount Dextrose 5%-0.45% NaCl 1, 450 700 000 ml @ 75 mls/hr IV . [id number] DEENA Rx#:[id number] Output: Urine 1300 300 Other: Voiding Method Urinal Urinal Urinal # Voids 1 1 - Exam PHYSICAL EXAMINATION: Patient is lying in the bed comfortably, no acute distress, awake alert and oriented.. HEENT: Normocephalic. Neck is supple. Pupils reactive. Nostrils clear. Oral cavity is moist. Ears reveal no drainage. Neck reveals no JVD, carotid bruits, or thyromegaly. CHEST EXAMINATION: Trachea is central. Symmetrical expansion. Lung olivas clear to auscultation and percussion. CARDIAC: Normal S1, S2 with no gallops. No murmurs ABDOMEN: Soft. Bowel sounds normal. No organomegaly. No abdominal bruits. Extremities: reveal no edema. No clubbing or cyanosis Neurologically awake, alert, oriented x3 with well-coordinated movements. Left eye double vision and was covered. Left upper extremity minimal weakness. Skin: No rash or skin lesions. Psychiatric: Coperative. Nonsuicidal Musculoskeletal: No joint swelling or deformity. Normal range of motion. - Labs CBC & Chem 7: 01/24/18 07:34 01/25/18 05:52 Labs: Abnormal Lab Results - Last 24 Hours (Table) 01/25/18 01/25/18 Range/Units 05:35 05:52 Glucose 108 H (74-99) mg/dL POC Glucose (mg/dL) 112 H (75-99) mg/dL Assessment and Plan Assessment: Left-sided weakness and diplopia due acute CVA involving brainstem. Dysphagia and failed swallow evaluation Recent history of TIA. Stroke workup was negative. MRI could not be done due to metal in the body. Hypertension Hyperlipidemia Sinus bradycardia. Questionable arrhythmia. Osteoarthritis Previous history of alcohol abuse DVT prophylaxis Plan: Patient will be continued on telemetry monitoring. Currently with aspirin Plavix and statins. Neurology and cardiology was consulted. Continue to follow closely and further recommendations based on the clinical course. Patient failed swallow evaluation with barium swallow study. Currently aspirin is being given rectally. Patient had repeat CT of the brain which showed no significant interval change. MRI of the brain was done and an evolving 1.1 cm acute infarct involving the left dorsal aspect of the maneuver in the brainstem. Continue antiplatelet therapy in the form of rectal aspirin 300 mg daily. Continue PT OT. Continue speech therapy and swallow evaluation. Patient will need a PEG tube placed prior to transfer to rehab. Patient's lipid panel was recently elevated and statin drug was increased. Serum homocystine level was normal. EEG was normal. Carotid Doppler showed no significant stenosis. Continue neurological checks. Possible transfer to rehab when stable. Time with Patient: Greater than 30
--- NOTE | 2018-01-26 13:29 | P.PN ---
Subjective Progress Note Date: 01/26/18 Principal diagnosis: Patient doing well today. Tube feeds are just now starting. Mild pain at the PEG tube site. Objective - Vital Signs Vital signs: Vital Signs Temp 98.4 F 01/26/18 04:00 Pulse 74 01/26/18 08:00 Resp 18 01/26/18 12:00 BP 135/84 01/26/18 08:00 Pulse Ox 95 01/26/18 08:00 Intake & Output 01/25/18 01/26/18 01/26/18 18:59 06:59 18:59 Intake Total 50 Output Total 700 850 Balance -650 -850 Weight 75.5 kg 75.5 kg Intake: IV 50 Output: Urine 700 850 Other: Voiding Method Urinal Urinal Urinal # Voids 1 1 # Bowel Movements 0 - Exam Abdomen: Soft, nondistended, mild tenderness at PEG tube site - Labs CBC & Chem 7: 01/24/18 07:34 01/25/18 05:52 Assessment and Plan (1) Protein calorie malnutrition Narrative/Plan: Begin tube feeds today. Monitor patient's complaints of discomfort. Current Visit: Yes Status: Acute Code(s): E46 - UNSPECIFIED PROTEIN-CALORIE MALNUTRITION SNOMED Code(s): 464110152
[2018-01-26] MEDS: traZODone HCL 50 MG TAB PO SCH (21:06)
[2018-01-26] MEDS: DOXAZOSIN 4 MG TAB PO SCH (21:07)
[2018-01-26] MEDS: KETOCONAZOLE 2% SHAMPOO 1 APPLIC/ML TOPICAL SCH (21:07)
[2018-01-26] MEDS: ATORVASTATIN 20 MG TAB PO SCH (21:07)
[2018-01-26] MEDS: DEXTROSE 5%-0.45% NACL 1,000 ML IV SCH (21:10)
[2018-01-26 22:18] VITALS: RESP 18
--- NOTE | 2018-01-26 22:18 | P.PN ---
Subjective Progress Note Date: 01/26/18 Principal diagnosis: Acute CVA Patient is a 72-year-old male with a known history of CVA/TIA, hypertension, hyperlipidemia, osteoarthritis, asthma, PE was history of alcohol abuse and multiple other medical problems presented to ER with complaints of left-sided weakness at around 3:30 PM yesterday. Patient went to store and suddenly developed left-sided weakness while he was walking. Patient leaned onto the boxs and to the floor. Denied any fall or streaking movements. Patient was brought to the hospital by EMS. Patient did have a good artist color separation bilaterally and was able to move everything by the time EMS arrived. Patient was having some left facial asymmetry and some residual left-sided weakness when he was seen in the emergency room. Patient was admitted to the hospital about a week ago with the TIA and had a workup including CT brain was normal. Carotid duplex showed no hemodynamically significant stenosis. Patient was found have bradycardic with heart rate around 50s at the time and was seen by cardiology. Recommended to follow-up as an outpatient for cardiac monitoring which is supposed to follow in next 1-2 days. MRI of the brain could not be done due to metal plates in the right shoulder and also bilateral ankles. EEG was normal at this time. Patient did improve clinically and was sent home. Patient denied any complaints of chest pain or shortness of breath. No fever no chills. No nausea vomiting or diarrhea. Patient has not been eating very well recently. Patient uses by himself and is at the extended care facility. Patient does have improvement in left sided weakness currently. Otherwise patient failed swallow evaluation and barium swallow was done which also showed dyslogia. Currently patient is nothing by mouth. Neurology was consulted for further evaluation. Heart rate was in 50s when he came to the hospital. CT head showed no acute abnormality. EKG showed sinus bradycardia CT cervical spine showed mild facet arthropathy 01/23/2018 Patient says that his left sided weakness is improving. Able to lift his hand overhead slowly. Otherwise patient still having diplopia and left eyes covered at this time. Patient will be evaluated for swallowing tomorrow again. Patient will be continued on IV fluids and continued to monitor closely. Appears to be comfortable compared to yesterday. Neurology is following. 01/24/2018 Patient failed swallow evaluation again today. Gen. surgery was consulted for PEG tube placement. Otherwise patient denied any chest pain or shortness of breath. Left-sided weakness is slightly improving. Continued on IV hydration and current medications. 01/25/2018 Patient denied any new complaints today. Scheduled for PEG tube placement today afternoon. Left-sided weakness slightly improved. Otherwise patient feels that left leg is very heavy otherwise. Still having diplopia. No fever no chills. Continued on IV hydration. Continue the PT OT and speech therapy. 01/26/2018 Patient denied any new complaints. Status post PEG tube placement and tube feeding was started. Patient still having difficulty swallowing otherwise and also complaining of left-sided neck pain. States that left lower extremity is heavy. Able to move left upper and lower extremity while in the bed. No fever no chills. Denied any chest pain or shortness of breath. No nausea vomiting or abdominal pain. No diarrhea. Current medications reviewed Objective - Vital Signs Vital signs: Vital Signs Temp 98.4 F 01/26/18 04:00 Pulse 61 01/26/18 17:42 Resp 16 01/26/18 17:42 BP 150/70 01/26/18 17:42 Pulse Ox 98 01/26/18 17:11 Intake & Output 01/26/18 01/26/18 01/27/18 06:59 18:59 06:59 Intake Total 26 Output Total 850 Balance -850 26 Weight 75.5 kg 75.5 kg Intake: Tube Feeding 26 Output: Urine 850 Other: Voiding Method Urinal Urinal # Voids 1 2 # Bowel Movements 0 - Exam PHYSICAL EXAMINATION: Patient is lying in the bed comfortably, no acute distress, awake alert and oriented.. HEENT: Normocephalic. Neck is supple. Pupils reactive. Nostrils clear. Oral cavity is moist. Ears reveal no drainage. Neck reveals no JVD, carotid bruits, or thyromegaly. CHEST EXAMINATION: Trachea is central. Symmetrical expansion. Lung olivas clear to auscultation and percussion. CARDIAC: Normal S1, S2 with no gallops. No murmurs ABDOMEN: Soft. Bowel sounds normal. No organomegaly. No abdominal bruits. Extremities: reveal no edema. No clubbing or cyanosis Neurologically awake, alert, oriented x3 with well-coordinated movements. Left eye double vision and was covered. Left upper extremity minimal weakness. Skin: No rash or skin lesions. Psychiatric: Coperative. Nonsuicidal Musculoskeletal: No joint swelling or deformity. Normal range of motion. - Labs CBC & Chem 7: 01/24/18 07:34 01/25/18 05:52 Assessment and Plan Assessment: Left-sided weakness and diplopia due acute CVA involving brainstem showed in the MRI of the brain. Dysphagia and failed swallow evaluation. Status post PEG tube placement Recent history of TIA. Hypertension Hyperlipidemia Sinus bradycardia. Questionable arrhythmia. Osteoarthritis Previous history of alcohol abuse DVT prophylaxis Plan: Patient will be continued on telemetry monitoring. Currently with aspirin Plavix and statins. Neurology and cardiology was consulted. Continue to follow closely and further recommendations based on the clinical course. Patient failed swallow evaluation with barium swallow study. Currently aspirin is being given rectally. Patient had repeat CT of the brain which showed no significant interval change. MRI of the brain was done and an evolving 1.1 cm acute infarct involving the left dorsal aspect of the maneuver in the brainstem. Continue antiplatelet therapy in the form of rectal aspirin 300 mg daily. Continue PT OT. Continue speech therapy and swallow evaluation. Patient will need a PEG tube placed prior to transfer to rehab. Patient's lipid panel was recently elevated and statin drug was increased. Serum homocystine level was normal. EEG was normal. Carotid Doppler showed no significant stenosis. Continue neurological checks. Possible transfer to rehab when stable. Time with Patient: Greater than 30
[2018-01-26] MEDS: NALOXONE HCL 4 MG NASAL SCH (22:20)
[2018-01-26] MEDS: ASPIRIN 300 MG SUPP RECTAL SCH (22:22)
[2018-01-27 06:17] LABS: Basophils % (A) 0 %; Eosinophils # (A) 0.1 k/uL (0-0.7); Eosinophils % (A) 1 %; HCT 37.6 % (39.0-53.0); Lymphocytes % (A) 7 %; MCH 28.8 pg (25.0-35.0); MCHC 31.9 g/dL (31.0-37.0); Mean Platelet Volume 7.3; Monocytes # (A) 0.9 k/uL (0-1.0); Monocytes % (A) 6 %; Neutrophils # (A) 11.8 k/uL (1.3-7.7); Neutrophils % (A) 85 %; Platelet Count 293 k/uL (150-450); RBC 4.18 m/uL (4.30-5.90); RDW 13.1 % (11.5-15.5); WBC 13.9 k/uL (3.8-10.6)
[2018-01-27 06:31] LABS: Anion Gap 8 mmol/L; Blood Urea Nitrogen 13 mg/dL (9-20); Calcium 8.6 mg/dL (8.4-10.2); Carbon Dioxide 24 mmol/L (22-30); Chloride 105 mmol/L (98-107); Glucose 133 mg/dL (74-99); Potassium 3.2 mmol/L (3.5-5.1); Sodium 137 mmol/L (137-145)
[2018-01-27] MEDS: POTASSIUM CHLORIDE ER 20 MEQ TAB.ER PO SCH ×2 (06:55→09:17)
[2018-01-27] MEDS: DOCUSATE 100 MG CAP PO SCH ×2 (09:16→15:53)
[2018-01-27] MEDS: ASPIRIN 325 MG TAB PO SCH ×2 (09:17→15:52)
[2018-01-27] MEDS: MELOXICAM 7.5 MG TAB PO SCH (09:17)
[2018-01-27] MEDS: PARoxetine 20 MG TAB PO SCH (09:18)
[2018-01-27] MEDS: HEPARIN SODIUM,PORCINE 5,000 UNIT/ML 1 ML VIAL SQ SCH ×2 (09:18→15:52)
[2018-01-27] MEDS: CYANOCOBALAMIN 500 MCG TAB PO SCH (09:18)
[2018-01-27] MEDS: amLODIPine 5 MG TAB PO SCH (09:18)
[2018-01-27] MEDS: CLOPIDOGREL 75 MG TAB PO SCH (09:18)
[2018-01-27] MEDS: FAMOTIDINE 20 MG/2 ML VIAL IV SCH (09:20)
[2018-01-27] MEDS: FERROUS SULFATE 325 MG TAB PO SCH (10:47)
--- NOTE | 2018-01-27 13:26 | P.PN ---
<Maria L Islas - Last Filed: 01/27/18 13:20> Subjective Progress Note Date: 01/27/18 72-year-old being seen in follow-up visit. Patient status post January 25 EGD with PEG tube placement for malnutrition. No redness around the PEG tube site tube feeds started at 40cc/hr tolerating denies any abdominal cramping Objective - Vital Signs Vital signs: Vital Signs Temp 96 F L 01/27/18 08:00 Pulse 72 01/27/18 08:00 Resp 18 01/27/18 08:00 BP 121/61 01/27/18 08:00 Pulse Ox 92 L 01/27/18 08:00 Intake & Output 01/26/18 01/27/18 01/27/18 18:59 06:59 18:59 Intake Total 26 300 90 Output Total 500 Balance 26 -200 90 Weight 75.5 kg Intake: Oral 0 Tube Feeding 26 300 90 Output: Urine 500 Other: Voiding Method Urinal Urinal # Voids 2 2 # Bowel Movements 0 - Exam Physical exam Abdomen remains soft not distended no redness around the PEG tube site no drainage tube feeds at 40 no stool - Labs CBC & Chem 7: 01/27/18 05:37 01/27/18 05:37 Labs: Abnormal Lab Results - Last 24 Hours (Table) 01/27/18 01/27/18 Range/Units 05:37 05:37 WBC 13.9 H (3.8-10.6) k/uL RBC 4.18 L (4.30-5.90) m/uL Hgb 12.0 L (13.0-17.5) gm/dL Hct 37.6 L (39.0-53.0) % Neutrophils # 11.8 H (1.3-7.7) k/uL Potassium 3.2 L (3.5-5.1) mmol/L Glucose 133 H (74-99) mg/dL Assessment and Plan Assessment: Impression Status post PEG tube placement for protein calorie malnutrition Plan Tube feeds have been initiated at 40ml/ hour monitor the response Continue current plan of care Will follow with you Discharge plan per the attending The above impression and plan of care have been discussed and directed by signing physician. Maria L Islas nurse practitioner acting as scribe for signing physician. <Russell Rodriguez - Last Filed: 01/27/18 15:44> Objective - Vital Signs Vital signs: Vital Signs Temp 100 F H 01/27/18 13:00 Pulse 71 01/27/18 13:00 Resp 18 01/27/18 13:00 BP 125/85 01/27/18 13:00 Pulse Ox 96 01/27/18 13:00 Intake & Output 01/26/18 01/27/18 01/27/18 18:59 06:59 18:59 Intake Total 26 300 180 Output Total 500 Balance 26 -200 180 Weight 75.5 kg Intake: Oral 0 Tube Feeding 26 300 180 Output: Urine 500 Other: Voiding Method Urinal Urinal # Voids 2 2 # Bowel Movements 0 - Labs CBC & Chem 7: 01/27/18 05:37 01/27/18 05:37 Labs: Abnormal Lab Results - Last 24 Hours (Table) 01/27/18 01/27/18 Range/Units 05:37 05:37 WBC 13.9 H (3.8-10.6) k/uL RBC 4.18 L (4.30-5.90) m/uL Hgb 12.0 L (13.0-17.5) gm/dL Hct 37.6 L (39.0-53.0) % Neutrophils # 11.8 H (1.3-7.7) k/uL Potassium 3.2 L (3.5-5.1) mmol/L Glucose 133 H (74-99) mg/dL Assessment and Plan Assessment: As above. Patient doing well at this time. Bolster loosened from 2.5-3 cm. We 'll sign off. Please contact if needed. (1) Protein calorie malnutrition Current Visit: Yes Status: Acute Code(s): E46 - UNSPECIFIED PROTEIN-CALORIE MALNUTRITION SNOMED Code(s): 204051759
--- NOTE | 2018-01-27 15:00 | P.DS ---
Providers Date of admission: 01/21/18 13:40 Expected date of discharge: 01/27/18 Attending physician: Kin Brar Consults: 01/19/18 21:03 Consult Physician Routine Consulting Provider: Erendira Arroyo Consult Reason/Comments: TIA Do you want consulting provider notified?: Yes 01/20/18 16:11 Consult Physician Routine Consulting Provider: [facility] Consult Reason/Comments: Bradycardia Do you want consulting provider notified?: Yes 01/21/18 15:26 Consult Physician Routine Consulting Provider: Eliezer Etienne Consult Reason/Comments: Inpatient rehab Do you want consulting provider notified?: Yes 01/24/18 05:23 Consult Physician Routine Consulting Provider: Terra Randolph Consult Reason/Comments: Bradycardia Do you want consulting provider notified?: Yes 01/24/18 11:32 Consult Physician Routine Consulting Provider: Russell Rodriguez Consult Reason/Comments: PEG tube Do you want consulting provider notified?: Yes Primary care physician: [facility] Final Diagnoses: Left-sided weakness and diplopia due acute CVA involving brainstem showed in the MRI of the brain. Dysphagia and failed swallow evaluation. Status post PEG tube placement Recent history of TIA. Hypertension Hyperlipidemia Sinus bradycardia. Questionable arrhythmia. Osteoarthritis Previous history of alcohol abuse Hospital course:Acute CVA Patient is a 72-year-old male with a known history of CVA/TIA, hypertension, hyperlipidemia, osteoarthritis, asthma, PE was history of alcohol abuse and multiple other medical problems presented to ER with complaints of left-sided weakness at around 3:30 PM yesterday. Patient went to store and suddenly developed left-sided weakness while he was walking. Patient leaned onto the boxs and to the floor. Denied any fall or streaking movements. Patient was brought to the hospital by EMS. Patient did have a good anti tank missileman bilaterally and was able to move everything by the time EMS arrived. Patient was having some left facial asymmetry and some residual left-sided weakness when he was seen in the emergency room. Patient was admitted to the hospital about a week ago with the TIA and had a workup including CT brain was normal. Carotid duplex showed no hemodynamically significant stenosis. Patient was found have bradycardic with heart rate around 50s at the time and was seen by cardiology. Recommended to follow-up as an outpatient for cardiac monitoring which is supposed to follow in next 1-2 days. MRI of the brain could not be done due to metal plates in the right shoulder and also bilateral ankles. EEG was normal at this time. Patient did improve clinically and was sent home. Patient denied any complaints of chest pain or shortness of breath. No fever no chills. No nausea vomiting or diarrhea. Patient has not been eating very well recently. Patient uses by himself and is at the extended care facility. Patient does have improvement in left sided weakness currently. Otherwise patient failed swallow evaluation and barium swallow was done which also showed dyslogia. Currently patient is nothing by mouth. Neurology was consulted for further evaluation. Heart rate was in 50s when he came to the hospital. CT head showed no acute abnormality. EKG showed sinus bradycardia CT cervical spine showed mild facet arthropathy Evaluated by multiple consults including cardiology, neurology .Patient failed swallow evaluation again. Maintained on IV hydration, and underwent peg tube placement. Tolerating tube feeds with minimal to no residual. Significant clinical improvement. Patient has been cleared by all consults. Patient is being discharged to [facility] inpatient rehab today in a stable condition with guarded prognosis. EXAMINATION: General: no acute distress, awake alert and oriented. CHEST EXAMINATION: Trachea is central. Symmetrical expansion. Lung olivas clear to auscultation and percussion. CARDIAC: Normal S1, S2 with no gallops. No murmurs ABDOMEN: Soft. Bowel sounds normal. No organomegaly. No abdominal bruits. Extremities: reveal no edema. No clubbing or cyanosis Neurologically awake, alert, oriented x3 with well-coordinated movements. Left eye double vision and was covered. Left upper extremity minimal weakness. Musculoskeletal: No joint swelling or deformity. Normal range of motion. The impression and plan of care has been dictated as directed. : I performed a history and examination of this patient, discussed the same with the dictator. I agree with the dictator's note ,documented as a scribe. Any additional findings or plans will be noted. Time taken: 35 minutes Patient Condition at Discharge: Stable Plan - Discharge Summary Discharge Rx Participant: No New Discharge Prescriptions: New Aspirin 325 mg PO DAILY #30 tab Continue Cyanocobalamin [Vitamin B-12] 500 mcg PO DAILY hydrOXYzine PAMOATE [Vistaril] 25 mg PO QID PRN PRN Reason: Itching Ranitidine HCl [Zantac] 150 mg PO HS Ferrous Sulfate [Iron (65 MG Elemental)] 325 mg PO DAILY traZODone HCL 50 mg PO HS Triamcinolone 0.1% Ointment [Kenalog 0.1% Ointment] 1 applic TOPICAL BID PRN MDD LEGS/TRUNK PRN Reason: ITCHING/IRRITATION Colloidal Oatmeal [Eucerin Eczema Relief] 1 applic TOPICAL DAILY Terazosin [Hytrin] 5 mg PO HS Naloxone HCl [Narcan] 4 mg NASAL DIRECTED PARoxetine HCL [Paxil] 20 mg PO DAILY Meloxicam [Mobic] 7.5 mg PO BID Acetaminophen Tab [Tylenol] 500 mg PO BID PRN MDD 8 TABS PRN Reason: Pain Ketoconazole 2% Shampoo [Nizoral] 1 applic TOPICAL DIRECTED Docusate [Colace] 100 mg PO TID amLODIPine [Norvasc] 5 mg PO BID Cetirizine HCl [Zyrtec] 10 - 20 mg PO DAILY PRN PRN Reason: Itching Atorvastatin Calcium [Lipitor] 20 mg PO HS #30 tab Changed traMADol HCL [Ultram] 100 mg PEG/G-TUBE Q6HR PRN 3 Days #12 tablet PRN Reason: Pain Discontinued Ketoconazole 2% Cream [Nizoral 2%] 1 applic TOPICAL DAILY Loratadine [Claritin] 10 mg PO DAILY Aspirin 81 mg PO DAILY #30 chewable Discharge Medication List Acetaminophen Tab [Tylenol] 500 mg PO BID PRN MDD 8 TABS 01/10/18 [History] Cetirizine HCl [Zyrtec] 10 - 20 mg PO DAILY PRN 01/10/18 [History] Colloidal Oatmeal [Eucerin Eczema Relief] 1 applic TOPICAL DAILY 01/10/18 [ History] Cyanocobalamin [Vitamin B-12] 500 mcg PO DAILY 01/10/18 [History] Docusate [Colace] 100 mg PO TID 01/10/18 [History] Ferrous Sulfate [Iron (65 MG Elemental)] 325 mg PO DAILY 01/10/18 [History] Ketoconazole 2% Shampoo [Nizoral] 1 applic TOPICAL DIRECTED 01/10/18 [History ] Meloxicam [Mobic] 7.5 mg PO BID 01/10/18 [History] Naloxone HCl [Narcan] 4 mg NASAL DIRECTED 01/10/18 [History] PARoxetine HCL [Paxil] 20 mg PO DAILY 01/10/18 [History] Ranitidine HCl [Zantac] 150 mg PO HS 01/10/18 [History] Terazosin [Hytrin] 5 mg PO HS 01/10/18 [History] Triamcinolone 0.1% Ointment [Kenalog 0.1% Ointment] 1 applic TOPICAL BID PRN MDD LEGS/TRUNK 01/10/18 [History] amLODIPine [Norvasc] 5 mg PO BID 01/10/18 [History] hydrOXYzine PAMOATE [Vistaril] 25 mg PO QID PRN 01/10/18 [History] traZODone HCL 50 mg PO HS 01/10/18 [History] Atorvastatin Calcium [Lipitor] 20 mg PO HS #30 tab 01/11/18 [Rx] Aspirin 325 mg PO DAILY #30 tab 01/27/18 [Rx] traMADol HCL [Ultram] 100 mg PEG/G-TUBE Q6HR PRN 3 Days #12 tablet 01/27/18 [Rx] Follow up Appointment(s)/Referral(s): Russell Rodriguez MD [Medical Doctor] - 1 Week Eusebio Hill MD [STAFF PHYSICIAN] - 1 Week Erendira Arroyo MD [STAFF PHYSICIAN] - 1 Week [facility] [Primary Care Provider] - 1-2 days Patient Instructions/Handouts: Transient Ischemic Attack (DC), How to Use and Care for Your PEG Tube (DC), Self Care Measures After a Stroke (DC) Activity/Diet/Wound Care/Special Instructions: JANAK
[2018-01-27 17:31] VITALS: BP 119/86; PULSE 64; TEMP 99.8
== END 2018-01-27 18:36 | DRG 65 ==
LOC: EC 16:07 → 3SCARD 21:00 → OBSVTOIN 01-21 13:40 → 3SCARD 01-24 11:34
PROVIDERS: ADMIT Internal Medicine; ATTEND Internal Medicine
PROC: 0DH63UZ Insertion of Feeding Device into Stomach, Percutaneous Approach (ICD-10-PCS; principal; 2018-01-25 12:30)
DX: I63.9 Cerebral infarction, unspecified (principal); G81.94 Hemiplegia, unspecified affecting left nondominant side; E46 Unspecified protein-calorie malnutrition; R13.10 Dysphagia, unspecified; R00.1 Bradycardia, unspecified; G46.3 Brain stem stroke syndrome; H53.2 Diplopia; R29.810 Facial weakness; R47.02 Dysphasia; R26.0 Ataxic gait; R40.2142 Coma scale, eyes open, spontaneous, at arrival to emergency department; R40.2362 Coma scale, best motor response, obeys commands, at arrival to emergency department; R40.2252 Coma scale, best verbal response, oriented, at arrival to emergency department; R29.703 NIHSS score 3; I10 Essential (primary) hypertension; E78.5 Hyperlipidemia, unspecified; J45.909 Unspecified asthma, uncomplicated; F32.9 Major depressive disorder, single episode, unspecified; K76.9 Liver disease, unspecified; M46.92 Unspecified inflammatory spondylopathy, cervical region; H53.8 Other visual disturbances; F10.20 Alcohol dependence, uncomplicated; Z79.82 Long term (current) use of aspirin; Z79.1 Long term (current) use of non-steroidal anti-inflammatories (NSAID); Z79.891 Long term (current) use of opiate analgesic; Z79.899 Other long term (current) drug therapy; Z86.73 Personal history of transient ischemic attack (TIA), and cerebral infarction without residual deficits; Z85.828 Personal history of other malignant neoplasm of skin; Z96.651 Presence of right artificial knee joint; Z87.891 Personal history of nicotine dependence; Z88.8 Allergy status to other drugs, medicaments and biological substances; Z80.42 Family history of malignant neoplasm of prostate; Z80.8 Family history of malignant neoplasm of other organs or systems; Z83.49 Family history of other endocrine, nutritional and metabolic diseases
CPT/HCPCS: 36415; 43246; 70450; 70553; 71046; 72125; 74230; 80048; 80053; 80061; 81001; 82550; 82553; 83519; 83735; 84443; 84484; 85025; 85610; 85730; 86255; 93005; 94760; 96361; 96374; 99285

== ENCOUNTER 2018-03-01 23:43 | Emergency (ER) | payer OTHER, MEDICARE ==
--- NOTE | 2018-03-02 00:42 | CT ---
EXAMINATION TYPE: CT brain veronica banks DATE OF EXAM: 03/02/2018 COMPARISON: 01/19/2018 HISTORY: Patient presents after fall. Pain. Neck pain. Headache. CT DLP: 1281.5 mGycm Automated exposure control for dose reduction was used. TECHNIQUE: CT scan of the head and cervical spine are performed without contrast. FINDINGS: Ventricles have normal size. There is no mass effect nor midline shift. There is no sign of intracranial hemorrhage. Calvarium is intact. There is mild cerebral atrophy. There is small area of hypodensity adjacent to frontal horn left lateral ventricle. Cervical vertebra have fairly normal spacing and alignment. Posterior elements are intact. There is h ypertrophic multilevel cervical facet arthropathy.. Skull base is intact. There is no evidence of a f racture. IMPRESSION: Small area of white matter ischemia left frontal lobe. No acute intracranial abnormality. No change. Spondylotic minimal changes in the cervical spine. No acute abnormality of the cervical spine. No checo nge.
--- NOTE | 2018-03-02 00:47 | ED ---
Neck Injury/Pain HPI <Purvi Dietz - Last Filed: 03/02/18 02:45> <Amy Salas - Last Filed: 03/02/18 08:02> - General Chief Complaint: Neck Pain/Injury Stated Complaint: fall,neck pain Time Seen by Provider: 03/01/18 23:51 - History of Present Illness Initial Comments: 72-year-old male patient presents the emergency department today for complaints of neck pain and right frontal head pain after expressing a fall. Patient states he is walking he tripped over his feeding tube and fell. He states initially he was fine however when he went to go to bed he started having neck pain so staff at [facility] for further evaluation. Patient denies any current headache, blurred vision, double vision, nausea, vomiting, dizziness, or weakness. He is reporting right-sided neck pain. Denies any radiation of the pain down his arms. Denies any numbness or tingling to his hands. He denies any other injuries. Patient denies any back pain, chest pain, shortness of breath, abdominal pain, or difficulties with bowel movements or urination. (Purvi Dietz) - Related Data Home Medications Medication Instructions Recorded Confirmed Acetaminophen Tab [Tylenol] 500 mg PEG/G-TUBE Q12H PRN 01/10/18 03/02/18 Cetirizine HCl [Zyrtec] 10 mg PEG/G-TUBE DAILY PRN 01/10/18 03/02/18 Cyanocobalamin [Vitamin B-12] 500 mcg PEG/G-TUBE DAILY 01/10/18 03/02/18 Ketoconazole 2% Shampoo [Nizoral] 1 applic TOPICAL MOFR 01/10/18 03/02/18 Ranitidine HCl [Zantac] 150 mg PEG/G-TUBE HS 01/10/18 03/02/18 Terazosin [Hytrin] 5 mg PEG/G-TUBE HS 01/10/18 03/02/18 amLODIPine [Norvasc] 5 mg PEG/G-TUBE BID 01/10/18 03/02/18 traZODone HCL 50 mg PEG/G-TUBE HS 01/10/18 03/02/18 Baclofen [Lioresal] 10 mg PEG/G-TUBE TID@0800,1200,1800 03/01/18 03/02/18 Bisacodyl [Dulcolax] 10 mg RECTAL DAILY PRN 03/01/18 03/02/18 Docusate Oral Soln [Colace Oral 100 mg PEG/G-TUBE 03/01/18 03/02/18 Soln] TID@0800,1200,1800 Eucerin Emollient Lotion 1 applic TOPICAL Q1H PRN 03/01/18 03/02/18 Ferrous Sulfate 330 mg PEG/G-TUBE TID 03/01/18 03/02/18 Jevity 1.5 Jay Liquid 100 ml PEG/G-TUBE DIRECTED 03/01/18 03/02/18 Magnesium Hydroxide [Milk of 1,200 mg PEG/G-TUBE DAILY PRN 03/01/18 03/02/18 Magnesia] Melatonin 1.5 mg PEG/G-TUBE HS 03/01/18 03/02/18 Metoclopramide [Reglan] 5 mg PEG/G-TUBE TID@0800,1200,1800 03/01/18 03/02/18 Oxymetazoline 0.05% Nasl [place] 2 spray EA NOSTRIL BID 03/01/18 03/02/18 [Afrin 0.05% Nasal [place]] PARoxetine [Paxil] 20 mg PEG/G-TUBE DAILY 03/01/18 03/02/18 Potassium Chloride Oral Liquid 10 meq PEG/G-TUBE BID 03/01/18 03/02/18 Saliva Stimulant Agents Comb.3 1 spray MUCOUS MEM Q1H PRN 03/01/18 03/02/18 [Biotene Moisturizing Mouth] diphenhydrAMINE ELIXIR [Benadryl 25 mg PEG/G-TUBE Q6H PRN 03/01/18 03/02/18 Elixir] Aspirin 325 mg PEG/G-TUBE DAILY 03/02/18 03/02/18 Atorvastatin Calcium [Lipitor] 20 mg PEG/G-TUBE HS 03/02/18 03/02/18 Previous Rx's Medication Instructions Recorded traMADol HCL [Ultram] 100 mg PEG/G-TUBE Q6HR PRN 3 Days 01/27/18 #12 tablet Allergies Allergy/AdvReac Type Severity Reaction Status Date / Time lisinopril Allergy Unknown Verified 03/01/18 23:47 simvastatin [From Zocor] Allergy Unknown Verified 03/01/18 23:47 Review of Systems ROS Other: All systems not noted in ROS Statement are negative. <Purvi Dietz - Last Filed: 03/02/18 02:45> ROS Other: All systems not noted in ROS Statement are negative. <Dinh Salasssica P - Last Filed: 03/02/18 08:02> ROS Statement: Those systems with pertinent positive or pertinent negative responses have been documented in the HPI. Past Medical History Past Medical History: Asthma, Cancer, CVA/TIA, Eye Disorder, Hyperlipidemia, Hypertension, Liver Disease, Osteoarthritis (OA) Additional Past Medical History / Comment(s): Pt states that past 2 weeks has had "blurred" vision and was seen at [facility] in [place] and told he has a "freckle" in that eye and will follow up with them, childhood asthma, liver "problem" before which pt states he was told was d/t taking tylenol #3, past ETOH abuse-sober for 19yrs then started drining 1-2 beers on occasion only, arthritis-bilateral shoulder and knee pains, skin cancer removed from nose. TIA/ Stroke 01/2018 History of Any Multi-Drug Resistant Organisms: None Reported Past Surgical History: Hernia Repair Additional Past Surgical History / Comment(s): colonoscopy, total R knee arthroplasty, bilateral knee arthroscopies, R foot titanium implant, bilateral shoulder surgery, L inguinal hernia repaix x3, septoplasty and skin cancer removed from nose. Past Anesthesia/Blood Transfusion Reactions: No Reported Reaction Past Psychological History: Depression Smoking Status: Never smoker Past Alcohol Use History: Daily Past Drug Use History: None Reported - Past Family History Father Family Medical History: Cancer Additional Family Medical History / Comment(s): Father had prostrate cancer. He is . Mother Family Medical History: Cancer, Thyroid Disorder Additional Family Medical History / Comment(s): Mother is . Pt states she had thyroid disease/surgeries. He thinks she had cancer in her "back". <Purvi Dietz - Last Filed: 03/02/18 02:45> General Exam General appearance: alert, in no apparent distress, other (This is a well- developed, thin appearing elderly male patient in no acute distress. Vital signs upon presentation are temperature 98.9F, pulse 62, respiration 16, blood pressure 125/82, pulse ox 95% on room air.) Eye exam: Present: normal appearance, PERRL, EOMI. Absent: scleral icterus, conjunctival injection, periorbital swelling ENT exam: Present: normal exam, normal oropharynx, mucous membranes moist Neck exam: Present: normal inspection, other (No tenderness to for midline palpation of the posterior cervical spine, no step-off or deformity noted). Absent: tenderness, meningismus, full ROM (C-collar in place), lymphadenopathy Respiratory exam: Present: normal lung sounds bilaterally. Absent: respiratory distress, wheezes, rales, rhonchi, stridor Cardiovascular Exam: Present: regular rate, normal rhythm, normal heart sounds. Absent: systolic murmur, diastolic murmur, rubs, gallop, clicks Extremities exam: Present: normal inspection, full ROM, normal capillary refill. Absent: tenderness, pedal edema, joint swelling, calf tenderness Neurological exam: Present: alert, oriented X3, CN II-XII intact Psychiatric exam: Present: normal affect, normal mood Skin exam: Present: warm, dry, intact, normal color. Absent: rash <Purvi Dietz M - Last Filed: 03/02/18 02:45> Vital Signs 03/01/18 03/02/18 23:46 01:13 Temperature 98.9 F 98.7 F Pulse Rate 62 87 Respiratory 16 18 Rate Blood Pressure 125/82 115/81 O2 Sat by Pulse 95 97 Oximetry Medical Decision Making - Radiology Data Radiology results: report reviewed, image reviewed <Purvi Dietz M - Last Filed: 03/02/18 02:45> <Amy Salas - Last Filed: 03/02/18 08:02> - Medical Decision Making 72-year-old male patient presents the emergency department today for evaluation of neck pain after expressing a trip and fall accident. Physical examination is relatively unremarkable. Patient does have left-sided deficit from an old stroke. 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 Patient is neurologically intact per his baseline. CT brain C-spine was obtained and showed no evidence of acute abnormalities. C-collar was removed, patient did exhibit full range of motion with minimal pain no limitation. Patient declined pain medication in the emergency department. He'll be discharged back to [facility]. Is instructed to follow-up with his primary care physician for recheck as soon as possible. Return parameters discussed in detail. He verbalizes understanding and agrees with this plan. (Purvi Dietz) I was available for consultation in the emergency department. The history and physical exam were done by the midlevel provider. I was consulted for this patient's care. I reviewed the case with the midlevel provider and based on their presentation of the patient, I agree with the assessment, medical decision making and plan of care as documented. (Amy Salas) - Radiology Data CT brain C-spine without contrast was obtained. Report was reviewed in its entirety. Impression by Dr. Brandt shows small area of white matter ischemia left frontal lobe. No acute intracranial abnormality. No change. Spondylotic minimal changes in the cervical spine. No acute abnormalities cervical spine. No change. (Purvi Dietz) Disposition Is patient prescribed a controlled substance at d/c from ED?: No Time of Disposition: 00:46 <Purvi Dietz - Last Filed: 03/02/18 02:45> <Amy Salas - Last Filed: 03/02/18 08:02> Clinical Impression: Head injury, Cervical strain Disposition: HOME SELF-CARE Condition: Good Instructions: Cervical Strain (ED), Head Injury (ED) Additional Instructions: Take over the counter tylenol for pain control. Follow up with the primary care physician for recheck in 1-2 days. Return immediately for any new, worsening, or concerning symptoms. Referrals: Haider Alfred DO [Primary Care Provider] - 1-2 days
[2018-03-02 01:15] VITALS: BP 115/81; PULSE 87; RESP 18; TEMP 98.7
== END 2018-03-02 01:13 | disposition home or self-care (01) ==
LOC: EC 23:43
DX: S16.1XXA Strain of muscle, fascia and tendon at neck level, initial encounter (principal); S09.90XA Unspecified injury of head, initial encounter; J45.909 Unspecified asthma, uncomplicated; E78.5 Hyperlipidemia, unspecified; I10 Essential (primary) hypertension; M19.90 Unspecified osteoarthritis, unspecified site; F32.9 Major depressive disorder, single episode, unspecified; Z86.73 Personal history of transient ischemic attack (TIA), and cerebral infarction without residual deficits; Z85.828 Personal history of other malignant neoplasm of skin; Z53.29 Procedure and treatment not carried out because of patient's decision for other reasons; Z96.653 Presence of artificial knee joint, bilateral; Z79.82 Long term (current) use of aspirin; Z79.899 Other long term (current) drug therapy; Z88.8 Allergy status to other drugs, medicaments and biological substances; Z93.1 Gastrostomy status; W01.0XXA Fall on same level from slipping, tripping and stumbling without subsequent striking against object, initial encounter
CPT/HCPCS: 70450; 72125; 99284

== ENCOUNTER 2018-03-25 18:24 | Inpatient (IN) | payer OTHER, MEDICARE ==
[2018-03-25] MEDS ORDERED: PANTOPRAZOLE 40 MG/10 ML VIAL IVP STA (18:30)
--- NOTE | 2018-03-25 18:41 | ED ---
General Adult HPI - General Chief complaint: Recheck/Abnormal Lab/Rx Stated complaint: Bleeding Time Seen by Provider: 03/25/18 18:27 Source: patient, EMS, RN notes reviewed, old records reviewed Mode of arrival: EMS Limitations: no limitations - History of Present Illness Initial comments: 72-year-old male presenting for evaluation of suspected GI bleed. Patient had CVA in December of this year with residual left-sided weakness and dysarthria. PEG tube was placed on January 24 for feeding. Patient is presenting from retirement today with blood clot in his PEG tube. Patient is able to answer simple questions, denies abdominal pain, denies any pain complaints, no history of fever. EMS reports stable vitals during transport. According to review of previous medications patient was on the only antiplatelet or anticoagulant that the patient is on is 325 mg of aspirin. - Related Data Home Medications Medication Instructions Recorded Confirmed Acetaminophen Tab [Tylenol] 500 mg PEG/G-TUBE Q12H PRN 01/10/18 03/25/18 Cetirizine HCl [Zyrtec] 10 mg PEG/G-TUBE DAILY PRN 01/10/18 03/25/18 Cyanocobalamin [Vitamin B-12] 500 mcg PEG/G-TUBE DAILY 01/10/18 03/25/18 Ketoconazole 2% Shampoo [Nizoral] 1 applic TOPICAL MOFR 01/10/18 03/25/18 Ranitidine HCl [Zantac] 150 mg PEG/G-TUBE HS 01/10/18 03/25/18 Terazosin [Hytrin] 5 mg PEG/G-TUBE HS 01/10/18 03/25/18 amLODIPine [Norvasc] 5 mg PEG/G-TUBE BID 01/10/18 03/25/18 traZODone HCL 50 mg PEG/G-TUBE HS 01/10/18 03/25/18 Baclofen [Lioresal] 10 mg PEG/G-TUBE TID@0800,1200,1800 03/01/18 03/25/18 Bisacodyl [Dulcolax] 10 mg RECTAL DAILY PRN 03/01/18 03/25/18 Docusate Oral Soln [Colace Oral 100 mg PEG/G-TUBE 03/01/18 03/25/18 Soln] TID@0800,1200,1800 Eucerin Emollient Lotion 1 applic TOPICAL Q1H PRN 03/01/18 03/25/18 Jevity 1.5 Jay Liquid 100 ml PEG/G-TUBE DIRECTED 03/01/18 03/25/18 Magnesium Hydroxide [Milk of 2,400 mg PEG/G-TUBE DAILY PRN 03/01/18 03/25/18 Magnesia] Melatonin 1.5 mg PEG/G-TUBE HS 03/01/18 03/25/18 Metoclopramide [Reglan] 5 mg PEG/G-TUBE TID@0800,1200,1800 03/01/18 03/25/18 Oxymetazoline 0.05% Nasl [place] 2 spray EA NOSTRIL BID 03/01/18 03/25/18 [Afrin 0.05% Nasal [place]] PARoxetine [Paxil] 20 mg PEG/G-TUBE DAILY 03/01/18 03/25/18 Potassium Chloride Oral Liquid 10 meq PEG/G-TUBE BID 03/01/18 03/25/18 Saliva Stimulant Agents Comb.3 1 spray MUCOUS MEM Q1H PRN 03/01/18 03/25/18 [Biotene Moisturizing Mouth] diphenhydrAMINE ELIXIR [Benadryl 25 mg PEG/G-TUBE Q6H PRN 03/01/18 03/25/18 Elixir] Aspirin 325 mg PEG/G-TUBE DAILY 03/02/18 03/25/18 Atorvastatin Calcium [Lipitor] 20 mg PEG/G-TUBE HS 03/02/18 03/25/18 Polyethylene Glycol 3350 [Miralax] 17 gm PEG/G-TUBE DAILY 03/25/18 03/25/18 Triamcinolone 0.1% Cream [Kenalog 1 applicatio TOPICAL Q12H PRN 03/25/18 0.1% Cream] Previous Rx's Medication Instructions Recorded traMADol HCL [Ultram] 100 mg PEG/G-TUBE Q6HR PRN 3 Days 01/27/18 #12 tablet Allergies Allergy/AdvReac Type Severity Reaction Status Date / Time lisinopril Allergy Unknown Verified 03/25/18 19:03 simvastatin [From Zocor] Allergy Unknown Verified 03/25/18 19:03 Review of Systems ROS Statement: Those systems with pertinent positive or pertinent negative responses have been documented in the HPI. ROS Other: All systems not noted in ROS Statement are negative. Past Medical History Past Medical History: Asthma, Cancer, CVA/TIA, Eye Disorder, Hyperlipidemia, Hypertension, Liver Disease, Osteoarthritis (OA) Additional Past Medical History / Comment(s): Pt states that past 2 weeks has had "blurred" vision and was seen at [facility] in [place] and told he has a "freckle" in that eye and will follow up with them, childhood asthma, liver "problem" before which pt states he was told was d/t taking tylenol #3, past ETOH abuse-sober for 19yrs then started drining 1-2 beers on occasion only, arthritis-bilateral shoulder and knee pains, skin cancer removed from nose. TIA/ Stroke 01/2018 History of Any Multi-Drug Resistant Organisms: None Reported Past Surgical History: Hernia Repair Additional Past Surgical History / Comment(s): colonoscopy, total R knee arthroplasty, bilateral knee arthroscopies, R foot titanium implant, bilateral shoulder surgery, L inguinal hernia repaix x3, septoplasty and skin cancer removed from nose. Past Anesthesia/Blood Transfusion Reactions: No Reported Reaction Past Psychological History: Depression Smoking Status: Never smoker Past Alcohol Use History: Daily Past Drug Use History: None Reported - Past Family History Father Family Medical History: Cancer Additional Family Medical History / Comment(s): Father had prostrate cancer. He is . Mother Family Medical History: Cancer, Thyroid Disorder Additional Family Medical History / Comment(s): Mother is . Pt states she had thyroid disease/surgeries. He thinks she had cancer in her "back". General Exam Limitations: no limitations General appearance: alert, in no apparent distress Head exam: Present: atraumatic, normocephalic Eye exam: Present: normal appearance, PERRL, EOMI ENT exam: Present: normal exam Neck exam: Present: normal inspection. Absent: tenderness, meningismus Respiratory exam: Present: normal lung sounds bilaterally. Absent: respiratory distress, wheezes Cardiovascular Exam: Present: regular rate, normal rhythm GI/Abdominal exam: Present: soft, other ( dried blood in PEG tube). Absent: distended, tenderness, guarding Extremities exam: Present: normal inspection, normal capillary refill. Absent: pedal edema Neurological exam: Present: alert, oriented X3, CN II-XII intact. Absent: motor sensory deficit Psychiatric exam: Present: normal affect, normal mood Skin exam: Present: warm, dry, intact. Absent: cyanosis, diaphoretic Course Vital Signs 03/25/18 03/25/18 18:26 19:43 Temperature 98.2 F Pulse Rate 69 116 H Respiratory 18 20 Rate Blood Pressure 120/86 126/101 O2 Sat by Pulse 93 L 95 Oximetry Medical Decision Making - Medical Decision Making 72-year-old male presenting from retirement with suspected broader2. Patient has no complaints, he has previous stroke with some dysarthria and residual left -sided weakness. There is some dark blood within the PEG tube. PEG tube is irrigated, no bright red blood or significant hemorrhage noted. Gastric contents were sent and test positive for blood. Rectal exam reveals no melena, no active bleeding. Patient has mildly elevated white blood cell count 12.8 hemoglobin is 11.8 previous whereas 14.2 earlier this month. Patient started on proton pump inhibitor and will be admitted for serial hemoglobin, general surgery placed on consult for evaluation of suspected upper GI bleed. Vital signs remained stable, patient is otherwise well-appearing. Case discussed with admitting physician, who will accept admission. - Lab Data Result diagrams: 03/25/18 18:44 03/25/18 18:44 Lab Results 03/25/18 03/25/18 03/25/18 Range/Units 18:44 18:44 18:44 WBC 12.8 H (3.8-10.6) k/uL RBC 4.23 L (4.30-5.90) m/uL Hgb 11.8 L (13.0-17.5) gm/dL Hct 37.7 L (39.0-53.0) % MCV 89.3 (80.0-100.0) fL MCH 28.0 (25.0-35.0) pg MCHC 31.4 (31.0-37.0) g/dL RDW 13.9 (11.5-15.5) % Plt Count 384 (150-450) k/uL Neutrophils % 80 % Lymphocytes % 7 % Monocytes % 5 % Eosinophils % 6 % Basophils % 1 % Neutrophils # 10.2 H (1.3-7.7) k/uL Lymphocytes # 0.9 L (1.0-4.8) k/uL Monocytes # 0.6 (0-1.0) k/uL Eosinophils # 0.8 H (0-0.7) k/uL Basophils # 0.1 (0-0.2) k/uL PT 10.2 (9.0-12.0) sec INR 0.9 (<1.2) APTT 22.9 (22.0-30.0) sec Sodium 141 (137-145) mmol/L Potassium 4.3 (3.5-5.1) mmol/L Chloride 106 (98-107) mmol/L Carbon Dioxide 28 (22-30) mmol/L Anion Gap 7 mmol/L BUN 24 H (9-20) mg/dL Creatinine 0.75 (0.66-1.25) mg/dL Est GFR (CKD-EPI)AfAm >90 (>60 ml/min/1.73 sqM) Est GFR (CKD-EPI)NonAf >90 (>60 ml/min/1.73 sqM) Glucose 91 (74-99) mg/dL Calcium 9.3 (8.4-10.2) mg/dL Total Bilirubin 0.3 (0.2-1.3) mg/dL AST 32 (17-59) U/L ALT 59 (21-72) U/L Alkaline Phosphatase 103 (38-126) U/L Total Protein 6.2 L (6.3-8.2) g/dL Albumin 3.5 (3.5-5.0) g/dL Gastric Occult Blood (Negative) Stool Occult Blood (Negative) 03/25/18 03/25/18 Range/Units 19:53 19:53 WBC (3.8-10.6) k/uL RBC (4.30-5.90) m/uL Hgb (13.0-17.5) gm/dL Hct (39.0-53.0) % MCV (80.0-100.0) fL MCH (25.0-35.0) pg MCHC (31.0-37.0) g/dL RDW (11.5-15.5) % Plt Count (150-450) k/uL Neutrophils % % Lymphocytes % % Monocytes % % Eosinophils % % Basophils % % Neutrophils # (1.3-7.7) k/uL Lymphocytes # (1.0-4.8) k/uL Monocytes # (0-1.0) k/uL Eosinophils # (0-0.7) k/uL Basophils # (0-0.2) k/uL PT (9.0-12.0) sec INR (<1.2) APTT (22.0-30.0) sec Sodium (137-145) mmol/L Potassium (3.5-5.1) mmol/L Chloride (98-107) mmol/L Carbon Dioxide (22-30) mmol/L Anion Gap mmol/L BUN (9-20) mg/dL Creatinine (0.66-1.25) mg/dL Est GFR (CKD-EPI)AfAm (>60 ml/min/1.73 sqM) Est GFR (CKD-EPI)NonAf (>60 ml/min/1.73 sqM) Glucose (74-99) mg/dL Calcium (8.4-10.2) mg/dL Total Bilirubin (0.2-1.3) mg/dL AST (17-59) U/L ALT (21-72) U/L Alkaline Phosphatase (38-126) U/L Total Protein (6.3-8.2) g/dL Albumin (3.5-5.0) g/dL Gastric Occult Blood Positive (Negative) Stool Occult Blood Negative (Negative) Disposition Clinical Impression: Upper GI bleed Disposition: ADMITTED IP TO THIS [facility] Condition: Stable Is patient prescribed a controlled substance at d/c from ED?: No Referrals: Haider Alfred DO [Primary Care Provider] - 1-2 days Decision to Admit Reason: Admit from EC Decision Date: 03/25/18 Decision Time: 20:24
[2018-03-25 18:56] LABS: Basophils # (A) 0.1 k/uL (0-0.2); Basophils % (A) 1 %; Eosinophils # (A) 0.8 k/uL (0-0.7); Eosinophils % (A) 6 %; HCT 37.7 % (39.0-53.0); HGB 11.8 gm/dL (13.0-17.5); Lymphocytes # (A) 0.9 k/uL (1.0-4.8); Lymphocytes % (A) 7 %; MCHC 31.4 g/dL (31.0-37.0); MCV 89.3 fL (80.0-100.0); Mean Platelet Volume 6.9; Monocytes # (A) 0.6 k/uL (0-1.0); Monocytes % (A) 5 %; Neutrophils # (A) 10.2 k/uL (1.3-7.7); Neutrophils % (A) 80 %; Platelet Count 384 k/uL (150-450); RBC 4.23 m/uL (4.30-5.90); RDW 13.9 % (11.5-15.5); WBC 12.8 k/uL (3.8-10.6)
[2018-03-25 19:04] LABS: INR 0.9 (<1.2); Partial Thromboplastin Time 22.9 sec (22.0-30.0); Prothrombin Time 10.2 sec (9.0-12.0)
[2018-03-25 19:07] LABS: ALT 59 U/L (21-72); AST 32 U/L (17-59); Albumin 3.5 g/dL (3.5-5.0); Alkaline Phosphatase 103 U/L (38-126); Anion Gap 7 mmol/L; Blood Urea Nitrogen 24 mg/dL (9-20); Calcium 9.3 mg/dL (8.4-10.2); Carbon Dioxide 28 mmol/L (22-30); Chloride 106 mmol/L (98-107); Glucose 91 mg/dL (74-99); Potassium 4.3 mmol/L (3.5-5.1); Sodium 141 mmol/L (137-145); Total Bilirubin 0.3 mg/dL (0.2-1.3); Total Protein 6.2 g/dL (6.3-8.2)
[2018-03-25] MEDS ORDERED: NALOXONE 0.4 MG/ML 1 ML VIAL IV PRN (20:19)
[2018-03-25] MEDS: PANTOPRAZOLE 40 MG/10 ML VIAL IVP SCH (23:24)
[2018-03-26] MEDS: SODIUM CHLORIDE 0.9% 1,000 ML IV SCH ×3 (00:07→10:54)
[2018-03-26 07:26] LABS: Basophils # (A) 0.1 k/uL (0-0.2); Basophils % (A) 1 %; Eosinophils # (A) 0.6 k/uL (0-0.7); Eosinophils % (A) 6 %; HCT 37.9 % (39.0-53.0); HGB 12.2 gm/dL (13.0-17.5); Hypochromasia Slight; Lymphocytes # (A) 0.9 k/uL (1.0-4.8); Lymphocytes % (A) 9 %; MCH 28.9 pg (25.0-35.0); MCHC 32.1 g/dL (31.0-37.0); MCV 89.9 fL (80.0-100.0); Mean Platelet Volume 7.3; Monocytes # (A) 0.5 k/uL (0-1.0); Monocytes % (A) 5 %; Neutrophils # (A) 7.2 k/uL (1.3-7.7); Neutrophils % (A) 77 %; Platelet Count 339 k/uL (150-450); RBC 4.21 m/uL (4.30-5.90); RDW 13.9 % (11.5-15.5); WBC 9.4 k/uL (3.8-10.6)
[2018-03-26 07:43] LABS: ALT 55 U/L (21-72); AST 30 U/L (17-59); Albumin 3.4 g/dL (3.5-5.0); Alkaline Phosphatase 111 U/L (38-126); Anion Gap 6 mmol/L; Blood Urea Nitrogen 20 mg/dL (9-20); Calcium 9.2 mg/dL (8.4-10.2); Carbon Dioxide 31 mmol/L (22-30); Chloride 108 mmol/L (98-107); Glucose 104 mg/dL (74-99); Potassium 4.2 mmol/L (3.5-5.1); Sodium 145 mmol/L (137-145); Total Bilirubin 0.4 mg/dL (0.2-1.3); Total Protein 6.2 g/dL (6.3-8.2)
[2018-03-26] MEDS: PANTOPRAZOLE 40 MG/10 ML VIAL IVP SCH ×2 (10:51→22:30)
[2018-03-26] MEDS ORDERED: cloNIDine 0.1 MG/24HR PATCH TRANSDERM SCH (12:00)
--- NOTE | 2018-03-26 13:41 | XR ---
EXAMINATION TYPE: XR chest 1V DATE OF EXAM: 03/26/2018 COMPARISON: 01/19/2018 INDICATION: Short of breath TECHNIQUE: Single frontal view of the chest is obtained. FINDINGS: The heart size is normal. The pulmonary vasculature is normal. The lungs are clear. IMPRESSION: 1. No acute pulmonary process.
[2018-03-26] MEDS ORDERED: JEVITY 1.5 CAL PEG/G-TUBE SCH (14:15)
[2018-03-26 15:46] VITALS: BMI 23.8
--- NOTE | 2018-03-26 15:52 | P.GSCN ---
History of Present Illness Consult date: 03/26/18 History of present illness: CHIEF COMPLAINT: Gastric bleed through PEG tube HISTORY OF PRESENT ILLNESS: The patient is a 72-year-old male patient transferred from halfway for transient blood clots in his feeding tube. His feeding tube has been present for [address] Rodriguez. Since admission to the floor, no blood in PEG tube. He denies any abdominal pain. He receives nutrition and medications only through his PEG tube. As a result of blood in his PEG tube, general surgery is consulted. PAST MEDICAL HISTORY: Please see list PAST SURGICAL HISTORY: Please see list MEDICATIONS: Please see list ALLERGIES: Please see list SOCIAL HISTORY: No illicit drug use or recent tobacco use. Past alcohol abuse. FAMILY HISTORY: Noncontributory REVIEW OF ORGAN SYSTEMS: CONSTITUTIONAL: No reports of fevers or chills. HEENT: Denies any troubles with the vision or hearing. ENDOCRINE: No reports of hypothyroidism. No diabetes. RESPIRATORY: No recent pneumonias. Has COPD CARDIOVASCULAR: Denies chest pain or palpitations GI: Recent blood in PEG tube. Has constipation. Oral medications and feedings through PEG tube. MUSCULOSKELETAL: Has occasional joint pain including back pain. NEURO: No seizure disorders or headaches. Recent history of stroke. PSYCH: Has depression. No suicidal ideation. HEMATOLOGIC: No personal or family history of DVTs or pulmonary emboli. PHYSICAL EXAM: VITAL SIGNS: Reviewed GENERAL: Well-developed pleasant male in no acute distress. HEENT: No scleral icterus. Extraocular movements grossly intact. Moist buccal mucosa. NECK: Supple without lymphadenopathy. CHEST: Unlabored respirations. Equal bilateral excursions. CARDIOVASCULAR: Regular rate regular rhythm rhythm. Distal 2+ pulses. ABDOMEN: Soft, nontender. Nondistended. No blood in PEG tube. Dressing is clean , dry and intact. MUSCULOSKELETAL: No clubbing, cyanosis, or edema. NEURO : No focal or lateralizing signs. Cranial nerves II-12 within normal limits. PSYCH: Alert and oriented to person, place and time. SKIN: Well perfused. Good skin turgor. ASSESSMENT: 1. History of upper GI bleed resolved 2. Gastrostomy tube status PLAN: 1. May re-start tube feeds and medications through PEG tube 2. Recommend PPIs for gastritis. 3. No surgical intervention. Past Medical History Past Medical History: Asthma, Cancer, CVA/TIA, Eye Disorder, Hyperlipidemia, Hypertension, Liver Disease, Osteoarthritis (OA) Additional Past Medical History / Comment(s): Pt states that past 2 weeks has had "blurred" vision and was seen at [facility] in [place] and told he has a "freckle" in that eye and will follow up with them, childhood asthma, liver "problem" before which pt states he was told was d/t taking tylenol #3, past ETOH abuse-sober for 19yrs then started drining 1-2 beers on occasion only, arthritis-bilateral shoulder and knee pains, skin cancer removed from nose. TIA/ Stroke 01/2018 History of Any Multi-Drug Resistant Organisms: None Reported Past Surgical History: Hernia Repair Additional Past Surgical History / Comment(s): colonoscopy, total R knee arthroplasty, bilateral knee arthroscopies, R foot titanium implant, bilateral shoulder surgery, L inguinal hernia repaix x3, septoplasty and skin cancer removed from nose. Past Anesthesia/Blood Transfusion Reactions: No Reported Reaction Past Psychological History: Depression Additional Psychological History / Comment(s): Pt resides [place]. His spouse is in a natural resources instructor care facilty. He is a [place] vet. Smoking Status: Never smoker Past Alcohol Use History: Daily Additional Past Alcohol Use History / Comment(s): Pt statess he has past ETOH abuse and was sober for 19 yrs. He states he started drinking 1-2 beers on occasion only since about 2005. Past Drug Use History: None Reported - Past Family History Father Family Medical History: Cancer Additional Family Medical History / Comment(s): Father had prostrate cancer. He is . Mother Family Medical History: Cancer, Thyroid Disorder Additional Family Medical History / Comment(s): Mother is . Pt states she had thyroid disease/surgeries. He thinks she had cancer in her "back". Medications and Allergies Home Medications Medication Instructions Recorded Confirmed Type Acetaminophen Tab [Tylenol] 500 mg PEG/G-TUBE Q12H PRN 01/10/18 03/25/18 History Cetirizine HCl [Zyrtec] 10 mg PEG/G-TUBE DAILY PRN 01/10/18 03/25/18 History Cyanocobalamin [Vitamin B-12] 500 mcg PEG/G-TUBE DAILY 01/10/18 03/25/18 History Ketoconazole 2% Shampoo [Nizoral] 1 applic TOPICAL MOFR 01/10/18 03/25/18 History Ranitidine HCl [Zantac] 150 mg PEG/G-TUBE HS 01/10/18 03/25/18 History Terazosin [Hytrin] 5 mg PEG/G-TUBE HS 01/10/18 03/25/18 History amLODIPine [Norvasc] 5 mg PEG/G-TUBE BID 01/10/18 03/25/18 History traZODone HCL 50 mg PEG/G-TUBE HS 01/10/18 03/25/18 History traMADol HCL [Ultram] 100 mg PEG/G-TUBE Q6HR PRN 3 Days 01/27/18 03/25/18 Rx #12 tablet Baclofen [Lioresal] 10 mg PEG/G-TUBE TID@0800,1200,1800 03/01/18 03/25/18 History Bisacodyl [Dulcolax] 10 mg RECTAL DAILY PRN 03/01/18 03/25/18 History Docusate Oral Soln [Colace Oral 100 mg PEG/G-TUBE 03/01/18 03/25/18 History Soln] TID@0800,1200,1800 Eucerin Emollient Lotion 1 applic TOPICAL Q1H PRN 03/01/18 03/25/18 History Jevity 1.5 Jay Liquid 100 ml PEG/G-TUBE DIRECTED 03/01/18 03/25/18 History Magnesium Hydroxide [Milk of 2,400 mg PEG/G-TUBE DAILY PRN 03/01/18 03/25/18 History Magnesia] Melatonin 1.5 mg PEG/G-TUBE HS 03/01/18 03/25/18 History Metoclopramide [Reglan] 5 mg PEG/G-TUBE TID@0800,1200,1800 03/01/18 03/25/18 History Oxymetazoline 0.05% Nasl [place] 2 spray EA NOSTRIL BID 03/01/18 03/25/18 History [Afrin 0.05% Nasal [place]] PARoxetine [Paxil] 20 mg PEG/G-TUBE DAILY 03/01/18 03/25/18 History Potassium Chloride Oral Liquid 10 meq PEG/G-TUBE BID 03/01/18 03/25/18 History Saliva Stimulant Agents Comb.3 1 spray MUCOUS MEM Q1H PRN 03/01/18 03/25/18 History [Biotene Moisturizing Mouth] diphenhydrAMINE ELIXIR [Benadryl 25 mg PEG/G-TUBE Q6H PRN 03/01/18 03/25/18 History Elixir] Aspirin 325 mg PEG/G-TUBE DAILY 03/02/18 03/25/18 History Atorvastatin Calcium [Lipitor] 20 mg PEG/G-TUBE HS 03/02/18 03/25/18 History Polyethylene Glycol 3350 [Miralax] 17 gm PEG/G-TUBE DAILY 03/25/18 03/25/18 History Triamcinolone 0.1% Cream [Kenalog 1 applicatio TOPICAL Q12H PRN 03/25/18 History 0.1% Cream] Allergies Allergy/AdvReac Type Severity Reaction Status Date / Time lisinopril Allergy Unknown Verified 03/25/18 19:03 simvastatin [From Zocor] Allergy Unknown Verified 03/25/18 19:03 Surgical - Exam Vital Signs Temp Pulse Resp BP Pulse Ox 98.2 F 69 18 120/86 93 L 03/25/18 18:26 03/25/18 18:26 03/25/18 18:26 03/25/18 18:26 03/25/18 18:26 Results - Labs 03/27/18 06:34 03/27/18 06:34 Abnormal Lab Results - Last 24 Hours (Table) 03/25/18 03/25/18 03/26/18 Range/Units 18:44 18:44 06:39 WBC 12.8 H (3.8-10.6) k/uL RBC 4.23 L 4.21 L (4.30-5.90) m/uL Hgb 11.8 L 12.2 L (13.0-17.5) gm/dL Hct 37.7 L 37.9 L (39.0-53.0) % Neutrophils # 10.2 H (1.3-7.7) k/uL Lymphocytes # 0.9 L 0.9 L (1.0-4.8) k/uL Eosinophils # 0.8 H (0-0.7) k/uL Chloride (98-107) mmol/L Carbon Dioxide (22-30) mmol/L BUN 24 H (9-20) mg/dL Glucose (74-99) mg/dL Total Protein 6.2 L (6.3-8.2) g/dL Albumin (3.5-5.0) g/dL 03/26/18 Range/Units 06:39 WBC (3.8-10.6) k/uL RBC (4.30-5.90) m/uL Hgb (13.0-17.5) gm/dL Hct (39.0-53.0) % Neutrophils # (1.3-7.7) k/uL Lymphocytes # (1.0-4.8) k/uL Eosinophils # (0-0.7) k/uL Chloride 108 H (98-107) mmol/L Carbon Dioxide 31 H (22-30) mmol/L BUN (9-20) mg/dL Glucose 104 H (74-99) mg/dL Total Protein 6.2 L (6.3-8.2) g/dL Albumin 3.4 L (3.5-5.0) g/dL Diabetes panel 03/25/18 03/26/18 Range/Units 18:44 06:39 Sodium 141 145 (137-145) mmol/L Potassium 4.3 4.2 (3.5-5.1) mmol/L Chloride 106 108 H (98-107) mmol/L Carbon Dioxide 28 31 H (22-30) mmol/L BUN 24 H 20 (9-20) mg/dL Creatinine 0.75 0.74 (0.66-1.25) mg/dL Glucose 91 104 H (74-99) mg/dL Calcium 9.3 9.2 (8.4-10.2) mg/dL AST 32 30 (17-59) U/L ALT 59 55 (21-72) U/L Alkaline Phosphatase 103 111 (38-126) U/L Total Protein 6.2 L 6.2 L (6.3-8.2) g/dL Albumin 3.5 3.4 L (3.5-5.0) g/dL Calcium panel 03/25/18 03/26/18 Range/Units 18:44 06:39 Calcium 9.3 9.2 (8.4-10.2) mg/dL Albumin 3.5 3.4 L (3.5-5.0) g/dL Pituitary panel 03/25/18 03/26/18 Range/Units 18:44 06:39 Sodium 141 145 (137-145) mmol/L Potassium 4.3 4.2 (3.5-5.1) mmol/L Chloride 106 108 H (98-107) mmol/L Carbon Dioxide 28 31 H (22-30) mmol/L BUN 24 H 20 (9-20) mg/dL Creatinine 0.75 0.74 (0.66-1.25) mg/dL Glucose 91 104 H (74-99) mg/dL Calcium 9.3 9.2 (8.4-10.2) mg/dL Adrenal panel 03/25/18 03/26/18 Range/Units 18:44 06:39 Sodium 141 145 (137-145) mmol/L Potassium 4.3 4.2 (3.5-5.1) mmol/L Chloride 106 108 H (98-107) mmol/L Carbon Dioxide 28 31 H (22-30) mmol/L BUN 24 H 20 (9-20) mg/dL Creatinine 0.75 0.74 (0.66-1.25) mg/dL Glucose 91 104 H (74-99) mg/dL Calcium 9.3 9.2 (8.4-10.2) mg/dL Total Bilirubin 0.3 0.4 (0.2-1.3) mg/dL AST 32 30 (17-59) U/L ALT 59 55 (21-72) U/L Alkaline Phosphatase 103 111 (38-126) U/L Total Protein 6.2 L 6.2 L (6.3-8.2) g/dL Albumin 3.5 3.4 L (3.5-5.0) g/dL Assessment and Plan (1) Gastrostomy tube dependent Current Visit: Yes Status: Acute Code(s): Z93.1 - GASTROSTOMY STATUS SNOMED Code(s): 544737265 (2) Upper GI bleed Current Visit: Yes Status: Acute Code(s): K92.2 - GASTROINTESTINAL HEMORRHAGE, UNSPECIFIED SNOMED Code(s): 64483534 (3) Protein calorie malnutrition Current Visit: No Status: Acute Code(s): E46 - UNSPECIFIED PROTEIN-CALORIE MALNUTRITION SNOMED Code(s): 610883833 (4) Transient cerebral ischemia Current Visit: No Status: Acute Code(s): G45.9 - TRANSIENT CEREBRAL ISCHEMIC ATTACK, UNSPECIFIED SNOMED Code(s): 070547925 (5) TIA (transient ischemic attack) Current Visit: No Status: Suspected Code(s): G45.9 - TRANSIENT CEREBRAL ISCHEMIC ATTACK, UNSPECIFIED SNOMED Code(s): 286524985
[2018-03-26] MEDS ORDERED: diphenhydrAMINE ELIXIR 25 MG/10 ML CUP PEG/G-TUBE PRN (17:51)
[2018-03-26] MEDS ORDERED: TRIAMCINOLONE 0.1% CREAM 80 GM TUBE TOPICAL PRN (17:51)
[2018-03-26] MEDS ORDERED: traMADol 50 MG TAB PEG/G-TUBE PRN (17:51)
[2018-03-26] MEDS ORDERED: BISACODYL 10 MG SUPP RECTAL PRN (17:51)
[2018-03-26] MEDS ORDERED: MINERAL OIL-WHITE PETROLATUM 120 GM JAR TOPICAL PRN (17:51)
[2018-03-26] MEDS ORDERED: MAGNESIUM HYDROXIDE 2,400 MG/10 ML CUP PEG/G-TUBE PRN (17:51)
[2018-03-26] MEDS ORDERED: LORATADINE 10 MG TAB PEG/G-TUBE PRN (17:51)
[2018-03-26] MEDS ORDERED: DRY MOUTH SPRAY 44.3 SPRAY/44.3 ML SPRAY MUCOUS MEM PRN (17:51)
[2018-03-26] MEDS ORDERED: ACETAMINOPHEN TAB 500 MG TAB PEG/G-TUBE PRN (17:51)
[2018-03-26] MEDS ORDERED: HYDROmorphone 0.5 MG/0.5 ML SYRINGE IVP PRN (17:54)
--- NOTE | 2018-03-26 20:30 | HP ---
HISTORY AND PHYSICAL DATE OF SERVICE: 03/26/2018 CHIEF COMPLAINTS: Bleeding from the PEG tube. HISTORY OF PRESENT ILLNESS: This 72-year-old gentleman with a past medical history of multiple medical problems including CVA, history of asthma, hypertension, hyperlipidemia, history of liver disease, history of DJD being followed by Dr. Alfred, and the [facility], is currently a resident of [facility]. The patient had left-sided weakness and the patient also had dysphagia. PEG tube inserted recently. The patient was noted to have blood return from the PEG tube. Nursing staff in the E[facility] documented blood clot in the PEG tube and the patient sent to [facility] for further evaluation and treatment. The hemoglobin was found to be 11.8 and 12.2 and gastroenterology and surgery are following the patient closely. There is no history of fever, rigors or chills. No history of headache, loss of consciousness, seizures. The patient is unable to provide a coherent history because of some dysphasia associated with possibly the stroke. PAST MEDICAL HISTORY: History of asthma, CVA, TIA, hypertension, hyperlipidemia, history of liver disease, history of DJD. MEDICATIONS: Prior to admission include home medications are: 1. Trazodone 50 mg per PEG. 2. Ultram 100 mg per PEG. 3. Benadryl elixir 25 mg per PEG. 4. Norvasc 5 mg per PEG. 5. Triamcinolone. 6. Hytrin. 7. Biotin. 8. Zantac 150 mg per PEG. 9. Potassium chloride 10 mEq. 10.MiraLAX 17 g. 11.Paxil 20 mg. 12.Oxymetazoline 5 mg. 13.Reglan 5 mg. 14.Melatonin 1.5 mg. 15.Milk of magnesia 2.4 g. 16. 1 application. 17.Jevity 100. 18.Eucerin 1 application. 19.Colace 100 mg p.o. b.i.d. 20.Senna. 21.Vitamin B12 500 mg. 22.Zyrtec 10 mg. 23.Dulcolax 10 mg. 24.Lioresal 10 mg. 25.Lipitor 20 mg. 26.Aspirin 320 mg. 27.Tylenol 500 mg. ALLERGIES: LISINOPRIL AND SIMVASTATIN. FAMILY HISTORY: History of prostate cancer. SOCIAL HISTORY: No history of smoking. Occasional alcohol intake. REVIEW OF SYSTEMS: Could not be taken because of the above mentioned neurological issues. PHYSICAL EXAM: VITAL SIGNS: Pulse is 68, blood pressure 154/80, respirations 16, temperature 98 degrees. Pulse ox 100 percent on 2 L. HEENT is conjunctivae normal. Oral mucosa moist.\ NECK: No jugular venous distention. No carotid bruit. No lymph node enlargement. CARDIOVASCULAR: S1, S2 muffled. RESPIRATIONS: Breath sounds diminished in the bases. A few scattered rhonchi. ABDOMEN: Soft, nontender. Not distended. PEG tube in situ. No blood visible in the PEG tube. LEGS: No edema. No swelling. NERVOUS SYSTEM: Higher functions as mentioned earlier. Moves all 4 limbs. Left sided weakness present. Otherwise skin no ulcer, rash or bleeding. Lymphatics: No lymph nodes palpable in the neck, axillae or groin. JOINTS: No active deforming arthropathy. LABS: WBC 9.4, hemoglobin 12.2. ASSESSMENT: 1. Upper gastrointestinal bleeding from PEG tube bleeding. 2. Anemia possibly acute blood-loss anemia. 3. History of recent stroke. 4. History of asthma. 5. History of hypertension. 6. Hyperlipidemia. 7. History of liver disease. 8. History of hernia repair. 9. History of depression. 10.FULL CODE. RECOMMENDATIONS AND DISCUSSION: In this 72-year-old gentleman who presented with multiple medical issues, at this time, I would recommend to continue current medications, management and symptomatic treatment. Repeat hemoglobin. Otherwise, I would recommend a surgical and Gastroenterology consultation. Restart tube feeds slowly if okay with them. Otherwise aspiration precautions. I would also recommend resume the home medications. Prognosis guarded because of multiple complex medical issues. A copy of dictation being forwarded to Dr. Alfred who is following in the [facility] and as well as [facility], Dr. Ramos. MMODL / IJN: [id number] / [facility]
--- NOTE | 2018-03-26 20:42 | P.CONS ---
History of Present Illness - Reason for Consult Consult date: 03/26/18 Blood clot in PEG Requesting physician: Brandyn Brar - Chief Complaint Blood clot in PEG - History of Present Illness The patient is a very pleasant 72-year-old male with a past medical history that is including but not limited to asthma, hypertension, dyslipidemia, prior alcohol abuse and CVA in 12/2017 for which the patient has residual left-sided weakness and dysarthria and has had PEG tube placed to presents to the hospital due to blood being noted in his PEG tube. On discussion with the patient he denies any antiplatelets or anticoagulation except for the use of full dose aspirin. He denies any hematochezia or melena. There was blood noted in his PEG tube by the nursing staff at the facility which she was at and he was sent into the hospital for further evaluation. On presentation the patient was noted to have a hemoglobin of 11.8 which was found to be 12.2 on repeat. The patient had stool sent for occult blood which was found to be negative. He does have a gastric aspirate which was found to be positive for blood. Review of Systems REVIEW OF SYSTEMS: CARDIO: Denies any chest pain or palpitations. PULMONARY: Denies any shortness of breath or wheezing. GENITOURINARY: No dysuria or hematuria. MUSCULOSKELETAL: Residual left-sided weakness since CVA. SKIN: Denies any new rashes or lesions, jaundice or pallor. PSYCHIATRIC: Denies any depression or anxiety. NEUROLOGY: Denies headache, denies any new focal deficits. EARS: No tinnitus, discharge or new hearing loss. NOSE: No discharge or congestion. EYES: No pain in eyes or change in vision. CONSTITUTIONAL: No recent weight loss. No fever, chills, night sweats. Past Medical History Past Medical History: Asthma, Cancer, CVA/TIA, Eye Disorder, Hyperlipidemia, Hypertension, Liver Disease, Osteoarthritis (OA) Additional Past Medical History / Comment(s): Pt states that past 2 weeks has had "blurred" vision and was seen at [facility] in [place] and told he has a "freckle" in that eye and will follow up with them, childhood asthma, liver "problem" before which pt states he was told was d/t taking tylenol #3, past ETOH abuse-sober for 19yrs then started drining 1-2 beers on occasion only, arthritis-bilateral shoulder and knee pains, skin cancer removed from nose. TIA/ Stroke 01/2018 History of Any Multi-Drug Resistant Organisms: None Reported Past Surgical History: Hernia Repair Additional Past Surgical History / Comment(s): colonoscopy, total R knee arthroplasty, bilateral knee arthroscopies, R foot titanium implant, bilateral shoulder surgery, L inguinal hernia repaix x3, septoplasty and skin cancer removed from nose. Past Anesthesia/Blood Transfusion Reactions: No Reported Reaction Past Psychological History: Depression Additional Psychological History / Comment(s): Pt resides [place]. His spouse is in a termite helper care facilty. He is a [place] vet. Smoking Status: Never smoker Past Alcohol Use History: Daily Additional Past Alcohol Use History / Comment(s): Pt statess he has past ETOH abuse and was sober for 19 yrs. He states he started drinking 1-2 beers on occasion only since about 2005. Past Drug Use History: None Reported - Past Family History Father Family Medical History: Cancer Additional Family Medical History / Comment(s): Father had prostrate cancer. He is . Mother Family Medical History: Cancer, Thyroid Disorder Additional Family Medical History / Comment(s): Mother is . Pt states she had thyroid disease/surgeries. He thinks she had cancer in her "back". Medications and Allergies Home Medications Medication Instructions Recorded Confirmed Type Acetaminophen Tab [Tylenol] 500 mg PEG/G-TUBE Q12H PRN 01/10/18 03/25/18 History Cetirizine HCl [Zyrtec] 10 mg PEG/G-TUBE DAILY PRN 01/10/18 03/25/18 History Cyanocobalamin [Vitamin B-12] 500 mcg PEG/G-TUBE DAILY 01/10/18 03/25/18 History Ketoconazole 2% Shampoo [Nizoral] 1 applic TOPICAL MOFR 01/10/18 03/25/18 History Ranitidine HCl [Zantac] 150 mg PEG/G-TUBE HS 01/10/18 03/25/18 History Terazosin [Hytrin] 5 mg PEG/G-TUBE HS 01/10/18 03/25/18 History amLODIPine [Norvasc] 5 mg PEG/G-TUBE BID 01/10/18 03/25/18 History traZODone HCL 50 mg PEG/G-TUBE HS 01/10/18 03/25/18 History traMADol HCL [Ultram] 100 mg PEG/G-TUBE Q6HR PRN 3 Days 01/27/18 03/25/18 Rx #12 tablet Baclofen [Lioresal] 10 mg PEG/G-TUBE TID@0800,1200,1800 03/01/18 03/25/18 History Bisacodyl [Dulcolax] 10 mg RECTAL DAILY PRN 03/01/18 03/25/18 History Docusate Oral Soln [Colace Oral 100 mg PEG/G-TUBE 03/01/18 03/25/18 History Soln] TID@0800,1200,1800 Eucerin Emollient Lotion 1 applic TOPICAL Q1H PRN 03/01/18 03/25/18 History Jevity 1.5 Jay Liquid 100 ml PEG/G-TUBE DIRECTED 03/01/18 03/25/18 History Magnesium Hydroxide [Milk of 2,400 mg PEG/G-TUBE DAILY PRN 03/01/18 03/25/18 History Magnesia] Melatonin 1.5 mg PEG/G-TUBE HS 03/01/18 03/25/18 History Metoclopramide [Reglan] 5 mg PEG/G-TUBE TID@0800,1200,1800 03/01/18 03/25/18 History Oxymetazoline 0.05% Nasl [place] 2 spray EA NOSTRIL BID 03/01/18 03/25/18 History [Afrin 0.05% Nasal [place]] PARoxetine [Paxil] 20 mg PEG/G-TUBE DAILY 03/01/18 03/25/18 History Potassium Chloride Oral Liquid 10 meq PEG/G-TUBE BID 03/01/18 03/25/18 History Saliva Stimulant Agents Comb.3 1 spray MUCOUS MEM Q1H PRN 03/01/18 03/25/18 History [Biotene Moisturizing Mouth] diphenhydrAMINE ELIXIR [Benadryl 25 mg PEG/G-TUBE Q6H PRN 03/01/18 03/25/18 History Elixir] Aspirin 325 mg PEG/G-TUBE DAILY 03/02/18 03/25/18 History Atorvastatin Calcium [Lipitor] 20 mg PEG/G-TUBE HS 12/05/18 12/28/18 History Polyethylene Glycol 3350 [Miralax] 17 gm PEG/G-TUBE DAILY 03/25/18 03/25/18 History Triamcinolone 0.1% Cream [Kenalog 1 applicatio TOPICAL Q12H PRN 03/25/18 History 0.1% Cream] Allergies Allergy/AdvReac Type Severity Reaction Status Date / Time lisinopril Allergy Unknown Verified 03/25/18 19:03 simvastatin [From Zocor] Allergy Unknown Verified 03/25/18 19:03 Physical Exam Vitals: Vital Signs Temp Pulse Pulse Pulse Resp BP BP 03/26/18 18:15 03/26/18 18:04 97.6 F 64 16 03/26/18 15:00 98.0 F 68 16 154/80 03/26/18 11:22 154/81 03/26/18 11:21 75 03/26/18 08:27 98.1 F 70 16 03/25/18 23:24 97.9 F 61 18 03/25/18 22:00 83 20 128/101 03/25/18 21:52 98.1 F 98 20 128/101 03/25/18 21:00 142/103 03/25/18 20:00 126/101 03/25/18 19:43 116 H 20 126/101 BP BP Pulse Ox 03/26/18 18:15 98 03/26/18 18:04 147/75 03/26/18 15:00 100 03/26/18 11:22 03/26/18 11:21 97 03/26/18 08:27 160/83 100 03/25/18 23:24 142/75 03/25/18 22:00 98 03/25/18 21:52 97 03/25/18 21:00 03/25/18 20:00 92 L 03/25/18 19:43 95 Intake and Output 03/26/18 03/26/18 03/26/18 06:59 14:59 22:59 Output Total 100 80 Balance -100 -80 Output: Urine 100 80 Other: Voiding Method Diaper Urinal Incontinent # Voids 1 1 Weight 72.5 kg On physical examination, patient appears comfortable in no apparent distress. HEAD: Normocephalic, atraumatic. EYES: No scleral icterus. No conjunctival injection. MOUTH: No lesions, tongue midline. NECK: Trachea midline, no gross abnormalities. CHEST: Clear to auscultation with no wheezing or rhonchi appreciated. HEART: Regular rate and rhythm. ABDOMEN: Soft, PEG site is clean/dry/intact. Bowel sounds are positive. No organomegaly. No guarding or rigidity. EXTREMITIES: No pedal edema. SKIN: No rashes, no jaundice. NEUROLOGIC: Alert and oriented, significant dysarthria secondary to recent CVA Results CBC & Chem 7: 03/26/18 06:39 03/26/18 06:39 Labs: Abnormal Lab Results - Last 24 Hours (Table) 03/26/18 03/26/18 Range/Units 06:39 06:39 RBC 4.21 L (4.30-5.90) m/uL Hgb 12.2 L (13.0-17.5) gm/dL Hct 37.9 L (39.0-53.0) % Lymphocytes # 0.9 L (1.0-4.8) k/uL Chloride 108 H (98-107) mmol/L Carbon Dioxide 31 H (22-30) mmol/L Glucose 104 H (74-99) mg/dL Total Protein 6.2 L (6.3-8.2) g/dL Albumin 3.4 L (3.5-5.0) g/dL Assessment and Plan (1) Upper GI bleed Narrative/Plan: patient who presented due to blood noted in his PEG tube. He subsequently had stool testing which was negative for occult blood and gastric aspirate which was positive for occult blood. Hemoglobin has remained stable at 11.8 on presentation and 12.2 on repeat. Patient was not on PPI therapy prior to presentation. Current Visit: Yes Status: Acute Code(s): K92.2 - GASTROINTESTINAL HEMORRHAGE, UNSPECIFIED SNOMED Code(s): 28051819 Plan: Supportive care Okay for tube feeds Continue Protonix therapy Monitor hemoglobin and transfuse as needed Please discussed with the patient would prefer conservative management at this time and monitoring of hemoglobin, however if patient has further signs or symptoms of GI bleeding or fall in blood count will consider further workup Thank you for allowing us to this patient in the care of this patient
[2018-03-26] MEDS ORDERED: MELATONIN 3 MG TABLET PO SCH (21:00)
[2018-03-26] MEDS: traZODone HCL 50 MG TAB PEG/G-TUBE SCH (22:33)
[2018-03-26] MEDS: ATORVASTATIN 20 MG TAB PEG/G-TUBE SCH (22:34)
[2018-03-26] MEDS: POTASSIUM BICARBONATE/CIT AC 20 MEQ TABLET.EFF PO SCH (22:34)
[2018-03-26] MEDS: FAMOTIDINE 20 MG TAB PEG/G-TUBE SCH (22:34)
[2018-03-26] MEDS: BACLOFEN 10 MG TAB PEG/G-TUBE SCH (22:42)
[2018-03-26] MEDS: OXYMETAZOLINE 0.05% NASL SPRAY 1 SPRAY BOTTLE EA NOSTRIL SCH (22:45)
[2018-03-26] MEDS: DOXAZOSIN 4 MG TAB PO SCH (22:54)
[2018-03-26] MEDS: amLODIPine 5 MG TAB PEG/G-TUBE SCH (22:54)
[2018-03-26] MEDS: METOCLOPRAMIDE 5 MG TAB PEG/G-TUBE SCH (22:55)
[2018-03-26] MEDS: DOCUSATE ORAL SOLN 100 MG/10 ML CUP PEG/G-TUBE SCH (23:03)
[2018-03-27 01:38] LABS: Amorphous Sediment,Urine Rare /hpf; Appearance,Urine Cloudy (Clear); Bilirubin,Urine Negative (Negative); Blood,Urine Negative (Negative); Color,Urine Yellow; Glucose,Urine (UA) Negative (Negative); Ketones,Urine Negative (Negative); Leukocyte Esterase,Urine Negative (Negative); Mucus,Urine Rare /hpf; Nitrite,Urine Negative (Negative); Protein,Urine Negative (Negative); RBC,Urine 1 /hpf (0-5)
[2018-03-27 06:59] LABS: Basophils # (A) 0.1 k/uL (0-0.2); Basophils % (A) 1 %; Eosinophils # (A) 0.6 k/uL (0-0.7); Eosinophils % (A) 6 %; HCT 37.1 % (39.0-53.0); Lymphocytes # (A) 0.8 k/uL (1.0-4.8); Lymphocytes % (A) 9 %; MCHC 32.4 g/dL (31.0-37.0); MCV 89.5 fL (80.0-100.0); Mean Platelet Volume 7.5; Monocytes # (A) 0.6 k/uL (0-1.0); Monocytes % (A) 6 %; Neutrophils # (A) 7.4 k/uL (1.3-7.7); Neutrophils % (A) 77 %; Platelet Count 292 k/uL (150-450); RBC 4.15 m/uL (4.30-5.90); WBC 9.6 k/uL (3.8-10.6)
[2018-03-27 07:17] LABS: Anion Gap 6 mmol/L; Blood Urea Nitrogen 19 mg/dL (9-20); Calcium 8.8 mg/dL (8.4-10.2); Carbon Dioxide 27 mmol/L (22-30); Chloride 107 mmol/L (98-107); Glucose 141 mg/dL (74-99); Potassium 4.1 mmol/L (3.5-5.1); Sodium 140 mmol/L (137-145)
[2018-03-27] MEDS: PANTOPRAZOLE 40 MG/10 ML VIAL IVP SCH ×2 (09:33→22:48)
[2018-03-27] MEDS: METOCLOPRAMIDE 5 MG TAB PEG/G-TUBE SCH ×3 (09:34→18:08)
[2018-03-27] MEDS: DOCUSATE ORAL SOLN 100 MG/10 ML CUP PEG/G-TUBE SCH ×3 (09:34→18:08)
[2018-03-27] MEDS: ASPIRIN 325 MG TAB PEG/G-TUBE SCH (09:34)
[2018-03-27] MEDS: BACLOFEN 10 MG TAB PEG/G-TUBE SCH ×3 (09:36→18:08)
[2018-03-27] MEDS: amLODIPine 5 MG TAB PEG/G-TUBE SCH ×2 (09:36→22:49)
[2018-03-27] MEDS: PARoxetine 20 MG TAB PEG/G-TUBE SCH (09:36)
[2018-03-27] MEDS: OXYMETAZOLINE 0.05% NASL SPRAY 1 SPRAY BOTTLE EA NOSTRIL SCH ×2 (10:03→22:50)
[2018-03-27] MEDS: POTASSIUM BICARBONATE/CIT AC 20 MEQ TABLET.EFF PO SCH ×2 (11:27→22:47)
[2018-03-27] MEDS: POLYETHYLENE GLYCOL 3350 17 GM POWD.PACK PO SCH (11:27)
[2018-03-27] MEDS ORDERED: MELATONIN 3 MG TABLET PEG/G-TUBE SCH (12:48)
--- NOTE | 2018-03-27 13:13 | P.PN ---
Subjective Progress Note Date: 03/27/18 CHIEF COMPLAINT: Gastric bleed through PEG tube HISTORY OF PRESENT ILLNESS: The patient is a 72-year-old male patient transferred from [facility] for transient blood clots in his feeding tube. Since admission, no further blood in feeding tube. He is on tube feeds and tolerating. No reports of abdominal pain. No nausea or vomiting. No hematemesis. No blood in gastrostomy tube. PHYSICAL EXAM: VITAL SIGNS: Reviewed GENERAL: Well-developed pleasant male in no acute distress. HEENT: No scleral icterus. Extraocular movements grossly intact. Moist buccal mucosa. NECK: Supple without lymphadenopathy. CHEST: Unlabored respirations. Equal bilateral excursions. CARDIOVASCULAR: Regular rate regular rhythm rhythm. Distal 2+ pulses. ABDOMEN: Soft, nontender. Nondistended. No blood in PEG tube. Dressing is clean , dry and intact. MUSCULOSKELETAL: No clubbing, cyanosis, or edema. NEURO : No focal or lateralizing signs. Cranial nerves II-12 within normal limits. PSYCH: Alert and oriented to person, place and time. SKIN: Well perfused. Good skin turgor. ASSESSMENT: 1. History of upper GI bleed resolved 2. Gastrostomy tube status PLAN: 1. Tube feeds as tolerated. 2. No surgical intervention. 3. Will sign off. Please reconsult if needed Objective - Vital Signs Vital signs: Vital Signs Temp 98.2 F 03/27/18 07:35 Pulse 88 03/27/18 07:35 Resp 20 03/27/18 07:35 BP 165/76 03/27/18 07:35 Pulse Ox 95 03/27/18 07:35 Intake & Output 03/26/18 03/27/18 03/27/18 18:59 06:59 18:59 Intake Total 888 383 Output Total 80 850 Balance -80 38 383 Weight 72.5 kg Intake: Intake, IV Titration 600 Amount Sodium Chloride 0.9% 1, 600 000 ml @ 75 mls/hr IV . [id number] [facility] Rx#:[id number] Tube Feeding 288 383 Output: Urine 80 850 Other: Voiding Method Urinal Urinal # Voids 1 - Labs CBC & Chem 7: 03/27/18 06:34 03/27/18 06:34 Labs: Abnormal Lab Results - Last 24 Hours (Table) 03/27/18 03/27/18 03/27/18 Range/Units 01:13 06:34 06:34 RBC 4.15 L (4.30-5.90) m/uL Hgb 12.0 L (13.0-17.5) gm/dL Hct 37.1 L (39.0-53.0) % Lymphocytes # 0.8 L (1.0-4.8) k/uL Creatinine 0.64 L (0.66-1.25) mg/dL Glucose 141 H (74-99) mg/dL Amorphous Sediment Rare H (None) /hpf Urine Mucus Rare H (None) /hpf Assessment and Plan (1) Gastrostomy tube dependent Current Visit: Yes Status: Acute Code(s): Z93.1 - GASTROSTOMY STATUS SNOMED Code(s): 034529037 (2) Upper GI bleed Current Visit: Yes Status: Acute Code(s): K92.2 - GASTROINTESTINAL HEMORRHAGE, UNSPECIFIED SNOMED Code(s): 54212260 (3) Protein calorie malnutrition Current Visit: No Status: Acute Code(s): E46 - UNSPECIFIED PROTEIN-CALORIE MALNUTRITION SNOMED Code(s): 692971519 (4) Transient cerebral ischemia Current Visit: No Status: Acute Code(s): G45.9 - TRANSIENT CEREBRAL ISCHEMIC ATTACK, UNSPECIFIED SNOMED Code(s): 169182028 (5) TIA (transient ischemic attack) Current Visit: No Status: Suspected Code(s): G45.9 - TRANSIENT CEREBRAL ISCHEMIC ATTACK, UNSPECIFIED SNOMED Code(s): 777664295
[2018-03-27] MEDS: CYANOCOBALAMIN 500 MCG TAB PO SCH (13:22)
[2018-03-27] MEDS: SODIUM CHLORIDE 0.9% 1,000 ML IV SCH (17:39)
--- NOTE | 2018-03-27 20:18 | P.PN ---
Subjective Progress Note Date: 03/27/18 Principal diagnosis: Upper GI bleed Patient doing well. No abdominal pain. 2 feeds have been restarted. No bleeding noted from PEG tube. Objective - Vital Signs Vital signs: Vital Signs Temp 98.0 F 03/27/18 14:32 Pulse 76 03/27/18 14:32 Resp 20 03/27/18 14:32 BP 142/79 03/27/18 14:32 Pulse Ox 94 L 03/27/18 14:32 Intake & Output 03/27/18 03/27/18 03/28/18 06:59 18:59 06:59 Intake Total 888 594 Output Total 850 300 Balance 38 294 Weight 74.5 kg Intake: Intake, IV Titration 600 Amount Sodium Chloride 0.9% 1, 600 000 ml @ 75 mls/hr IV . [id number] [facility] Rx#:[id number] Tube Feeding 288 594 Output: Urine 850 300 Other: Voiding Method Urinal Diaper Incontinent - Exam On physical examination, patient appears comfortable in no apparent distress. HEAD: Normocephalic, atraumatic. EYES: No scleral icterus. No conjunctival injection. MOUTH: No lesions, tongue midline. NECK: Trachea midline, no gross abnormalities. CHEST: Clear to auscultation with no wheezing or rhonchi appreciated. HEART: Regular rate and rhythm. ABDOMEN: Soft, PEG site is clean/dry/intact. Bowel sounds are positive. No organomegaly. No guarding or rigidity. EXTREMITIES: No pedal edema. SKIN: No rashes, no jaundice. NEUROLOGIC: Alert and oriented, significant dysarthria secondary to recent CVA - Labs CBC & Chem 7: 03/27/18 06:34 03/27/18 06:34 Labs: Abnormal Lab Results - Last 24 Hours (Table) 03/27/18 03/27/18 03/27/18 Range/Units 01:13 06:34 06:34 RBC 4.15 L (4.30-5.90) m/uL Hgb 12.0 L (13.0-17.5) gm/dL Hct 37.1 L (39.0-53.0) % Lymphocytes # 0.8 L (1.0-4.8) k/uL Creatinine 0.64 L (0.66-1.25) mg/dL Glucose 141 H (74-99) mg/dL Amorphous Sediment Rare H (None) /hpf Urine Mucus Rare H (None) /hpf Assessment and Plan (1) Upper GI bleed Narrative/Plan: Patient who presented due to blood noted in his PEG tube. He subsequently had stool testing which was negative for occult blood and gastric aspirate which was positive for occult blood. Hemoglobin has remained stable at 11.8 on presentation and 12.2 on repeat. Patient was not on PPI therapy prior to presentation. Hemoglobin has remained stable. Current Visit: Yes Status: Acute Code(s): K92.2 - GASTROINTESTINAL HEMORRHAGE, UNSPECIFIED SNOMED Code(s): 38471346 Plan: Supportive care Okay for tube feeds Continue Protonix therapy Monitor hemoglobin and transfuse as needed Please discussed with the patient would prefer conservative management at this time and monitoring of hemoglobin, however if patient has further signs or symptoms of GI bleeding or fall in blood count will consider further workup Thank you for allowing us to this patient in the care of this patient
--- NOTE | 2018-03-27 21:57 | PN ---
PROGRESS NOTE DATE OF SERVICE: 03/27/2018. HISTORY: This 72-year-old gentleman is an [facility] resident with PEG tube, was admitted GI bleed and PEG tube bleeding. The patient was seen by Gastroenterology and Surgery and recommend to continue medical treatment. PEG tube has been initiated. However the goal rate is 100 mL which the patient is receiving at the senior living. No chest pain. No palpitations. No fever. EXAM: Alert and oriented x2. Pulse 76, blood pressure 140/70, respirations 18, temperature 98 degrees, pulse ox 94% on room air. HEENT: Conjunctivae normal. NECK: Supple. No JVD. CARDIOVASCULAR: S1 and S2 muffled. LUNGS: Breath sounds diminished at the bases. Few scattered rhonchi. ABDOMEN: Soft, status post PEG tube placement. LEGS: No edema. NERVOUS SYSTEM: Mild diffuse weakness. LAB STUDIES: WBC 9.2, hemoglobin 12. Other labs are noted. ASSESSMENT: 1. Acute upper gastrointestinal bleeding from the PEG tube. 2. Anemia possibly acute blood-loss anemia, stable. 3. History of recent stroke. 4. History of asthma. 5. History of hypertension. 6. History of hyperlipidemia. 7. History of liver disease. 8. History of hernia repair. 9. History of depression. 10.FULL CODE. RECOMMENDATIONS: Continue current management. Symptomatic treatment. Repeat labs will be ordered. I would also recommend dietitian to evaluate and see if the goal rate can be reduced. Otherwise, continue to monitor. Further recommendations to follow. MMODL / IJN: [id number] /
[2018-03-27] MEDS: ATORVASTATIN 20 MG TAB PEG/G-TUBE SCH (22:49)
[2018-03-27] MEDS: FAMOTIDINE 20 MG TAB PEG/G-TUBE SCH (22:49)
[2018-03-27] MEDS: traZODone HCL 50 MG TAB PEG/G-TUBE SCH (22:49)
[2018-03-27] MEDS: DOXAZOSIN 4 MG TAB PO SCH (22:53)
[2018-03-28 07:10] LABS: Basophils % (A) 0 %; Eosinophils # (A) 0.6 k/uL (0-0.7); Eosinophils % (A) 6 %; HCT 37.1 % (39.0-53.0); HGB 12.1 gm/dL (13.0-17.5); Lymphocytes # (A) 0.7 k/uL (1.0-4.8); Lymphocytes % (A) 7 %; MCH 29.1 pg (25.0-35.0); MCHC 32.6 g/dL (31.0-37.0); MCV 89.4 fL (80.0-100.0); Mean Platelet Volume 7.7; Monocytes # (A) 0.6 k/uL (0-1.0); Monocytes % (A) 7 %; Neutrophils # (A) 7.4 k/uL (1.3-7.7); Neutrophils % (A) 79 %; Platelet Count 267 k/uL (150-450); RBC 4.15 m/uL (4.30-5.90); RDW 14.1 % (11.5-15.5); WBC 9.4 k/uL (3.8-10.6)
[2018-03-28 07:39] LABS: Anion Gap 6 mmol/L; Blood Urea Nitrogen 16 mg/dL (9-20); Calcium 9.1 mg/dL (8.4-10.2); Carbon Dioxide 29 mmol/L (22-30); Chloride 108 mmol/L (98-107); Glucose 135 mg/dL (74-99); Potassium 4.5 mmol/L (3.5-5.1); Sodium 143 mmol/L (137-145)
[2018-03-28] MEDS: OXYMETAZOLINE 0.05% NASL SPRAY 1 SPRAY BOTTLE EA NOSTRIL SCH (11:44)
[2018-03-28] MEDS: PARoxetine 20 MG TAB PEG/G-TUBE SCH (11:48)
[2018-03-28] MEDS: amLODIPine 5 MG TAB PEG/G-TUBE SCH (11:48)
[2018-03-28] MEDS: DOCUSATE ORAL SOLN 100 MG/10 ML CUP PEG/G-TUBE SCH ×2 (11:48→16:15)
[2018-03-28] MEDS: POLYETHYLENE GLYCOL 3350 17 GM POWD.PACK PO SCH (11:49)
[2018-03-28] MEDS: METOCLOPRAMIDE 5 MG TAB PEG/G-TUBE SCH ×2 (11:49→16:14)
[2018-03-28] MEDS: ASPIRIN 325 MG TAB PEG/G-TUBE SCH (11:49)
[2018-03-28] MEDS: BACLOFEN 10 MG TAB PEG/G-TUBE SCH ×2 (11:49→16:19)
[2018-03-28] MEDS: POTASSIUM BICARBONATE/CIT AC 20 MEQ TABLET.EFF PO SCH (11:50)
[2018-03-28] MEDS: PANTOPRAZOLE 40 MG/10 ML VIAL IVP SCH (12:13)
--- NOTE | 2018-03-28 13:07 | P.DS ---
Providers Date of admission: 03/25/18 20:20 Expected date of discharge: 03/28/18 Attending physician: Brandyn Garcia Consults: 03/25/18 20:20 Consult Physician Routine Consulting Provider: Karly Camilo Consult Reason/Comments: Upper GI bleed Do you want consulting provider notified?: Yes 03/26/18 09:39 Consult Physician Routine Consulting Provider: Karlos Blackburn Consult Reason/Comments: upper gi bleed Do you want consulting provider notified?: Yes Primary care physician: Ha[facility] Hospital Course: Final Diagnoses: -Acute upper GI bleed from PEG tube -Anemia, possibly acute blood loss anemia, stable -Recent CVA -Hypertension -History of liver disease Hospital course: This a 72-year-old gentleman currently at [facility], admitted with GI bleed, PEG tube bleeding. Evaluated by both GI and surgery with recommendations to continue medical treatment. PEG tube feeding has been resumed, tolerating well with minimal to no residuals. No abdominal pain. No further bleeding from PEG tube. Hemoglobin 12.1. Tube feeding recommendations as per dietitian. Cleared by both GI and surgery for discharge. Patient is being discharged to [facility] in a stable condition with guarded prognosis. EXAM:General: Alert and oriented 2, no acute distress. CV: S1, S2 muffled .LUNGS: Bilateral bases diminished, occasional scattered rhonchi. ABD: Soft,Peg tube present.NERVOUS: Mild diffuse weakness, no gross focal deficits. The impression and plan of care has been dictated as directed. : I performed a history and examination of this patient, discussed the same with the dictator. I agree with the dictator's note ,documented as a scribe. Any additional findings or plans will be noted. Time taken: 35 minutes Patient Condition at Discharge: Stable Plan - Discharge Summary Discharge Rx Participant: No New Discharge Prescriptions: New cloNIDine 0.1 MG/24HR PATCH [Catapres-TTS] 1 patch TRANSDERM Q7D patch Pantoprazole Sodium [Protonix] 40 mg PEG/G-TUBE BID #60 tablet.dr Woods Cyanocobalamin [Vitamin B-12] 500 mcg PEG/G-TUBE DAILY traZODone HCL 50 mg PEG/G-TUBE HS Terazosin [Hytrin] 5 mg PEG/G-TUBE HS Acetaminophen Tab [Tylenol] 500 mg PEG/G-TUBE Q12H PRN PRN Reason: Pain Ketoconazole 2% Shampoo [Nizoral] 1 applic TOPICAL MOFR amLODIPine [Norvasc] 5 mg PEG/G-TUBE BID Cetirizine HCl [Zyrtec] 10 mg PEG/G-TUBE DAILY PRN PRN Reason: Allergy Symptoms Saliva Stimulant Agents Comb.3 [Biotene Moisturizing Mouth] 1 spray MUCOUS MEM Q1H PRN PRN Reason: Dry Mouth Potassium Chloride Oral Liquid 10 meq PEG/G-TUBE BID PARoxetine [Paxil] 20 mg PEG/G-TUBE DAILY Oxymetazoline 0.05% Nasl Wendell [Afrin 0.05% Nasal Wendell] 2 spray EA NOSTRIL BID Metoclopramide [Reglan] 5 mg PEG/G-TUBE TID@0800,1200,1800 Melatonin 1.5 mg PEG/G-TUBE HS Magnesium Hydroxide [Milk of Magnesia] 2,400 mg PEG/G-TUBE DAILY PRN PRN Reason: Constipation Eucerin Emollient Lotion 1 applic TOPICAL Q1H PRN PRN Reason: Dry Skin Docusate Oral Soln [Colace Oral Soln] 100 mg PEG/G-TUBE TID@0800,1200,1800 diphenhydrAMINE ELIXIR [Benadryl Elixir] 25 mg PEG/G-TUBE Q6H PRN PRN Reason: Itching Bisacodyl [Dulcolax] 10 mg RECTAL DAILY PRN PRN Reason: Constipation Baclofen [Lioresal] 10 mg PEG/G-TUBE TID@0800,1200,1800 Atorvastatin Calcium [Lipitor] 20 mg PEG/G-TUBE HS Aspirin 325 mg PEG/G-TUBE DAILY Triamcinolone 0.1% Cream [Kenalog 0.1% Cream] 1 applicatio TOPICAL Q12H PRN PRN Reason: Skin Irritation Polyethylene Glycol 3350 [Miralax] 17 gm PEG/G-TUBE DAILY traMADol HCL [Ultram] 100 mg PEG/G-TUBE Q6HR PRN 3 Days #12 tablet PRN Reason: Pain Discontinued Ranitidine HCl [Zantac] 150 mg PEG/G-TUBE HS Jevity 1.5 Jay Liquid 100 ml PEG/G-TUBE DIRECTED Discharge Medication List Acetaminophen Tab [Tylenol] 500 mg PEG/G-TUBE Q12H PRN 01/10/18 [History] Cetirizine HCl [Zyrtec] 10 mg PEG/G-TUBE DAILY PRN 01/10/18 [History] Cyanocobalamin [Vitamin B-12] 500 mcg PEG/G-TUBE DAILY 01/10/18 [History] Ketoconazole 2% Shampoo [Nizoral] 1 applic TOPICAL MOFR 01/10/18 [History] Terazosin [Hytrin] 5 mg PEG/G-TUBE HS 01/10/18 [History] amLODIPine [Norvasc] 5 mg PEG/G-TUBE BID 01/10/18 [History] traZODone HCL 50 mg PEG/G-TUBE HS 01/10/18 [History] Baclofen [Lioresal] 10 mg PEG/G-TUBE TID@0800,1200,1800 03/01/18 [History] Bisacodyl [Dulcolax] 10 mg RECTAL DAILY PRN 03/01/18 [History] Docusate Oral Soln [Colace Oral Soln] 100 mg PEG/G-TUBE TID@0800,1200,1800 03/01 [History] Eucerin Emollient Lotion 1 applic TOPICAL Q1H PRN 03/01/18 [History] Magnesium Hydroxide [Milk of Magnesia] 2,400 mg PEG/G-TUBE DAILY PRN 03/01/18 [ History] Melatonin 1.5 mg PEG/G-TUBE HS 03/01/18 [History] Metoclopramide [Reglan] 5 mg PEG/G-TUBE TID@0800,1200,1800 03/01/18 [History] Oxymetazoline 0.05% Nasl Wendell [Afrin 0.05% Nasal Wendell] 2 spray EA NOSTRIL BID 03/01/18 [History] PARoxetine [Paxil] 20 mg PEG/G-TUBE DAILY 03/01/18 [History] Potassium Chloride Oral Liquid 10 meq PEG/G-TUBE BID 03/01/18 [History] Saliva Stimulant Agents Comb.3 [Biotene Moisturizing Mouth] 1 spray MUCOUS MEM Q1H PRN 03/01/18 [History] diphenhydrAMINE ELIXIR [Benadryl Elixir] 25 mg PEG/G-TUBE Q6H PRN 03/01/18 [ History] Aspirin 325 mg PEG/G-TUBE DAILY 03/02/18 [History] Atorvastatin Calcium [Lipitor] 20 mg PEG/G-TUBE HS 03/02/18 [History] Polyethylene Glycol 3350 [Miralax] 17 gm PEG/G-TUBE DAILY 03/25/18 [History] Triamcinolone 0.1% Cream [Kenalog 0.1% Cream] 1 applicatio TOPICAL Q12H PRN [History] Pantoprazole Sodium [Protonix] 40 mg PEG/G-TUBE BID #60 tablet.dr 03/28/18 [Rx] cloNIDine 0.1 MG/24HR PATCH [Catapres-TTS] 1 patch TRANSDERM Q7D patch [Rx] traMADol HCL [Ultram] 100 mg PEG/G-TUBE Q6HR PRN 3 Days #12 tablet 03/28/18 [Rx] Follow up Appointment(s)/Referral(s): Haider Alfred DO [Primary Care Provider] - 3 Days Karlos Blackburn MD [STAFF PHYSICIAN] - 2 Weeks Activity/Diet/Wound Care/Special Instructions: MEDI PH tube feedings as per dietary Strict aspiration precautions Activity: As tolerated CBC, BMP in 3 days Discharge Disposition: TRANSFER TO SNF/ECF
[2018-03-28 15:15] VITALS: BP 128/75; PULSE 67; RESP 12; TEMP 99
[2018-03-28] MEDS ORDERED: KETOCONAZOLE 2% SHAMPOO 1 APPLIC/ML TOPICAL SCH (16:00)
[2018-03-28] MEDS: CYANOCOBALAMIN 500 MCG TAB PO SCH (16:19)
== END 2018-03-28 16:20 | DRG 378 ==
LOC: EC 18:24 → 4SSUR 20:20
PROVIDERS: ADMIT Internal Medicine; ATTEND Internal Medicine
DX: K92.2 Gastrointestinal hemorrhage, unspecified (principal); I69.354 Hemiplegia and hemiparesis following cerebral infarction affecting left non-dominant side; D62 Acute posthemorrhagic anemia; E46 Unspecified protein-calorie malnutrition; I69.321 Dysphasia following cerebral infarction; R13.10 Dysphagia, unspecified; Z93.1 Gastrostomy status; I69.322 Dysarthria following cerebral infarction; I69.391 Dysphagia following cerebral infarction; R40.2362 Coma scale, best motor response, obeys commands, at arrival to emergency department; R40.2142 Coma scale, eyes open, spontaneous, at arrival to emergency department; I10 Essential (primary) hypertension; R40.2252 Coma scale, best verbal response, oriented, at arrival to emergency department; E78.5 Hyperlipidemia, unspecified; J45.909 Unspecified asthma, uncomplicated; M19.012 Primary osteoarthritis, left shoulder; M17.12 Unilateral primary osteoarthritis, left knee; M19.011 Primary osteoarthritis, right shoulder; K76.9 Liver disease, unspecified; R19.5 Other fecal abnormalities; F32.9 Major depressive disorder, single episode, unspecified; F10.11 Alcohol abuse, in remission; Z79.82 Long term (current) use of aspirin; Z79.899 Other long term (current) drug therapy; Z96.651 Presence of right artificial knee joint; Z85.828 Personal history of other malignant neoplasm of skin; Z88.8 Allergy status to other drugs, medicaments and biological substances; Z80.42 Family history of malignant neoplasm of prostate; Z80.8 Family history of malignant neoplasm of other organs or systems
CPT/HCPCS: 36415; 71045; 80048; 80053; 81001; 82271; 82272; 85025; 85610; 85730; 96374; 99285

== ENCOUNTER 2018-03-31 02:31 | Inpatient (IN) | payer OTHER, MEDICARE ==
--- NOTE | 2018-03-31 02:44 | ED ---
SOB HPI - General Chief Complaint: Shortness of Breath Stated Complaint: Difficulty Breathing Time Seen by Provider: 03/31/18 02:42 Source: EMS - History of Present Illness Initial Comments: Ruiz is a 72-year-old gentleman who presents the ED today via EMS from [facility] for evaluation of difficulty breathing and concern for aspiration. The patient has a PEG tube at baseline, there is concerned that he may have aspirated during feeding. Caregivers at the facility report the patient is usually awake alert and oriented 4 however this evening he seemed to be having difficulty breathing and has become nonverbal. Decision was made to send her to the ER for evaluation. - Related Data Home Medications Medication Instructions Recorded Confirmed RX: Acetaminophen Tab [Tylenol] 500 mg PEG/G-TUBE Q12H PRN 01/10/18 03/31/18 RX: Cetirizine HCl [Zyrtec] 10 mg PEG/G-TUBE DAILY PRN 01/10/18 03/31/18 RX: Cyanocobalamin [Vitamin B-12] 500 mcg PEG/G-TUBE DAILY 01/10/18 03/31/18 RX: Ketoconazole 2% Shampoo 1 applic TOPICAL MOFR 01/10/18 03/31/18 [Nizoral] RX: Terazosin [Hytrin] 5 mg PEG/G-TUBE HS 01/10/18 03/31/18 RX: amLODIPine [Norvasc] 5 mg PEG/G-TUBE BID 01/10/18 03/31/18 RX: traZODone HCL 50 mg PEG/G-TUBE HS 01/10/18 03/31/18 Eucerin Emollient Lotion 1 applic TOPICAL Q1H PRN 03/01/18 03/31/18 RX: Baclofen [Lioresal] 10 mg PEG/G-TUBE TID@0800,1200,1800 03/01/18 03/31/18 RX: Bisacodyl [Dulcolax] 10 mg RECTAL DAILY PRN 03/01/18 03/31/18 RX: Docusate Oral Soln [Colace 100 mg PEG/G-TUBE 03/01/18 03/31/18 Oral Soln] TID@0800,1200,1800 RX: Magnesium Hydroxide [Milk of 2,400 mg PEG/G-TUBE DAILY PRN 03/01/18 03/31/18 Magnesia] RX: Melatonin 1.5 mg PEG/G-TUBE HS 03/01/18 03/31/18 RX: Metoclopramide [Reglan] 5 mg PEG/G-TUBE TID@0800,1200,1800 03/01/18 03/31/18 RX: Oxymetazoline 0.05% Nasl Stanton 2 spray EA NOSTRIL BID 03/01/18 03/31/18 [Afrin 0.05% Nasal Stanton] RX: PARoxetine [Paxil] 20 mg PEG/G-TUBE DAILY 03/01/18 03/31/18 RX: Potassium Chloride Oral Liquid 10 meq PEG/G-TUBE BID 03/01/18 03/31/18 RX: Saliva Stimulant Agents Comb.3 1 spray MUCOUS MEM Q1H 03/01/18 03/31/18 [Biotene Moisturizing Mouth] RX: diphenhydrAMINE ELIXIR 25 mg PEG/G-TUBE Q6H PRN 03/01/18 03/31/18 [Benadryl Elixir] RX: Aspirin 325 mg PEG/G-TUBE BID PRN 03/02/18 03/31/18 RX: Atorvastatin Calcium [Lipitor] 20 mg PEG/G-TUBE HS 03/02/18 03/31/18 RX: Polyethylene Glycol 3350 17 gm PEG/G-TUBE DAILY 03/25/18 03/31/18 [Miralax] RX: Triamcinolone 0.1% Cream 1 applicatio TOPICAL Q12H PRN 03/25/18 03/31/18 [Kenalog 0.1% Cream] Omeprazole [PriLOSEC] 20 mg PEG/G-TUBE BID 03/31/18 03/31/18 Previous Rx's Medication Instructions Recorded RX: cloNIDine 0.1 MG/24HR PATCH 1 patch TRANSDERM Q7D patch 03/28/18 [Catapres-TTS] RX: traMADol HCL [Ultram] 100 mg PEG/G-TUBE Q6HR PRN 3 Days 03/28/18 #12 tablet Allergies Allergy/AdvReac Type Severity Reaction Status Date / Time lisinopril Allergy Unknown Verified 03/31/18 06:59 simvastatin [From Zocor] Allergy Unknown Verified 03/31/18 06:59 Review of Systems ROS Statement: Those systems with pertinent positive or pertinent negative responses have been documented in the HPI. ROS Other: All systems not noted in ROS Statement are negative. Past Medical History Past Medical History: Asthma, Cancer, CVA/TIA, Eye Disorder, Hyperlipidemia, Hypertension, Liver Disease, Osteoarthritis (OA) Additional Past Medical History / Comment(s): Pt states that past 2 weeks has had "blurred" vision and was seen at [facility] in [place] and told he has a "freckle" in that eye and will follow up with them, childhood asthma, liver "problem" before which pt states he was told was d/t taking tylenol #3, past ETOH abuse-sober for 19yrs then started drining 1-2 beers on occasion only, arthritis-bilateral shoulder and knee pains, skin cancer removed from nose. TIA/ Stroke 01/2018 History of Any Multi-Drug Resistant Organisms: None Reported Past Surgical History: Hernia Repair Additional Past Surgical History / Comment(s): colonoscopy, total R knee arthroplasty, bilateral knee arthroscopies, R foot titanium implant, bilateral shoulder surgery, L inguinal hernia repaix x3, septoplasty and skin cancer removed from nose. Past Anesthesia/Blood Transfusion Reactions: No Reported Reaction Past Psychological History: Depression Smoking Status: Never smoker Past Alcohol Use History: Daily Past Drug Use History: None Reported - Past Family History Father Family Medical History: Cancer Additional Family Medical History / Comment(s): Father had prostrate cancer. He is . Mother Family Medical History: Cancer, Thyroid Disorder Additional Family Medical History / Comment(s): Mother is . Pt states she had thyroid disease/surgeries. He thinks she had cancer in her "back". General Exam - General Exam Comments Initial Comments: Physical Exam GENERAL: Dilatated elderly male in moderate distress HENT: Normocephalic, Atraumatic. EYES: PERRL, EOMI PULMONARY: Very loud transmitted upper airway noises, tachypnea CARDIOVASCULAR: There is a regular rate and rhythm without any murmurs gallops or rubs. ABDOMEN: Soft and nontender with normal bowel sounds. PEG tube in place, no surrounding erythema or signs of infection SKIN: Skin is clear with no lesions or rashes and otherwise unremarkable. : Deferred NEUROLOGIC: Oriented to self, slurred speech MUSCULOSKELETAL: Normal extremities with adequate strength and full range of motion. No lower extremity swelling or edema. No calf tenderness. PSYCHIATRIC: Normal psychiatric evaluation. Limitations: no limitations Course Vital Signs 03/31/18 03/31/18 02:37 03:33 Temperature 98.6 F Pulse Rate 97 91 Respiratory 16 24 Rate Blood Pressure 105/70 123/62 O2 Sat by Pulse 98 98 Oximetry - Reevaluation(s) Reevaluation #1: Patient was suctioned by respiratory using nasotracheal suctioning. Patient's work of breathing improved significantly. 03/31/18 05:19 Medical Decision Making - Medical Decision Making Patient was seen and evaluated history was obtained from the patient and review of medical record Patient with very extensive past medical history presenting from [facility] for evaluation of difficulty breathing concern for aspiration of gastric contents during a tube feed Patient has very loud transmitted upper airway sounds, oral suctioning was attempted Chest x-ray was clear for any acute pathology including pneumonia Labs were obtained with no significant abnormalities mild leukocytosis, chronic anemia Patient with worsening difficult - respiratory therapy was able to perform deep nasotracheal suctioning, a significant amount of thick airway secretions and what we suspect is feed were suctioned from the patient's airway with significant improvement in his work of breathing and overall discomfort. Patient now able to speak in full sentences. Patient denies chest pain. Patient care was discussed with his care provider at the [facility] who reports the patient does have very poor speech which is difficult to understand at baseline but he is able to communicate effectively. Head CT with no acute findings I suspect that the patient's difficulty in speech was secondary to aspiration, he was ordered a single dose of Levaquin upon arrival for presumed pneumonia Patient care was discussed with . she accepts the admission for aspiration - Lab Data Result diagrams: 03/31/18 02:51 03/31/18 02:51 Lab Results 03/31/18 03/31/18 03/31/18 Range/Units 02:51 02:51 02:51 WBC 12.3 H (3.8-10.6) k/uL RBC 3.73 L (4.30-5.90) m/uL Hgb 10.8 L (13.0-17.5) gm/dL Hct 32.8 L (39.0-53.0) % MCV 88.1 (80.0-100.0) fL MCH 28.9 (25.0-35.0) pg MCHC 32.8 (31.0-37.0) g/dL RDW 14.1 (11.5-15.5) % Plt Count 249 (150-450) k/uL Neutrophils % 80 % Lymphocytes % 8 % Monocytes % 8 % Eosinophils % 1 % Basophils % 0 % Neutrophils # 9.8 H (1.3-7.7) k/uL Lymphocytes # 1.0 (1.0-4.8) k/uL Monocytes # 1.0 (0-1.0) k/uL Eosinophils # 0.1 (0-0.7) k/uL Basophils # 0.0 (0-0.2) k/uL PT (9.0-12.0) sec INR (<1.2) APTT (22.0-30.0) sec Sodium 139 (137-145) mmol/L Potassium 4.2 (3.5-5.1) mmol/L Chloride 104 (98-107) mmol/L Carbon Dioxide 27 (22-30) mmol/L Anion Gap 8 mmol/L BUN 24 H (9-20) mg/dL Creatinine 0.77 (0.66-1.25) mg/dL Est GFR (CKD-EPI)AfAm >90 (>60 ml/min/1.73 sqM) Est GFR (CKD-EPI)NonAf >90 (>60 ml/min/1.73 sqM) Glucose 134 H (74-99) mg/dL Plasma Lactic Acid Darci (0.7-2.0) mmol/L Calcium 8.6 (8.4-10.2) mg/dL Total Bilirubin 0.5 (0.2-1.3) mg/dL AST 21 (17-59) U/L ALT 36 (21-72) U/L Alkaline Phosphatase 104 (38-126) U/L Total Creatine Kinase 73 (55-170) U/L CK-MB (CK-2) 0.3 (0.0-2.4) ng/mL CK-MB (CK-2) Rel Index 0.4 Troponin I <0.012 (0.000-0.034) ng/mL Total Protein 5.9 L (6.3-8.2) g/dL Albumin 3.2 L (3.5-5.0) g/dL Urine Color Urine Appearance (Clear) Urine pH (5.0-8.0) Ur Specific [place] (1.001-1.035) Urine Protein (Negative) Urine Glucose (UA) (Negative) Urine Ketones (Negative) Urine Blood (Negative) Urine Nitrite (Negative) Urine Bilirubin (Negative) Urine Urobilinogen (<2.0) mg/dL Ur Leukocyte Esterase (Negative) Urine RBC (0-5) /hpf Urine WBC (0-5) /hpf Urine Mucus (None) /hpf 03/31/18 03/31/18 03/31/18 Range/Units 02:51 02:51 06:21 WBC (3.8-10.6) k/uL RBC (4.30-5.90) m/uL Hgb (13.0-17.5) gm/dL Hct (39.0-53.0) % MCV (80.0-100.0) fL MCH (25.0-35.0) pg MCHC (31.0-37.0) g/dL RDW (11.5-15.5) % Plt Count (150-450) k/uL Neutrophils % % Lymphocytes % % Monocytes % % Eosinophils % % Basophils % % Neutrophils # (1.3-7.7) k/uL Lymphocytes # (1.0-4.8) k/uL Monocytes # (0-1.0) k/uL Eosinophils # (0-0.7) k/uL Basophils # (0-0.2) k/uL PT 10.7 (9.0-12.0) sec INR 1.0 (<1.2) APTT 24.8 (22.0-30.0) sec Sodium (137-145) mmol/L Potassium (3.5-5.1) mmol/L Chloride (98-107) mmol/L Carbon Dioxide (22-30) mmol/L Anion Gap mmol/L BUN (9-20) mg/dL Creatinine (0.66-1.25) mg/dL Est GFR (CKD-EPI)AfAm (>60 ml/min/1.73 sqM) Est GFR (CKD-EPI)NonAf (>60 ml/min/1.73 sqM) Glucose (74-99) mg/dL Plasma Lactic Acid Darci 0.9 (0.7-2.0) mmol/L Calcium (8.4-10.2) mg/dL Total Bilirubin (0.2-1.3) mg/dL AST (17-59) U/L ALT (21-72) U/L Alkaline Phosphatase (38-126) U/L Total Creatine Kinase (55-170) U/L CK-MB (CK-2) (0.0-2.4) ng/mL CK-MB (CK-2) Rel Index Troponin I (0.000-0.034) ng/mL Total Protein (6.3-8.2) g/dL Albumin (3.5-5.0) g/dL Urine Color Yellow Urine Appearance Clear (Clear) Urine pH 6.5 (5.0-8.0) Ur Specific [place] 1.021 (1.001-1.035) Urine Protein 1+ H (Negative) Urine Glucose (UA) Negative (Negative) Urine Ketones Negative (Negative) Urine Blood Negative (Negative) Urine Nitrite Negative (Negative) Urine Bilirubin Negative (Negative) Urine Urobilinogen 4.0 (<2.0) mg/dL Ur Leukocyte Esterase Negative (Negative) Urine RBC 2 (0-5) /hpf Urine WBC 2 (0-5) /hpf Urine Mucus Moderate H (None) /hpf - EKG Data -: EKG Interpreted by Ct EKG shows normal: sinus rhythm EKG Comments: EKG obtained at 238, rate is 94 rhythm is sinus with sinus arrhythmia, normal axis, normal intervals, SD 112, QRS 78, QTC 440. There is no acute ST elevations or depressions or evidence of acute ischemia or infarction. Disposition Clinical Impression: Aspiration into airway Disposition: ADMITTED IP TO THIS HOSP Referrals: Haider Alfred DO [Primary Care Provider] - 1-2 days
[2018-03-31] MEDS ORDERED: LEVOFLOXACIN 750MG-D5W PMX 750 MG in DEXTROSE/WATER 1 150ML.BAG IVPB STA (02:52)
[2018-03-31 03:05] LABS: Basophils % (A) 0 %; Eosinophils # (A) 0.1 k/uL (0-0.7); Eosinophils % (A) 1 %; HCT 32.8 % (39.0-53.0); HGB 10.8 gm/dL (13.0-17.5); Lymphocytes % (A) 8 %; MCH 28.9 pg (25.0-35.0); MCHC 32.8 g/dL (31.0-37.0); MCV 88.1 fL (80.0-100.0); Mean Platelet Volume 7.8; Monocytes % (A) 8 %; Neutrophils # (A) 9.8 k/uL (1.3-7.7); Neutrophils % (A) 80 %; Platelet Count 249 k/uL (150-450); RBC 3.73 m/uL (4.30-5.90); RDW 14.1 % (11.5-15.5); WBC 12.3 k/uL (3.8-10.6)
[2018-03-31 03:12] LABS: ALT 36 U/L (21-72); AST 21 U/L (17-59); Albumin 3.2 g/dL (3.5-5.0); Alkaline Phosphatase 104 U/L (38-126); Anion Gap 8 mmol/L; Blood Urea Nitrogen 24 mg/dL (9-20); Calcium 8.6 mg/dL (8.4-10.2); Carbon Dioxide 27 mmol/L (22-30); Chloride 104 mmol/L (98-107); Glucose 134 mg/dL (74-99); Potassium 4.2 mmol/L (3.5-5.1); Sodium 139 mmol/L (137-145); Total Bilirubin 0.5 mg/dL (0.2-1.3); Total Protein 5.9 g/dL (6.3-8.2)
[2018-03-31 03:17] LABS: Creatine Kinase 73 U/L (55-170)
[2018-03-31 03:26] LABS: Partial Thromboplastin Time 24.8 sec (22.0-30.0); Prothrombin Time 10.7 sec (9.0-12.0)
[2018-03-31 03:30] LABS: Creatine Kinase MB 0.3 ng/mL (0.0-2.4); Troponin I <0.012 ng/mL (0.000-0.034)
--- NOTE | 2018-03-31 03:58 | XR ---
EXAMINATION TYPE: XR chest 2V DATE OF EXAM: 03/31/2018 COMPARISON: 03/26/2018 HISTORY: Asthma. Short of breath TECHNIQUE: Frontal and lateral views of the chest are obtained. FINDINGS: There is slight elevated right diaphragm. There is minimal linear density at the lung base s. There is no heart failure. Heart size is normal. There are chest leads. Bony thorax appears intact . IMPRESSION: Subsegmental atelectasis at the lung bases. No change. No heart failure. Normal heart.
[2018-03-31] MEDS: SODIUM CHLORIDE 0.9% 500 ML 500 ML IV SCH ×2 (04:09→08:20)
--- NOTE | 2018-03-31 05:39 | CT ---
EXAM: CT Head Without Intravenous Contrast CLINICAL HISTORY: ITS.REASON CT Reason: altered TECHNIQUE: Axial computed tomography images of the head/brain without intravenous contrast. CTDI is 49.1 mGy and DLP is 1087 mGy-cm. This CT exam was performed using one or more of the following dose reduction techniques: automated exposure control, adjustment of the mA and/or kV according to patient size, and/or use of iterative reconstruction technique. COMPARISON: CT head on 01/21/2018. MRI brain on 01/21/2018. FINDINGS: Brain: No acute infarct or hemorrhage identified. No extra-axial fluid collection. No mass effect or midline shift. Stable areas of hypoattenuation in the supratentorial white matter likely represent chronic small vessel ischemic changes. Old infarct changes in the left medulla. Ventricles and sulci: Stable mild prominence of the ventricles and sulci is likely secondary to cerebral volume loss. Skull: Normal. No bony lesion or fracture. Subcutaneous tissues: Normal. Sinuses: Polyp versus mucous retention cyst in the right maxillary sinus. Orbits: Grossly unremarkable. Other: Atherosclerotic calcifications in the intracranial vasculature. IMPRESSION: 1. No acute intracranial abnormality. 2. Stable chronic small vessel ischemic changes and cerebral volume loss.
[2018-03-31 06:35] LABS: Appearance,Urine Clear (Clear); Bilirubin,Urine Negative (Negative); Blood,Urine Negative (Negative); Color,Urine Yellow; Glucose,Urine (UA) Negative (Negative); Ketones,Urine Negative (Negative); Leukocyte Esterase,Urine Negative (Negative); Mucus,Urine Moderate /hpf; Nitrite,Urine Negative (Negative); PH, Urine 6.5 (5.0-8.0); Protein,Urine 1+ (Negative); RBC,Urine 2 /hpf (0-5); Specific Gravity,Urine 1.021 (1.001-1.035); WBC,Urine 2 /hpf (0-5)
[2018-03-31] MEDS ORDERED: NALOXONE 0.4 MG/ML 1 ML VIAL IV PRN (07:09)
[2018-03-31] MEDS ORDERED: ACETAMINOPHEN IV (For NPO) 1,000 MG in EMPTY BAG 1 BAG IVPB PRN (09:12)
[2018-03-31] MEDS ORDERED: HYDROmorphone 0.5 MG/0.5 ML SYRINGE IVP PRN (11:45)
[2018-03-31] MEDS ORDERED: MINERAL OIL-WHITE PETROLATUM 120 GM JAR TOPICAL PRN (14:52)
[2018-03-31] MEDS ORDERED: TRIAMCINOLONE 0.1% CREAM 80 GM TUBE TOPICAL PRN (14:52)
[2018-03-31] MEDS ORDERED: LORATADINE 10 MG TAB PEG/G-TUBE PRN (14:52)
[2018-03-31] MEDS ORDERED: diphenhydrAMINE ELIXIR 25 MG/10 ML CUP PEG/G-TUBE PRN (14:52)
[2018-03-31] MEDS ORDERED: MAGNESIUM HYDROXIDE 2,400 MG/10 ML CUP PEG/G-TUBE PRN (14:52)
[2018-03-31] MEDS ORDERED: traMADol 50 MG TAB PEG/G-TUBE PRN (14:52)
[2018-03-31] MEDS ORDERED: BISACODYL 10 MG SUPP RECTAL PRN (14:52)
[2018-03-31] MEDS ORDERED: ASPIRIN 325 MG TAB PEG/G-TUBE PRN (14:52)
[2018-03-31] MEDS ORDERED: IPRATROPIUM-ALBUTEROL 3 ML NEB INHALATION PRN (14:54)
[2018-03-31] MEDS ORDERED: cloNIDine 0.1 MG/24HR PATCH TRANSDERM SCH (16:00)
[2018-03-31] MEDS: PIPERACILLIN-TAZOBACTAM 3.375 GM in SODIUM CHLORIDE 0.9% 100 ML IVPB SCH (16:34)
[2018-03-31] MEDS: DRY MOUTH SPRAY 44.3 SPRAY/44.3 ML SPRAY MUCOUS MEM SCH ×7 (16:35→23:58)
[2018-03-31 17:37] LABS: Glucose,Whole Blood 99 mg/dL (75-99)
[2018-03-31] MEDS: IPRATROPIUM-ALBUTEROL 3 ML NEB INHALATION SCH (19:07)
[2018-03-31] MEDS: SODIUM CHLORIDE 0.9% 1,000 ML IV SCH (19:49)
[2018-03-31] MEDS: INSULIN ASPART 100 UNIT/ML 1 ML 10 ML VIAL SQ SCH (19:50)
[2018-03-31] MEDS: methylPREDNISolone SOD SUCCI 125 MG/2 ML VIAL IV SCH (19:50)
[2018-03-31] MEDS: BACLOFEN 10 MG TAB PEG/G-TUBE SCH (19:51)
--- NOTE | 2018-03-31 19:51 | HP ---
HISTORY AND PHYSICAL DATE OF SERVICE: 03/31/2018 CHIEF COMPLAINTS: Cough and possibly aspiration. HISTORY OF PRESENT ILLNESS: This 72-year-old gentleman with a past medical history of multiple medical problems, including history of asthma, CVA, TIA, history of hypertension, hyperlipidemia, is a resident of [facility] at this time. Currently patient is fed through the PEG tube. Recently patient was admitted with a suspicion of PEG tube aspiration. The feeding amount was reduced and Gastroenterology saw the patient and recommended outpatient followup, but apparently currently in the [facility] there was a suspicion of aspiration during feeding, and the patient was taken to [facility] and admitted for further evaluation. Chest x-ray showed some infiltrates in the lower lobes. Otherwise, the patient is currently stuporous and unable to give a coherent history. Most of the history is taken from my discussion with staff and review of the chart. The CT scan did not show any acute changes. No history of trauma per history. PAST MEDICAL HISTORY: 1. Recent stroke. 2. History of PEG tube feeding. 3. CVA, TIA. 4. Hypertension. 5. Hyperlipidemia. 6. History of liver disease. 7. History of DJD. HOME MEDICATIONS: 1. Ultram 50 mg p.o. at bedtime. 2. Ultram 100 mg p.o. q.6 p.r.n. 3. Benadryl Elixir 25 mg daily. 4. Catapres TTS daily. 5. Norvasc. 6. Kenalog b.i.d. 7. Hytrin 5 mg per tube. 8. Biotene. 9. Potassium oral liquid 10 mEq b.i.d. 10.MiraLAX 17 grams daily. 11.Paxil 20 mg b.i.d. 12.Oxymetazoline 2 sprays b.i.d. 13.Prilosec 20 mg per PEG tube b.i.d. 14.Reglan 5 mg per PEG tube t.i.d. 15.Melatonin 1.5 per PEG tube at bedtime. 16.Milk of Magnesia 2.4 grams daily p.r.n. 17.Nizoral 1 application t.i.d. p.r.n. 18.Eucerin b.i.d. p.r.n. 19.Colace. 20.B12 500 mcg daily. 21.Zyrtec 10 mg daily. 22.Dulcolax 10 mg rectally. 23.Lioresal 10 mg PEG tube daily. 24.Lipitor 20 mg per at bedtime. 25.Aspirin 325 mg daily. 26.Tylenol 500 mg b.i.d. p.r.n. ALLERGIES: LISINOPRIL and ZOCOR. FAMILY HISTORY, SOCIAL HISTORY AND REVIEW OF SYSTEMS: Could not be taken at this time. PHYSICAL EXAMINATION: Patient is stuporous. Pulse is 106, blood pressure 115/88, respiration 28, temperature 100.2, pulse ox 96% on 4 L. HEENT: Conjunctivae normal. Oral mucosa moist. NECK: No jugular venous distention. No carotid bruit. No lymph node enlargement. CARDIOVASCULAR SYSTEM: S1, S2 muffled. RESPIRATORY SYSTEM: Breath sounds diminished at the bases. Bilateral scattered rhonchi and crackles. ABDOMEN: Soft. PEG tube in situ. LEGS: No edema. No swelling. NERVOUS SYSTEM: Diffusely weak. SKIN: No ulcer, rash, bleeding. JOINTS: No active deforming arthropathy. LABS: Labs at this time show WBC 12.3, hemoglobin 10.8, sodium 134. ASSESSMENT: 1. Acute aspiration pneumonia with possible sepsis, present on admission. 2. Change in mental status secondary to metabolic encephalopathy, present on admission. 3. Increased white count. 4. Anemia. 5. History of recent stroke. 6. Recent PEG tube and suspected gastrointestinal bleeding from the PEG tube. 7. History of asthma. 8. History of hypertension. 9. Hyperlipidemia. 10.History of liver disease. 11.History of degenerative joint disease. 12.Remote history of ethanol. 13.History of hernia repair. 14.History of depression. 15.NO CODE, NO CPR, NO VENT. RECOMMENDATIONS AND DISCUSSION: In this 72-year-old gentleman who presented with multiple complex medical issues, we will monitor the patient closely, continue the current management, continue with symptomatic treatment. I recommend intensive bronchodilators as well as steroids, IV Zosyn. Obtain cultures. Consult Dr. Quezada. Will also consult Neurology. Repeat labs. Guarded prognosis because of multiple complex medical issues. Further recommendations to follow. See orders for further details. The patient is being followed by Dr. Alfred in [facility]. MMODL / IJN: [id number] /
[2018-03-31] MEDS: METOCLOPRAMIDE 5 MG TAB PEG/G-TUBE SCH (19:52)
[2018-03-31] MEDS: DOCUSATE ORAL SOLN 100 MG/10 ML CUP PEG/G-TUBE SCH (19:52)
--- NOTE | 2018-03-31 21:07 | P.CNNES ---
History of Present Illness Consult date: 03/31/18 History of Present Illness: The patient is a 72-year-old man with history of recent brainstem stroke. In December he presented with symptoms of facial droop and weakness and was worked up for TIA. Several weeks later he came back to the hospital with dysphagia inability to swallow end of increasing weakness and was found to have a brainstem infarct on MRI. Patient has been at [facility] and has a PEG tube. He is admitted to the hospital now with difficulty breathing and concern for aspiration. 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 As a history of of stem stroke causing left-sided weakness and difficulty swallowing. The patient is not able to give much history. He has saw some confusion. He is aware that he is in the hospital in [place] and he knows increased states at [facility]. Apparently the patient does have poor quality of speech since his stroke in December 2017. But he is able to communicate. He had a CT of the head which showed no acute findings. Review of Systems ROS unobtainable: due to mental status Past Medical History Past Medical History: Asthma, Cancer, CVA/TIA, Eye Disorder, Hyperlipidemia, Hypertension, Liver Disease, Osteoarthritis (OA) Additional Past Medical History / Comment(s): Pt states that past 2 weeks has had "blurred" vision and was seen at [facility] in [place] and told he has a "freckle" in that eye and will follow up with them, childhood asthma, liver "problem" before which pt states he was told was d/t taking tylenol #3, past ETOH abuse-sober for 19yrs then started drining 1-2 beers on occasion only, arthritis-bilateral shoulder and knee pains, skin cancer removed from nose. TIA/ Stroke 01/2018 History of Any Multi-Drug Resistant Organisms: None Reported Past Surgical History: Hernia Repair Additional Past Surgical History / Comment(s): colonoscopy, total R knee arthroplasty, bilateral knee arthroscopies, R foot titanium implant, bilateral shoulder surgery, L inguinal hernia repaix x3, septoplasty and skin cancer removed from nose. Past Anesthesia/Blood Transfusion Reactions: No Reported Reaction Past Psychological History: Depression Additional Psychological History / Comment(s): Pt resides [place]. His spouse is in a lobsterman care facilty. He is a [place] vet. Smoking Status: Never smoker Past Alcohol Use History: Daily Additional Past Alcohol Use History / Comment(s): Pt statess he has past ETOH abuse and was sober for 19 yrs. He states he started drinking 1-2 beers on occasion only since about 2005. Past Drug Use History: None Reported - Past Family History Father Family Medical History: Cancer Additional Family Medical History / Comment(s): Father had prostrate cancer. He is . Mother Family Medical History: Cancer, Thyroid Disorder Additional Family Medical History / Comment(s): Mother is . Pt states she had thyroid disease/surgeries. He thinks she had cancer in her "back". Medications and Allergies Home Medications Medication Instructions Recorded Confirmed Type Acetaminophen Tab [Tylenol] 500 mg PEG/G-TUBE Q12H PRN 01/10/18 03/31/18 History Cetirizine HCl [Zyrtec] 10 mg PEG/G-TUBE DAILY PRN 01/10/18 03/31/18 History Cyanocobalamin [Vitamin B-12] 500 mcg PEG/G-TUBE DAILY 01/10/18 03/31/18 History Ketoconazole 2% Shampoo [Nizoral] 1 applic TOPICAL MOFR 01/10/18 03/31/18 History Terazosin [Hytrin] 5 mg PEG/G-TUBE HS 01/10/18 03/31/18 History amLODIPine [Norvasc] 5 mg PEG/G-TUBE BID 01/10/18 03/31/18 History traZODone HCL 50 mg PEG/G-TUBE HS 01/10/18 03/31/18 History Baclofen [Lioresal] 10 mg PEG/G-TUBE TID@0800,1200,1800 03/01/18 03/31/18 History Bisacodyl [Dulcolax] 10 mg RECTAL DAILY PRN 03/01/18 03/31/18 History Docusate Oral Soln [Colace Oral 100 mg PEG/G-TUBE 03/01/18 03/31/18 History Soln] TID@0800,1200,1800 Eucerin Emollient Lotion 1 applic TOPICAL Q1H PRN 03/01/18 03/31/18 History Magnesium Hydroxide [Milk of 2,400 mg PEG/G-TUBE DAILY PRN 03/01/18 03/31/18 History Magnesia] Melatonin 1.5 mg PEG/G-TUBE HS 03/01/18 03/31/18 History Metoclopramide [Reglan] 5 mg PEG/G-TUBE TID@0800,1200,1800 03/01/18 03/31/18 History Oxymetazoline 0.05% Nasl [place] 2 spray EA NOSTRIL BID 03/01/18 03/31/18 History [Afrin 0.05% Nasal [place]] PARoxetine [Paxil] 20 mg PEG/G-TUBE DAILY 03/01/18 03/31/18 History Potassium Chloride Oral Liquid 10 meq PEG/G-TUBE BID 03/01/18 03/31/18 History Saliva Stimulant Agents Comb.3 1 spray MUCOUS MEM Q1H 03/01/18 03/31/18 History [Biotene Moisturizing Mouth] diphenhydrAMINE ELIXIR [Benadryl 25 mg PEG/G-TUBE Q6H PRN 03/01/18 03/31/18 History Elixir] Aspirin 325 mg PEG/G-TUBE BID PRN 03/02/18 03/31/18 History Atorvastatin Calcium [Lipitor] 20 mg PEG/G-TUBE HS 03/02/18 03/31/18 History Polyethylene Glycol 3350 [Miralax] 17 gm PEG/G-TUBE DAILY 03/25/18 03/31/18 History Triamcinolone 0.1% Cream [Kenalog 1 applicatio TOPICAL Q12H PRN 03/25/18 History 0.1% Cream] cloNIDine 0.1 MG/24HR PATCH 1 patch TRANSDERM Q7D patch 03/28/18 03/31/18 Rx [Catapres-TTS] traMADol HCL [Ultram] 100 mg PEG/G-TUBE Q6HR PRN 3 Days 03/28/18 03/31/18 Rx #12 tablet Omeprazole [PriLOSEC] 20 mg PEG/G-TUBE BID 03/31/18 03/31/18 History Allergies Allergy/AdvReac Type Severity Reaction Status Date / Time lisinopril Allergy Unknown Verified 03/31/18 06:59 simvastatin [From Zocor] Allergy Unknown Verified 03/31/18 06:59 Physical Examination - Vital Signs Vital Signs: Vital Signs Temp Pulse Pulse Resp BP BP Pulse Ox 03/31/18 19:17 96 03/31/18 19:09 96 03/31/18 14:57 98.2 F 93 16 106/67 94 L 03/31/18 12:08 99.6 F 84 28 H 105/57 96 03/31/18 08:20 100.3 F H 106 H 28 H 115/88 96 03/31/18 07:00 116 H 16 104/93 96 03/31/18 06:40 105 H 15 104/93 03/31/18 06:10 111 H 16 111/58 03/31/18 06:00 111 H 17 126/78 03/31/18 05:40 107 H 12 126/78 03/31/18 05:27 115 H 15 132/83 96 03/31/18 04:40 108 H 16 108/67 03/31/18 04:10 112 H 16 106/72 96 03/31/18 03:40 87 16 123/62 95 03/31/18 03:33 98.6 F 91 24 123/62 98 03/31/18 03:30 82 15 106/67 93 L 03/31/18 03:10 83 16 106/64 94 L 03/31/18 03:00 92 17 96/71 93 L 03/31/18 02:40 96 16 105/70 99 03/31/18 02:37 97 16 105/70 98 03/31/18 02:36 99 Intake and Output 03/31/18 03/31/18 03/31/18 06:59 14:59 22:59 Other: Voiding Method Diaper Weight 72.575 kg 72.575 kg - Constitutional General appearance: cooperative - EENT EENT: PERRL - Respiratory Respiratory: rhonchi - Cardiovascular Cardiovascular: regular rate - Neurologic Neurologic examination: Mental status: Patient was awake his eyes were open he was able to respond to questions he knew he was at [facility] he knew his name he knew he lives at [facility]. His speech was slow Cranial nerve examination pupils are 2 mm equal and reactive Motor examination: Left arm was weaker than the right. He did not cooperate to lift either leg next Ordination and gait could not be checked Results - Laboratory Findings CBC and BMP: 03/31/18 02:51 03/31/18 02:51 Abnormal Lab Findings: Abnormal Labs 03/31/18 03/31/18 03/31/18 02:51 02:51 06:21 WBC 12.3 H RBC 3.73 L Hgb 10.8 L Hct 32.8 L Neutrophils # 9.8 H BUN 24 H Glucose 134 H Total Protein 5.9 L Albumin 3.2 L Urine Protein 1+ H Urine Mucus Moderate H Assessment and Plan (1) Aspiration into airway Current Visit: Yes Status: Acute SNOMED Code(s): 638972940 (2) Hx of ischemic vertebrobasilar artery brainstem stroke Current Visit: Yes Status: Acute SNOMED Code(s): 131300060 Plan: The patient has a history of medullary infarct and dysphagia. He is admitted to the hospital with difficulty breathing and aspiration. He is oriented to person place and time. His speech is slow. His CT of the brain did not show any acute findings. His stroke which occurred in December 2017 has him left with left-sided weakness and dysphagia. Recommend speech evaluation. Continue aspirin.
[2018-03-31] MEDS: ATORVASTATIN 20 MG TAB PEG/G-TUBE SCH (22:34)
[2018-03-31] MEDS: traZODone HCL 50 MG TAB PEG/G-TUBE SCH (22:34)
[2018-03-31] MEDS: amLODIPine 5 MG TAB PEG/G-TUBE SCH (22:34)
[2018-03-31] MEDS: DOXAZOSIN 4 MG TAB PEG/G-TUBE SCH (22:35)
[2018-03-31] MEDS: HEPARIN SODIUM,PORCINE 5,000 UNIT/ML 1 ML VIAL SQ SCH (22:35)
[2018-03-31] MEDS: POTASSIUM BICARBONATE/CIT AC 20 MEQ TABLET.EFF PEG/G-TUBE SCH (22:35)
[2018-03-31] MEDS: OXYMETAZOLINE 0.05% NASL SPRAY 1 SPRAY BOTTLE EA NOSTRIL SCH (22:36)
[2018-03-31] MEDS: PANTOPRAZOLE SODIUM 40 MG GRANULE PKT PEG/G-TUBE SCH (22:36)
[2018-03-31] MEDS: MELATONIN 3 MG TABLET PEG/G-TUBE SCH (22:41)
[2018-04-01 00:37] LABS: Glucose,Whole Blood 136 mg/dL (75-99)
[2018-04-01] MEDS: PIPERACILLIN-TAZOBACTAM 3.375 GM in SODIUM CHLORIDE 0.9% 100 ML IVPB SCH ×3 (00:42→17:10)
[2018-04-01] MEDS: methylPREDNISolone SOD SUCCI 125 MG/2 ML VIAL IV SCH ×4 (00:43→18:07)
[2018-04-01] MEDS: DRY MOUTH SPRAY 44.3 SPRAY/44.3 ML SPRAY MUCOUS MEM SCH ×21 (00:43→23:21)
[2018-04-01] MEDS: INSULIN ASPART 100 UNIT/ML 1 ML 10 ML VIAL SQ SCH ×4 (00:43→18:07)
[2018-04-01 06:18] LABS: Glucose,Whole Blood 178 mg/dL (75-99)
[2018-04-01] MEDS: LEVOFLOXACIN 500MG-D5W PMX 500 MG in DEXTROSE/WATER 1 100ML.BAG IVPB SCH (06:24)
[2018-04-01 07:36] LABS: Anion Gap 10 mmol/L; Basophils % (A) 0 %; Blood Urea Nitrogen 23 mg/dL (9-20); Calcium 9.1 mg/dL (8.4-10.2); Carbon Dioxide 25 mmol/L (22-30); Chloride 108 mmol/L (98-107); Eosinophils # (A) 0.1 k/uL (0-0.7); Eosinophils % (A) 1 %; Glucose 154 mg/dL (74-99); HGB 11.5 gm/dL (13.0-17.5); Hypochromasia Slight; Lymphocytes # (A) 0.7 k/uL (1.0-4.8); Lymphocytes % (A) 4 %; MCH 29.8 pg (25.0-35.0); MCHC 32.8 g/dL (31.0-37.0); MCV 90.8 fL (80.0-100.0); Mean Platelet Volume 8.5; Monocytes # (A) 1.6 k/uL (0-1.0); Monocytes % (A) 8 %; Neutrophils # (A) 16.5 k/uL (1.3-7.7); Neutrophils % (A) 86 %; Platelet Count 243 k/uL (150-450); Potassium 4.1 mmol/L (3.5-5.1); RBC 3.86 m/uL (4.30-5.90); RDW 14.2 % (11.5-15.5); Sodium 143 mmol/L (137-145); WBC 19.1 k/uL (3.8-10.6)
[2018-04-01] MEDS: IPRATROPIUM-ALBUTEROL 3 ML NEB INHALATION SCH ×3 (08:55→20:26)
[2018-04-01] MEDS: POLYETHYLENE GLYCOL 3350 17 GM POWD.PACK PEG/G-TUBE SCH (10:46)
[2018-04-01] MEDS: PARoxetine 20 MG TAB PEG/G-TUBE SCH (10:46)
[2018-04-01] MEDS: CYANOCOBALAMIN 500 MCG TAB PEG/G-TUBE SCH (10:47)
[2018-04-01] MEDS: amLODIPine 5 MG TAB PEG/G-TUBE SCH ×2 (10:47→23:18)
[2018-04-01] MEDS: POTASSIUM BICARBONATE/CIT AC 20 MEQ TABLET.EFF PEG/G-TUBE SCH ×2 (10:47→23:44)
[2018-04-01] MEDS: BACLOFEN 10 MG TAB PEG/G-TUBE SCH ×3 (10:47→18:08)
[2018-04-01] MEDS: PANTOPRAZOLE SODIUM 40 MG GRANULE PKT PEG/G-TUBE SCH ×2 (10:48→23:17)
[2018-04-01] MEDS: METOCLOPRAMIDE 5 MG TAB PEG/G-TUBE SCH ×3 (10:48→18:08)
[2018-04-01] MEDS: OXYMETAZOLINE 0.05% NASL SPRAY 1 SPRAY BOTTLE EA NOSTRIL SCH ×2 (10:48→23:20)
[2018-04-01] MEDS: DOCUSATE ORAL SOLN 100 MG/10 ML CUP PEG/G-TUBE SCH ×3 (10:49→18:07)
[2018-04-01] MEDS: HEPARIN SODIUM,PORCINE 5,000 UNIT/ML 1 ML VIAL SQ SCH ×2 (10:49→23:18)
[2018-04-01 12:01] LABS: Glucose,Whole Blood 150 mg/dL (75-99)
[2018-04-01] MEDS: KETOCONAZOLE 2% SHAMPOO 1 APPLIC/ML TOPICAL SCH (13:04)
[2018-04-01] MEDS: SODIUM CHLORIDE 0.9% 1,000 ML IV SCH (14:06)
[2018-04-01] MEDS ORDERED: guaiFENesin-DM 100-10MG/5ML 10 ML CUP PO PRN (15:33)
[2018-04-01] MEDS ORDERED: TEMAZEPAM 15 MG CAP PO PRN (15:35)
[2018-04-01] MEDS ORDERED: FUROSEMIDE 40 MG TAB PO SCH (16:00)
--- NOTE | 2018-04-01 16:00 | P.CNPUL ---
History of Present Illness Consult date: 04/01/18 Requesting physician: Hector E Sheet Reason for consult: dyspnea, abnormal CXR/CT Chief complaint: Altered mental status History of present illness: This is a 72-year-old gentleman follows with Dr. Alfred as his primary care physician. 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 History of left-sided weakness and dysphagia. He subsequently received a PEG tube placement and has been residing at an extended care facility. He was brought here to the emergency room yesterday with difficulty in breathing concerning for aspiration and altered mental status. Chest x-ray revealed subsegmental atelectasis at the lung bases. Slightly elevated right hemidiaphragm. Computed tomography scan of the brain revealed no acute intracranial abnormality. He is seen today in consultation on the regular medical floor. He is opening his eyes to verbal stimulation. His PEG tube feedings are on hold. He did have a T-max of 100.3. He is currently afebrile. Maintaining O2 saturations in the 90s on 5 L/m per nasal cannula. Blood culture shows no growth to date. Urine cultures no growth. White count 19.1. Hemoglobin 11.5. Creatinine 0.69. He has been initiated on Zosyn and Levaquin. Review of Systems ROS unobtainable: due to mental status Past Medical History Past Medical History: Asthma, Cancer, CVA/TIA, Eye Disorder, Hyperlipidemia, Hypertension, Liver Disease, Osteoarthritis (OA) Additional Past Medical History / Comment(s): Pt states that past 2 weeks has had "blurred" vision and was seen at [facility] in [place] and told he has a "freckle" in that eye and will follow up with them, childhood asthma, liver "problem" before which pt states he was told was d/t taking tylenol #3, past ETOH abuse-sober for 19yrs then started drining 1-2 beers on occasion only, arthritis-bilateral shoulder and knee pains, skin cancer removed from nose. TIA/ Stroke 01/2018 History of Any Multi-Drug Resistant Organisms: None Reported Past Surgical History: Hernia Repair Additional Past Surgical History / Comment(s): colonoscopy, total R knee arthroplasty, bilateral knee arthroscopies, R foot titanium implant, bilateral shoulder surgery, L inguinal hernia repaix x3, septoplasty and skin cancer removed from nose. Past Anesthesia/Blood Transfusion Reactions: No Reported Reaction Past Psychological History: Depression Additional Psychological History / Comment(s): Pt resides [place]. His spouse is in a termite helper care facilty. He is a [place] vet. Smoking Status: Never smoker Past Alcohol Use History: Daily Additional Past Alcohol Use History / Comment(s): Pt statess he has past ETOH abuse and was sober for 19 yrs. He states he started drinking 1-2 beers on occasion only since about 2005. Past Drug Use History: None Reported - Past Family History Father Family Medical History: Cancer Additional Family Medical History / Comment(s): Father had prostrate cancer. He is . Mother Family Medical History: Cancer, Thyroid Disorder Additional Family Medical History / Comment(s): Mother is . Pt states she had thyroid disease/surgeries. He thinks she had cancer in her "back". Medications and Allergies Home Medications Medication Instructions Recorded Confirmed Type Acetaminophen Tab [Tylenol] 500 mg PEG/G-TUBE Q12H PRN 01/10/18 03/31/18 History Cetirizine HCl [Zyrtec] 10 mg PEG/G-TUBE DAILY PRN 01/10/18 03/31/18 History Cyanocobalamin [Vitamin B-12] 500 mcg PEG/G-TUBE DAILY 01/10/18 03/31/18 History Ketoconazole 2% Shampoo [Nizoral] 1 applic TOPICAL MOFR 01/10/18 03/31/18 History Terazosin [Hytrin] 5 mg PEG/G-TUBE HS 01/10/18 03/31/18 History amLODIPine [Norvasc] 5 mg PEG/G-TUBE BID 01/10/18 03/31/18 History traZODone HCL 50 mg PEG/G-TUBE HS 01/10/18 03/31/18 History Baclofen [Lioresal] 10 mg PEG/G-TUBE TID@0800,1200,1800 03/01/18 03/31/18 History Bisacodyl [Dulcolax] 10 mg RECTAL DAILY PRN 03/01/18 03/31/18 History Docusate Oral Soln [Colace Oral 100 mg PEG/G-TUBE 03/01/18 03/31/18 History Soln] TID@0800,1200,1800 Eucerin Emollient Lotion 1 applic TOPICAL Q1H PRN 03/01/18 03/31/18 History Magnesium Hydroxide [Milk of 2,400 mg PEG/G-TUBE DAILY PRN 03/01/18 03/31/18 History Magnesia] Melatonin 1.5 mg PEG/G-TUBE HS 03/01/18 03/31/18 History Metoclopramide [Reglan] 5 mg PEG/G-TUBE TID@0800,1200,1800 03/01/18 03/31/18 History Oxymetazoline 0.05% Nasl [place] 2 spray EA NOSTRIL BID 03/01/18 03/31/18 History [Afrin 0.05% Nasal [place]] PARoxetine [Paxil] 20 mg PEG/G-TUBE DAILY 03/01/18 03/31/18 History Potassium Chloride Oral Liquid 10 meq PEG/G-TUBE BID 03/01/18 03/31/18 History Saliva Stimulant Agents Comb.3 1 spray MUCOUS MEM Q1H 03/01/18 03/31/18 History [Biotene Moisturizing Mouth] diphenhydrAMINE ELIXIR [Benadryl 25 mg PEG/G-TUBE Q6H PRN 03/01/18 03/31/18 History Elixir] Aspirin 325 mg PEG/G-TUBE BID PRN 03/02/18 03/31/18 History Atorvastatin Calcium [Lipitor] 20 mg PEG/G-TUBE HS 03/02/18 03/31/18 History Polyethylene Glycol 3350 [Miralax] 17 gm PEG/G-TUBE DAILY 03/25/18 03/31/18 History Triamcinolone 0.1% Cream [Kenalog 1 applicatio TOPICAL Q12H PRN 03/25/18 History 0.1% Cream] cloNIDine 0.1 MG/24HR PATCH 1 patch TRANSDERM Q7D patch 03/28/18 03/31/18 Rx [Catapres-TTS] traMADol HCL [Ultram] 100 mg PEG/G-TUBE Q6HR PRN 3 Days 03/28/18 03/31/18 Rx #12 tablet Omeprazole [PriLOSEC] 20 mg PEG/G-TUBE BID 03/31/18 03/31/18 History Allergies Allergy/AdvReac Type Severity Reaction Status Date / Time lisinopril Allergy Unknown Verified 03/31/18 06:59 simvastatin [From Zocor] Allergy Unknown Verified 03/31/18 06:59 Physical Exam Vitals: Vital Signs Temp Pulse Pulse Resp BP Pulse Ox 04/01/18 14:29 98.3 F 117 H 19 111/47 93 L 04/01/18 14:02 100 04/01/18 13:36 100 04/01/18 09:05 106 H 04/01/18 08:55 106 H 04/01/18 07:40 100.0 F H 111 H 25 H 120/66 88 L 04/01/18 00:25 98.2 F 78 14 132/70 93 L 03/31/18 22:30 89 124/70 03/31/18 21:00 104 H 03/31/18 19:47 98.8 F 85 14 111/63 93 L 03/31/18 19:17 96 03/31/18 19:09 96 Intake and Output 04/01/18 04/01/18 04/01/18 06:59 14:59 22:59 Intake Total 500 Balance 500 Intake: Intake, IV Titration 500 Amount Levofloxacin 500Mg-D5w 100 Pmx 500 mg In Dextrose/ Water 1 100ml.bag @ 100 mls/hr IVPB Q24H DEENA Rx#: [id number] Sodium Chloride 0.9% 1, 400 000 ml @ 50 mls/hr IV . Q20H DEENA Rx#:[id number] Other: Voiding Method Diaper Incontinent # Voids 1 GENERAL EXAM: Frail, cachectic, minimally responsive. On nasal cannula. HEAD: Normocephalic. EYES: Normal reaction of pupils, equal size. NOSE: Clear with pink turbinates. THROAT: No erythema or exudates. NECK: No masses, no JVD. CHEST: No chest wall deformity. LUNGS: Equal air entry with echoes in the posterior bases. CVS: S1 and S2 normal with no audible murmur, regular rhythm. ABDOMEN: PEG tube exit site is clean and dry. No hepatosplenomegaly, normal bowel sounds, no guarding or rigidity. SPINE: No scoliosis or deformity SKIN: No rashes CENTRAL NERVOUS SYSTEM: Generalized weakness left side greater than right EXTREMITIES: There is no peripheral edema. No clubbing, no cyanosis. Peripheral pulses are intact. Results - Laboratory Findings CBC and BMP: 04/01/18 07:03 04/01/18 07:03 PT/INR, D-dimer PT 10.7 sec (9.0-12.0) 03/31/18 02:51 INR 1.0 (<1.2) 03/31/18 02:51 Abnormal lab findings: Abnormal Labs 03/31/18 03/31/18 03/31/18 02:51 02:51 06:21 WBC 12.3 H RBC 3.73 L Hgb 10.8 L Hct 32.8 L Neutrophils # 9.8 H Lymphocytes # Monocytes # Chloride BUN 24 H Glucose 134 H POC Glucose (mg/dL) Total Protein 5.9 L Albumin 3.2 L Urine Protein 1+ H Urine Mucus Moderate H 04/01/18 04/01/18 04/01/18 00:25 06:05 07:03 WBC 19.1 H RBC 3.86 L Hgb 11.5 L Hct 35.0 L Neutrophils # 16.5 H Lymphocytes # 0.7 L Monocytes # 1.6 H Chloride BUN Glucose POC Glucose (mg/dL) 136 H 178 H Total Protein Albumin Urine Protein Urine Mucus 04/01/18 04/01/18 07:03 11:49 WBC RBC Hgb Hct Neutrophils # Lymphocytes # Monocytes # Chloride 108 H BUN 23 H Glucose 154 H POC Glucose (mg/dL) 150 H Total Protein Albumin Urine Protein Urine Mucus - Diagnostic Findings Chest x-ray: image reviewed Assessment and Plan Assessment: Impression: #1 Acute hypoxic respiratory failure secondary to suspected aspiration pneumonia. #2 CVA with dysphagia requiring PEG tube insertion. #3 Hypertension. #4 Hyperlipidemia. #5 senior living resident. Plan: The patient was seen and evaluated by Dr. Quezada. Chest x-ray and labs were reviewed. We will continue with bronchodilators, IV Solu-Medrol. Continue antibiotics in the form of Zosyn and Levaquin. Aspiration precautions. We will continue to follow and make further recommendations based on his clinical status. I, the cosigning physician, performed a history & physical examination of the patient. Lungs sounds with few scattered rhonchi crackles in the bases. Maintaining good O2 saturations in the 90s on 5 L/m per nasal cannula. I discussed the assessment and plan of care with my nurse practitioner, Tia Cruz. I attest to the above consultation as dictated by her. Time with Patient: Greater than 30
[2018-04-01] MEDS: ACETAMINOPHEN IV (For NPO) 1,000 MG in EMPTY BAG 1 BAG IVPB SCH (17:01)
[2018-04-01 17:15] LABS: Glucose,Whole Blood 181 mg/dL (75-99)
[2018-04-01 20:45] LABS: Glucose,Whole Blood 96 mg/dL (75-99)
--- NOTE | 2018-04-01 20:47 | PN ---
PROGRESS NOTE DATE OF SERVICE: 04/01/2018 This 72-year-old gentleman admitted with cough and aspiration pneumonia is on broad- spectrum IV antibiotics. Sensorium is slightly improved and suction revealed whitish material. Neurology and Pulmonary are following the patient closely. No chest pain. No palpitations. Past medical history reviewed. Review of systems could not be taken; the patient is dysphasic. CURRENT MEDICATIONS: 1. Tylenol p.r.n. 2. DuoNeb q.i.d. and p.r.n. 3. Norvasc 5 mg daily. 4. Aspirin. 5. Lipitor. 6. Lioresal. 7. Catapres TTS patch. 8. Vitamin B12. 9. Colace. 10.Cardura. 11.Heparin. 12.NovoLog. 13.Nizoral. 14.Levaquin. 15.Solu-Medrol. 16.Reglan. 17.Eucerin cream. 18.Afrin. 19.Paxil. 20.Zosyn IV. 21.Singulair. 22.Restoril. 23.Ultram. 24.Desyrel. PHYSICAL EXAMINATION: Patient is alert but dysphasic. Pulse is 117, blood pressure 111/47, respiration 19, temperature 98.2, pulse ox 93% on room air. HEENT: Conjunctivae normal. Oral mucosa moist. NECK: No jugular venous distention. No carotid bruit. No lymph node enlargement. CARDIOVASCULAR SYSTEM: S1, S2 muffled. RESPIRATORY SYSTEM: Breath sounds diminished at the bases. Bilateral scattered rhonchi and crackles. Expiratory wheezing also present. ABDOMEN: Soft, non-tender. PEG tube in situ. LEGS: No edema. No swelling. NERVOUS SYSTEM: Unchanged. LABS: WBC 19.1, hemoglobin 11.5. Cultures are negative so far. ASSESSMENT: 1. Acute aspiration pneumonia with possible sepsis, present on admission. 2. Change in mental status secondary to metabolic encephalopathy, present on admission. 3. Increased white count. 4. Anemia. 5. History of recent stroke. 6. History of recent PEG tube and suspected gastrointestinal bleeding from the PEG tube. 7. History of asthma. 8. History of hypertension. 9. History of hyperlipidemia. 10.History of liver disease. 11.History of degenerative joint disease. 12.Remote history of ethanol. 13.History of hernia repair. 14.History of depression. 15.NO CODE, NO CPR, NO VENT. RECOMMENDATIONS AND DISCUSSION: I recommend to continue current medications, continue with the monitoring, symptomatic treatment. Otherwise at this time I recommend broad-spectrum IV antibiotics, bronchodilators. Monitor fluid/electrolyte balance closely. Closely follow with Pulmonary Critical Care. Guarded prognosis. Further recommendations to follow. FOUZIA / TONY: [id number] /
[2018-04-01] MEDS: ATORVASTATIN 20 MG TAB PEG/G-TUBE SCH (23:17)
[2018-04-01] MEDS: DOXAZOSIN 4 MG TAB PEG/G-TUBE SCH (23:18)
[2018-04-01] MEDS: MELATONIN 3 MG TABLET PEG/G-TUBE SCH (23:18)
[2018-04-01] MEDS: traZODone HCL 50 MG TAB PEG/G-TUBE SCH (23:18)
[2018-04-02 01:05] LABS: Glucose,Whole Blood 149 mg/dL (75-99)
[2018-04-02] MEDS: PIPERACILLIN-TAZOBACTAM 3.375 GM in SODIUM CHLORIDE 0.9% 100 ML IVPB SCH ×3 (01:45→14:39)
[2018-04-02] MEDS: SODIUM CHLORIDE 0.9% 1,000 ML IV SCH (01:45)
[2018-04-02] MEDS: ACETAMINOPHEN IV (For NPO) 1,000 MG in EMPTY BAG 1 BAG IVPB SCH ×3 (01:45→11:08)
[2018-04-02] MEDS: DRY MOUTH SPRAY 44.3 SPRAY/44.3 ML SPRAY MUCOUS MEM SCH ×16 (01:46→22:48)
[2018-04-02] MEDS: methylPREDNISolone SOD SUCCI 125 MG/2 ML VIAL IV SCH ×4 (01:46→17:34)
[2018-04-02] MEDS: INSULIN ASPART 100 UNIT/ML 1 ML 10 ML VIAL SQ SCH ×4 (01:54→17:30)
[2018-04-02 06:28] LABS: Glucose,Whole Blood 136 mg/dL (75-99)
[2018-04-02] MEDS: LEVOFLOXACIN 500MG-D5W PMX 500 MG in DEXTROSE/WATER 1 100ML.BAG IVPB SCH (07:02)
[2018-04-02 08:13] LABS: Basophils % (A) 0 %; Eosinophils # (A) 0.1 k/uL (0-0.7); Eosinophils % (A) 0 %; HCT 31.8 % (39.0-53.0); Hypochromasia Slight; Lymphocytes # (A) 0.6 k/uL (1.0-4.8); Lymphocytes % (A) 4 %; MCHC 30.8 g/dL (31.0-37.0); MCV 90.8 fL (80.0-100.0); Mean Platelet Volume 8.1; Monocytes # (A) 0.4 k/uL (0-1.0); Monocytes % (A) 2 %; Neutrophils % (A) 93 %; Platelet Count 299 k/uL (150-450); RBC 3.51 m/uL (4.30-5.90); RDW 14.2 % (11.5-15.5); WBC 16.1 k/uL (3.8-10.6)
[2018-04-02 08:17] LABS: HGB 9.8 gm/dL (13.0-17.5)
[2018-04-02 08:27] LABS: Anion Gap 7 mmol/L; Blood Urea Nitrogen 35 mg/dL (9-20); Calcium 9.1 mg/dL (8.4-10.2); Carbon Dioxide 26 mmol/L (22-30); Chloride 114 mmol/L (98-107); Glucose 137 mg/dL (74-99); Potassium 3.9 mmol/L (3.5-5.1); Sodium 147 mmol/L (137-145)
[2018-04-02] MEDS: IPRATROPIUM-ALBUTEROL 3 ML NEB INHALATION SCH ×3 (09:10→19:44)
[2018-04-02] MEDS: POTASSIUM BICARBONATE/CIT AC 20 MEQ TABLET.EFF PEG/G-TUBE SCH ×2 (11:03→22:49)
[2018-04-02] MEDS: BACLOFEN 10 MG TAB PEG/G-TUBE SCH ×3 (11:03→17:34)
[2018-04-02] MEDS: CYANOCOBALAMIN 500 MCG TAB PEG/G-TUBE SCH (11:03)
[2018-04-02] MEDS: POLYETHYLENE GLYCOL 3350 17 GM POWD.PACK PEG/G-TUBE SCH (11:03)
[2018-04-02] MEDS: HEPARIN SODIUM,PORCINE 5,000 UNIT/ML 1 ML VIAL SQ SCH ×2 (11:03→22:50)
[2018-04-02] MEDS: amLODIPine 5 MG TAB PEG/G-TUBE SCH ×2 (11:03→22:49)
[2018-04-02] MEDS: PARoxetine 20 MG TAB PEG/G-TUBE SCH (11:03)
[2018-04-02] MEDS: OXYMETAZOLINE 0.05% NASL SPRAY 1 SPRAY BOTTLE EA NOSTRIL SCH ×2 (11:04→22:50)
[2018-04-02] MEDS: DOCUSATE ORAL SOLN 100 MG/10 ML CUP PEG/G-TUBE SCH ×3 (11:05→17:35)
[2018-04-02] MEDS: METOCLOPRAMIDE 5 MG TAB PEG/G-TUBE SCH ×3 (11:06→17:35)
[2018-04-02] MEDS: PANTOPRAZOLE SODIUM 40 MG GRANULE PKT PEG/G-TUBE SCH ×2 (11:06→22:49)
[2018-04-02 11:40] LABS: Glucose,Whole Blood 130 mg/dL (75-99)
--- NOTE | 2018-04-02 13:41 | P.PN ---
Subjective Progress Note Date: 04/02/18 Principal diagnosis: Acute hypoxic respiratory failure secondary to suspected aspiration pneumonia. This is a 72-year-old gentleman follows with Dr. Alfred as his primary care physician. 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 History of left-sided weakness and dysphagia. He subsequently received a PEG tube placement and has been residing at an extended care facility. He was brought here to the emergency room yesterday with difficulty in breathing concerning for aspiration and altered mental status. Chest x-ray revealed subsegmental atelectasis at the lung bases. Slightly elevated right hemidiaphragm. Computed tomography scan of the brain revealed no acute intracranial abnormality. He is seen today in consultation on the regular medical floor. He is opening his eyes to verbal stimulation. His PEG tube feedings are on hold. He did have a T-max of 100.3. He is currently afebrile. Maintaining O2 saturations in the 90s on 5 L/m per nasal cannula. Blood culture shows no growth to date. Urine cultures no growth. White count 19.1. Hemoglobin 11.5. Creatinine 0.69. He has been initiated on Zosyn and Levaquin. Patient is seen today 04/02/2018 in follow-up on the regular medical floor. He is much more awake and alert today as compared to yesterday. Answering yes/no questions appropriately. Denies any worsening shortness of breath. Less coughing and congestion. He is maintaining good O2 saturations in the 90s on room air. Currently afebrile. Hemodynamically stable. Blood culture reveals no growth to date. Urine culture no growth. White count 16.1. Hemoglobin 9.8. Creatinine 0.79. He remains on Zosyn and Levaquin. Objective - Vital Signs Vital signs: Vital Signs Temp 98.8 F 04/02/18 07:00 Pulse 88 04/02/18 13:30 Resp 18 04/02/18 08:00 BP 119/69 04/02/18 07:00 Pulse Ox 98 04/02/18 07:00 Intake & Output 04/01/18 04/02/18 04/02/18 18:59 06:59 18:59 Intake Total 500 Balance 500 Intake: Intake, IV Titration 500 Amount Levofloxacin 500Mg-D5w 100 Pmx 500 mg In Dextrose/ Water 1 100ml.bag @ 100 mls/hr IVPB Q24H [facility] Rx#: [id number] Sodium Chloride 0.9% 1, 400 000 ml @ 50 mls/hr IV . Q20H [facility] Rx#:[id number] Other: Voiding Method Diaper Diaper Diaper Incontinent Incontinent Incontinent # Voids 1 - Exam GENERAL EXAM: Frail, cachectic, more awake and alert. On nasal cannula. HEAD: Normocephalic. EYES: Normal reaction of pupils, equal size. NOSE: Clear with pink turbinates. THROAT: No erythema or exudates. NECK: No masses, no JVD. CHEST: No chest wall deformity. LUNGS: Equal air entry with crackles in the posterior bases. CVS: S1 and S2 normal with no audible murmur, regular rhythm. ABDOMEN: PEG tube exit site is clean and dry. No hepatosplenomegaly, normal bowel sounds, no guarding or rigidity. SPINE: No scoliosis or deformity SKIN: No rashes CENTRAL NERVOUS SYSTEM: Generalized weakness left side greater than right EXTREMITIES: There is no peripheral edema. No clubbing, no cyanosis. Peripheral pulses are intact. - Labs CBC & Chem 7: 04/02/18 07:43 04/02/18 07:43 Labs: Abnormal Lab Results - Last 24 Hours (Table) 04/01/18 04/02/18 04/02/18 Range/Units 17:04 00:54 06:17 WBC (3.8-10.6) k/uL RBC (4.30-5.90) m/uL Hgb (13.0-17.5) gm/dL Hct (39.0-53.0) % MCHC (31.0-37.0) g/dL Neutrophils # (1.3-7.7) k/uL Lymphocytes # (1.0-4.8) k/uL Sodium (137-145) mmol/L Chloride (98-107) mmol/L BUN (9-20) mg/dL Glucose (74-99) mg/dL POC Glucose (mg/dL) 181 H 149 H 136 H (75-99) mg/dL 04/02/18 04/02/18 04/02/18 Range/Units 07:43 07:43 11:24 WBC 16.1 H (3.8-10.6) k/uL RBC 3.51 L (4.30-5.90) m/uL Hgb 9.8 L D (13.0-17.5) gm/dL Hct 31.8 L (39.0-53.0) % MCHC 30.8 L (31.0-37.0) g/dL Neutrophils # 15.0 H (1.3-7.7) k/uL Lymphocytes # 0.6 L (1.0-4.8) k/uL Sodium 147 H (137-145) mmol/L Chloride 114 H (98-107) mmol/L BUN 35 H (9-20) mg/dL Glucose 137 H (74-99) mg/dL POC Glucose (mg/dL) 130 H (75-99) mg/dL Microbiology - Last 24 Hours (Table) 03/31/18 02:51 Blood Culture - Preliminary Blood No Growth after 48 hours 03/31/18 06:21 Urine Culture - Final Urine,Clean Catch Assessment and Plan Assessment: Impression: #1 Acute hypoxic respiratory failure secondary to suspected aspiration pneumonia. #2 CVA with dysphagia requiring PEG tube insertion. #3 Hypertension. #4 Hyperlipidemia. #5 assisted resident. Plan: The patient was seen and evaluated by Dr. Quezada. The patient is more awake and alert today. We will continue with bronchodilators, IV Solu-Medrol. Continue antibiotics in the form of Zosyn and Levaquin. Aspiration precautions. Repeat chest x-ray in the a.m. We will continue to follow and make further recommendations based on his clinical status. I, the cosigning physician, performed a history & physical examination of the patient. Lungs sounds with few scattered rhonchi crackles in the bases. Maintaining good O2 saturations in the 90s on 3 L/m per nasal cannula. I discussed the assessment and plan of care with my nurse practitioner, Tia Cruz. I attest to the above consultation as dictated by her.
--- NOTE | 2018-04-02 17:22 | P.PN ---
Subjective Progress Note Date: 04/02/18 The patient is a 72-year-old man with history of medullary infarct which occurred in December 2017. [facility] He has a PEG tube and he was admitted to the hospital with aspiration. He is being treated for aspiration pneumonia. The patient is looking better today. He is more alert and able to respond to questions. Long-term memory is good.'s is at his bedside. He is neurologically stable and there is no new deficit. Objective - Vital Signs Vital signs: Vital Signs Temp 98.9 F 04/02/18 14:27 Pulse 101 H 04/02/18 16:00 Resp 17 04/02/18 16:00 BP 127/72 04/02/18 14:27 Pulse Ox 98 04/02/18 14:27 Intake & Output 04/01/18 04/02/18 04/02/18 18:59 06:59 18:59 Intake Total 500 350 Balance 500 350 Weight 72.575 kg Intake: Intake, IV Titration 500 350 Amount Levofloxacin 500Mg-D5w 100 Pmx 500 mg In Dextrose/ Water 1 100ml.bag @ 100 mls/hr IVPB Q24H [facility] Rx#: [id number] Sodium Chloride 0.9% 1, 400 350 000 ml @ 50 mls/hr IV . Q20H [facility] Rx#:[id number] Other: Voiding Method Diaper Diaper Diaper Incontinent Incontinent Incontinent # Voids 1 - Constitutional General appearance: Present: cooperative - Respiratory Respiratory: bilateral: rhonchi - Cardiovascular Rhythm: regular - Neurologic Neurologic Comment(s): Neurologic examination: Mental status: He was awake and oriented to person and place. He has dysarthria. Remote memory was sharp. Radial nerve examination: Pupils were 2 mm and equal next Motor examination he was having left-sided weakness but was able to lift leg and arm up against gravity. - Labs CBC & Chem 7: 04/02/18 07:43 04/02/18 07:43 Labs: Abnormal Lab Results - Last 24 Hours (Table) 04/02/18 04/02/18 04/02/18 Range/Units 00:54 06:17 07:43 WBC 16.1 H (3.8-10.6) k/uL RBC 3.51 L (4.30-5.90) m/uL Hgb 9.8 L D (13.0-17.5) gm/dL Hct 31.8 L (39.0-53.0) % MCHC 30.8 L (31.0-37.0) g/dL Neutrophils # 15.0 H (1.3-7.7) k/uL Lymphocytes # 0.6 L (1.0-4.8) k/uL Sodium (137-145) mmol/L Chloride (98-107) mmol/L BUN (9-20) mg/dL Glucose (74-99) mg/dL POC Glucose (mg/dL) 149 H 136 H (75-99) mg/dL 04/02/18 04/02/18 Range/Units 07:43 11:24 WBC (3.8-10.6) k/uL RBC (4.30-5.90) m/uL Hgb (13.0-17.5) gm/dL Hct (39.0-53.0) % MCHC (31.0-37.0) g/dL Neutrophils # (1.3-7.7) k/uL Lymphocytes # (1.0-4.8) k/uL Sodium 147 H (137-145) mmol/L Chloride 114 H (98-107) mmol/L BUN 35 H (9-20) mg/dL Glucose 137 H (74-99) mg/dL POC Glucose (mg/dL) 130 H (75-99) mg/dL Microbiology - Last 24 Hours (Table) 03/31/18 02:51 Blood Culture - Preliminary Blood No Growth after 48 hours 03/31/18 06:21 Urine Culture - Final Urine,Clean Catch Assessment and Plan (1) Aspiration into airway Current Visit: Yes Status: Acute SNOMED Code(s): 691096675 (2) Hx of ischemic vertebrobasilar artery brainstem stroke Current Visit: Yes Status: Acute SNOMED Code(s): 005185368 Plan: The patient has a history of medullary infarct with left sided weakness and dysphagia. He is admitted to the hospital with difficulty breathing and aspiration. His CT of the brain did not show any acute finding. He is neurologically stable.
[2018-04-02 17:37] LABS: Glucose,Whole Blood 133 mg/dL (75-99)
[2018-04-02] MEDS: traZODone HCL 50 MG TAB PEG/G-TUBE SCH (22:49)
[2018-04-02] MEDS: ATORVASTATIN 20 MG TAB PEG/G-TUBE SCH (22:49)
[2018-04-02] MEDS: MELATONIN 3 MG TABLET PEG/G-TUBE SCH (22:49)
[2018-04-02] MEDS: DOXAZOSIN 4 MG TAB PEG/G-TUBE SCH (22:49)
[2018-04-03 00:06] LABS: Glucose,Whole Blood 172 mg/dL (75-99)
[2018-04-03] MEDS: PIPERACILLIN-TAZOBACTAM 3.375 GM in SODIUM CHLORIDE 0.9% 100 ML IVPB SCH ×3 (02:08→17:21)
[2018-04-03] MEDS: methylPREDNISolone SOD SUCCI 125 MG/2 ML VIAL IV SCH ×4 (02:08→18:08)
[2018-04-03] MEDS: INSULIN ASPART 100 UNIT/ML 1 ML 10 ML VIAL SQ SCH ×4 (02:08→18:04)
[2018-04-03] MEDS: DRY MOUTH SPRAY 44.3 SPRAY/44.3 ML SPRAY MUCOUS MEM SCH ×19 (02:08→22:46)
[2018-04-03] MEDS: LEVOFLOXACIN 500MG-D5W PMX 500 MG in DEXTROSE/WATER 1 100ML.BAG IVPB SCH (05:49)
[2018-04-03] MEDS: SODIUM CHLORIDE 0.9% 1,000 ML IV SCH (06:00)
[2018-04-03 06:23] LABS: Glucose,Whole Blood 176 mg/dL (75-99)
--- NOTE | 2018-04-03 07:27 | XR ---
EXAMINATION TYPE: XR chest 1V portable DATE OF EXAM: 04/03/2018 HISTORY: Aspiration pneumonia. REFERENCE: Previous study dated 03/31/2018. FINDINGS: Lung volumes are prominent. There is minimal bibasilar atelectasis. Pleural spaces are sabrina r. The heart is not enlarged. IMPRESSION: 1. COPD. 2. MINIMAL BIBASILAR ATELECTASIS.
--- NOTE | 2018-04-03 07:43 | PN ---
PROGRESS NOTE DATE OF SERVICE: 04/02/2018 This 72-year-old gentleman admitted with significant aspiration and aspiration pneumonia also had features of sepsis. The patient also had change in mental status. Patient was given IV antibiotics. PEG tube has been held at this time. The patient's sensorium is improving. Cultures are negative so far. Multiple consultants are following the patient closely including Neurology and as well as Pulmonology. PAST MEDICAL HISTORY: Reviewed. REVIEW OF SYSTEMS: Could not be taken. The patient is still confused. CURRENT MEDICATIONS: Reviewed and include: 1. DuoNeb q.i.d. and p.r.n. 2. Norvasc 5 mg per PEG b.i.d. 3. Aspirin 325. 4. Lipitor 20 mg. 5. Lioresal. 6. Dulcolax. 7. Vitamin D. 8. Benadryl. 9. Colace. 10.Cardura. 12.Levaquin. 13.Milk of magnesia. 14.Melatonin. 15.Solu-Medrol 60 IV q.6. 16.Eucerin. 17.Narcan. 18.Protonix. 19.Zosyn IV. 20.K-Lyte. 21.Restoril. 22.Ultram. 23.Desyrel. 24.Kenalog. Doses were reviewed. PHYSICAL EXAM: Patient is alert oriented x1. Pulse is 91, blood pressure 151/75, respiration 20, temperature 98.4, pulse ox 97% on 3 L. HEENT: Conjunctivae normal. NECK: No jugular venous distention. CARDIOVASCULAR: S1, S2. RESPIRATORY: Breath sounds diminished in the bases. Scattered rhonchi and crackles. ABDOMEN: Soft, nontender. LEGS: No edema. NERVOUS SYSTEM: Diffusely weak. Full exam not possible. LABS: WBC 16, hemoglobin 9.2, sodium 147. ASSESSMENT: 1. Acute aspiration pneumonia with possible sepsis, present on admission. 2. Change in mental status secondary to metabolic encephalopathy secondary to sepsis, present on admission. 3. Increased WBC. 4. History of anemia. 5. History of recent stroke. 6. History of recent PEG tube and suspected GI bleed from the PEG tube treated conservatively. 7. History of asthma. 8. History of hypertension. 9. History of hyperlipidemia. 10.History of liver disease. 11.History of degenerative joint disease. 12.Remote history of EtOH. 13.History of hernia repair. 14.History of depression. 15.No code, no CPR, no vent. RECOMMENDATIONS AND DISCUSSION: I recommend to continue current management, continue with monitoring and symptomatic treatment. Will cautiously start tube feeds at 36 and continue to monitor. Otherwise continue to monitor lytes and closely monitor. Free water added to the PEG to 50 mL q.6 at least. Continue to monitor. Guarded prognosis. Further recommendations to follow. MMVAZQUEZL / IJN: [id number] / TERI
[2018-04-03] MEDS: POLYETHYLENE GLYCOL 3350 17 GM POWD.PACK PEG/G-TUBE SCH (07:52)
[2018-04-03] MEDS: DOCUSATE ORAL SOLN 100 MG/10 ML CUP PEG/G-TUBE SCH ×3 (07:52→18:09)
[2018-04-03] MEDS: PARoxetine 20 MG TAB PEG/G-TUBE SCH (07:54)
[2018-04-03] MEDS: POTASSIUM BICARBONATE/CIT AC 20 MEQ TABLET.EFF PEG/G-TUBE SCH ×2 (07:54→22:17)
[2018-04-03] MEDS: BACLOFEN 10 MG TAB PEG/G-TUBE SCH ×3 (07:54→18:09)
[2018-04-03] MEDS: METOCLOPRAMIDE 5 MG TAB PEG/G-TUBE SCH ×3 (07:54→18:09)
[2018-04-03] MEDS: CYANOCOBALAMIN 500 MCG TAB PEG/G-TUBE SCH (07:54)
[2018-04-03] MEDS: PANTOPRAZOLE SODIUM 40 MG GRANULE PKT PEG/G-TUBE SCH ×2 (07:55→22:46)
[2018-04-03] MEDS: HEPARIN SODIUM,PORCINE 5,000 UNIT/ML 1 ML VIAL SQ SCH ×2 (07:55→22:19)
[2018-04-03] MEDS: amLODIPine 5 MG TAB PEG/G-TUBE SCH ×2 (07:55→22:18)
[2018-04-03] MEDS: IPRATROPIUM-ALBUTEROL 3 ML NEB INHALATION SCH ×3 (09:40→21:00)
[2018-04-03] MEDS: OXYMETAZOLINE 0.05% NASL SPRAY 1 SPRAY BOTTLE EA NOSTRIL SCH ×2 (10:14→22:19)
[2018-04-03 11:07] LABS: Basophils % (A) 0 %; Eosinophils % (A) 0 %; HCT 34.9 % (39.0-53.0); HGB 10.8 gm/dL (13.0-17.5); Hypochromasia Slight; Lymphocytes # (A) 0.7 k/uL (1.0-4.8); Lymphocytes % (A) 5 %; MCH 28.2 pg (25.0-35.0); MCV 90.9 fL (80.0-100.0); Monocytes # (A) 0.3 k/uL (0-1.0); Monocytes % (A) 2 %; Neutrophils % (A) 92 %; Platelet Count 291 k/uL (150-450); RBC 3.84 m/uL (4.30-5.90); RDW 14.4 % (11.5-15.5); WBC 13.1 k/uL (3.8-10.6)
[2018-04-03 11:15] LABS: Anion Gap 10 mmol/L; Blood Urea Nitrogen 34 mg/dL (9-20); Calcium 9.2 mg/dL (8.4-10.2); Carbon Dioxide 20 mmol/L (22-30); Chloride 118 mmol/L (98-107); Glucose 150 mg/dL (74-99); Sodium 148 mmol/L (137-145)
[2018-04-03 12:21] LABS: Glucose,Whole Blood 212 mg/dL (75-99)
--- NOTE | 2018-04-03 16:22 | P.PN ---
Subjective Progress Note Date: 04/03/18 Principal diagnosis: Aspiration pneumonia This is a 72-year-old gentleman follows with Dr. Alfred as his primary care physician. 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 History of left-sided weakness and dysphagia. He subsequently received a PEG tube placement and has been residing at an extended care facility. He was brought here to the emergency room yesterday with difficulty in breathing concerning for aspiration and altered mental status. Chest x-ray revealed subsegmental atelectasis at the lung bases. Slightly elevated right hemidiaphragm. Computed tomography scan of the brain revealed no acute intracranial abnormality. He is seen today in consultation on the regular medical floor. He is opening his eyes to verbal stimulation. His PEG tube feedings are on hold. He did have a T-max of 100.3. He is currently afebrile. Maintaining O2 saturations in the 90s on 5 L/m per nasal cannula. Blood culture shows no growth to date. Urine cultures no growth. White count 19.1. Hemoglobin 11.5. Creatinine 0.69. He has been initiated on Zosyn and Levaquin. Patient is seen today 04/02/2018 in follow-up on the regular medical floor. He is much more awake and alert today as compared to yesterday. Answering yes/no questions appropriately. Denies any worsening shortness of breath. Less coughing and congestion. He is maintaining good O2 saturations in the 90s on room air. Currently afebrile. Hemodynamically stable. Blood culture reveals no growth to date. Urine culture no growth. White count 16.1. Hemoglobin 9.8. Creatinine 0.79. He remains on Zosyn and Levaquin. Reevaluated today on 04/03/2018, patient is feeling better, hardly any shortness of breath, no cough, no wheezing, no recurrent episodes of aspiration, patient remains nothing by mouth, and PEG tube is being utilized post-. Chest x-ray showed significant improvement in his infiltrates bilaterally. Minimal basilar atelectasis is noted. Significant improvement overall. All labs were reviewed , continues to have a bit of leukocytosis, renal profile is normal basic metabolic profile is normal Objective - Vital Signs Vital signs: Vital Signs Temp 98.6 F 04/03/18 13:04 Pulse 101 H 04/03/18 13:04 Resp 44 H 04/03/18 09:40 BP 138/79 04/03/18 13:04 Pulse Ox 96 04/03/18 13:04 Intake & Output 04/02/18 04/03/18 04/03/18 18:59 06:59 18:59 Intake Total 350 0 Balance 350 0 Weight 72.575 kg Intake: Intake, IV Titration 350 Amount Sodium Chloride 0.9% 1, 350 000 ml @ 50 mls/hr IV . Q20H [facility] Rx#:[id number] Tube Feeding 0 Other: Voiding Method Diaper Diaper Diaper Incontinent Incontinent Incontinent # Bowel Movements 1 - Exam GENERAL EXAM: Frail, cachectic, more awake and alert. On nasal cannula. HEAD: Normocephalic. EYES: Normal reaction of pupils, equal size. NOSE: Clear with pink turbinates. THROAT: No erythema or exudates. NECK: No masses, no JVD. CHEST: No chest wall deformity. LUNGS: Equal air entry with crackles in the posterior bases. CVS: S1 and S2 normal with no audible murmur, regular rhythm. ABDOMEN: PEG tube exit site is clean and dry. No hepatosplenomegaly, normal bowel sounds, no guarding or rigidity. PEG tube is noted. SPINE: No scoliosis or deformity SKIN: No rashes CENTRAL NERVOUS SYSTEM: Generalized weakness left side greater than right EXTREMITIES: There is no peripheral edema. No clubbing, no cyanosis. Peripheral pulses are intact. - Labs CBC & Chem 7: 04/03/18 10:02 04/03/18 10:02 Labs: Abnormal Lab Results - Last 24 Hours (Table) 04/02/18 04/02/18 04/03/18 Range/Units 17:25 23:55 05:53 WBC (3.8-10.6) k/uL RBC (4.30-5.90) m/uL Hgb (13.0-17.5) gm/dL Hct (39.0-53.0) % Neutrophils # (1.3-7.7) k/uL Lymphocytes # (1.0-4.8) k/uL Sodium (137-145) mmol/L Chloride (98-107) mmol/L Carbon Dioxide (22-30) mmol/L BUN (9-20) mg/dL Glucose (74-99) mg/dL POC Glucose (mg/dL) 133 H 172 H 176 H (75-99) mg/dL 04/03/18 04/03/18 04/03/18 Range/Units 10:02 10:02 12:09 WBC 13.1 H (3.8-10.6) k/uL RBC 3.84 L (4.30-5.90) m/uL Hgb 10.8 L (13.0-17.5) gm/dL Hct 34.9 L (39.0-53.0) % Neutrophils # 12.0 H (1.3-7.7) k/uL Lymphocytes # 0.7 L (1.0-4.8) k/uL Sodium 148 H (137-145) mmol/L Chloride 118 H (98-107) mmol/L Carbon Dioxide 20 L (22-30) mmol/L BUN 34 H (9-20) mg/dL Glucose 150 H (74-99) mg/dL POC Glucose (mg/dL) 212 H (75-99) mg/dL Microbiology - Last 24 Hours (Table) 03/31/18 02:51 Blood Culture - Preliminary Blood No Growth after 72 hours Assessment and Plan Assessment: #1 Acute hypoxic respiratory failure secondary to suspected aspiration pneumonia. #2 CVA with dysphagia requiring PEG tube insertion. #3 Hypertension. #4 Hyperlipidemia. #5 detention resident. Considering the significant improvement clinically and the significant improvement in his chest x-ray, I believe the patient could be switched to antibiotics to be given via PEG tube, and that would be Augmentin, consider discharge planning in the next 24 hours. Strict feeding via PEG tube. Time with Patient: Less than 30
[2018-04-03 17:44] LABS: Glucose,Whole Blood 145 mg/dL (75-99)
[2018-04-03] MEDS: ATORVASTATIN 20 MG TAB PEG/G-TUBE SCH (22:17)
[2018-04-03] MEDS: MELATONIN 3 MG TABLET PEG/G-TUBE SCH (22:18)
[2018-04-03] MEDS: traZODone HCL 50 MG TAB PEG/G-TUBE SCH (22:18)
[2018-04-03] MEDS: DOXAZOSIN 4 MG TAB PEG/G-TUBE SCH (22:46)
--- NOTE | 2018-04-04 00:37 | PN ---
PROGRESS NOTE DATE OF SERVICE: 04/03/2018. HISTORY: This 72-year-old gentleman admitted with significant aspiration pneumonia, has improved significantly. No chest pain. No palpitations. also improved. Most recent chest x-ray shows improvement. The patient is on tube feeds at 30 mL/hour. PAST MEDICAL HISTORY: Reviewed. PHYSICAL EXAM: Patient is alert, oriented x2. Dysarthric, dysphasic. VITAL SIGNS: Pulse 64, blood pressure 140/48, respirations 16, temperature 98.4 , pulse ox 98% on 3 L. HEENT: Conjunctivae normal. CARDIOVASCULAR: S1 and S2 muffled. RESPIRATORY: Breath sounds diminished in the bases. Scattered rhonchi. ABDOMEN: Soft, nontender. PEG tube in situ. LEGS: No swelling, no edema. NERVOUS SYSTEM: Diffusely weak. LAB STUDIES: WBC 13, hemoglobin 10.9. Sodium 148. ASSESSMENT: 1. Acute aspiration pneumonia with possible sepsis present on admission. 2. Change in mental status secondary to metabolic encephalopathy secondary to sepsis present on admission. 3. Increased WBC. 4. History of anemia. 5. History of recent stroke. 6. Recent PEG tube and suspected GI bleed suspected, treated conservatively. 7. History of asthma. 8. History of hypertension. 9. History of hyperlipidemia. 10.History of liver disease. 11.History of degenerative joint disease. 12.History of EtOH. 13.History of hernia repair. 14.History of depression. 15.NO CODE, NO CPR, NO VENT. RECOMMENDATIONS: Continue current management and symptomatic treatment. Otherwise we will repeat the sodium and increase the free water. Further recommendations to follow. MMODL / IJN: [id number] / TERI
[2018-04-04 01:07] LABS: Glucose,Whole Blood 176 mg/dL (75-99)
[2018-04-04] MEDS: SODIUM CHLORIDE 0.9% 1,000 ML IV SCH (01:12)
[2018-04-04] MEDS: methylPREDNISolone SOD SUCCI 125 MG/2 ML VIAL IV SCH ×3 (01:12→12:45)
[2018-04-04] MEDS: PIPERACILLIN-TAZOBACTAM 3.375 GM in SODIUM CHLORIDE 0.9% 100 ML IVPB SCH ×3 (01:12→15:12)
[2018-04-04] MEDS: INSULIN ASPART 100 UNIT/ML 1 ML 10 ML VIAL SQ SCH ×4 (01:17→18:07)
[2018-04-04] MEDS: DRY MOUTH SPRAY 44.3 SPRAY/44.3 ML SPRAY MUCOUS MEM SCH ×17 (01:19→22:42)
[2018-04-04 05:57] LABS: Glucose,Whole Blood 199 mg/dL (75-99)
[2018-04-04] MEDS: LEVOFLOXACIN 500MG-D5W PMX 500 MG in DEXTROSE/WATER 1 100ML.BAG IVPB SCH (06:26)
[2018-04-04] MEDS: IPRATROPIUM-ALBUTEROL 3 ML NEB INHALATION SCH ×3 (07:23→20:18)
[2018-04-04] MEDS: DOCUSATE ORAL SOLN 100 MG/10 ML CUP PEG/G-TUBE SCH ×2 (07:53→12:45)
[2018-04-04] MEDS: PANTOPRAZOLE SODIUM 40 MG GRANULE PKT PEG/G-TUBE SCH ×2 (07:53→22:45)
[2018-04-04] MEDS: amLODIPine 5 MG TAB PEG/G-TUBE SCH ×2 (07:53→22:43)
[2018-04-04] MEDS: BACLOFEN 10 MG TAB PEG/G-TUBE SCH ×3 (07:53→17:36)
[2018-04-04] MEDS: HEPARIN SODIUM,PORCINE 5,000 UNIT/ML 1 ML VIAL SQ SCH ×2 (07:53→22:44)
[2018-04-04] MEDS: POTASSIUM BICARBONATE/CIT AC 20 MEQ TABLET.EFF PEG/G-TUBE SCH ×2 (07:53→22:45)
[2018-04-04] MEDS: METOCLOPRAMIDE 5 MG TAB PEG/G-TUBE SCH ×3 (07:53→17:36)
[2018-04-04] MEDS: CYANOCOBALAMIN 500 MCG TAB PEG/G-TUBE SCH (07:53)
[2018-04-04] MEDS: PARoxetine 20 MG TAB PEG/G-TUBE SCH (07:53)
[2018-04-04] MEDS: OXYMETAZOLINE 0.05% NASL SPRAY 1 SPRAY BOTTLE EA NOSTRIL SCH ×2 (07:54→22:45)
[2018-04-04] MEDS: POLYETHYLENE GLYCOL 3350 17 GM POWD.PACK PEG/G-TUBE SCH (07:54)
[2018-04-04] MEDS: KETOCONAZOLE 2% SHAMPOO 1 APPLIC/ML TOPICAL SCH (07:56)
[2018-04-04 08:57] LABS: Basophils % (A) 0 %; Eosinophils % (A) 0 %; HCT 39.8 % (39.0-53.0); Hypochromasia Moderate; Lymphocytes # (A) 0.3 k/uL (1.0-4.8); Lymphocytes % (A) 3 %; MCH 27.4 pg (25.0-35.0); MCHC 30.1 g/dL (31.0-37.0); MCV 90.9 fL (80.0-100.0); Mean Platelet Volume 7.7; Monocytes # (A) 0.3 k/uL (0-1.0); Monocytes % (A) 3 %; Neutrophils # (A) 9.1 k/uL (1.3-7.7); Neutrophils % (A) 93 %; Platelet Count 314 k/uL (150-450); RBC 4.38 m/uL (4.30-5.90); RDW 14.4 % (11.5-15.5); WBC 9.7 k/uL (3.8-10.6)
[2018-04-04 09:00] LABS: Anion Gap 9 mmol/L; Blood Urea Nitrogen 29 mg/dL (9-20); Calcium 9.4 mg/dL (8.4-10.2); Carbon Dioxide 26 mmol/L (22-30); Chloride 113 mmol/L (98-107); Glucose 168 mg/dL (74-99); Potassium 4.2 mmol/L (3.5-5.1); Sodium 148 mmol/L (137-145)
[2018-04-04 12:27] LABS: Glucose,Whole Blood 159 mg/dL (75-99)
[2018-04-04] MEDS ORDERED: LACTULOSE 20 GM/30 ML CUP PO ONE (13:29)
[2018-04-04] MEDS: predniSONE 20 MG TAB PO SCH (15:11)
[2018-04-04] MEDS: SENNOSIDES-DOCUSATE SODIUM 1 EACH TAB PO SCH ×2 (15:12→22:46)
[2018-04-04 15:29] VITALS: BMI 22.6
--- NOTE | 2018-04-04 16:16 | P.PN ---
Subjective Progress Note Date: 04/04/18 Principal diagnosis: Aspiration pneumonia This is a 72-year-old gentleman follows with Dr. Alfred as his primary care physician. 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 History of left-sided weakness and dysphagia. He subsequently received a PEG tube placement and has been residing at an extended care facility. He was brought here to the emergency room yesterday with difficulty in breathing concerning for aspiration and altered mental status. Chest x-ray revealed subsegmental atelectasis at the lung bases. Slightly elevated right hemidiaphragm. Computed tomography scan of the brain revealed no acute intracranial abnormality. He is seen today in consultation on the regular medical floor. He is opening his eyes to verbal stimulation. His PEG tube feedings are on hold. He did have a T-max of 100.3. He is currently afebrile. Maintaining O2 saturations in the 90s on 5 L/m per nasal cannula. Blood culture shows no growth to date. Urine cultures no growth. White count 19.1. Hemoglobin 11.5. Creatinine 0.69. He has been initiated on Zosyn and Levaquin. Patient is seen today 04/02/2018 in follow-up on the regular medical floor. He is much more awake and alert today as compared to yesterday. Answering yes/no questions appropriately. Denies any worsening shortness of breath. Less coughing and congestion. He is maintaining good O2 saturations in the 90s on room air. Currently afebrile. Hemodynamically stable. Blood culture reveals no growth to date. Urine culture no growth. White count 16.1. Hemoglobin 9.8. Creatinine 0.79. He remains on Zosyn and Levaquin. Reevaluated today on 04/03/2018, patient is feeling better, hardly any shortness of breath, no cough, no wheezing, no recurrent episodes of aspiration, patient remains nothing by mouth, and PEG tube is being utilized post-. Chest x-ray showed significant improvement in his infiltrates bilaterally. Minimal basilar atelectasis is noted. Significant improvement overall. All labs were reviewed , continues to have a bit of leukocytosis, renal profile is normal basic metabolic profile is normal On 04/04/2018 patient seen in follow-up on medical surgical floor. Resting comfortably in bed, in no acute distress. Currently on 3 L per nasal cannula his pulse ox is 98%, patient is afebrile, hemodynamically stable. And urine cultures remain negative, we were unable to send the sputum culture. Patient states his breathing is easier, no worsening dyspnea or congestion. No wheezing , has improved significantly, was recent chest x-ray shows improvement. He continues on tube feedings via his PEG tube, tolerating it well. Today's labs have been reviewed, WBCs 9.7, hemoglobin 12, sodium is 148, potassium is 4.2, chloride is 113, B1 is 29, creatinine 0.65. Patient is on antibiotic coverage in the form of Zosyn, oral prednisone, nebulized bronchodilators. Objective - Vital Signs Vital signs: Vital Signs Temp 98.4 F 04/04/18 15:00 Pulse 88 04/04/18 15:00 Resp 14 04/04/18 15:00 BP 137/79 04/04/18 15:00 Pulse Ox 98 04/04/18 15:00 Intake & Output 04/03/18 04/04/18 04/04/18 18:59 06:59 18:59 Intake Total 0 0 0 Balance 0 0 0 Weight 69.5 kg 69.5 kg Intake: Tube Feeding 0 0 0 Other: Voiding Method Diaper Diaper Diaper Incontinent Incontinent Incontinent # Voids 1 2 # Bowel Movements 1 - Exam GENERAL EXAM: Frail, cachectic, more awake and alert. On nasal cannula. HEAD: Normocephalic. EYES: Normal reaction of pupils, equal size. NOSE: Clear with pink turbinates. THROAT: No erythema or exudates. NECK: No masses, no JVD. CHEST: No chest wall deformity. LUNGS: Equal air entry with crackles in the posterior bases. CVS: S1 and S2 normal with no audible murmur, regular rhythm. ABDOMEN: PEG tube exit site is clean and dry. No hepatosplenomegaly, normal bowel sounds, no guarding or rigidity. PEG tube is noted. SPINE: No scoliosis or deformity SKIN: No rashes CENTRAL NERVOUS SYSTEM: Generalized weakness left side greater than right EXTREMITIES: There is no peripheral edema. No clubbing, no cyanosis. Peripheral pulses are intact. - Labs CBC & Chem 7: 04/04/18 08:08 04/04/18 08:08 Labs: Abnormal Lab Results - Last 24 Hours (Table) 04/03/18 04/04/18 04/04/18 Range/Units 17:32 00:37 05:46 Hgb (13.0-17.5) gm/dL MCHC (31.0-37.0) g/dL Neutrophils # (1.3-7.7) k/uL Lymphocytes # (1.0-4.8) k/uL Sodium (137-145) mmol/L Chloride (98-107) mmol/L BUN (9-20) mg/dL Creatinine (0.66-1.25) mg/dL Glucose (74-99) mg/dL POC Glucose (mg/dL) 145 H 176 H 199 H (75-99) mg/dL 04/04/18 04/04/18 04/04/18 Range/Units 08:08 08:08 12:15 Hgb 12.0 L (13.0-17.5) gm/dL MCHC 30.1 L (31.0-37.0) g/dL Neutrophils # 9.1 H (1.3-7.7) k/uL Lymphocytes # 0.3 L (1.0-4.8) k/uL Sodium 148 H (137-145) mmol/L Chloride 113 H (98-107) mmol/L BUN 29 H (9-20) mg/dL Creatinine 0.65 L (0.66-1.25) mg/dL Glucose 168 H (74-99) mg/dL POC Glucose (mg/dL) 159 H (75-99) mg/dL Microbiology - Last 24 Hours (Table) 03/31/18 02:51 Blood Culture - Preliminary Blood No Growth after 96 hours Assessment and Plan Plan: #1 Acute hypoxic respiratory failure secondary to suspected aspiration pneumonia. #2 CVA with dysphagia requiring PEG tube insertion. #3 Hypertension. #4 Hyperlipidemia. #5 assisted resident. Plan: Continue current antibiotic coverage, oral prednisone, nebulized bronchodilators , patient continues to improve clinically. Could be considered for discharge back to the [facility] today on Augmentin. Follow-up in the office in 7-10 days I performed a history & physical examination of the patient and discussed their management with my nurse practitioner, Zaira Clifford. I reviewed the nurse practitioner's note and agree with the documented findings and plan of care. Lung sounds are positive for a few rhonchi The findings and the impression was discussed with the patient. I attest to the documentation by the nurse practitioner. Time with Patient: Less than 30
[2018-04-04 18:06] LABS: Glucose,Whole Blood 168 mg/dL (75-99)
[2018-04-04] MEDS: ATORVASTATIN 20 MG TAB PEG/G-TUBE SCH (22:43)
[2018-04-04] MEDS: DOXAZOSIN 4 MG TAB PEG/G-TUBE SCH (22:44)
[2018-04-04] MEDS: MELATONIN 3 MG TABLET PEG/G-TUBE SCH (22:44)
[2018-04-04] MEDS: traZODone HCL 50 MG TAB PEG/G-TUBE SCH (22:46)
[2018-04-04 23:51] LABS: Glucose,Whole Blood 153 mg/dL (75-99)
--- NOTE | 2018-04-04 23:53 | PN ---
PROGRESS NOTE DATE OF SERVICE: 04/04/2018. PRESENTING COMPLAINT: Short of breath. INTERVAL HISTORY: The patient admitted with aspiration pneumonia and sepsis, responding well to antibiotics. Also was hypernatremic. Tolerating his tube feeding. Lying in bed. Minimal cough. A bit tired. REVIEW OF SYSTEMS: Done for constitutional, cardiovascular, GI, pulmonary; relevant findings as above. CURRENT MEDICATIONS: Reviewed, that include DuoNeb, Norvasc, aspirin, Lipitor, baclofen, Catapres patch, IV Levaquin, oral prednisone, etc. EXAMINATION: Temp 98.4 pulse 88, respirations 14, blood pressure 137/79, pulse ox 98% on 3 L. GENERAL APPEARANCE: Lying in bed, awake. EYES: Pupils equal. Conjunctivae pale. NECK: JVD not raised. Mass not palpable. LUNGS: Decreased breath sounds. CARDIOVASCULAR: 1st and 2nd sounds normal. No edema. ABDOMEN: PEG tube in place. Liver and spleen not palpable. No tenderness. PSYCH: Awake, answering questions. INVESTIGATIONS: White count 9.7, hemoglobin 12, platelets 314,000, potassium 4.2, sodium 148, BUN 29, creatinine 0.65. ASSESSMENT: 1. Aspiration pneumonia causing sepsis on presentation. 2. Acute metabolic encephalopathy on presentation from above. 3. Gastroesophageal reflux disease. 4. Essential hypertension. 5. Primary osteoarthritis. 6. Arthritis, not otherwise specified. PLAN: Continue current medication and treatment plan. We will add free water to 50 mL every 6 hours. Repeat electrolytes in the morning. Hoping the patient can be returned to the ECF shortly. MMODL / IJN: [id number] /
[2018-04-05] MEDS: DRY MOUTH SPRAY 44.3 SPRAY/44.3 ML SPRAY MUCOUS MEM SCH ×12 (00:21→14:13)
[2018-04-05] MEDS: INSULIN ASPART 100 UNIT/ML 1 ML 10 ML VIAL SQ SCH ×3 (00:41→12:53)
[2018-04-05] MEDS: PIPERACILLIN-TAZOBACTAM 3.375 GM in SODIUM CHLORIDE 0.9% 100 ML IVPB SCH ×2 (00:42→09:49)
[2018-04-05 05:44] LABS: Glucose,Whole Blood 108 mg/dL (75-99)
[2018-04-05] MEDS: LEVOFLOXACIN 500MG-D5W PMX 500 MG in DEXTROSE/WATER 1 100ML.BAG IVPB SCH (05:50)
[2018-04-05 07:36] VITALS: BP 121/76; RESP 15; TEMP 96.8
[2018-04-05] MEDS: IPRATROPIUM-ALBUTEROL 3 ML NEB INHALATION SCH ×2 (09:34→11:34)
[2018-04-05 09:40] LABS: Anion Gap 7 mmol/L; Blood Urea Nitrogen 27 mg/dL (9-20); Calcium 8.6 mg/dL (8.4-10.2); Carbon Dioxide 26 mmol/L (22-30); Chloride 109 mmol/L (98-107); Glucose 98 mg/dL (74-99); Sodium 142 mmol/L (137-145)
[2018-04-05] MEDS: PARoxetine 20 MG TAB PEG/G-TUBE SCH (09:44)
[2018-04-05] MEDS: SENNOSIDES-DOCUSATE SODIUM 1 EACH TAB PO SCH (09:45)
[2018-04-05] MEDS: BACLOFEN 10 MG TAB PEG/G-TUBE SCH ×2 (09:45→12:53)
[2018-04-05] MEDS: CYANOCOBALAMIN 500 MCG TAB PEG/G-TUBE SCH (09:45)
[2018-04-05] MEDS: amLODIPine 5 MG TAB PEG/G-TUBE SCH (09:45)
[2018-04-05] MEDS: predniSONE 20 MG TAB PO SCH (09:45)
[2018-04-05] MEDS: METOCLOPRAMIDE 5 MG TAB PEG/G-TUBE SCH ×2 (09:46→12:53)
[2018-04-05] MEDS: PANTOPRAZOLE SODIUM 40 MG GRANULE PKT PEG/G-TUBE SCH (09:46)
[2018-04-05] MEDS: POTASSIUM BICARBONATE/CIT AC 20 MEQ TABLET.EFF PEG/G-TUBE SCH (09:47)
[2018-04-05] MEDS: POLYETHYLENE GLYCOL 3350 17 GM POWD.PACK PEG/G-TUBE SCH (09:47)
[2018-04-05] MEDS: HEPARIN SODIUM,PORCINE 5,000 UNIT/ML 1 ML VIAL SQ SCH (09:48)
[2018-04-05] MEDS: OXYMETAZOLINE 0.05% NASL SPRAY 1 SPRAY BOTTLE EA NOSTRIL SCH (09:48)
[2018-04-05 10:07] LABS: Potassium 4.8 mmol/L (3.5-5.1)
[2018-04-05 10:10] LABS: HCT 36.8 % (39.0-53.0); HGB 13.1 gm/dL (13.0-17.5); Hypochromasia Moderate; MCH 32.5 pg (25.0-35.0); MCHC 35.7 g/dL (31.0-37.0); Mean Platelet Volume 8.1; Platelet Count 301 k/uL (150-450); RBC 4.04 m/uL (4.30-5.90); RDW 14.4 % (11.5-15.5); WBC 13.3 k/uL (3.8-10.6)
[2018-04-05 11:36] VITALS: PULSE 88
[2018-04-05 12:16] LABS: Glucose,Whole Blood 122 mg/dL (75-99)
[2018-04-05 12:23] LABS: Lymphocytes # (M) 0.67 k/uL (1.0-4.8); Monocytes # (M) 0.93 k/uL (0-1.0); Neutrophils % (M) 88 %; Nucleated Red Blood Cells 0 /100 WBC (0-0); Total Cells Counted 100
--- NOTE | 2018-04-05 15:09 | DS ---
DISCHARGE SUMMARY DATE OF ADMISSION: 04/01/2018 DATE OF DISCHARGE: 04/05/2018 FINAL DIAGNOSES: 1. Aspiration pneumonia, possibility of gastrointestinal contents causing sepsis on presentation. 2. Acute metabolic encephalopathy on presentation from pneumonia. 3. Gastroesophageal reflux disease. 4. Essential hypertension. 5. Primary osteoarthritis. 6. Chronic dysphagia from stroke, patient is n.p.o. 7. Hypernatremia from free water deficit. 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 Patient recently in the hospital with a GI bleed from the PEG tube, but managed conservatively. At this time, intubated with aspiration pneumonia causing encephalopathy, treated with antibiotics doing much better. Patient now tolerating his tube feeding. Afebrile. Seen by Pulmonary. Doing well. PHYSICAL EXAMINATION: Temperature 96.8, pulse 53, blood pressure 120/76, pulse ox 99% on 3 L. LUNGS: Fair air entry. ABDOMEN: PEG tube in place. LABS: White count 13.3, hemoglobin 13.1, potassium 4.8, sodium 142, down from 148. CONSULTATIONS: 1. Dr. Quezada and colleagues from Pulmonary. 2. Dr. Huerta from Neurology, who did a repeat CT scan, no new stroke. DISCHARGE MEDICATIONS: 1. Tylenol 500 mg q.12 p.r.n. 2. Cetirizine 10 mg p.r.n. 3. Vitamin B12 five hundred mcg daily. 4. Nizoral 2% shampoo topical Wednesday and Wednesday. 5. Hytrin 5 mg q.h.s. 6. Norvasc 5 mg b.i.d. 7. Trazodone 50 mg q.h.s. 8. Baclofen 10 mg t.i.d. 9. Dulcolax 10 mg rectal daily p.r.n. 10.Eucerin topical q.1 hour p.r.n. 11.Milk of magnesia 2400 mg daily p.r.n. 12.Melatonin 1.5 q.h.s. 13.Reglan 5 mg t.i.d. 14.Afrin 0.05% nasal spray each nostril b.i.d. 15.Paxil 20 mg through PEG tube daily. 16.Potassium oral liquid 10 mEq b.i.d. 17.Biotene moisturizing mouth 1 spray mucous membrane q.1 hour. 18.Benadryl Elixir 25 mg q.6 p.r.n. 19.DC the aspirin. 20.Lipitor 20 mg through PEG tube q.h.s. 21.MiraLAX 17 g PEG tube daily. 22.Kenalog 0.1% topical q.12 p.r.n. 23.Catapres patch 1 q.7 days. 24.Prilosec 20 mg b.i.d. 25.Augmentin 875 one tablet b.i.d. for 3 days. 26.DuoNeb t.i.d. and t.i.d. p.r.n. 27.Senokot S1 tablet b.i.d. 28.Prednisone 40 mg for 1 day, 30 mg for 1 day, 20 mg for 1 day, 10 mg, then stop. 29.Ultram 100 mg q.6 p.r.n. 30.Aspirin 81 mg daily. DISPOSITION: Johnnie. FOLLOWUP: Follow up with Dr. Alfred. Additionally, water through the PEG tube 200 mL every 6 hours. Aspiration precautions. MMODL / IJN: [id number] /
--- NOTE | 2018-04-05 16:13 | P.PN ---
Subjective Progress Note Date: 04/05/18 Principal diagnosis: Acute hypoxic respiratory failure secondary to suspected aspiration pneumonia. This is a 72-year-old gentleman follows with Dr. Alfred as his primary care physician. 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 History of left-sided weakness and dysphagia. He subsequently received a PEG tube placement and has been residing at an extended care facility. He was brought here to the emergency room yesterday with difficulty in breathing concerning for aspiration and altered mental status. Chest x-ray revealed subsegmental atelectasis at the lung bases. Slightly elevated right hemidiaphragm. Computed tomography scan of the brain revealed no acute intracranial abnormality. He is seen today in consultation on the regular medical floor. He is opening his eyes to verbal stimulation. His PEG tube feedings are on hold. He did have a T-max of 100.3. He is currently afebrile. Maintaining O2 saturations in the 90s on 5 L/m per nasal cannula. Blood culture shows no growth to date. Urine cultures no growth. White count 19.1. Hemoglobin 11.5. Creatinine 0.69. He has been initiated on Zosyn and Levaquin. The patient is seen today 04/05/2018 in follow-up on the regular medical floor. He is currently resting comfortably in bed. He is awake and alert in no acute distress. He denies any worsening shortness of breath. He has a dry nonproductive cough now. No chills or night sweats. He is maintaining good O2 saturations in the high 90s on 3 L/m per nasal cannula. Currently afebrile. Hemodynamically stable. Blood culture reveals no growth to date. Urine culture reveals no growth. White count 13.3. Hemoglobin 13.1. Creatinine 0.64 he remains on Zosyn and Levaquin. Remains on bronchodilators. Oral prednisone. Objective - Vital Signs Vital signs: Vital Signs Temp 96.8 F L 04/05/18 07:33 Pulse 88 04/05/18 11:45 Resp 15 04/05/18 07:33 BP 121/76 04/05/18 07:33 Pulse Ox 99 04/05/18 07:33 Intake & Output 04/04/18 04/05/18 04/05/18 18:59 06:59 18:59 Intake Total 0 1560 80 Output Total 350 Balance 0 1560 -270 Weight 69.5 kg 69.5 kg Intake: Intake, IV Titration 600 Amount Levofloxacin 500Mg-D5w 100 Pmx 500 mg In Dextrose/ Water 1 100ml.bag @ 100 mls/hr IVPB Q24H [facility] Rx#: [id number] Piperacillin-Tazobactam 3 100 .375 gm In Sodium Chloride 0.9% 100 ml @ 25 mls/hr IVPB Q8HR [facility] Rx# :[id number] Sodium Chloride 0.9% 1, 400 000 ml @ 50 mls/hr IV . Q20H [facility] Rx#:[id number] Tube Feeding 0 760 80 Other 200 Output: Urine 350 Other: Voiding Method Diaper Diaper Incontinent Incontinent # Voids 1 1 # Bowel Movements 1 1 - Exam GENERAL EXAM: Frail, cachectic, more awake and alert. On nasal cannula. HEAD: Normocephalic. EYES: Normal reaction of pupils, equal size. NOSE: Clear with pink turbinates. THROAT: No erythema or exudates. NECK: No masses, no JVD. CHEST: No chest wall deformity. LUNGS: Equal air entry with crackles in the posterior bases. CVS: S1 and S2 normal with no audible murmur, regular rhythm. ABDOMEN: PEG tube exit site is clean and dry. No hepatosplenomegaly, normal bowel sounds, no guarding or rigidity. SPINE: No scoliosis or deformity SKIN: No rashes CENTRAL NERVOUS SYSTEM: Generalized weakness left side greater than right EXTREMITIES: There is no peripheral edema. No clubbing, no cyanosis. Peripheral pulses are intact. - Labs CBC & Chem 7: 04/05/18 08:43 04/05/18 08:43 Labs: Abnormal Lab Results - Last 24 Hours (Table) 04/04/18 04/04/18 04/05/18 Range/Units 17:54 23:39 05:32 WBC (3.8-10.6) k/uL RBC (4.30-5.90) m/uL Hct (39.0-53.0) % Neutrophils # (Manual) (1.3-7.7) k/uL Lymphocytes # (Manual) (1.0-4.8) k/uL Chloride (98-107) mmol/L BUN (9-20) mg/dL Creatinine (0.66-1.25) mg/dL POC Glucose (mg/dL) 168 H 153 H 108 H (75-99) mg/dL 04/05/18 04/05/18 04/05/18 Range/Units 08:43 08:43 12:05 WBC 13.3 H (3.8-10.6) k/uL RBC 4.04 L (4.30-5.90) m/uL Hct 36.8 L (39.0-53.0) % Neutrophils # (Manual) 11.70 H (1.3-7.7) k/uL Lymphocytes # (Manual) 0.67 L (1.0-4.8) k/uL Chloride 109 H (98-107) mmol/L BUN 27 H (9-20) mg/dL Creatinine 0.64 L (0.66-1.25) mg/dL POC Glucose (mg/dL) 122 H (75-99) mg/dL Microbiology - Last 24 Hours (Table) 03/31/18 02:51 Blood Culture - Preliminary Blood No Growth after 120 hours Assessment and Plan Assessment: Impression: #1 Acute hypoxic respiratory failure secondary to suspected aspiration pneumonia. Recovered. #2 CVA with dysphagia requiring PEG tube insertion. #3 Hypertension. #4 Hyperlipidemia. #5 [facility] resident. Plan: The patient was seen and evaluated by Dr. Regalado. The patient is more awake and alert today. He is currently stable from the pulmonary standpoint. Continue with his current medications. We'll see the patient on as-needed basis. I, the cosigning physician, performed a history & physical examination of the patient. Lungs sounds with few scattered rhonchi crackles in the bases. Maintaining good O2 saturations in the 90s on 3 L/m per nasal cannula. I discussed the assessment and plan of care with my nurse practitioner, Tia Cruz. I attest to the above note as dictated by her.
== END 2018-04-05 16:37 | disposition home or self-care (01) | DRG 871 ==
LOC: EC 02:31 → 3NMEDONC 07:34 → 4SSUR 13:06 → OBSVTOIN 04-01 15:01
PROVIDERS: ADMIT Hospitalist; ATTEND Hospitalist
DX: A41.9 Sepsis, unspecified organism (principal); G93.41 Metabolic encephalopathy; J69.0 Pneumonitis due to inhalation of food and vomit; J96.01 Acute respiratory failure with hypoxia; E87.0 Hyperosmolality and hypernatremia; J98.11 Atelectasis; R64 Cachexia; R65.20 Severe sepsis without septic shock; D64.9 Anemia, unspecified; I69.991 Dysphagia following unspecified cerebrovascular disease; R13.10 Dysphagia, unspecified; Z66 Do not resuscitate; E78.5 Hyperlipidemia, unspecified; I10 Essential (primary) hypertension; J45.909 Unspecified asthma, uncomplicated; K21.9 Gastro-esophageal reflux disease without esophagitis; M19.91 Primary osteoarthritis, unspecified site; F32.9 Major depressive disorder, single episode, unspecified; R32 Unspecified urinary incontinence; M19.90 Unspecified osteoarthritis, unspecified site; Z79.82 Long term (current) use of aspirin; Z79.899 Other long term (current) drug therapy; Z96.651 Presence of right artificial knee joint; Z85.828 Personal history of other malignant neoplasm of skin; Z88.8 Allergy status to other drugs, medicaments and biological substances; Z93.1 Gastrostomy status; Z80.42 Family history of malignant neoplasm of prostate; Z80.8 Family history of malignant neoplasm of other organs or systems
CPT/HCPCS: 36415; 70450; 71045; 71046; 80048; 80053; 81001; 82550; 82553; 83605; 84484; 85025; 85610; 85730; 87040; 87086; 87502; 93005; 94640; 96365; 96366; 96367; 96375; 99285

== ENCOUNTER 2018-06-23 12:05 | Inpatient (IN) | payer OTHER, MEDICARE ==
[2018-06-23] MEDS ORDERED: IPRATROPIUM 0.5 MG/2.5 ML NEBU INHALATION STA (12:27)
[2018-06-23] MEDS ORDERED: ALBUTEROL NEBULIZED 2.5 MG/3 ML INHALATION STA (12:27)
[2018-06-23] MEDS ORDERED: methylPREDNISolone SOD SUCCI 125 MG/2 ML VIAL IV STA (12:27)
[2018-06-23] MEDS ORDERED: SODIUM CHLORIDE 0.9% 1,000 ML IV STA (12:27)
--- NOTE | 2018-06-23 12:37 | ED ---
SOB HPI - General Chief Complaint: Shortness of Breath Stated Complaint: URI Time Seen by Provider: 06/23/18 12:27 Source: patient, RN notes reviewed, old records reviewed Mode of arrival: ambulatory Limitations: no limitations - History of Present Illness Initial Comments: This is a 73-year-old male the ER for evaluation. They presents for evaluation regards to shortness of breath and difficulty breathing. She currently undergoing treatment for bronchitis significant. Patient denies significant fever currently. No known significant sick contacts recent hospitalizations. Patient denies pain no chest pain. MD Complaint: shortness of breath -: days(s) Radiation: other (No pain) Severity: moderate Severity scale (1-10): 3 Consistency: constant Improves With: rest Worsens With: exertion, movement, coughing Known History Of: COPD Context: recent URI Associated Symptoms: cough, sputum production Treatments Prior to Arrival: none - Related Data Home Medications Medication Instructions Recorded Confirmed Acetaminophen Tab [Tylenol] 500 mg PEG/G-TUBE Q12H PRN 01/10/18 06/23/18 Cyanocobalamin [Vitamin B-12] 500 mcg PEG/G-TUBE DAILY 01/10/18 06/23/18 Terazosin [Hytrin] 5 mg PEG/G-TUBE HS 01/10/18 06/23/18 amLODIPine [Norvasc] 5 mg PEG/G-TUBE BID 01/10/18 06/23/18 traZODone HCL 100 mg PEG/G-TUBE HS 01/10/18 06/23/18 Baclofen [Lioresal] 10 mg PEG/G-TUBE QAM 03/01/18 06/23/18 Melatonin 3 mg PEG/G-TUBE HS 03/01/18 06/23/18 Metoclopramide [Reglan] 5 mg PEG/G-TUBE TID@0800,1200,1800 03/01/18 06/23/18 PARoxetine [Paxil] 10 mg PEG/G-TUBE DAILY 03/01/18 06/23/18 Potassium Chloride Oral Liquid 10 meq PEG/G-TUBE BID 03/01/18 06/23/18 diphenhydrAMINE ELIXIR [Benadryl 25 mg PEG/G-TUBE Q6H PRN 03/01/18 06/23/18 Elixir] Atorvastatin Calcium [Lipitor] 10 mg PEG/G-TUBE HS 03/02/18 06/23/18 Aspirin 81 mg PEG/G-TUBE DAILY 06/23/18 06/23/18 Ferrous Sulfate 330 mg PEG/G-TUBE DAILY 06/23/18 06/23/18 LORazepam [Ativan] 1 mg PEG/G-TUBE DAILY PRN 06/23/18 06/23/18 Pantoprazole Sodium Packet 1 packet PEG/G-TUBE DAILY@1200 06/23/18 06/23/18 Sulfamethox-Tmp 200-40Mg/5Ml 100 mg PEG/G-TUBE BID 06/23/18 06/23/18 [Bactrim Suspension] cloNIDine 0.1 MG/24HR PATCH 1 patch TRANSDERM TH 06/23/18 06/23/18 [Catapres-TTS] methylPREDNISolone [Medrol Dose See Taper PEG/G-TUBE DIRECTED 06/23/18 06/23/18 Pack] Previous Rx's Medication Instructions Recorded traMADol HCL [Ultram] 100 mg PEG/G-TUBE Q6HR PRN 3 Days 04/05/18 #12 tablet Allergies Allergy/AdvReac Type Severity Reaction Status Date / Time lisinopril Allergy Unknown Verified 06/23/18 13:43 simvastatin [From Zocor] Allergy Unknown Verified 06/23/18 13:43 Review of Systems ROS Statement: Those systems with pertinent positive or pertinent negative responses have been documented in the HPI. ROS Other: All systems not noted in ROS Statement are negative. Past Medical History Past Medical History: Asthma, Cancer, CVA/TIA, Eye Disorder, Hyperlipidemia, Hypertension, Liver Disease, Osteoarthritis (OA) Additional Past Medical History / Comment(s): Pt states that past 2 weeks has had "blurred" vision and was seen at [facility] in [place] and told he has a "freckle" in that eye and will follow up with them, childhood asthma, liver "problem" before which pt states he was told was d/t taking tylenol #3, past ETOH abuse-sober for 19yrs then started drining 1-2 beers on occasion only, arthritis-bilateral shoulder and knee pains, skin cancer removed from nose. TIA/Stroke 01/2018 History of Any Multi-Drug Resistant Organisms: None Reported Past Surgical History: Hernia Repair Additional Past Surgical History / Comment(s): colonoscopy, total R knee arthroplasty, bilateral knee arthroscopies, R foot titanium implant, bilateral shoulder surgery, L inguinal hernia repaix x3, septoplasty and skin cancer removed from nose. Past Anesthesia/Blood Transfusion Reactions: No Reported Reaction Past Psychological History: Depression Smoking Status: Never smoker Past Alcohol Use History: Daily Past Drug Use History: None Reported - Past Family History Father Family Medical History: Cancer Additional Family Medical History / Comment(s): Father had prostrate cancer. He is . Mother Family Medical History: Cancer, Thyroid Disorder Additional Family Medical History / Comment(s): Mother is . Pt states she had thyroid disease/surgeries. He thinks she had cancer in her "back". General Exam Limitations: no limitations General appearance: alert, in no apparent distress Head exam: Present: atraumatic, normocephalic, normal inspection Eye exam: Present: normal appearance, PERRL, EOMI. Absent: scleral icterus, conjunctival injection, periorbital swelling ENT exam: Present: normal exam, mucous membranes moist Neck exam: Present: normal inspection. Absent: tenderness, meningismus, lymphadenopathy Respiratory exam: Present: wheezes, decreased breath sounds, prolonged expiratory. Absent: respiratory distress, rales, rhonchi, stridor Cardiovascular Exam: Present: regular rate, normal rhythm, normal heart sounds. Absent: systolic murmur, diastolic murmur, rubs, gallop, clicks GI/Abdominal exam: Present: soft, normal bowel sounds. Absent: distended, tenderness, guarding, rebound, rigid Extremities exam: Present: normal inspection, full ROM, normal capillary refill. Absent: tenderness, pedal edema, joint swelling, calf tenderness Back exam: Present: normal inspection Neurological exam: Present: alert, oriented X3, CN II-XII intact Psychiatric exam: Present: normal affect, normal mood Skin exam: Present: warm, dry, intact, normal color. Absent: rash Course Vital Signs 06/23/18 06/23/18 06/23/18 12:23 13:00 13:14 Temperature 97.5 F L Pulse Rate 90 84 102 H Respiratory 24 24 Rate Blood Pressure 121/63 138/122 O2 Sat by Pulse 94 L Oximetry 06/23/18 06/23/18 06/23/18 13:30 13:51 14:30 Temperature Pulse Rate 88 96 103 H Respiratory 24 18 Rate Blood Pressure 138/122 139/65 O2 Sat by Pulse 98 96 Oximetry - Reevaluation(s) Reevaluation #1: 06/23/18 12:51 Medical record is reviewed Medical Decision Making - Medical Decision Making 73 male the ER for evaluation. Patient was essay for evaluation shortness breath cough regarding positive bronchitis x-rays negative for pneumonia. Patient be admitted for breathing treatments, patient's oxygen was 84% at home. - Lab Data Result diagrams: 06/23/18 13:04 06/23/18 13:04 Lab Results 06/23/18 06/23/18 06/23/18 Range/Units 13:04 13:04 13:04 WBC 14.9 H (3.8-10.6) k/uL RBC 4.92 (4.30-5.90) m/uL Hgb 13.1 (13.0-17.5) gm/dL Hct 40.9 (39.0-53.0) % MCV 83.1 (80.0-100.0) fL MCH 26.7 (25.0-35.0) pg MCHC 32.1 (31.0-37.0) g/dL RDW 15.9 H (11.5-15.5) % Plt Count 278 (150-450) k/uL Neutrophils % 83 % Lymphocytes % 8 % Monocytes % 6 % Eosinophils % 2 % Basophils % 0 % Neutrophils # 12.3 H (1.3-7.7) k/uL Lymphocytes # 1.2 (1.0-4.8) k/uL Monocytes # 0.9 (0-1.0) k/uL Eosinophils # 0.2 (0-0.7) k/uL Basophils # 0.0 (0-0.2) k/uL PT (9.0-12.0) sec INR (<1.2) APTT (22.0-30.0) sec Sodium 141 (137-145) mmol/L Potassium 4.8 (3.5-5.1) mmol/L Chloride 106 (98-107) mmol/L Carbon Dioxide 26 (22-30) mmol/L Anion Gap 9 mmol/L BUN 27 H (9-20) mg/dL Creatinine 0.76 (0.66-1.25) mg/dL Est GFR (CKD-EPI)AfAm >90 (>60 ml/min/1.73 sqM) Est GFR (CKD-EPI)NonAf >90 (>60 ml/min/1.73 sqM) Glucose 91 (74-99) mg/dL Calcium 9.6 (8.4-10.2) mg/dL Magnesium 1.9 (1.6-2.3) mg/dL Total Bilirubin 0.3 (0.2-1.3) mg/dL AST 48 (17-59) U/L ALT 77 H (21-72) U/L Alkaline Phosphatase 102 (38-126) U/L Troponin I (0.000-0.034) ng/mL NT-Pro-B Natriuret Pep 62 pg/mL Total Protein 6.6 (6.3-8.2) g/dL Albumin 4.1 (3.5-5.0) g/dL 06/23/18 06/23/18 Range/Units 13:04 13:04 WBC (3.8-10.6) k/uL RBC (4.30-5.90) m/uL Hgb (13.0-17.5) gm/dL Hct (39.0-53.0) % MCV (80.0-100.0) fL MCH (25.0-35.0) pg MCHC (31.0-37.0) g/dL RDW (11.5-15.5) % Plt Count (150-450) k/uL Neutrophils % % Lymphocytes % % Monocytes % % Eosinophils % % Basophils % % Neutrophils # (1.3-7.7) k/uL Lymphocytes # (1.0-4.8) k/uL Monocytes # (0-1.0) k/uL Eosinophils # (0-0.7) k/uL Basophils # (0-0.2) k/uL PT 9.7 (9.0-12.0) sec INR 0.9 (<1.2) APTT 23.3 (22.0-30.0) sec Sodium (137-145) mmol/L Potassium (3.5-5.1) mmol/L Chloride (98-107) mmol/L Carbon Dioxide (22-30) mmol/L Anion Gap mmol/L BUN (9-20) mg/dL Creatinine (0.66-1.25) mg/dL Est GFR (CKD-EPI)AfAm (>60 ml/min/1.73 sqM) Est GFR (CKD-EPI)NonAf (>60 ml/min/1.73 sqM) Glucose (74-99) mg/dL Calcium (8.4-10.2) mg/dL Magnesium (1.6-2.3) mg/dL Total Bilirubin (0.2-1.3) mg/dL AST (17-59) U/L ALT (21-72) U/L Alkaline Phosphatase (38-126) U/L Troponin I <0.012 (0.000-0.034) ng/mL NT-Pro-B Natriuret Pep pg/mL Total Protein (6.3-8.2) g/dL Albumin (3.5-5.0) g/dL - EKG Data -: EKG Interpreted by Me (EKG shows sinus rhythm rate of 88, OK 98, QRS 60, QTc 454) - Radiology Data Radiology results: report reviewed (Chest x-rays negative for acute disease), image reviewed Critical Care Time Critical Care Time: Yes Total Critical Care Time: 31 Disposition Clinical Impression: Aspiration into airway, Acute exacerbation of chronic obstructive airways disease, Hypoxia Disposition: ADMITTED IP TO THIS HOSP Condition: Serious Is patient prescribed a controlled substance at d/c from ED?: No Referrals: [facility],Clinic [Primary Care Provider] - 1-2 days
[2018-06-23 13:22] LABS: Basophils % (A) 0 %; Eosinophils # (A) 0.2 k/uL (0-0.7); Eosinophils % (A) 2 %; HCT 40.9 % (39.0-53.0); HGB 13.1 gm/dL (13.0-17.5); Lymphocytes # (A) 1.2 k/uL (1.0-4.8); Lymphocytes % (A) 8 %; MCH 26.7 pg (25.0-35.0); MCHC 32.1 g/dL (31.0-37.0); MCV 83.1 fL (80.0-100.0); Mean Platelet Volume 7.8; Monocytes # (A) 0.9 k/uL (0-1.0); Monocytes % (A) 6 %; Neutrophils # (A) 12.3 k/uL (1.3-7.7); Neutrophils % (A) 83 %; Platelet Count 278 k/uL (150-450); RBC 4.92 m/uL (4.30-5.90); RDW 15.9 % (11.5-15.5); WBC 14.9 k/uL (3.8-10.6)
[2018-06-23 13:33] LABS: ALT 77 U/L (21-72); AST 48 U/L (17-59); Albumin 4.1 g/dL (3.5-5.0); Alkaline Phosphatase 102 U/L (38-126); Anion Gap 9 mmol/L; Blood Urea Nitrogen 27 mg/dL (9-20); Calcium 9.6 mg/dL (8.4-10.2); Carbon Dioxide 26 mmol/L (22-30); Chloride 106 mmol/L (98-107); Glucose 91 mg/dL (74-99); Magnesium 1.9 mg/dL (1.6-2.3); Potassium 4.8 mmol/L (3.5-5.1); Sodium 141 mmol/L (137-145); Total Bilirubin 0.3 mg/dL (0.2-1.3); Total Protein 6.6 g/dL (6.3-8.2)
[2018-06-23 13:36] LABS: INR 0.9 (<1.2); Partial Thromboplastin Time 23.3 sec (22.0-30.0); Prothrombin Time 9.7 sec (9.0-12.0)
--- NOTE | 2018-06-23 14:15 | XR ---
EXAMINATION TYPE: XR chest 2V DATE OF EXAM: 06/23/2018 COMPARISON: 04/03/2018 HISTORY: 73-year-old male with shortness of breath, difficulty breathing TECHNIQUE: AP and lateral views FINDINGS: Heart normal size. Aorta within normal limits. Leftward patient rotation ultrasound the normal cardio mediastinal contours. Strandy atelectasis at the right lung base. No consolidation or pleural effusio n seen. IMPRESSION: Rotated exam. No definite acute process..
[2018-06-23] MEDS ORDERED: IPRATROPIUM-ALBUTEROL 3 ML NEB INHALATION STA (14:37)
[2018-06-23] MEDS ORDERED: DIAZEPAM 5 MG/ML 2 ML INJ IVP STA (14:37)
[2018-06-23] MEDS: IPRATROPIUM-ALBUTEROL 3 ML NEB INHALATION SCH ×2 (15:41→20:17)
[2018-06-23] MEDS: SODIUM CHLORIDE 0.9% 1,000 ML IV SCH ×2 (16:30→23:59)
[2018-06-23] MEDS ORDERED: ACETAMINOPHEN TAB 500 MG TAB PEG/G-TUBE PRN (16:57)
[2018-06-23] MEDS ORDERED: diphenhydrAMINE ELIXIR 25 MG/10 ML CUP PEG/G-TUBE PRN (16:57)
[2018-06-23] MEDS: methylPREDNISolone SOD SUCCI 125 MG/2 ML VIAL IV SCH ×2 (17:18→23:59)
[2018-06-23 17:40] LABS: Glucose,Whole Blood 156 mg/dL (75-99)
[2018-06-23] MEDS: INSULIN ASPART (NovoLOG) 100 UNIT/ML VIAL SQ SCH ×2 (17:48→20:54)
[2018-06-23] MEDS ORDERED: cloNIDine 0.1 MG/24HR PATCH TRANSDERM SCH (18:00)
[2018-06-23] MEDS ORDERED: LEVOFLOXACIN 500MG-D5W PMX 500 MG in DEXTROSE/WATER 1 100ML.BAG IVPB SCH (18:00)
[2018-06-23] MEDS: METOCLOPRAMIDE 5 MG TAB PEG/G-TUBE SCH (18:51)
[2018-06-23 20:42] LABS: Glucose,Whole Blood 186 mg/dL (75-99)
[2018-06-23] MEDS: DOXAZOSIN 4 MG TAB PEG/G-TUBE SCH (20:53)
[2018-06-23] MEDS: MELATONIN 3 MG TABLET PEG/G-TUBE SCH (20:53)
[2018-06-23] MEDS: LORazepam 1 MG TAB PEG/G-TUBE PRN (20:53)
[2018-06-23] MEDS: ATORVASTATIN 10 MG TAB PEG/G-TUBE SCH (20:53)
[2018-06-23] MEDS: traZODone HCL 100 MG TAB PEG/G-TUBE SCH (20:53)
[2018-06-23] MEDS: amLODIPine 5 MG TAB PEG/G-TUBE SCH (20:53)
[2018-06-23] MEDS: POTASSIUM BICARBONATE/CIT AC 20 MEQ TABLET.EFF PEG/G-TUBE SCH (20:53)
[2018-06-23] MEDS: PANTOPRAZOLE 40 MG/10 ML VIAL IVP SCH (22:14)
[2018-06-24] MEDS: methylPREDNISolone SOD SUCCI 125 MG/2 ML VIAL IV SCH ×3 (06:06→16:55)
[2018-06-24 07:16] LABS: Glucose,Whole Blood 158 mg/dL (75-99)
[2018-06-24] MEDS: IPRATROPIUM-ALBUTEROL 3 ML NEB INHALATION SCH ×4 (07:26→19:38)
[2018-06-24] MEDS: PANTOPRAZOLE 40 MG/10 ML VIAL IVP SCH (07:34)
[2018-06-24] MEDS: ENOXAPARIN 40 MG/0.4 ML SYRINGE SQ SCH (07:34)
[2018-06-24] MEDS: FERROUS SULFATE ORAL ELIXIR 300 MG/5 ML CUP PEG/G-TUBE SCH (07:34)
[2018-06-24] MEDS: METOCLOPRAMIDE 5 MG TAB PEG/G-TUBE SCH ×3 (07:34→17:04)
[2018-06-24] MEDS: INSULIN ASPART (NovoLOG) 100 UNIT/ML VIAL SQ SCH ×4 (07:34→21:58)
[2018-06-24] MEDS: POTASSIUM BICARBONATE/CIT AC 20 MEQ TABLET.EFF PEG/G-TUBE SCH ×2 (07:35→21:57)
[2018-06-24] MEDS: ASPIRIN 81 MG PEG/G-TUBE SCH (07:36)
[2018-06-24] MEDS: amLODIPine 5 MG TAB PEG/G-TUBE SCH ×2 (07:36→21:56)
[2018-06-24] MEDS: CYANOCOBALAMIN 500 MCG TAB PEG/G-TUBE SCH (07:36)
[2018-06-24] MEDS: PARoxetine 10 MG TAB PEG/G-TUBE SCH (07:36)
[2018-06-24] MEDS: BACLOFEN 10 MG TAB PEG/G-TUBE SCH (07:36)
--- NOTE | 2018-06-24 08:17 | HP ---
HISTORY AND PHYSICAL DATE OF SERVICE: 06/23/2018 CHIEF COMPLAINT: Shortness of breath. HISTORY OF PRESENT ILLNESS: This 73-year-old gentleman with a past medical history of multiple medical problems including history of asthma, COPD, CVA, TIA, hypertension, hyperlipidemia, history of liver disease, history of DJD being followed by Dr. Ramos in the [place] [facility] recently had a stroke on the left side and the patient also had dysphagia. Patient had PEG tube placement. At home, the patient was noted to have increased shortness of breath and the patient had difficulty breathing and the patient was being treated for bronchitis. Because of lack of improvement, patient came to [facility] and admitted for further evaluation and treatment. A chest x-ray done in the ER which I reviewed personally showed some rotated exam, aspiration pneumonia suspected. Patient admitted for further evaluation. The PEG tube fluid [id number] mL/hour. Currently there is no history of any fever, rigors, chills. The patient unable to give a coherent history, a sketchy history is obtained. Also history is taken by my discussion with staff, discussion with ER physician and review of the chart at this time. PAST MEDICAL HISTORY: History of stroke, history of PEG tube, history of asthma, COPD, CVA, TIA, GERD, hypertension, hyperlipidemia, history of DJD, history of liver disease. MEDICATIONS: Medications prior to admission home medications are: 1. Trazodone 100 mg per PEG. 2. Hytrin 5 mg per PEG. 3. Protonix p.o. daily. 4. Melatonin 3 mg daily. 5. Lipitor 10 mg. 6. Tylenol 500 mg b.i.d. 7. Benadryl 25 mg q.6 p.r.n. 8. Ultram 100 mg q.6 p.r.n. 9. Ativan 1 mg daily p.r.n. 10.Clonidine patch. 11.Medrol Dosepak p.r.n. 12.Bactrim DS 100 mg b.i.d. 13.Paxil 10 mg daily. 14.Lioresal 10 mg daily. 15.Potassium. 16.Norvasc 5 mg daily. 17.Reglan 5 mg t.i.d. 18.Iron sulfate 330 mg daily. 19.Vitamin B12, 500 mcg daily. 20.Aspirin 81 mg daily. ALLERGIES: Allergies are LISINOPRIL ZOCOR. FAMILY HISTORY: History of cancer, prostate cancer. SOCIAL HISTORY: Previous history of smoking. No history of alcohol intake. REVIEW OF SYSTEMS: Could not be taken the patient because of change in mental status. PHYSICAL EXAMINATION: The pulse is 102, blood pressure 107/69, respiration 36, temperature 98 degrees, pulse ox 95% on 2 L. HEENT: Conjunctivae normal. Oral mucosa moist. NECK: No jugular venous distention or carotid bruit. No lymph node enlargement. CARDIOVASCULAR: S1 S2 muffed. RESPIRATORY: Breath sounds diminished at the bases. Bilateral scattered rhonchi and crackles. Expiratory wheezing also present. ABDOMEN: Soft. PEG tube in situ. Nontender. No mass palpable. LEGS: No edema, no swelling. NERVOUS SYSTEM: Diffusely weak. JOINTS: No active deforming arthropathy. SKIN: No ulcer, rash or bleeding. LABS: WBC 14.9, hemoglobin 13.1 and ALT is 77. ASSESSMENT: 1. Shortness of breath possibly aspiration pneumonia. 2. Chronic obstructive pulmonary disease acute exacerbation with acute hypoxic respiratory failure. 3. History of recent stroke. 4. History of asthma, chronic obstructive pulmonary disease. 5. History of cerebrovascular accident , transient ischemic attack. 6. Gastroesophageal reflux disease. 7. Hypertension. 8. Hyperlipidemia. 9. History of liver disease. 10.History of degenerative joint disease. 11.History of pneumonia. 12.Change in mental status, metabolic encephalopathy, acute on chronic. 13.History of EtOH abuse, remotely. 14.History of hernia repair. 15.History of PEG tube placement. 16.History of degenerative joint disease. 17.History of depression. RECOMMENDATIONS AND DISCUSSION: This 73-year-old gentleman who presented with multiple complex medical issues, we will monitor the patient closely. Continue the current medications. Continue symptomatic treatment. I would recommend bronchodilators, broad-spectrum IV antibiotics, short course of steroids. Otherwise, I would also recommend pulmonary consultation Dr. Quezada. PT, OT evaluation. Otherwise social science instructor to evaluate the home situation. Guarded prognosis because of multiple complex medical issues. Further recommendations to follow. A copy of dictation being forwarded to Dr. Ramos who is the primary physician. MMODL / TIFFANIEN: [id number] / MTDD
--- NOTE | 2018-06-24 10:03 | P.CNPUL ---
History of Present Illness Consult date: 06/24/18 Requesting physician: Ishmael Garcia Reason for consult: dyspnea Chief complaint: Shortness of breath, cough congestion History of present illness: This is a pleasant 73-year-old gentleman who follows with [facility] clinic for his primary care needs. He has a history of hyperlipidemia, hypertension, osteoarthritis, liver disease with previous alcohol abuse however quit 20 years ago, previous smoker. 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 He has left-sided weakness and dysphagia. He required PEG tube placement. He was brought into the emergency room yesterday with complaints of increasing shortness of breath cough and congestion. He was currently undergoing treatment for bronchitis without significant improvement. He was on Bactrim and a Medrol Dosepak. His chest x-ray shows no acute pulmonary process. White count 14.9. Hemoglobin 13.1. Creatinine 0.76. He's been initiated on bronchodilators and IV Solu-Medrol. He was given a dose of Levaquin. He is seen today in consultation on the regular medical floor. He is currently awake and alert in no acute distress. He is saturating in the upper 90s on 2 L/m per nasal cannula. He's been afebrile. Hemodynamically stable. Review of Systems Constitutional: Reports poor appetite, Reports weakness Eyes: denies blurred vision, denies decreased vision Ears: deny: decreased hearing Ears, nose, mouth and throat: Reports dysphagia, Reports hoarseness Cardiovascular: Reports decreased exercise tolerance, Reports dyspnea on exertion, Reports shortness of breath Respiratory: Reports cough with sputum, Reports dyspnea, Reports wheezing Gastrointestinal: Reports as per HPI Genitourinary: Reports as per HPI Musculoskeletal: Reports gait dysfunction, Reports limitation of motion Integumentary: Denies pruritus, Denies rash Neurological: Reports weakness Psychiatric: Reports anxiety Endocrine: Denies fatigue, Denies weight change Hematologic/Lymphatic: Reports as per HPI Allergic/Immunologic: Reports as per HPI Past Medical History Past Medical History: Asthma, Cancer, COPD, CVA/TIA, Eye Disorder, GERD/Reflux, Hyperlipidemia, Hypertension, Liver Disease, Osteoarthritis (OA), Pneumonia Additional Past Medical History / Comment(s): 01/2018 CVA with chronic dysphagia-has peg tube and is NPO, aspiration pneumonia, childhood asthma, liver "problem" before which pt states he was told was d/t taking tylenol #3, past ETOH abuse-sober for 19yrs then started drinking 1-2 beers on occasion only and none for past 4 months, arthritis-bilateral shoulder and knee pains, skin cancer removed from nose. History of Any Multi-Drug Resistant Organisms: None Reported Past Surgical History: Hernia Repair Additional Past Surgical History / Comment(s): EGD/Peg tube, colonoscopy, total R knee arthroplasty, bilateral knee arthroscopies, R foot titanium implant, bilateral shoulder surgery, L/R inguinal hernia repairs, septoplasty and skin cancer removed from nose. Past Anesthesia/Blood Transfusion Reactions: No Reported Reaction Additional Past Anesthesia/Blood Transfusion Reaction / Comment(s): Pt received blood as a . Smoking Status: Former smoker - Past Family History Father Family Medical History: Cancer Additional Family Medical History / Comment(s): Father had prostrate cancer. He is . Mother Family Medical History: Cancer, Thyroid Disorder Additional Family Medical History / Comment(s): Mother is . Pt states she had thyroid disease/surgeries. He thinks she had cancer in her "back". Medications and Allergies Home Medications Medication Instructions Recorded Confirmed Type Acetaminophen Tab [Tylenol] 500 mg PEG/G-TUBE Q12H PRN 01/10/18 06/23/18 History Cyanocobalamin [Vitamin B-12] 500 mcg PEG/G-TUBE DAILY 01/10/18 06/23/18 History Terazosin [Hytrin] 5 mg PEG/G-TUBE HS 01/10/18 06/23/18 History amLODIPine [Norvasc] 5 mg PEG/G-TUBE BID 01/10/18 06/23/18 History traZODone HCL 100 mg PEG/G-TUBE HS 01/10/18 06/23/18 History Baclofen [Lioresal] 10 mg PEG/G-TUBE QAM 03/01/18 06/23/18 History Melatonin 3 mg PEG/G-TUBE HS 03/01/18 06/23/18 History Metoclopramide [Reglan] 5 mg PEG/G-TUBE TID@0800,1200,1800 03/01/18 06/23/18 History PARoxetine [Paxil] 10 mg PEG/G-TUBE DAILY 03/01/18 06/23/18 History Potassium Chloride Oral Liquid 10 meq PEG/G-TUBE BID 03/01/18 06/23/18 History diphenhydrAMINE ELIXIR [Benadryl 25 mg PEG/G-TUBE Q6H PRN 03/01/18 06/23/18 History Elixir] Atorvastatin Calcium [Lipitor] 10 mg PEG/G-TUBE HS 03/02/18 06/23/18 History traMADol HCL [Ultram] 100 mg PEG/G-TUBE Q6HR PRN 3 Days 04/05/18 06/23/18 Rx #12 tablet Aspirin 81 mg PEG/G-TUBE DAILY 06/23/18 06/23/18 History Ferrous Sulfate 330 mg PEG/G-TUBE DAILY 06/23/18 06/23/18 History LORazepam [Ativan] 1 mg PEG/G-TUBE DAILY PRN 06/23/18 06/23/18 History Pantoprazole Sodium Packet 1 packet PEG/G-TUBE DAILY@1200 06/23/18 06/23/18 History Sulfamethox-Tmp 200-40Mg/5Ml 100 mg PEG/G-TUBE BID 06/23/18 06/23/18 History [Bactrim Suspension] cloNIDine 0.1 MG/24HR PATCH 1 patch TRANSDERM TH 06/23/18 06/23/18 History [Catapres-TTS] methylPREDNISolone [Medrol Dose See Taper PEG/G-TUBE DIRECTED 06/23/18 06/23/18 History Pack] Allergies Allergy/AdvReac Type Severity Reaction Status Date / Time lisinopril Allergy Unknown Verified 06/23/18 13:43 simvastatin [From Zocor] Allergy Unknown Verified 06/23/18 13:43 Physical Exam Vitals: Vital Signs Temp Pulse Pulse Resp BP BP Pulse Ox 06/24/18 08:00 24 06/24/18 07:36 94 06/24/18 07:26 92 06/24/18 05:30 97.7 F 87 20 127/69 97 06/23/18 23:30 18 06/23/18 21:30 98 F 111 H 36 H 107/69 95 06/23/18 20:33 102 H 06/23/18 20:18 102 H 06/23/18 16:45 98.4 F 101 H 24 108/63 95 06/23/18 16:00 26 H 06/23/18 15:33 121 H 06/23/18 15:29 97 F L 99 18 137/71 95 06/23/18 15:22 112 H 06/23/18 14:30 103 H 18 139/65 96 06/23/18 13:51 96 06/23/18 13:30 88 24 138/122 98 06/23/18 13:14 102 H 06/23/18 13:00 84 24 138/122 06/23/18 12:23 97.5 F L 90 24 121/63 94 L Intake and Output 06/23/18 06/24/18 06/24/18 22:59 06:59 14:59 Intake Total 50 100 50 Balance 50 100 50 Intake: Oral 0 0 Tube Feeding 50 100 50 Other: Voiding Method Urinal Urinal Diaper Incontinent # Voids 2 2 Weight 67.812 kg GENERAL EXAM: Pleasant 73-year-old gentleman. Alert, comfortable in no apparent distress. On 2 L. HEAD: Normocephalic. EYES: Normal reaction of pupils, equal size. NOSE: Clear with pink turbinates. THROAT: Dry. No erythema or exudates. NECK: No masses, no JVD. CHEST: No chest wall deformity. LUNGS: Equal air entry with few scattered rhonchi, end expiratory wheeze. CVS: S1 and S2 normal with no audible murmur, regular rhythm. ABDOMEN: PEG tube exit site clean and dry. No hepatosplenomegaly, normal bowel sounds, no guarding or rigidity. SPINE: Kyphoscoliosis SKIN: No rashes CENTRAL NERVOUS SYSTEM: Left-sided weakness, tone is normal in all 4 ext remities. EXTREMITIES: There is no peripheral edema. No clubbing, no cyanosis. Peripheral pulses are intact. Results - Laboratory Findings CBC and BMP: 06/23/18 13:04 06/23/18 13:04 PT/INR, D-dimer PT 9.7 sec (9.0-12.0) 06/23/18 13:04 INR 0.9 (<1.2) 06/23/18 13:04 Abnormal lab findings: Abnormal Labs 06/23/18 06/23/18 06/23/18 13:04 13:04 17:19 WBC 14.9 H RDW 15.9 H Neutrophils # 12.3 H BUN 27 H POC Glucose (mg/dL) 156 H ALT 77 H 06/23/18 06/24/18 20:37 07:13 WBC RDW Neutrophils # BUN POC Glucose (mg/dL) 186 H 158 H ALT - Diagnostic Findings Chest x-ray: image reviewed (No acute pulmonary process) Assessment and Plan Assessment: Impression: #1 Acute hypoxemic respiratory failure secondary to an acute exacerbation of chronic obstructive pulmonary disease, complicated by purulent tracheo bronchitis. No clear evidence of aspiration pneumonia. Failed outpatient treatment. #2 CVA with dysphagia requiring PEG tube insertion. #3 Hypertension. #4 Hyperlipidemia. #5 History of gastroesophageal reflux disease. #6 Degenerative joint disease. #7 History of liver disease. Plan: The patient was seen and evaluated by Dr. Quezada. Chest x-ray and labs were reviewed. No clear evidence of pneumonia however the patient is at risk with his dysphagia and PEG tube feedings. We'll continue with bronchodilators, IV Solu-Medrol, add Zosyn. Lovenox for DVT prophylaxis. Aspiration precautions. We'll continue to follow make further recommendations based on his clinical status. I, the cosigning physician, performed a history & physical examination of the patient. Lungs sounds with bilateral end expiratory wheeze, few scattered rhonchi. Maintaining good O2 saturations in the 90s on 2 L/m per nasal cannula. I discussed the assessment and plan of care with my nurse practitioner, Tia Cruz. I attest to the above consultation as dictated by her. Time with Patient: Greater than 30
[2018-06-24] MEDS ORDERED: guaiFENesin 600 MG TABLET.ER PO SCH (10:45)
[2018-06-24] MEDS: PIPERACILLIN-TAZOBACTAM 3.375 GM in SODIUM CHLORIDE 0.9% 100 ML IVPB SCH ×2 (10:50→16:36)
[2018-06-24] MEDS: guaiFENesin SYRUP 100MG/5ML 200 MG/10 ML CUP PO SCH ×4 (11:06→21:56)
[2018-06-24 12:49] LABS: Glucose,Whole Blood 148 mg/dL (75-99)
[2018-06-24] MEDS: LORazepam 1 MG TAB PEG/G-TUBE PRN (13:33)
--- NOTE | 2018-06-24 16:08 | PN ---
PROGRESS NOTE DATE OF SERVICE: 06/24/2018 This 73-year-old gentleman who was admitted with COPD, acute exacerbation, with acute hypoxic respiratory failure also had possibly aspiration pneumonia. The patient has been started on Zosyn at this time. Patient is complaining of left eye redness at this time. Pulmonary is following the patient closely. Past medical history reviewed. The patient is on tube feeds, which are being continued at a reduced level. REVIEW OF SYSTEMS: CARDIOVASCULAR SYSTEM: No angina, palpitations. RESPIRATORY SYSTEM: As mentioned earlier. GI: As mentioned earlier. : No dysuria or retention. NERVOUS SYSTEM: No numbness, weakness. CURRENT MEDICATIONS: Reviewed. They include: 1. Tylenol p.r.n. 2. DuoNeb q.i.d. 3. Norvasc 5 mg per PEG. 4. Aspirin 81 mg. 5. Lipitor 10 mg. 6. Lioresal. 7. Symbicort 160/4.5 two puffs b.i.d. 8. Catapres patch. 9. Vitamin B12. 10.Benadryl. 11.Cardura. 12.Lovenox. 13.Iron sulfate. 14.Robitussin. 15.Ativan. 16.Melatonin. 17.Solu-Medrol. 18.Protonix. 19.Paxil. 20.Zosyn. 21.K-Lyte. 22.Ultram. 23.Desyrel. PHYSICAL EXAMINATION: Patient is alert, oriented x3. Pulse 76, blood pressure 112/67, respiration 18, temperature 97.5, pulse ox 96% on room air. HEENT: Conjunctivae normal. Oral mucosa moist. NECK: No jugular venous distention. No carotid bruit. No lymph node enlargement. CARDIOVASCULAR SYSTEM: S1, S2 muffled. RESPIRATORY SYSTEM: Breath sounds diminished at the bases. Bilateral scattered rhonchi and crackles. ABDOMEN: Soft, non-tender. LEGS: No edema. No swelling. NERVOUS SYSTEM: No focal deficit. LABS: WBC 14.9, hemoglobin 13.1. Glucose 148. ALT 77. ASSESSMENT: 1. Chronic obstructive pulmonary disease, acute exacerbation, with acute hypoxic respiratory failure with possibly aspiration pneumonia and significant shortness of breath. 2. History of recent stroke. 3. History of asthma, chronic obstructive pulmonary disease. 4. Status post PEG tube placement. 5. History of cerebrovascular accident, transient ischemic attack. 6. History of gastroesophageal reflux disease. 7. Hypertension. 8. Hyperlipidemia. 9. History of liver disease. 10.Degenerative joint disease. 11.History of pneumonia. 12.Change in mental status with metabolic encephalopathy, acute on chronic. 13.History of ethanol abuse remotely. 14.History of hernia repair. 15.History of degenerative joint disease. 16.History of depression. RECOMMENDATIONS AND DISCUSSION: I recommend to continue current medications, continue with symptomatic treatment. Otherwise at this time I recommend continuing with Zosyn, bronchodilators, aspiration precautions. We will continue to monitor with Pulmonary. PT/OT evaluation. Guarded prognosis. Further recommendations to follow. See orders for further details. Repeat labs have been ordered. Possible ECF rehab will also be considered once the PT/OT is complete. MMODL / IJN: [id number] /
[2018-06-24 17:21] LABS: Glucose,Whole Blood 176 mg/dL (75-99)
[2018-06-24] MEDS: SYMBICORT 160-4.5 MCG INHALER INHALATION SCH (19:46)
[2018-06-24 20:59] LABS: Glucose,Whole Blood 166 mg/dL (75-99)
[2018-06-24] MEDS: MELATONIN 3 MG TABLET PEG/G-TUBE SCH (21:56)
[2018-06-24] MEDS: DOXAZOSIN 4 MG TAB PEG/G-TUBE SCH (21:56)
[2018-06-24] MEDS: traZODone HCL 100 MG TAB PEG/G-TUBE SCH (21:56)
[2018-06-24] MEDS: ATORVASTATIN 10 MG TAB PEG/G-TUBE SCH (21:56)
[2018-06-25] MEDS: PIPERACILLIN-TAZOBACTAM 3.375 GM in SODIUM CHLORIDE 0.9% 100 ML IVPB SCH ×4 (01:35→23:10)
[2018-06-25] MEDS: methylPREDNISolone SOD SUCCI 125 MG/2 ML VIAL IV SCH ×5 (01:36→23:09)
[2018-06-25] MEDS: SODIUM CHLORIDE 0.9% 1,000 ML IV SCH (01:39)
[2018-06-25 07:23] LABS: Glucose,Whole Blood 201 mg/dL (75-99)
[2018-06-25] MEDS: SYMBICORT 160-4.5 MCG INHALER INHALATION SCH ×2 (08:23→19:28)
[2018-06-25] MEDS: IPRATROPIUM-ALBUTEROL 3 ML NEB INHALATION SCH ×4 (08:23→19:28)
[2018-06-25] MEDS: BACLOFEN 10 MG TAB PEG/G-TUBE SCH (08:38)
[2018-06-25] MEDS: FERROUS SULFATE ORAL ELIXIR 300 MG/5 ML CUP PEG/G-TUBE SCH (08:38)
[2018-06-25] MEDS: guaiFENesin SYRUP 100MG/5ML 200 MG/10 ML CUP PO SCH ×4 (08:38→23:09)
[2018-06-25] MEDS: PARoxetine 10 MG TAB PEG/G-TUBE SCH (08:38)
[2018-06-25] MEDS: CYANOCOBALAMIN 500 MCG TAB PEG/G-TUBE SCH (08:38)
[2018-06-25] MEDS: METOCLOPRAMIDE 5 MG TAB PEG/G-TUBE SCH ×3 (08:39→17:30)
[2018-06-25] MEDS: ASPIRIN 81 MG PEG/G-TUBE SCH (08:39)
[2018-06-25] MEDS: INSULIN ASPART (NovoLOG) 100 UNIT/ML VIAL SQ SCH ×4 (08:39→22:18)
[2018-06-25] MEDS: ENOXAPARIN 40 MG/0.4 ML SYRINGE SQ SCH (08:39)
[2018-06-25] MEDS: amLODIPine 5 MG TAB PEG/G-TUBE SCH ×2 (08:39→22:22)
[2018-06-25] MEDS: POTASSIUM BICARBONATE/CIT AC 20 MEQ TABLET.EFF PEG/G-TUBE SCH ×2 (08:40→23:08)
[2018-06-25] MEDS: traMADol 50 MG TAB PEG/G-TUBE PRN ×2 (08:48→16:21)
[2018-06-25] MEDS: PANTOPRAZOLE 40 MG/10 ML VIAL IVP SCH (10:44)
[2018-06-25 10:47] LABS: Anisocytosis Slight; Basophils % (A) 0 %; Eosinophils # (A) 0.1 k/uL (0-0.7); Eosinophils % (A) 0 %; HCT 39.3 % (39.0-53.0); Lymphocytes # (A) 0.5 k/uL (1.0-4.8); Lymphocytes % (A) 2 %; MCH 25.8 pg (25.0-35.0); MCHC 30.5 g/dL (31.0-37.0); MCV 84.5 fL (80.0-100.0); Mean Platelet Volume 7.8; Monocytes # (A) 0.7 k/uL (0-1.0); Monocytes % (A) 3 %; Neutrophils # (A) 19.5 k/uL (1.3-7.7); Neutrophils % (A) 94 %; Platelet Count 297 k/uL (150-450); RBC 4.66 m/uL (4.30-5.90); RDW 16.2 % (11.5-15.5); WBC 20.8 k/uL (3.8-10.6)
[2018-06-25 10:54] LABS: Anion Gap 8 mmol/L; Blood Urea Nitrogen 37 mg/dL (9-20); Calcium 9.3 mg/dL (8.4-10.2); Carbon Dioxide 27 mmol/L (22-30); Chloride 108 mmol/L (98-107); Glucose 144 mg/dL (74-99); Potassium 4.9 mmol/L (3.5-5.1); Sodium 143 mmol/L (137-145)
[2018-06-25 12:02] LABS: Glucose,Whole Blood 145 mg/dL (75-99)
--- NOTE | 2018-06-25 14:44 | P.PN ---
Subjective Progress Note Date: 06/25/18 Principal diagnosis: Acute hypoxic respiratory failure secondary to acute exacerbation of COPD and purulent tracheobronchitis This is a pleasant 73-year-old gentleman who follows with [facility] for his primary care needs. He has a history of hyperlipidemia, hypertension, os teoarthritis, liver disease with previous alcohol abuse however quit 20 years ago, previous smoker. 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 He has left-sided weakness and dysphagia. He required PEG tube placement. He was brought into the emergency room yesterday with complaints of increasing shortness of breath cough and congestion. He was currently undergoing treatment for bronchitis without significant improvement. He was on Bactrim and a Medrol Dosepak. His chest x-ray shows no acute pulmonary process. White count 14.9. Hemoglobin 13.1. Creatinine 0.76. He's been initiated on bronchodilators and IV Solu-Medrol. He was given a dose of Levaquin. He is see n today in consultation on the regular medical floor. He is currently awake and alert in no acute distress. He is saturating in the upper 90s on 2 L/m per nasal cannula. He's been afebrile. Hemodynamically stable. Reevaluated today on 06/25/2018, patient is feeling better, breathing easier, less cough and less wheezing less shortness of breath. Patient is resting in bed, relatively asymptomatic. Continues to have leukocytosis with WBC count of 20.8, hemoglobin is 12, electrolytes and renal profile are normal. Chest x-ray on admission showed mostly atelectasis at the right lung base, no clear-cut evidence of pneumonia. Objective - Vital Signs Vital signs: Vital Signs Temp 98.2 F 06/25/18 13:56 Pulse 70 06/25/18 13:56 Resp 16 06/25/18 13:56 BP 108/59 06/25/18 13:56 Pulse Ox 94 L 06/25/18 13:56 Intake & Output 06/24/18 06/25/18 06/25/18 18:59 06:59 18:59 Intake Total 120 70 Output Total 500 400 Balance 120 -500 -330 Weight 66.5 kg Intake: Oral 0 Tube Feeding 120 70 Output: Urine 500 400 Other: Voiding Method Urinal Urinal # Voids 2 - Exam GENERAL EXAM: Pleasant 73-year-old gentleman. Alert, comfortable in no apparent distress. On 2 L. HEAD: Normocephalic. EYES: Normal reaction of pupils, equal size. NOSE: Clear with pink turbinates. THROAT: Dry. No erythema or exudates. NECK: No masses, no JVD. CHEST: No chest wall deformity. LUNGS: Equal air entry with few scattered rhonchi, end expiratory wheeze. CVS: S1 and S2 normal with no audible murmur, regular rhythm. ABDOMEN: PEG tube exit site clean and dry. No hepatosplenomegaly, normal bowel sounds, no guarding or rigidity. SPINE: Kyphoscoliosis SKIN: No rashes CENTRAL NERVOUS SYSTEM: Left-sided weakness, tone is normal in all 4 ex tremities. EXTREMITIES: There is no peripheral edema. No clubbing, no cyanosis. Peripheral pulses are intact. - Labs CBC & Chem 7: 06/25/18 09:58 06/25/18 09:58 Labs: Abnormal Lab Results - Last 24 Hours (Table) 06/24/18 06/24/18 06/25/18 Range/Units 17:19 20:57 07:20 WBC (3.8-10.6) k/uL Hgb (13.0-17.5) gm/dL MCHC (31.0-37.0) g/dL RDW (11.5-15.5) % Neutrophils # (1.3-7.7) k/uL Lymphocytes # (1.0-4.8) k/uL Chloride (98-107) mmol/L BUN (9-20) mg/dL Glucose (74-99) mg/dL POC Glucose (mg/dL) 176 H 166 H 201 H (75-99) mg/dL 06/25/18 06/25/18 06/25/18 Range/Units 09:58 09:58 12:01 WBC 20.8 H (3.8-10.6) k/uL Hgb 12.0 L (13.0-17.5) gm/dL MCHC 30.5 L (31.0-37.0) g/dL RDW 16.2 H (11.5-15.5) % Neutrophils # 19.5 H (1.3-7.7) k/uL Lymphocytes # 0.5 L (1.0-4.8) k/uL Chloride 108 H (98-107) mmol/L BUN 37 H (9-20) mg/dL Glucose 144 H (74-99) mg/dL POC Glucose (mg/dL) 145 H (75-99) mg/dL Assessment and Plan Assessment: #1 Acute hypoxemic respiratory failure secondary to an acute exacerbation of chronic obstructive pulmonary disease, complicated by purulent tracheobronchitis. No clear evidence of aspiration pneumonia. Failed outpatient treatment. #2 CVA with dysphagia requiring PEG tube insertion. #3 Hypertension. #4 Hyperlipidemia. #5 History of gastroesophageal reflux disease. #6 Degenerative joint disease. #7 History of liver disease. Recommendation: Patient seems to be responding well to treatment, he has less cough and less wheezing less shortness of breath, hence continue the same treatment plan, continue bronchodilators, Solu-Medrol, Zosyn, Lovenox for DVT prophylaxis, continue aspiration precautions, consider discharge planning in the next 2 days. Time with Patient: Less than 30
[2018-06-25 16:46] LABS: Glucose,Whole Blood 141 mg/dL (75-99)
[2018-06-25 21:07] LABS: Glucose,Whole Blood 157 mg/dL (75-99)
--- NOTE | 2018-06-25 21:30 | PN ---
PROGRESS NOTE DATE OF SERVICE: 06/25/2018 This 73-year-old gentleman who was admitted with COPD also had possibly aspiration pneumonia. The patient being closely monitored. No chest pain. No palpitations. Broad-spectrum IV antibiotics. EXAM: Alert and oriented x2. Pulse 70. Blood pressure 108/59, respirations 16, temperature 98.2, pulse ox 94% on room air. HEENT: Conjunctivae normal. NECK: No jugular venous distention. CARDIOVASCULAR: S1, S2 muffled. RESPIRATIONS: Breath sounds diminished in the bases. A few scattered rhonchi and crackles. Abdomen is soft, nontender. PEG tube in situ. CENTRAL NERVOUS SYSTEM: No focal deficits. LABS: WBC 20.8 and sodium 140, potassium 4.9. ASSESSMENT: 1. Chronic obstructive pulmonary disease acute exacerbation with acute hypoxic respiratory failure with possible aspiration pneumonia with significant shortness of breath and sepsis. 2. Increased WBC. 3. History of recent stroke. 4. History of asthma, chronic obstructive pulmonary disease. 5. Status post PEG tube placement. 6. History of cerebrovascular accident, transient ischemic attack. 7. History of gastroesophageal reflux disease. 8. Hypertension. 9. Hyperlipidemia. 10.History of liver disease. 11.History of degenerative joint disease. 12.History of pneumonia. 13.Change in mental status metabolic encephalopathy, acute on chronic. 14.History of ETOH abuse, remote. 15.History of hernia repair. 16.History of degenerative joint disease. 17.History of depression. RECOMMENDATIONS AND DISCUSSION: Recommend to continue current medications, management and symptomatic treatment. Continue with Zosyn. Continue the bronchodilators. Continue the rest of medications. Prognosis guarded because of multiple complex medical issues and cultures are negative so far. Further recommendations to follow. MMODL / IJN: [id number] /
[2018-06-25] MEDS: traZODone HCL 100 MG TAB PEG/G-TUBE SCH (22:18)
[2018-06-25] MEDS: ATORVASTATIN 10 MG TAB PEG/G-TUBE SCH (22:18)
[2018-06-25] MEDS: MELATONIN 3 MG TABLET PEG/G-TUBE SCH (22:18)
[2018-06-25] MEDS: DOXAZOSIN 4 MG TAB PEG/G-TUBE SCH (22:18)
[2018-06-26] MEDS: SODIUM CHLORIDE 0.9% 1,000 ML IV SCH (05:18)
[2018-06-26] MEDS: methylPREDNISolone SOD SUCCI 125 MG/2 ML VIAL IV SCH ×2 (06:28→12:30)
[2018-06-26 07:18] LABS: Glucose,Whole Blood 148 mg/dL (75-99)
[2018-06-26] MEDS: IPRATROPIUM-ALBUTEROL 3 ML NEB INHALATION SCH ×4 (08:48→19:52)
[2018-06-26] MEDS: SYMBICORT 160-4.5 MCG INHALER INHALATION SCH ×2 (08:48→19:52)
[2018-06-26] MEDS: PIPERACILLIN-TAZOBACTAM 3.375 GM in SODIUM CHLORIDE 0.9% 100 ML IVPB SCH ×2 (09:37→16:37)
[2018-06-26] MEDS: PANTOPRAZOLE 40 MG/10 ML VIAL IVP SCH (09:37)
[2018-06-26] MEDS: guaiFENesin SYRUP 100MG/5ML 200 MG/10 ML CUP PO SCH ×4 (09:37→21:26)
[2018-06-26] MEDS: ASPIRIN 81 MG PEG/G-TUBE SCH (09:38)
[2018-06-26] MEDS: BACLOFEN 10 MG TAB PEG/G-TUBE SCH (09:38)
[2018-06-26] MEDS: CYANOCOBALAMIN 500 MCG TAB PEG/G-TUBE SCH (09:38)
[2018-06-26] MEDS: traMADol 50 MG TAB PEG/G-TUBE PRN ×2 (09:38→15:02)
[2018-06-26] MEDS: PARoxetine 10 MG TAB PEG/G-TUBE SCH (09:38)
[2018-06-26] MEDS: amLODIPine 5 MG TAB PEG/G-TUBE SCH ×2 (09:38→21:24)
[2018-06-26] MEDS: ENOXAPARIN 40 MG/0.4 ML SYRINGE SQ SCH (09:38)
[2018-06-26] MEDS: INSULIN ASPART (NovoLOG) 100 UNIT/ML VIAL SQ SCH ×4 (09:38→21:25)
[2018-06-26] MEDS: FERROUS SULFATE ORAL ELIXIR 300 MG/5 ML CUP PEG/G-TUBE SCH (09:39)
[2018-06-26] MEDS: METOCLOPRAMIDE 5 MG TAB PEG/G-TUBE SCH ×3 (09:39→16:37)
[2018-06-26] MEDS: POTASSIUM BICARBONATE/CIT AC 20 MEQ TABLET.EFF PEG/G-TUBE SCH ×2 (09:39→21:25)
[2018-06-26] MEDS ORDERED: BISACODYL 10 MG SUPP RECTAL PRN (11:14)
[2018-06-26 11:48] LABS: Glucose,Whole Blood 107 mg/dL (75-99)
[2018-06-26 12:26] LABS: Anisocytosis Slight; Basophils % (A) 0 %; Eosinophils # (A) 0.1 k/uL (0-0.7); Eosinophils % (A) 0 %; HGB 13.1 gm/dL (13.0-17.5); Hypochromasia Slight; Lymphocytes # (A) 0.5 k/uL (1.0-4.8); Lymphocytes % (A) 3 %; MCHC 30.4 g/dL (31.0-37.0); MCV 85.6 fL (80.0-100.0); Mean Platelet Volume 7.7; Monocytes # (A) 0.7 k/uL (0-1.0); Monocytes % (A) 4 %; Neutrophils # (A) 18.5 k/uL (1.3-7.7); Neutrophils % (A) 93 %; Platelet Count 302 k/uL (150-450); RBC 5.02 m/uL (4.30-5.90); RDW 16.2 % (11.5-15.5)
[2018-06-26] MEDS: DOCUSATE ORAL SOLN 100 MG/10 ML CUP PO SCH (12:29)
[2018-06-26 12:42] LABS: Anion Gap 10 mmol/L; Blood Urea Nitrogen 35 mg/dL (9-20); Calcium 9.5 mg/dL (8.4-10.2); Carbon Dioxide 24 mmol/L (22-30); Chloride 109 mmol/L (98-107); Glucose 83 mg/dL (74-99); Potassium 4.5 mmol/L (3.5-5.1); Sodium 143 mmol/L (137-145)
--- NOTE | 2018-06-26 13:25 | P.PN ---
Subjective Progress Note Date: 06/26/18 Principal diagnosis: Acute hypoxic respiratory failure secondary to acute exacerbation of COPD, K by purulent tracheobronchitis. This is a pleasant 73-year-old gentleman who follows with [facility] for his primary care needs. He has a history of hyperlipidemia, hypertension, osteoarthritis, liver disease with previous alcohol abuse however quit 20 years ago, previous smoker. 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 He has left-sided weakness and dysphagia. He required PEG tube placement. He was brought into the emergency room yesterday with complaints of increasing shortness of breath cough and congestion. He was currently undergoing treatment for bronchitis without significant improvement. He was on Bactrim and a Medrol Dosepak. His chest x-ray shows no acute pulmonary process. White count 14.9. Hemoglobin 13.1. Creatinine 0.76. He's been initiated on bronchodilators and IV Solu-Medrol. He was given a dose of Levaquin. He is seen today in consultation on the regular medical floor. He is currently awake and alert in no acute distress. He is saturating in the upper 90s on 2 L/m per nasal cannula. He's been afebrile. Hemodynamically stable. Reevaluated today on 06/25/2018, patient is feeling better, breathing easier, less cough and less wheezing less shortness of breath. Patient is resting in bed, relatively asymptomatic. Continues to have leukocytosis with WBC count of 20.8, hemoglobin is 12, electrolytes and renal profile are normal. Chest x-ray on admission showed mostly atelectasis at the right lung base, no clear-cut evidence of pneumonia. The patient is seen today 06/26/2018 in follow-up on the regular medical floor. He is currently sitting up at the bedside. Awake and alert in no acute distress. Not requiring any oxygen supplementation. No worsening shortness of breath, cough or congestion. Urine culture is pending. White count 20.0. Hemoglobin 13.1. Creatinine 0.67. He remains on DuoNeb inhalations, Symbicort, IV Solu-Medrol and Zosyn. Objective - Vital Signs Vital signs: Vital Signs Temp 96.5 F L 06/26/18 07:18 Pulse 84 06/26/18 11:46 Resp 18 06/26/18 07:18 BP 125/68 06/26/18 07:18 Pulse Ox 94 L 06/26/18 07:18 Intake & Output 06/25/18 06/26/18 06/26/18 18:59 06:59 18:59 Intake Total 70 280 0 Output Total 550 300 Balance -480 280 -300 Weight 65.2 kg Intake: Intake, IV Titration 210 Amount Piperacillin-Tazobactam 3 50 .375 gm In Sodium Chloride 0.9% 100 ml @ 25 mls/hr IVPB Q8HR DEENA Rx# :[id number] Sodium Chloride 0.9% 1, 160 000 ml @ 20 mls/hr IV . Q24H DEENA Rx#:[id number] Oral 0 Tube Feeding 70 70 0 Output: Urine 550 300 Other: Voiding Method Urinal Urinal # Voids 1 - Exam GENERAL EXAM: Pleasant 73-year-old gentleman. Alert, comfortable in no apparent distress. On room air. HEAD: Normocephalic. EYES: Normal reaction of pupils, equal size. NOSE: Clear with pink turbinates. THROAT: Dry. No erythema or exudates. NECK: No masses, no JVD. CHEST: No chest wall deformity. LUNGS: Equal air entry with few scattered rhonchi, end expiratory wheeze. CVS: S1 and S2 normal with no audible murmur, regular rhythm. ABDOMEN: PEG tube exit site clean and dry. No hepatosplenomegaly, normal bowel sounds, no guarding or rigidity. SPINE: Kyphoscoliosis SKIN: No rashes CENTRAL NERVOUS SYSTEM: Left-sided weakness, tone is normal in all 4 extremities. EXTREMITIES: There is no peripheral edema. No clubbing, no cyanosis. Peripheral pulses are intact. - Labs CBC & Chem 7: 06/26/18 11:22 06/26/18 11:22 Labs: Abnormal Lab Results - Last 24 Hours (Table) 06/25/18 06/25/18 06/26/18 Range/Units 16:42 21:05 07:12 WBC (3.8-10.6) k/uL MCHC (31.0-37.0) g/dL RDW (11.5-15.5) % Neutrophils # (1.3-7.7) k/uL Lymphocytes # (1.0-4.8) k/uL Chloride (98-107) mmol/L BUN (9-20) mg/dL POC Glucose (mg/dL) 141 H 157 H 148 H (75-99) mg/dL 06/26/18 06/26/18 06/26/18 Range/Units 11:22 11:22 11:46 WBC 20.0 H (3.8-10.6) k/uL MCHC 30.4 L (31.0-37.0) g/dL RDW 16.2 H (11.5-15.5) % Neutrophils # 18.5 H (1.3-7.7) k/uL Lymphocytes # 0.5 L (1.0-4.8) k/uL Chloride 109 H (98-107) mmol/L BUN 35 H (9-20) mg/dL POC Glucose (mg/dL) 107 H (75-99) mg/dL Microbiology - Last 24 Hours (Table) 06/26/18 07:14 Urine Culture - Preliminary Urine,Clean Catch Assessment and Plan Assessment: Impression: #1 Acute hypoxemic respiratory failure secondary to an acute exacerbation of chronic obstructive pulmonary disease, complicated by purulent tracheobronchitis. No clear evidence of aspiration pneumonia. Failed outpatient treatment. #2 CVA with dysphagia requiring PEG tube insertion. #3 Hypertension. #4 Hyperlipidemia. #5 History of gastroesophageal reflux disease. #6 Degenerative joint disease. #7 History of liver disease. Plan: The patient was seen and evaluated by Dr. Quezada. Currently stable from the pulmonary standpoint. On room air. No clear evidence of pneumonia however the patient is at risk with his dysphagia and PEG tube feedings. We'll continue with bronchodilators, IV Solu-Medrol, add Zosyn. Lovenox for DVT prophylaxis. Aspiration precautions. We'll continue to follow and make further recommendations based on his clinical status. Probable discharge in the a.m. I, the cosigning physician, performed a history & physical examination of the patient. Lungs sounds with bilateral end expiratory wheeze, few scattered rhonchi. Maintaining good O2 saturations in the 90s on room air. I discussed the assessment and plan of care with my nurse practitioner, Tia Cruz. I attest to the above note as dictated by her.
[2018-06-26 17:12] LABS: Glucose,Whole Blood 129 mg/dL (75-99)
[2018-06-26 20:49] LABS: Glucose,Whole Blood 176 mg/dL (75-99)
[2018-06-26] MEDS: DOXAZOSIN 4 MG TAB PEG/G-TUBE SCH (21:24)
[2018-06-26] MEDS: ATORVASTATIN 10 MG TAB PEG/G-TUBE SCH (21:24)
[2018-06-26] MEDS: MELATONIN 3 MG TABLET PEG/G-TUBE SCH (21:25)
[2018-06-26] MEDS: methylPREDNISolone SOD SUCCI 40 MG/ML 1 ML VIAL IV SCH (21:26)
[2018-06-26] MEDS: traZODone HCL 100 MG TAB PEG/G-TUBE SCH (21:26)
--- NOTE | 2018-06-26 22:30 | PN ---
PROGRESS NOTE DATE OF SERVICE: 06/26/2018 This 73-year-old gentleman who was admitted with COPD exacerbation, acute hypoxic respiratory failure also had aspiration pneumonia. Patient being closely monitored. Patient on broad spectrum IV antibiotics. No chest pain. No palpitations. No fever. EXAM: Alert and oriented times three. Pulse 68, blood pressure 110/63, respiration 18, temperature 98.2, pulse ox 98% on room air. HEENT: Conjunctivae normal. NECK: No jugular venous distention. Cardiovascular system: S1, S2 muffled. RESPIRATORY: Breath sounds diminished in the bases. A few scattered rhonchi and crackles. Abdomen is soft, nontender. LEGS: No edema. No swelling. CENTRAL NERVOUS SYSTEM: No focal deficits. LABS: At this time shows WBC 20 and sodium 140, potassium 4.5. ASSESSMENT: 1. Chronic obstructive pulmonary disease acute exacerbation with acute hypoxic respiratory failure with possible aspiration pneumonia with significant shortness of breath and sepsis. 2. Increased WBC. 3. History of recent stroke. 4. Asthma. 5. Chronic obstructive pulmonary disease. 6. Status post PEG tube placement. 7. History of cerebrovascular accident, transient ischemic attack. 8. History of gastroesophageal reflux disease. 9. Hypertension. 10.Hyperlipidemia. 11.History of liver disease. 12.History of degenerative joint disease. 13.History of pneumonia. 14.History of change in mental status, metabolic encephalopathy, acute on chronic. 15.History of EtOH abuse remotely. 16.History of hernia repair. 17.History of degenerative joint disease. 18.History of depression. RECOMMENDATIONS AND DISCUSSION: Recommend to continue current medications, continue with monitoring, symptomatic treatment, continue with antibiotics and continue with bronchodilators. Closely follow with pulmonary. Guarded prognosis. Further recommendations to follow. MMODL / IJN: [id number] /
[2018-06-27] MEDS: SODIUM CHLORIDE 0.9% 1,000 ML IV SCH (00:38)
[2018-06-27] MEDS: PIPERACILLIN-TAZOBACTAM 3.375 GM in SODIUM CHLORIDE 0.9% 100 ML IVPB SCH ×2 (00:38→10:03)
[2018-06-27] MEDS: methylPREDNISolone SOD SUCCI 40 MG/ML 1 ML VIAL IV SCH ×2 (05:40→12:31)
[2018-06-27] MEDS: IPRATROPIUM-ALBUTEROL 3 ML NEB INHALATION SCH ×4 (06:55→19:11)
[2018-06-27] MEDS: SYMBICORT 160-4.5 MCG INHALER INHALATION SCH ×2 (06:55→19:11)
[2018-06-27 07:11] LABS: Glucose,Whole Blood 144 mg/dL (75-99)
[2018-06-27] MEDS: guaiFENesin SYRUP 100MG/5ML 200 MG/10 ML CUP PO SCH ×4 (10:01→21:28)
[2018-06-27] MEDS: amLODIPine 5 MG TAB PEG/G-TUBE SCH ×2 (10:02→21:28)
[2018-06-27] MEDS: traMADol 50 MG TAB PEG/G-TUBE PRN ×2 (10:02→16:04)
[2018-06-27] MEDS: POTASSIUM BICARBONATE/CIT AC 20 MEQ TABLET.EFF PEG/G-TUBE SCH ×2 (10:02→21:31)
[2018-06-27] MEDS: ENOXAPARIN 40 MG/0.4 ML SYRINGE SQ SCH (10:02)
[2018-06-27] MEDS: BACLOFEN 10 MG TAB PEG/G-TUBE SCH (10:02)
[2018-06-27] MEDS: ASPIRIN 81 MG PEG/G-TUBE SCH (10:02)
[2018-06-27] MEDS: CYANOCOBALAMIN 500 MCG TAB PEG/G-TUBE SCH (10:02)
[2018-06-27] MEDS: DOCUSATE ORAL SOLN 100 MG/10 ML CUP PO SCH (10:03)
[2018-06-27] MEDS: INSULIN ASPART (NovoLOG) 100 UNIT/ML VIAL SQ SCH ×4 (10:03→21:32)
[2018-06-27] MEDS: METOCLOPRAMIDE 5 MG TAB PEG/G-TUBE SCH ×3 (10:03→17:09)
[2018-06-27] MEDS: FERROUS SULFATE ORAL ELIXIR 300 MG/5 ML CUP PEG/G-TUBE SCH (10:03)
[2018-06-27] MEDS: PANTOPRAZOLE 40 MG/10 ML VIAL IVP SCH (10:06)
[2018-06-27] MEDS: PARoxetine 10 MG TAB PEG/G-TUBE SCH (10:06)
[2018-06-27] MEDS ORDERED: APIXABAN 5 MG TAB PO SCH (11:00)
[2018-06-27 11:30] LABS: Anisocytosis Slight; Basophils % (A) 0 %; Eosinophils # (A) 0.1 k/uL (0-0.7); Eosinophils % (A) 0 %; HCT 41.7 % (39.0-53.0); HGB 13.1 gm/dL (13.0-17.5); Lymphocytes # (A) 0.4 k/uL (1.0-4.8); Lymphocytes % (A) 2 %; MCH 26.3 pg (25.0-35.0); MCHC 31.3 g/dL (31.0-37.0); MCV 84.1 fL (80.0-100.0); Mean Platelet Volume 7.7; Monocytes # (A) 0.8 k/uL (0-1.0); Monocytes % (A) 5 %; Neutrophils # (A) 14.9 k/uL (1.3-7.7); Neutrophils % (A) 91 %; Platelet Count 287 k/uL (150-450); RBC 4.96 m/uL (4.30-5.90); RDW 16.4 % (11.5-15.5); WBC 16.3 k/uL (3.8-10.6)
[2018-06-27 11:40] VITALS: BMI 21.8
[2018-06-27 11:47] LABS: Anion Gap 8 mmol/L; Blood Urea Nitrogen 35 mg/dL (9-20); Calcium 9.2 mg/dL (8.4-10.2); Carbon Dioxide 25 mmol/L (22-30); Chloride 108 mmol/L (98-107); Glucose 169 mg/dL (74-99); Potassium 4.8 mmol/L (3.5-5.1); Sodium 141 mmol/L (137-145)
[2018-06-27 12:02] LABS: Glucose,Whole Blood 135 mg/dL (75-99)
--- NOTE | 2018-06-27 13:22 | P.CRDCN ---
History of Present Illness History of present illness: This is a pleasant 73-year-old male past medical history significant for recent CVA 12/2017 with ongoing dysphagia s/p PEG tube placement, hypertension, dyslipidemia and liver disease with history of alcohol abuse quit 20 years ago. He denies history of coronary artery disease in the past. He recently established in the office with Dr. Hill. He has been seen in the hospital twice as well. Both times are for possible atrial fibrillation. Both times it was determined he has multi-focal atrial rhythm with NO evidence of a- fib. He is currently being treated for pneumonia and acute exacerbation of COPD. Last night while doing an assessment the nurse noted his heart rate was ir regular and and EKG was obtained. EKG reviewed and revels mult-focal atrial rhythm, not atrial fibrillation. Most especially in lead I there are clear cut P-waves prior to every QRS complex. He denies feeling any chest pain or palpitations. He is short of breath with conversation but states this to be his baseline. Laboratory data reviewed, WBC 16.3, hemoglobin 13.1, platelets 287, sodium 141, potassium 4.8, creatinine 2.65, cardiac enzymes negative 1, magnesium 1.9, NT proBNP 62. Chest x-ray on admission is negative for an acute cardiopulmonary process. Current cardiac medications include atorvastatin 10 mg daily, clonidine 0.1 mg patch, aspirin 81 mg daily and amlodipine 5 mg daily. Most recent echocardiogram December 2017 reveals preserved left ventricular systolic function with ejection fraction 55-60%, moderate concentric left ventricular hypertrophy, mild mitral regurgitation and mild tricuspid regurgitation. At the time of my exam: CONSTITUTIONAL: Denies fever. Denies chills. EYES: Denies blurred vision. Denies vision changes. Denies eye pain. EARS, NOSE, MOUTH & THROAT: Denies headache. Denies sore throat. Denies ear pain. CARDIOVASCULAR: Denies chest pain. Complains of shortness of breath. Denies orthopnea. Denies PND. Denies palpitations. RESPIRATORY: Complains of cough. GASTROINTESTINAL: Denies abdominal pain. Denies diarrhea. Denies constipation. Denies nausea. Denies vomiting. MUSCULOSKELETAL: Denies myalgias. INTEGUMENTARY: Denies pruitis. Denies rash. NEUROLOGIC: Denies numbness. Denies tingling. Denies weakness. PSYCHIATRIC: Denies anxiety. Denies depression. ENDOCRINE: Denies fatigue. Denies weight change. Denies polydipsia. Denies polyurina. GENITOURINARY: Denies burning, hematuria or urgency with micturation. HEMATOLOGIC: Denies history of anemia. Denies bleeding. Blood pressure 110/66 heart rate 62 afebrile maintaining oxygen saturation on r oom air GENERAL: This is a 73-year-old male in no apparent distress at the time of my examination. HEENT: Head is atraumatic, normocephalic. Pupils are equal, round. Sclerae anicteric. Conjunctivae are clear. Mucous membranes of the mouth are moist. Neck is supple. There is no jugular venous distention. No carotid bruit is heard. LUNGS: Clear to auscultation no rales or rhonchi. No chest wall tenderness is noted on palpation or with deep breathing. Diminished bilaterally. Faint expir atory wheezes noted. HEART: Irregular rate and rhythm without murmurs, rubs or gallops. S1 and S2 he mynor. ABDOMEN: Soft, nontender. Bowel sounds are heard. No organomegaly noted. PEG tube in place. EXTREMITIES: No evidence of peripheral edema and no calf tenderness noted. VASCULAR: Radial and dorsalis pedis pulses palpated, no evidence of clubbing. NEUROLOGIC: Patient is awake, alert and oriented x3. ASSESSMENT Multifocal atrial rhythm Acute hypoxic respiratory failure secondary to COPD and tracheobronchitis History of CVA with dysphasia status post PEG tube placement Hypertension Dyslipidemia PLAN No evidence of atrial fibrillation. Ongoing medical management. Follow-up with Dr. Hill upon discharge. Thank you kindly for this consultation. Nurse Practitioner note has been reviewed, I agree with a documented findings and plan of care. Patient was seen and examined. Past Medical History Past Medical History: Asthma, Cancer, COPD, CVA/TIA, Eye Disorder, GERD/Reflux, Hyperlipidemia, Hypertension, Liver Disease, Osteoarthritis (OA), Pneumonia Additional Past Medical History / Comment(s): 01/2018 CVA with chronic dy sphagia-has peg tube and is NPO, aspiration pneumonia, childhood asthma, liver "problem" before which pt states he was told was d/t taking tylenol #3, past ETOH abuse-sober for 19yrs then started drinking 1-2 beers on occasion only and none for past 4 months, arthritis-bilateral shoulder and knee pains, skin cancer removed from nose. History of Any Multi-Drug Resistant Organisms: None Reported Past Surgical History: Hernia Repair Additional Past Surgical History / Comment(s): EGD/Peg tube, colonoscopy, total R knee arthroplasty, bilateral knee arthroscopies, R foot titanium implant, bilateral shoulder surgery, L/R inguinal hernia repairs, septoplasty and skin cancer removed from nose. Past Anesthesia/Blood Transfusion Reactions: No Reported Reaction Additional Past Anesthesia/Blood Transfusion Reaction / Comment(s): Pt received blood as a . Smoking Status: Former smoker - Past Family History Father Family Medical History: Cancer Additional Family Medical History / Comment(s): Father had prostrate cancer. He is . Mother Family Medical History: Cancer, Thyroid Disorder Additional Family Medical History / Comment(s): Mother is . Pt states she had thyroid disease/surgeries. He thinks she had cancer in her "back". Medications and Allergies Home Medications Medication Instructions Recorded Confirmed Type Acetaminophen Tab [Tylenol] 500 mg PEG/G-TUBE Q12H PRN 01/10/18 06/23/18 History Cyanocobalamin [Vitamin B-12] 500 mcg PEG/G-TUBE DAILY 01/10/18 06/23/18 History Terazosin [Hytrin] 5 mg PEG/G-TUBE HS 01/10/18 06/23/18 History amLODIPine [Norvasc] 5 mg PEG/G-TUBE BID 01/10/18 06/23/18 History traZODone HCL 100 mg PEG/G-TUBE HS 01/10/18 06/23/18 History Baclofen [Lioresal] 10 mg PEG/G-TUBE QAM 03/01/18 06/23/18 History Melatonin 3 mg PEG/G-TUBE HS 03/01/18 06/23/18 History Metoclopramide [Reglan] 5 mg PEG/G-TUBE TID@0800,1200,1800 03/01/18 06/23/18 History PARoxetine [Paxil] 10 mg PEG/G-TUBE DAILY 03/01/18 06/23/18 History Potassium Chloride Oral Liquid 10 meq PEG/G-TUBE BID 03/01/18 06/23/18 History diphenhydrAMINE ELIXIR [Benadryl 25 mg PEG/G-TUBE Q6H PRN 03/01/18 06/23/18 History Elixir] Atorvastatin Calcium [Lipitor] 10 mg PEG/G-TUBE HS 03/02/18 06/23/18 History traMADol HCL [Ultram] 100 mg PEG/G-TUBE Q6HR PRN 3 Days 04/05/18 06/23/18 Rx #12 tablet Aspirin 81 mg PEG/G-TUBE DAILY 06/23/18 06/23/18 History Ferrous Sulfate 330 mg PEG/G-TUBE DAILY 06/23/18 06/23/18 History LORazepam [Ativan] 1 mg PEG/G-TUBE DAILY PRN 06/23/18 06/23/18 History Pantoprazole Sodium Packet 1 packet PEG/G-TUBE DAILY@1200 06/23/18 06/23/18 History Sulfamethox-Tmp 200-40Mg/5Ml 100 mg PEG/G-TUBE BID 06/23/18 06/23/18 History [Bactrim Suspension] cloNIDine 0.1 MG/24HR PATCH 1 patch TRANSDERM TH 06/23/18 06/23/18 History [Catapres-TTS] methylPREDNISolone [Medrol Dose See Taper PEG/G-TUBE DIRECTED 06/23/18 06/23/18 History Pack] Allergies Allergy/AdvReac Type Severity Reaction Status Date / Time lisinopril Allergy Unknown Verified 06/23/18 13:43 simvastatin [From Zocor] Allergy Unknown Verified 06/23/18 13:43 Physical Exam Vitals: Vital Signs Temp Pulse Pulse Resp BP Pulse Ox 06/27/18 11:31 80 06/27/18 11:20 84 06/27/18 07:07 80 06/27/18 06:55 76 06/27/18 05:10 97.3 F L 62 20 110/66 94 L 06/26/18 21:00 97.7 F 100 26 H 121/77 94 L 06/26/18 20:01 78 06/26/18 19:52 80 06/26/18 16:11 82 06/26/18 15:58 80 97 06/26/18 15:16 68 18 06/26/18 15:00 98.1 F 68 18 110/66 92 L Intake and Output 06/26/18 06/27/18 06/27/18 22:59 06:59 14:59 Intake Total 280 560 0 Output Total 200 2 2 Balance 80 558 -2 Intake: Oral 0 Tube Feeding 280 560 0 Output: Urine 200 Stool 2 2 Other: Voiding Method Urinal Urinal # Voids 1 2 # Bowel Movements 1 Weight 65.2 kg Results 06/27/18 10:37 06/27/18 10:37 CBC 06/26/18 06/27/18 Range/Units 11:22 10:37 WBC 20.0 H 16.3 H (3.8-10.6) k/uL RBC 5.02 4.96 (4.30-5.90) m/uL Hgb 13.1 13.1 (13.0-17.5) gm/dL Hct 43.0 41.7 (39.0-53.0) % Plt Count 302 287 (150-450) k/uL Comprehensive Metabolic Panel 06/26/18 06/27/18 Range/Units 11:22 10:37 Sodium 143 141 (137-145) mmol/L Potassium 4.5 4.8 (3.5-5.1) mmol/L Chloride 109 H 108 H (98-107) mmol/L Carbon Dioxide 24 25 (22-30) mmol/L BUN 35 H 35 H (9-20) mg/dL Creatinine 0.67 0.65 L (0.66-1.25) mg/dL Glucose 83 169 H (74-99) mg/dL Calcium 9.5 9.2 (8.4-10.2) mg/dL Current Medications Generic Name Dose Route Start Last Admin Trade Name Freq PRN Reason Stop Dose Admin Acetaminophen 500 mg 06/23/18 16:57 Tylenol Tab PEG/G-TUBE Q12H PRN Pain Albuterol/Ipratropium 3 ml 06/23/18 16:00 06/27/18 11:20 Duoneb 0.5 Mg-3 Mg/3 Ml Soln INHALATION 3 ml RT-QID DEENA Administration Amlodipine Besylate 5 mg 06/23/18 21:00 06/27/18 10:02 Norvasc PEG/G-TUBE 5 mg BID DEENA Administration Aspirin 81 mg 06/24/18 09:00 06/27/18 10:02 Aspirin PEG/G-TUBE 81 mg DAILY DEENA Administration Atorvastatin Calcium 10 mg 06/23/18 21:00 06/26/18 21:24 Lipitor PEG/G-TUBE 10 mg HS DEENA Administration Baclofen 10 mg 06/24/18 09:00 06/27/18 10:02 Lioresal PEG/G-TUBE 10 mg QAM DEENA Administration Bisacodyl 10 mg 06/26/18 11:14 06/26/18 21:26 Dulcolax RECTAL 10 mg DAILY PRN Administration Constipation Budesonide/Formoterol Fumarate 2 puff 06/24/18 20:00 06/27/18 06:55 Symbicort 160-4.5 Mcg Inhaler INHALATION 2 puff RT-BID DEENA Administration Clonidine HCl 1 patch 06/23/18 18:00 06/23/18 18:51 Catapres-Tts 0.1mg Patch TRANSDERM 1 patch TH DEENA Administration Cyanocobalamin 500 mcg 06/24/18 09:00 06/27/18 10:02 Vitamin B-12 PEG/G-TUBE 500 mcg DAILY DEENA Administration Diphenhydramine HCl 25 mg 06/23/18 16:57 06/25/18 18:09 Benadryl Elixir PEG/G-TUBE 25 mg Q6H PRN Administration Itching Docusate Sodium 100 mg 06/26/18 12:00 06/27/18 10:03 Colace Oral Soln PO 100 mg DAILY DEENA Administration Doxazosin Mesylate 4 mg 06/23/18 21:00 06/26/18 21:24 Cardura PEG/G-TUBE 4 mg HS DEENA Administration Ferrous Sulfate 300 mg 06/24/18 09:00 06/27/18 10:03 Feosol PEG/G-TUBE 300 mg DAILY DEENA Administration Guaifenesin 300 mg 06/24/18 11:00 06/27/18 10:01 Robitussin PO 300 mg QID DEENA Administration Sodium Chloride 1,000 mls @ 20 mls/hr 06/23/18 14:45 06/27/18 00:38 Saline 0.9% IV Not Given .Q24H DEENA Piperacillin Sod/Tazobactam 100 mls @ 25 mls/hr 06/24/18 10:15 06/27/18 10:03 Sod 3.375 gm/ Sodium Chloride IVPB 25 mls/hr Q8HR DEENA Administration Insulin Aspart 0 unit 06/23/18 17:30 06/27/18 10:03 Novolog SQ 2 unit ACHS DEENA Administration Protocol Lorazepam 1 mg 06/23/18 16:57 06/24/18 13:33 Ativan PEG/G-TUBE 1 mg DAILY PRN Administration Anxiety Melatonin 3 mg 06/23/18 21:00 06/26/18 21:25 Melatonin PEG/G-TUBE 3 mg HS DEENA Administration Methylprednisolone Sodium Succinate 40 mg 06/26/18 22:00 06/27/18 05:40 Solu-Medrol IV 40 mg Q8H DEENA Administration Metoclopramide HCl 5 mg 06/23/18 18:00 06/27/18 10:03 Reglan PEG/G-TUBE 5 mg TID@0800,1200,1800 DEENA Administration Pantoprazole Sodium 40 mg 06/23/18 21:45 06/27/18 10:06 Protonix IVP 40 mg DAILY DEENA Administration Paroxetine HCl 10 mg 06/24/18 09:00 06/27/18 10:06 Paxil PEG/G-TUBE 10 mg DAILY DEENA Administration Potassium Bicarbonate 10 meq 06/23/18 21:00 06/27/18 10:02 K-Lyte PEG/G-TUBE 10 meq BID DEENA Administration Tramadol HCl 100 mg 06/23/18 16:57 06/27/18 10:02 Ultram PEG/G-TUBE 100 mg Q6HR PRN Administration Pain Trazodone HCl 100 mg 06/23/18 21:00 06/26/18 21:26 Desyrel PEG/G-TUBE 100 mg HS DEENA Administration Intake and Output 06/26/18 06/27/18 06/27/18 22:59 06:59 14:59 Intake Total 280 560 0 Output Total 200 2 2 Balance 80 558 -2 Intake: Oral 0 Tube Feeding 280 560 0 Output: Urine 200 Stool 2 2 Other: Voiding Method Urinal Urinal # Voids 1 2 # Bowel Movements 1 Weight 65.2 kg Patient Weight 06/28/18 06:59 Weight 65.2 kg 06/27/18 10:37 06/27/18 10:37
--- NOTE | 2018-06-27 14:18 | P.PN ---
Subjective Progress Note Date: 06/27/18 Principal diagnosis: acute hypoxic respiratory failure secondary to acute exacerbation of COPD complicated by purulent tracheobronchitis This is a pleasant 73-year-old gentleman who follows with [facility] for his primary care needs. He has a history of hyperlipidemia, hypertension, osteoarthritis, liver disease with previous alcohol abuse however quit 20 years ago, previous smoker. 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 He has left-sided weakness and dysphagia. He required PEG tube placement. He was brought into the emergency room yesterday with complaints of increasing shortness of breath cough and congestion. He was currently undergoi ng treatment for bronchitis without significant improvement. He was on Bactrim and a Medrol Dosepak. His chest x-ray shows no acute pulmonary process. White count 14.9. Hemoglobin 13.1. Creatinine 0.76. He's been initiated on bronchodilators and IV Solu-Medrol. He was given a dose of Levaquin. He is seen today in consultation on the regular medical floor. He is currently awake and alert in no acute distress. He is saturating in the upper 90s on 2 L/m per nasal cannula. He's been afebrile. Hemodynamically stable. Reevaluated today on 06/25/2018, patient is feeling better, breathing easier, less cough and less wheezing less shortness of breath. Patient is resting in bed, relatively asymptomatic. Continues to have leukocytosis with WBC count of 20.8, hemoglobin is 12, electrolytes and renal profile are normal. Chest x-ray on admission showed mostly atelectasis at the right lung base, no clear-cut evidence of pneumonia. The patient is seen today 06/26/2018 in follow-up on the regular medical floor. He is currently sitting up at the bedside. Awake and alert in no acute d istress. Not requiring any oxygen supplementation. No worsening shortness of breath, cough or congestion. Urine culture is pending. White count 20.0. Hemoglobin 13.1. Creatinine 0.67. He remains on DuoNeb inhalations, Symbicort, IV Solu-Medrol and Zosyn. On 06/27/2018 patient seen in follow-up on medical surgical floor. He is doing well, no acute distress, his vitals are stable, room air pulse ox is 94%, patient is afebrile, his respirations are shallow and tachypneic, but patient states she is in no distress, and that sees usual pattern of breathing. He is having the echocardiogram done, denies any chest pain, denies any worsening cough or congestion. no new chest x-rays today, patient has been evaluated by cardiology the possibility of atrial fibrillation, which has been ruled out by cardiology. 1 set of troponins was negative, proBNP was 62. Objective - Vital Signs Vital signs: Vital Signs Temp 97.4 F L 06/27/18 13:15 Pulse 83 06/27/18 13:15 Resp 30 H 06/27/18 13:15 BP 135/72 06/27/18 13:15 Pulse Ox 94 L 06/27/18 13:15 Intake & Output 06/26/18 06/27/18 06/27/18 18:59 06:59 18:59 Intake Total 0 840 0 Output Total 500 102 204 Balance -500 738 -204 Weight 65.2 kg 65.2 kg Intake: Oral 0 Tube Feeding 0 840 0 Output: Urine 500 100 200 Stool 2 4 Other: Voiding Method Urinal Urinal Urinal # Voids 1 2 3 # Bowel Movements 1 - Exam GENERAL EXAM: Alert, pleasant, 73-year-old white male on room air comfortable in no apparent distress. HEAD: Normocephalic/atraumatic. EYES: Normal reaction of pupils, equal size. Conjunctiva pink, sclera white. NOSE: Clear with pink turbinates. THROAT: No erythema or exudates. NECK: No masses, no JVD, no thyroid enlargement, no adenopathy. CHEST: No chest wall deformity. Symmetrical expansion. LUNGS: Equal air entry with no crackles, wheeze, rhonchi or dullness. CVS: Regular rate and rhythm, normal S1 and S2, no gallops, no murmurs, no rubs ABDOMEN: Soft, nontender. No hepatosplenomegaly, normal bowel sounds, no guarding or rigidity. EXTREMITIES: No clubbing, no edema, no cyanosis, 2+ pulses and upper and lower extremities. MUSCULOSKELETAL: Muscle strength and tone normal. SPINE: No scoliosis or deformity SKIN: No rashes CENTRAL NERVOUS SYSTEM: Alert and oriented -3. No focal deficits, tone is normal in all 4 extremities. PSYCHIATRIC: Alert and oriented -3. Appropriate affect. Intact judgment and insight. - Labs CBC & Chem 7: 06/27/18 10:37 06/27/18 10:37 Labs: Abnormal Lab Results - Last 24 Hours (Table) 06/26/18 06/26/18 06/27/18 Range/Units 17:10 20:46 06:50 WBC (3.8-10.6) k/uL RDW (11.5-15.5) % Neutrophils # (1.3-7.7) k/uL Lymphocytes # (1.0-4.8) k/uL Chloride (98-107) mmol/L BUN (9-20) mg/dL Creatinine (0.66-1.25) mg/dL Glucose (74-99) mg/dL POC Glucose (mg/dL) 129 H 176 H 144 H (75-99) mg/dL 06/27/18 06/27/18 06/27/18 Range/Units 10:37 10:37 11:57 WBC 16.3 H (3.8-10.6) k/uL RDW 16.4 H (11.5-15.5) % Neutrophils # 14.9 H (1.3-7.7) k/uL Lymphocytes # 0.4 L (1.0-4.8) k/uL Chloride 108 H (98-107) mmol/L BUN 35 H (9-20) mg/dL Creatinine 0.65 L (0.66-1.25) mg/dL Glucose 169 H (74-99) mg/dL POC Glucose (mg/dL) 135 H (75-99) mg/dL Microbiology - Last 24 Hours (Table) 06/26/18 07:14 Urine Culture - Final Urine,Clean Catch 06/25/18 20:40 Blood Culture - Preliminary Blood No Growth after 24 hours Assessment and Plan Plan: Assessment: #1 Acute hypoxemic respiratory failure secondary to an acute exacerbation of chronic obstructive pulmonary disease, complicated by purulent tracheobronchitis. No clear evidence of aspiration pneumonia. Failed outpatient treatment. #2 CVA with dysphagia requiring PEG tube insertion. #3 Hypertension. #4 Hyperlipidemia. #5 History of gastroesophageal reflux disease. #6 Degenerative joint disease. #7 History of liver disease. Plan: Patient is stable from pulmonary perspective, no cough, no chest congestion, no wheezing, no shortness of breath. He is being treated for COPD exacerbation and tracheobronchitis, his vitals have been stable, no fever or chills. We'll switch his IV steroids to oral prednisone, and his IV antibiotics to oral. Increase activity as tolerated, continue with nebulized bronchodilators. Patient can possibly be considered for discharge in the next 24 hours. I performed a history & physical examination of the patient and discussed their management with my nurse practitioner, Zaira Clifford. I reviewed the nurse practitioner's note and agree with the documented findings and plan of care. Lung sounds are positive for clear breath sounds. The findings and the impression was discussed with the patient. I attest to the documentation by the nurse practitioner. Time with Patient: Less than 30
[2018-06-27 17:53] LABS: Glucose,Whole Blood 199 mg/dL (75-99)
--- NOTE | 2018-06-27 18:12 | PN ---
PROGRESS NOTE DATE OF SERVICE: 06/27/2018 This 73-year-old gentleman who was admitted with COPD exacerbation with acute hypoxic respiratory failure is being closely monitored. No chest pain. No palpitations. No fever. Possibility of aspiration pneumonia is also being considered. The patient also had multifocal atrial tachycardia per Cardiology. No chest pain. No palpitations. No fever. EXAM: Alert and oriented x2. The pulse is 83, blood pressure is 135/72, respirations 30, temperature 97.4, pulse ox 94% on room air. HEENT: Conjunctivae normal. NECK: No jugular venous distention. CARDIOVASCULAR: S1, S2 muffled. RESPIRATION: Breath sounds diminished in the bases. Bilateral scattered rhonchi and crackles. ABDOMEN: Soft, nontender. LEGS: No edema. No swelling. CENTRAL NERVOUS SYSTEM: No focal deficits. LABS: WBC 16.2, hemoglobin 13.1, sodium 140, potassium 4.8. Glucose noted. ASSESSMENT: 1. Chronic obstructive pulmonary disease acute exacerbation with acute hypoxic respiratory failure with possible aspiration pneumonia with significant shortness of breath and sepsis present on admission. 2. Increased WBC. 3. Multifocal atrial tachycardia. 4. History of recent stroke. 5. Asthma. 6. Chronic obstructive pulmonary disease. 7. Status post PEG tube placement. 8. History of cerebrovascular accident, transient ischemic attack. 9. Gastroesophageal reflux disease. 10.Hypertension. 11.Hyperlipidemia. 12.History of chronic liver disease. 13.History of degenerative joint disease. 14.History of pneumonia. 15.History of change in mental status metabolic encephalopathy, acute on chronic. 16.History of ETOH use remotely. 17.History of hernia repair. 18.History of degenerative joint disease. 19.History of depression. RECOMMENDATIONS AND DISCUSSION: Recommend to continue current medications, continue monitoring, symptomatic treatment. Otherwise, at this time, we will monitor the patient closely. Continue with current medications. Continue symptomatic treatment. Otherwise, at this time, I recommend continue with the bronchodilators. Continue with empiric antibiotics. The patient's swallow evaluation noted. Guarded prognosis. Further recommendations to follow. MMODL / IJN: [id number] /
[2018-06-27] MEDS ORDERED: APIXABAN 5 MG TAB PEG/G-TUBE SCH (21:00)
[2018-06-27] MEDS: AMOXIC-POT CLAV 875-125MG 1 EACH TAB PO SCH (21:28)
[2018-06-27] MEDS: DOXAZOSIN 4 MG TAB PEG/G-TUBE SCH (21:28)
[2018-06-27] MEDS: ATORVASTATIN 10 MG TAB PEG/G-TUBE SCH (21:28)
[2018-06-27] MEDS: MELATONIN 3 MG TABLET PEG/G-TUBE SCH (21:28)
[2018-06-27] MEDS: traZODone HCL 100 MG TAB PEG/G-TUBE SCH (21:28)
[2018-06-27 23:13] LABS: Glucose,Whole Blood 131 mg/dL (75-99)
[2018-06-28] MEDS: SODIUM CHLORIDE 0.9% 1,000 ML IV SCH (00:17)
[2018-06-28] MEDS: INSULIN ASPART (NovoLOG) 100 UNIT/ML VIAL SQ SCH (06:55)
[2018-06-28 06:56] LABS: Glucose,Whole Blood 106 mg/dL (75-99)
[2018-06-28 07:44] VITALS: BP 128/70; RESP 20; TEMP 98.1
[2018-06-28] MEDS: PANTOPRAZOLE 40 MG/10 ML VIAL IVP SCH (07:46)
[2018-06-28] MEDS: guaiFENesin SYRUP 100MG/5ML 200 MG/10 ML CUP PO SCH (07:46)
[2018-06-28] MEDS: ASPIRIN 81 MG PEG/G-TUBE SCH (07:47)
[2018-06-28] MEDS: CYANOCOBALAMIN 500 MCG TAB PEG/G-TUBE SCH (07:47)
[2018-06-28] MEDS: PARoxetine 10 MG TAB PEG/G-TUBE SCH (07:47)
[2018-06-28] MEDS: AMOXIC-POT CLAV 875-125MG 1 EACH TAB PO SCH (07:47)
[2018-06-28] MEDS: amLODIPine 5 MG TAB PEG/G-TUBE SCH (07:47)
[2018-06-28] MEDS: BACLOFEN 10 MG TAB PEG/G-TUBE SCH (07:47)
[2018-06-28] MEDS: METOCLOPRAMIDE 5 MG TAB PEG/G-TUBE SCH (07:48)
[2018-06-28] MEDS: DOCUSATE ORAL SOLN 100 MG/10 ML CUP PO SCH (07:48)
[2018-06-28] MEDS: FERROUS SULFATE ORAL ELIXIR 300 MG/5 ML CUP PEG/G-TUBE SCH (07:49)
[2018-06-28] MEDS: POTASSIUM BICARBONATE/CIT AC 20 MEQ TABLET.EFF PEG/G-TUBE SCH (07:49)
[2018-06-28] MEDS: SYMBICORT 160-4.5 MCG INHALER INHALATION SCH (07:50)
[2018-06-28] MEDS: IPRATROPIUM-ALBUTEROL 3 ML NEB INHALATION SCH (07:51)
[2018-06-28 08:07] VITALS: PULSE 71
[2018-06-28] MEDS ORDERED: predniSONE 20 MG TAB PO SCH (09:00)
[2018-06-28 11:00] LABS: Anisocytosis Slight; Basophils % (A) 0 %; Eosinophils # (A) 0.1 k/uL (0-0.7); Eosinophils % (A) 1 %; HCT 41.4 % (39.0-53.0); HGB 13.4 gm/dL (13.0-17.5); Lymphocytes # (A) 0.7 k/uL (1.0-4.8); Lymphocytes % (A) 5 %; MCH 26.8 pg (25.0-35.0); MCHC 32.3 g/dL (31.0-37.0); MCV 83.1 fL (80.0-100.0); Mean Platelet Volume 8.1; Monocytes # (A) 0.9 k/uL (0-1.0); Monocytes % (A) 6 %; Neutrophils # (A) 13.3 k/uL (1.3-7.7); Neutrophils % (A) 88 %; Platelet Count 270 k/uL (150-450); RBC 4.98 m/uL (4.30-5.90); RDW 16.2 % (11.5-15.5); WBC 15.1 k/uL (3.8-10.6)
[2018-06-28 11:22] LABS: Anion Gap 5 mmol/L; Blood Urea Nitrogen 30 mg/dL (9-20); Calcium 9.1 mg/dL (8.4-10.2); Carbon Dioxide 28 mmol/L (22-30); Chloride 106 mmol/L (98-107); Glucose 95 mg/dL (74-99); Potassium 4.6 mmol/L (3.5-5.1); Sodium 139 mmol/L (137-145)
--- NOTE | 2018-06-28 12:43 | DS ---
DISCHARGE SUMMARY DATE OF SERVICE: 06/28/2018 FINAL DIAGNOSES: 1. Chronic obstructive pulmonary disease acute exacerbation with acute hypoxic respiratory failure with possibly aspiration pneumonia with significant shortness of breath and sepsis, present on admission. 2. Increased WBC. 3. Multifocal atrial tachycardia. 4. History of recent strokes mass. 5. History of asthma. 6. Chronic obstructive pulmonary disease. 7. History of status post PEG tube placement. 8. History of cerebrovascular accident, transient ischemic attack. 9. Gastroesophageal reflux disease. 10.Hypertension. 11.Hyperlipidemia. 12.History of chronic liver disease. 13.History of degenerative joint disease. 14.History pneumonia. 15.History of change in mental status, metabolic encephalopathy, acute on chronic. 16.History of ETOH, remotely. 17.History of hernia repair. 18.History of degenerative joint disease. 19.Depression. DISCHARGE DISPOSITION: The patient will be discharged in a stable condition with guarded prognosis. HISTORY OF PRESENT ILLNESS: This is a 73-year-old gentleman with a past medical history of multiple medical problems, admitted with COPD exacerbation, pneumonia. Patient treated initially with Cardiology and Pulmonology. Patient was multifocal with atrial tachycardia. The patient improved significantly. On exam, vitals are stable. CARDIOVASCULAR: S1, S2. RESPIRATION: A few scattered rhonchi. ABDOMEN: Soft, nontender. NERVOUS SYSTEM: No focal deficits. Speech Pathology evaluated the patient. Patient also recommended aspiration precautions. Total time taken 35 minutes. DISCHARGE MEDICATIONS: 1. Aspirin 81 mg per PEG daily. 2. Ativan 1 mg per PEG daily. 3. Benadryl 25 mg q.6 p.r.n. 4. Catapres TTS patch. 5. Iron sulfate 330 mg per PEG daily. 6. Hytrin 5 mg q.h.s. 7. [id number] mg per PEG q.a.m. 8. Lipitor 10 mg daily q.h.s. 9. Melatonin 3 mg q.h.s. 10.Norvasc 5 mg b.i.d. 11.Pantoprazole 1 packet daily. 12.Paxil 10 mg per PEG daily. 13.Potassium 10 mEq b.i.d. 14.Reglan 5 mg t.i.d. 15.Trazodone 100 mg per PEG daily. 16.Tylenol 500 mg q.6 p.r.n. 17.Vital B12 five hundred mg p.o. daily. 18.Augmentin 870 mg p.o. b.i.d. for 5 days. 19.Colace follow the patient's diarrhea. 20.Prednisone 40 mg daily for 3 days, 30 for 3 days, 20 for 3 days, 10 for 3 days. 21.Albuterol 2 puffs q.i.d. 22.Robitussin 300 mg p.o. q.i.d. 23.Symbicort 160/4.5 two puffs b.i.d. 24.Ultram 50 mg per PEG q.6 p.r.n. Once again, the patient will be discharged in a stable condition with guarded prognosis. MMODL / IJN: [id number] / MTDD
--- NOTE | 2018-06-28 13:27 | ECHOF ---
Referral Reason:New onset afib MEASUREMENTS -------- HEIGHT: 172.7 cm WEIGHT: 64.9 kg BP: 121/77 RVIDd: 2.4 cm (< 3.3) IVSd: 1.1 cm (0.6 - 1.1) LVIDd: 4.6 cm (3.9 - 5.3) LVPWd: 1.1 cm (0.6 - 1.1) IVSs: 1.3 cm LVIDs: 2.7 cm LVPWs: 1.3 cm LAESV Index (A-L): 28.62 ml/m Ao Diam: 3.6 cm (2.0 - 3.7) AV Cusp: 1.6 cm (1.5 - 2.6) LA Diam: 2.8 cm (2.7 - 3.8) EPSS: 1.9 cm MV E Ariel: 1.02 m/s MV DecT: 268 ms MV A Ariel: 1.21 m/s MV E/A Ratio: 0.84 RAP: 5.00 mmHg RVSP: 25.49 mmHg MV EF SLOPE: 45.13 mm/s (70 - 150) MV EXCURSION: 1.82 cm (> 18.000) FINDINGS -------- Sinus rhythm. This was a technically adequate study. The left ventricular size is normal. There is borderline concentric left ventricular hypertrophy. Overall left ventricular systolic function is normal with, an EF between 55 - 60 %. The right ventricle is normal in size and function. Normal LA size by volume 22+/-6 ml/m2. The right atrium is normal in size. There is mild aortic valve sclerosis. Trace amount of aortic regurgitation. There is no evidence of aortic stenosis. The mitral valve leaflets are mildly thickened. Mild mitral annular calcification present. Mild m itral regurgitation is present. Trace tricuspid regurgitation present. Right ventricular systolic pressure is normal at < 35 mmHg. There is no evidence of pulmonary hypertension. The pulmonic valve was not well visualized. The aortic root size is normal. IVC Not well visulized. There is no pericardial effusion. CONCLUSIONS -------- 1. Sinus rhythm. 2. This was a technically adequate study. 3. The left ventricular size is normal. 4. There is borderline concentric left ventricular hypertrophy. 5. Overall left ventricular systolic function is normal with, an EF between 55 - 60 %. 6. Normal LA size by volume 22+/-6 ml/m2. 7. There is mild aortic valve sclerosis. 8. Trace amount of aortic regurgitation. 9. The mitral valve leaflets are mildly thickened. 10. Mild mitral annular calcification present. 11. Mild mitral regurgitation is present. 12. Trace tricuspid regurgitation present. 13. Right ventricular systolic pressure is normal at < 35 mmHg. 14. There is no evidence of pulmonary hypertension. 15. The pulmonic valve was not well visualized. 16. The aortic root size is normal. 17. IVC Not well visulized. 18. There is no pericardial effusion. WAREHOUSE SELECTOR: Taiwo Ca RDCS
== END 2018-06-28 11:24 | disposition home or self-care (01) | DRG 871 ==
LOC: EC 12:05 → 4MS4W 14:37
PROVIDERS: ADMIT Hospitalist; ATTEND Hospitalist
DX: A41.9 Sepsis, unspecified organism (principal); J69.0 Pneumonitis due to inhalation of food and vomit; J96.01 Acute respiratory failure with hypoxia; G93.41 Metabolic encephalopathy; I47.1 Supraventricular tachycardia; I69.354 Hemiplegia and hemiparesis following cerebral infarction affecting left non-dominant side; J44.1 Chronic obstructive pulmonary disease with (acute) exacerbation; J98.11 Atelectasis; Z87.891 Personal history of nicotine dependence; E78.5 Hyperlipidemia, unspecified; F32.9 Major depressive disorder, single episode, unspecified; I69.391 Dysphagia following cerebral infarction; R13.10 Dysphagia, unspecified; K21.9 Gastro-esophageal reflux disease without esophagitis; K76.9 Liver disease, unspecified; M19.90 Unspecified osteoarthritis, unspecified site; Z79.82 Long term (current) use of aspirin; Z79.899 Other long term (current) drug therapy; Z80.42 Family history of malignant neoplasm of prostate; Z85.828 Personal history of other malignant neoplasm of skin; Z87.01 Personal history of pneumonia (recurrent); Z93.1 Gastrostomy status; Z96.651 Presence of right artificial knee joint; M19.012 Primary osteoarthritis, left shoulder; M19.011 Primary osteoarthritis, right shoulder; I10 Essential (primary) hypertension; Z79.2 Long term (current) use of antibiotics; Z80.8 Family history of malignant neoplasm of other organs or systems
CPT/HCPCS: 36415; 71046; 80048; 80053; 83735; 83880; 84484; 85025; 85610; 85730; 87040; 87086; 93005; 93306; 94640; 96361; 96374; 96375; 99291

== ENCOUNTER 2018-10-18 10:51 | Emergency (ER) | payer MEDICARE, OTHER ==
[2018-10-18 10:56] VITALS: TEMP 98.5
[2018-10-18] MEDS ORDERED: SODIUM CHLORIDE 0.9% 1,000 ML IV STA (11:06)
[2018-10-18] MEDS ORDERED: LORazepam 2 MG/ML INJ IV STA (11:07)
[2018-10-18 11:32] LABS: Basophils # (A) 0.1 k/uL (0-0.2); Basophils % (A) 1 %; Eosinophils # (A) 0.7 k/uL (0-0.7); Eosinophils % (A) 6 %; HCT 46.1 % (39.0-53.0); HGB 14.9 gm/dL (13.0-17.5); Lymphocytes % (A) 8 %; MCH 28.1 pg (25.0-35.0); MCHC 32.2 g/dL (31.0-37.0); MCV 87.3 fL (80.0-100.0); Mean Platelet Volume 8.4; Monocytes # (A) 0.6 k/uL (0-1.0); Monocytes % (A) 5 %; Neutrophils # (A) 9.6 k/uL (1.3-7.7); Neutrophils % (A) 79 %; Platelet Count 244 k/uL (150-450); RBC 5.28 m/uL (4.30-5.90); RDW 14.8 % (11.5-15.5); WBC 12.1 k/uL (3.8-10.6)
[2018-10-18 11:35] LABS: ALT 110 U/L (21-72); AST 57 U/L (17-59); African American GFR (CKD) >90 (>60 ml/min/1.73 sqM); Albumin 4.6 g/dL (3.5-5.0); Alkaline Phosphatase 132 U/L (38-126); Anion Gap 7 mmol/L; Blood Urea Nitrogen 28 mg/dL (9-20); Calcium 9.7 mg/dL (8.4-10.2); Carbon Dioxide 28 mmol/L (22-30); Chloride 108 mmol/L (98-107); Creatine Kinase 45 U/L (55-170); Glucose 110 mg/dL (74-99); Magnesium 2.2 mg/dL (1.6-2.3); Sodium 143 mmol/L (137-145); Total Bilirubin 0.6 mg/dL (0.2-1.3); Total Protein 7.2 g/dL (6.3-8.2)
--- NOTE | 2018-10-18 11:38 | XR ---
EXAMINATION TYPE: XR chest 2V DATE OF EXAM: 10/18/2018 COMPARISON: 11/23/2018 HISTORY: Mild shortness of breath and lower extremity numbness TECHNIQUE: Frontal and lateral views of the chest are obtained. FINDINGS: Moderate multilevel degenerative changes of the spine. Cardiomediastinal silhouette is wit hin normal limits. No focal consolidation, pleural effusion or pneumothorax. Again the patient is rot ated shifting the mediastinum to the left with tortuosity of the descending thoracic aorta. Generaliz ed osseous demineralization is seen. IMPRESSION: No acute cardiopulmonary process.
[2018-10-18 11:41] LABS: D-Dimer 0.38 mg/L FEU (<0.60); INR 0.9 (<1.2); Partial Thromboplastin Time 24.5 sec (22.0-30.0); Prothrombin Time 9.5 sec (9.0-12.0)
[2018-10-18 12:03] LABS: Potassium 5.6 mmol/L (3.5-5.1)
--- NOTE | 2018-10-18 12:39 | ED ---
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 Per his caregiver he believes it's similar to the same problem is had he has been on Ativan without much success he does not seem to last long enough. Is also benign other medication which does not seem to be keeping him from demonstrating shortness of breath. He's had no fevers chills nausea vomiting sweats or other symptoms MD Complaint: shortness of breath - Related Data Home Medications Medication Instructions Recorded Confirmed Cyanocobalamin [Vitamin B-12] 500 mcg PEG/G-TUBE DAILY 01/10/18 10/18/18 traZODone HCL 100 mg PEG/G-TUBE HS 01/10/18 10/18/18 Baclofen [Lioresal] 10 mg PEG/G-TUBE TID PRN 03/01/18 10/18/18 Melatonin 3 mg PEG/G-TUBE HS 03/01/18 10/18/18 Metoclopramide [Reglan] 5 mg PEG/G-TUBE TID 03/01/18 10/18/18 Potassium Chloride Oral Liquid 20 meq PEG/G-TUBE BID 03/01/18 10/18/18 diphenhydrAMINE ELIXIR [Benadryl 25 mg PEG/G-TUBE Q6H PRN 03/01/18 10/18/18 Elixir] Aspirin 81 mg PEG/G-TUBE DAILY 06/23/18 10/18/18 Ferrous Sulfate 330 mg PEG/G-TUBE DAILY 06/23/18 10/18/18 Pantoprazole Sodium Packet 1 packet PEG/G-TUBE DAILY@1200 06/23/18 10/18/18 cloNIDine 0.1 MG/24HR PATCH 1 patch TRANSDERM TH 06/23/18 10/18/18 [Catapres-TTS] LORazepam [Ativan] 0.5 mg PEG/G-TUBE DAILY PRN 10/18/18 10/18/18 PARoxetine HCL [Paxil] 40 mg PEG/G-TUBE DAILY 10/18/18 10/18/18 Ranitidine Syrup [Zantac Syrup] 15 mg PEG/G-TUBE BID 10/18/18 10/18/18 Terazosin [Hytrin] 5 mg PO HS 10/18/18 10/18/18 amLODIPine [Norvasc] 5 mg PEG/G-TUBE BID 10/18/18 10/18/18 Previous Rx's Medication Instructions Recorded traMADol HCL [Ultram] 100 mg PEG/G-TUBE Q6HR PRN 3 Days 04/05/18 #12 tablet clonazePAM [KlonoPIN] 0.5 mg PO BID 3 Days #30 tablet 10/18/18 Allergies Allergy/AdvReac Type Severity Reaction Status Date / Time lisinopril Allergy Unknown Verified 10/18/18 11:35 simvastatin [From Zocor] Allergy Unknown Verified 10/18/18 11:35 Review of Systems ROS Statement: Those systems with pertinent positive or pertinent negative responses have been documented in the HPI. ROS Other: All systems not noted in ROS Statement are negative. Past Medical History Past Medical History: Asthma, Cancer, COPD, CVA/TIA, Eye Disorder, GERD/Reflux, Hyperlipidemia, Hypertension, Liver Disease, Osteoarthritis (OA), Pneumonia Additional Past Medical History / Comment(s): 01/2018 CVA with chronic dysphagia-has peg tube and is NPO, aspiration pneumonia, childhood asthma, liver "problem" before which pt states he was told was d/t taking tylenol #3, past ETOH abuse-sober for 19yrs then started drinking 1-2 beers on occasion only and none for past 4 months, arthritis-bilateral shoulder and knee pains, skin cancer removed from nose. History of Any Multi-Drug Resistant Organisms: None Reported Past Surgical History: Hernia Repair Additional Past Surgical History / Comment(s): EGD/Peg tube, colonoscopy, total R knee arthroplasty, bilateral knee arthroscopies, R foot titanium implant, bilateral shoulder surgery, L/R inguinal hernia repairs, septoplasty and skin cancer removed from nose. Past Anesthesia/Blood Transfusion Reactions: No Reported Reaction Additional Past Anesthesia/Blood Transfusion Reaction / Comment(s): Pt received blood as a . Past Psychological History: Depression Smoking Status: Former smoker - Past Family History Father Family Medical History: Cancer Additional Family Medical History / Comment(s): Father had prostrate cancer. He is . Mother Family Medical History: Cancer, Thyroid Disorder Additional Family Medical History / Comment(s): Mother is . Pt states she had thyroid disease/surgeries. He thinks she had cancer in her "back". General Exam - General Exam Comments Initial Comments: This is a well-developed asthenic appearing male who is noted to be hyperventilating he does have evidence of carpal pedal spasms. Limitations: no limitations General appearance: alert, anxious, in distress Head exam: Present: atraumatic, normocephalic, normal inspection Eye exam: Present: normal appearance, PERRL, EOMI. Absent: scleral icterus, conjunctival injection, periorbital swelling ENT exam: Present: normal exam, mucous membranes moist Neck exam: Present: normal inspection. Absent: tenderness, meningismus, lymphadenopathy Respiratory exam: Present: normal lung sounds bilaterally, other (Tachypnea). Absent: respiratory distress, wheezes, rales, rhonchi, stridor Cardiovascular Exam: Present: normal rhythm, tachycardia, normal heart sounds. Absent: systolic murmur, diastolic murmur, rubs, gallop, clicks GI/Abdominal exam: Present: soft, normal bowel sounds. Absent: distended, tenderness, guarding, rebound, rigid Extremities exam: Present: normal inspection, full ROM, normal capillary refill. Absent: tenderness, pedal edema, joint swelling, calf tenderness Back exam: Present: normal inspection Neurological exam: Present: alert, oriented X3, CN II-XII intact Psychiatric exam: Present: normal affect, normal mood Skin exam: Present: warm, dry, intact, normal color. Absent: rash Course Vital Signs 10/18/18 10:53 Temperature 98.5 F Pulse Rate 102 H Respiratory 40 H Rate Blood Pressure 129/82 O2 Sat by Pulse 94 L Oximetry Medical Decision Making - Medical Decision Making History of a spot well the medication was given he'll be discharged with a trial of Klonopin he is a stop his Ativan. His follow-up with his doctor return when necessary - Lab Data Result diagrams: 10/18/18 11:10 10/18/18 11:10 Lab Results 10/18/18 10/18/18 10/18/18 Range/Units 11:10 11:10 11:10 WBC 12.1 H (3.8-10.6) k/uL RBC 5.28 (4.30-5.90) m/uL Hgb 14.9 (13.0-17.5) gm/dL Hct 46.1 (39.0-53.0) % MCV 87.3 (80.0-100.0) fL MCH 28.1 (25.0-35.0) pg MCHC 32.2 (31.0-37.0) g/dL RDW 14.8 (11.5-15.5) % Plt Count 244 (150-450) k/uL Neutrophils % 79 % Lymphocytes % 8 % Monocytes % 5 % Eosinophils % 6 % Basophils % 1 % Neutrophils # 9.6 H (1.3-7.7) k/uL Lymphocytes # 1.0 (1.0-4.8) k/uL Monocytes # 0.6 (0-1.0) k/uL Eosinophils # 0.7 (0-0.7) k/uL Basophils # 0.1 (0-0.2) k/uL PT 9.5 (9.0-12.0) sec INR 0.9 (<1.2) APTT 24.5 (22.0-30.0) sec D-Dimer 0.38 (<0.60) mg/L FEU Sodium 143 (137-145) mmol/L Potassium 5.6 H (3.5-5.1) mmol/L Chloride 108 H (98-107) mmol/L Carbon Dioxide 28 (22-30) mmol/L Anion Gap 7 mmol/L BUN 28 H (9-20) mg/dL Creatinine 0.75 (0.66-1.25) mg/dL Est GFR (CKD-EPI)AfAm >90 (>60 ml/min/1.73 sqM) Est GFR (CKD-EPI)NonAf >90 (>60 ml/min/1.73 sqM) Glucose 110 H (74-99) mg/dL Calcium 9.7 (8.4-10.2) mg/dL Magnesium 2.2 (1.6-2.3) mg/dL Total Bilirubin 0.6 (0.2-1.3) mg/dL AST 57 (17-59) U/L ALT 110 H (21-72) U/L Alkaline Phosphatase 132 H (38-126) U/L Creatine Kinase 45 L (55-170) U/L Troponin I (0.000-0.034) ng/mL NT-Pro-B Natriuret Pep pg/mL Total Protein 7.2 (6.3-8.2) g/dL Albumin 4.6 (3.5-5.0) g/dL 10/18/18 10/18/18 Range/Units 11:10 11:10 WBC (3.8-10.6) k/uL RBC (4.30-5.90) m/uL Hgb (13.0-17.5) gm/dL Hct (39.0-53.0) % MCV (80.0-100.0) fL MCH (25.0-35.0) pg MCHC (31.0-37.0) g/dL RDW (11.5-15.5) % Plt Count (150-450) k/uL Neutrophils % % Lymphocytes % % Monocytes % % Eosinophils % % Basophils % % Neutrophils # (1.3-7.7) k/uL Lymphocytes # (1.0-4.8) k/uL Monocytes # (0-1.0) k/uL Eosinophils # (0-0.7) k/uL Basophils # (0-0.2) k/uL PT (9.0-12.0) sec INR (<1.2) APTT (22.0-30.0) sec D-Dimer (<0.60) mg/L FEU Sodium (137-145) mmol/L Potassium (3.5-5.1) mmol/L Chloride (98-107) mmol/L Carbon Dioxide (22-30) mmol/L Anion Gap mmol/L BUN (9-20) mg/dL Creatinine (0.66-1.25) mg/dL Est GFR (CKD-EPI)AfAm (>60 ml/min/1.73 sqM) Est GFR (CKD-EPI)NonAf (>60 ml/min/1.73 sqM) Glucose (74-99) mg/dL Calcium (8.4-10.2) mg/dL Magnesium (1.6-2.3) mg/dL Total Bilirubin (0.2-1.3) mg/dL AST (17-59) U/L ALT (21-72) U/L Alkaline Phosphatase (38-126) U/L Creatine Kinase (55-170) U/L Troponin I <0.012 (0.000-0.034) ng/mL NT-Pro-B Natriuret Pep 27 pg/mL Total Protein (6.3-8.2) g/dL Albumin (3.5-5.0) g/dL - EKG Data -: EKG Interpreted by Me (Sinus rhythm with short PA interval PACs noted rate was 89 PA interval 90 Q) - Radiology Data Radiology results: report reviewed (I did review the imaging and report no acute findings.), image reviewed Disposition Clinical Impression: Acute dyspnea, Anxiety disorder Disposition: HOME SELF-CARE Condition: Good Instructions (If sedation given, give patient instructions): Dyspnea (ED), Generalized Anxiety Disorder (ED) Additional Instructions: DC Ativan Prescriptions: clonazePAM [KlonoPIN] 0.5 mg PO BID 3 Days #30 tablet Is patient prescribed a controlled substance at d/c from ED?: Yes When asked, does pt state using other controlled substances?: Yes If prescribed controlled substance>3 days was MAPS reviewed?: Yes If opioid is for acute pain is fill amount 7 days or less?: No If Rx opioid, was Start Talking consent form obtained?: No Referrals: [facility],Clinic [Primary Care Provider] - 1-2 days
[2018-10-18 13:41] VITALS: BP 144/81; PULSE 92; RESP 24
== END 2018-10-18 13:47 | disposition home or self-care (01) ==
LOC: EC 10:51
DX: F41.9 Anxiety disorder, unspecified (principal); R06.00 Dyspnea, unspecified; F32.9 Major depressive disorder, single episode, unspecified; I69.391 Dysphagia following cerebral infarction; R13.10 Dysphagia, unspecified; K21.9 Gastro-esophageal reflux disease without esophagitis; I10 Essential (primary) hypertension; M19.90 Unspecified osteoarthritis, unspecified site; Z79.82 Long term (current) use of aspirin; Z79.899 Other long term (current) drug therapy; Z88.8 Allergy status to other drugs, medicaments and biological substances; Z87.891 Personal history of nicotine dependence; Z85.828 Personal history of other malignant neoplasm of skin; Z93.1 Gastrostomy status; Z96.651 Presence of right artificial knee joint
CPT/HCPCS: 99285; 96374; 96361; 36415; 93005; 85379; 83880; 80053; 82550; 83735; 84484; 85025; 85610; 85730; 71046; J2060

== ENCOUNTER 2018-10-23 09:08 | Emergency (ER) | payer OTHER, MEDICARE ==
--- NOTE | 2018-10-23 09:32 | ED ---
General Adult HPI - General Chief complaint: Weakness Stated complaint: Weakness R side Time Seen by Provider: 10/23/18 09:14 Source: patient, Caregiver Mode of arrival: ambulatory Limitations: no limitations - History of Present Illness Initial comments: Dictation was produced using [employer] dictation software. please excuse any grammatical, word or spelling errors. Chief Complaint: 73-year-old male with past medical history of brain stem stroke, chronic tachypnea presents with right-sided weakness. History of Present Illness: His 73-year-old male presents with right-sided weakness. He is brought in by family friend. Over the last 48 hours they noted that patient had been weak on his right side. Patient has history of left-sided weakness. Patient has no complaints of any changes in his usual left-sided weakness. Does feel weak on the right side. Patient is complaining of some weakness with transferring. He is normally able to push himself up with his right upper extremity which is his normal side. Assessment seen slouching towards his right side. Patient feels weak on the right upper and right lower extremity. Denies any sensory deficits to the right side. The ROS documented in this emergency department record has been reviewed and confirmed by me. Those systems with pertinent positive or negative responses have been documented in the HPI. All other systems are other negative and/or noncontributory. PHYSICAL EXAM: General Impression: Alert and oriented x3, not in acute distress, tachypneic HEENT: Normocephalic atraumatic, extra-ocular movements intact, pupils equal and reactive to light bilaterally, mucous membranes moist. Cardiovascular: Heart regular rate and rhythm, S1&S2 audible, no murmurs, rubs or gallops Chest: Lungs clear to auscultation bilaterally, no rhonchi, no wheeze, no rales Abdomen: Bowel sounds present, abdomen soft, non-tender, non-distended, no organomegaly Musculoskeletal: Pulses present and equal in all extremities, no peripheral edema Motor: no focal deficits noted Neurological: CN II-XII grossly intact, no focal motor or sensory deficits noted Skin: Intact with no visualized rashes Psych: Normal affect and mood ED course: 73-year-old male presents with worsening right-sided weakness. Patient evaluated at bedside and is able to move the right upper right lower extremities. There is no drift noted. Patient does not have any other findings to suggest strokelike symptoms. Vital signs upon arrival are within acceptable limits. Patient has a normal respiratory rate of 44 secondary to brainstem injury. Heart rate is 104. CBC unremarkable. Mild leukocytosis likely secondary to stress. Patient has potassium of 5.7. This likely secondary to oral potassium. The rest of the metabolic panel is unremarkable. Trauma imaging and labs were obtained showing no acute traumatic injuries. No other acute findings seen on imaging studies. Patient given some Ativan for anxiolysis. He is reevaluated stable medical condition. At this point there is no clinical suspicion of CVA at this time given benign physical examination. Patient otherwise clear for discharge. Told to follow-up with primary care physician. Patient told about his high potassium level he is told to follow-up with his PCP this week for repeat potassium check. Patient told to hold his potassium medications currently. EKG interpretation: Ventricular rate 88, sinus rhythm, NM interval 16, Q 70, QTc 445. No NM prolongation, no QTC prolongation, no ST or T-wave changes noted. EKG compared to 10/18/2018 showing no changes. Overall, this EKG is unremarkable - Related Data Home Medications Medication Instructions Recorded Confirmed Cyanocobalamin [Vitamin B-12] 500 mcg PEG/G-TUBE DAILY 01/10/18 10/23/18 traZODone HCL 100 mg PEG/G-TUBE HS 01/10/18 10/23/18 Baclofen [Lioresal] 10 mg PEG/G-TUBE TID PRN 03/01/18 10/23/18 Melatonin 3 mg PEG/G-TUBE HS 03/01/18 10/23/18 Metoclopramide [Reglan] 5 mg PEG/G-TUBE TID 03/01/18 10/23/18 Potassium Chloride Oral Liquid 20 meq PEG/G-TUBE BID 03/01/18 10/23/18 diphenhydrAMINE ELIXIR [Benadryl 25 mg PEG/G-TUBE Q6H PRN 03/01/18 10/23/18 Elixir] Aspirin 81 mg PEG/G-TUBE DAILY 06/23/18 10/23/18 Ferrous Sulfate 330 mg PEG/G-TUBE DAILY 06/23/18 10/23/18 Pantoprazole Sodium Packet 1 packet PEG/G-TUBE DAILY@1200 06/23/18 10/23/18 cloNIDine 0.1 MG/24HR PATCH 1 patch TRANSDERM TH 06/23/18 10/23/18 [Catapres-TTS] LORazepam [Ativan] 0.5 mg PEG/G-TUBE DAILY PRN 10/18/18 10/23/18 PARoxetine HCL [Paxil] 40 mg PEG/G-TUBE DAILY 10/18/18 10/23/18 Ranitidine Syrup [Zantac Syrup] 15 mg PEG/G-TUBE BID 10/18/18 10/23/18 Terazosin [Hytrin] 5 mg PO HS 10/18/18 10/23/18 amLODIPine [Norvasc] 5 mg PEG/G-TUBE BID 10/18/18 10/23/18 Previous Rx's Medication Instructions Recorded traMADol HCL [Ultram] 100 mg PEG/G-TUBE Q6HR PRN 3 Days 04/05/18 #12 tablet clonazePAM [KlonoPIN] 0.5 mg PO BID 3 Days #30 tablet 10/18/18 Allergies Allergy/AdvReac Type Severity Reaction Status Date / Time lisinopril Allergy Unknown Verified 10/23/18 09:32 simvastatin [From Zocor] Allergy Unknown Verified 10/23/18 09:32 Review of Systems ROS Statement: Those systems with pertinent positive or pertinent negative responses have been documented in the HPI. ROS Other: All systems not noted in ROS Statement are negative. Past Medical History Past Medical History: Asthma, Cancer, COPD, CVA/TIA, Eye Disorder, GERD/Reflux, Hyperlipidemia, Hypertension, Liver Disease, Osteoarthritis (OA), Pneumonia Additional Past Medical History / Comment(s): 01/2018 CVA with chronic dysphagia-has peg tube and is NPO, aspiration pneumonia, childhood asthma, liver "problem" before which pt states he was told was d/t taking tylenol #3, past ETOH abuse-sober for 19yrs then started drinking 1-2 beers on occasion only and none for past 4 months, arthritis-bilateral shoulder and knee pains, skin cancer removed from nose. History of Any Multi-Drug Resistant Organisms: None Reported Past Surgical History: Hernia Repair Additional Past Surgical History / Comment(s): EGD/Peg tube, colonoscopy, total R knee arthroplasty, bilateral knee arthroscopies, R foot titanium implant, bilateral shoulder surgery, L/R inguinal hernia repairs, septoplasty and skin cancer removed from nose. Past Anesthesia/Blood Transfusion Reactions: No Reported Reaction Additional Past Anesthesia/Blood Transfusion Reaction / Comment(s): Pt received blood as a . Past Psychological History: Depression Smoking Status: Former smoker Past Alcohol Use History: None Reported Past Drug Use History: None Reported - Past Family History Father Family Medical History: Cancer Additional Family Medical History / Comment(s): Father had prostrate cancer. He is . Mother Family Medical History: Cancer, Thyroid Disorder Additional Family Medical History / Comment(s): Mother is . Pt states she had thyroid disease/surgeries. He thinks she had cancer in her "back". General Exam Limitations: no limitations Course Vital Signs 10/23/18 10/23/18 10/23/18 09:21 09:49 11:45 Temperature 98.6 F Pulse Rate 104 H 84 Respiratory 44 H 56 H 56 H Rate Blood Pressure 118/70 134/87 O2 Sat by Pulse 94 L 96 Oximetry Medical Decision Making - Lab Data Result diagrams: 10/23/18 09:35 10/23/18 09:35 Lab Results 10/23/18 10/23/18 Range/Units 09:35 09:35 WBC 11.0 H (3.8-10.6) k/uL RBC 4.76 (4.30-5.90) m/uL Hgb 13.5 (13.0-17.5) gm/dL Hct 41.9 (39.0-53.0) % MCV 88.1 (80.0-100.0) fL MCH 28.4 (25.0-35.0) pg MCHC 32.3 (31.0-37.0) g/dL RDW 15.4 (11.5-15.5) % Plt Count 247 (150-450) k/uL Neutrophils % 77 % Lymphocytes % 8 % Monocytes % 5 % Eosinophils % 7 % Basophils % 1 % Neutrophils # 8.5 H (1.3-7.7) k/uL Lymphocytes # 0.9 L (1.0-4.8) k/uL Monocytes # 0.6 (0-1.0) k/uL Eosinophils # 0.8 H (0-0.7) k/uL Basophils # 0.1 (0-0.2) k/uL Sodium 143 (137-145) mmol/L Potassium 5.7 H (3.5-5.1) mmol/L Chloride 108 H (98-107) mmol/L Carbon Dioxide 30 (22-30) mmol/L Anion Gap 5 mmol/L BUN 34 H (9-20) mg/dL Creatinine 0.71 (0.66-1.25) mg/dL Est GFR (CKD-EPI)AfAm >90 (>60 ml/min/1.73 sqM) Est GFR (CKD-EPI)NonAf >90 (>60 ml/min/1.73 sqM) Glucose 107 H (74-99) mg/dL Calcium 9.6 (8.4-10.2) mg/dL Magnesium 2.2 (1.6-2.3) mg/dL Disposition Clinical Impression: Weakness, Hyperkalemia Disposition: HOME SELF-CARE Condition: Good Instructions (If sedation given, give patient instructions): Hyperkalemia (ED) Additional Instructions: hold potassium medication Is patient prescribed a controlled substance at d/c from ED?: No Referrals: [facility],Clinic [Primary Care Provider] - 1-2 days Time of Disposition: 13:11
[2018-10-23 09:52] LABS: African American GFR (CKD) >90 (>60 ml/min/1.73 sqM); Anion Gap 5 mmol/L; Blood Urea Nitrogen 34 mg/dL (9-20); Calcium 9.6 mg/dL (8.4-10.2); Carbon Dioxide 30 mmol/L (22-30); Chloride 108 mmol/L (98-107); Glucose 107 mg/dL (74-99); Magnesium 2.2 mg/dL (1.6-2.3); Potassium 5.7 mmol/L (3.5-5.1); Sodium 143 mmol/L (137-145)
[2018-10-23 09:53] LABS: Basophils # (A) 0.1 k/uL (0-0.2); Basophils % (A) 1 %; Eosinophils # (A) 0.8 k/uL (0-0.7); Eosinophils % (A) 7 %; HCT 41.9 % (39.0-53.0); HGB 13.5 gm/dL (13.0-17.5); Lymphocytes # (A) 0.9 k/uL (1.0-4.8); Lymphocytes % (A) 8 %; MCH 28.4 pg (25.0-35.0); MCHC 32.3 g/dL (31.0-37.0); MCV 88.1 fL (80.0-100.0); Mean Platelet Volume 8.9; Monocytes # (A) 0.6 k/uL (0-1.0); Monocytes % (A) 5 %; Neutrophils # (A) 8.5 k/uL (1.3-7.7); Neutrophils % (A) 77 %; Platelet Count 247 k/uL (150-450); RBC 4.76 m/uL (4.30-5.90); RDW 15.4 % (11.5-15.5)
--- NOTE | 2018-10-23 10:25 | CT ---
EXAMINATION TYPE: CT brain veronica banks DATE OF EXAM: 10/23/2018 COMPARISON: Previous CT scan of the brain dated 04/27/2018 HISTORY: Fall 2 days ago, history of CVA. Right sided weakness for [address] DLP: 1744.2 mGycm Automated exposure control for dose reduction was used. TECHNIQUE: CT scan of the head and cervical spine are performed without contrast. FINDINGS: BRAIN: There are mild, generalized changes of sulcal prominence and ventriculomegaly, compatible with mild atrophy. There is periventricular white matter lucency, compatible with chronic white matter is chemic change no acute focal lesion, mass effect or midline shift is identified. I do not see evidenc e of intracranial blood. There is 1.4 cm retention cyst or polyp adjacent to the medial wall of the right maxillary sinus. The remainder the paranasal sinuses and mastoids are clear. The bony calvarium is intact. IMPRESSION: 1. NO ACUTE INTRACRANIAL ABNORMALITY. 2. DEGENERATIVE CHANGE. 3. RETENTION CYST OR POLYP, RIGHT MAXILLARY SINUS. CERVICAL SPINE: There is breathing motion artifact within the visualized portions of the lungs. There is patient motion artifact throughout the study. Limited views of the prevertebral soft tissues appe ar normal. Vertebral body height and alignment are maintained. Atlantoaxial relationships are normal. There is minimal degenerative grade 1 spondylolisthesis of C4 on C5. There is mild disc space loss at C4-5, C5-6 and C6-7. There is mild hypertrophic spondylosis present anteriorly at C4-5, C5-6 and C6- 7. The intervertebral joints are reasonably well-maintained. There is bilateral facet arthropathy at at C3-4 and on the left at C4-5. No definite protrusion is se en. No fractures identified. There is incomplete arch of C1, a normal variant. IMPRESSION: 1. NO ACUTE OSSEOUS LESION. 2. STUDY LIMITED BY MOTION ARTIFACT. 3. MILD DEGENERATIVE CHANGE.
[2018-10-23] MEDS ORDERED: SODIUM POLYSTYRENE SULFONATE 15 GM/60 ML BOTTLE PO STA (10:45)
--- NOTE | 2018-10-23 11:11 | XR ---
EXAMINATION TYPE: XR pelvis AP view , ONE VIEW DATE OF EXAM ORDERED: 10/23/2018 HISTORY: Pain. COMPARISON: None. FINDINGS: There are degenerative changes in both hips. No pelvic fracture is seen. There are degener ative changes in the lower lumbar spine. IMPRESSION: NO ACUTE OSSEOUS LESION.
--- NOTE | 2018-10-23 11:12 | XR ---
EXAMINATION TYPE: XR chest 1V DATE OF EXAM: 10/23/2018 HISTORY: Pain. REFERENCE: Previous study dated 10/18/2018. FINDINGS: Heart size upper limits of normal. There is some chronic scarring at the left lung base. Th e lungs are otherwise clear. Pleural spaces are clear. IMPRESSION: 1. BORDERLINE CARDIOMEGALY. 2. SCARRING VERSUS ATELECTASIS, LEFT LUNG BASE.
[2018-10-23 11:47] VITALS: PULSE 84
[2018-10-23] MEDS ORDERED: LORazepam 2 MG/ML INJ IV STA (12:44)
[2018-10-23 13:30] VITALS: BP 114/92; RESP 18; TEMP 98.3
== END 2018-10-23 13:28 | disposition home or self-care (01) ==
LOC: EC 09:08
DX: E87.5 Hyperkalemia (principal); K21.9 Gastro-esophageal reflux disease without esophagitis; I10 Essential (primary) hypertension; I69.391 Dysphagia following cerebral infarction; R13.10 Dysphagia, unspecified; M19.011 Primary osteoarthritis, right shoulder; M19.012 Primary osteoarthritis, left shoulder; M17.0 Bilateral primary osteoarthritis of knee; F32.9 Major depressive disorder, single episode, unspecified; Z87.891 Personal history of nicotine dependence; Z88.8 Allergy status to other drugs, medicaments and biological substances; Z79.82 Long term (current) use of aspirin; Z79.899 Other long term (current) drug therapy; Z85.828 Personal history of other malignant neoplasm of skin; Z96.651 Presence of right artificial knee joint; Z96.698 Presence of other orthopedic joint implants; Z98.890 Other specified postprocedural states; Z93.1 Gastrostomy status
CPT/HCPCS: 36415; 93005; 80048; 83735; 85025; 72170; 71045; 72125; 70450; 99284; 96374; J2060

== ENCOUNTER 2018-11-12 11:03 | Emergency (ER) | payer OTHER, MEDICARE ==
[2018-11-12 11:30] VITALS: RESP 18
[2018-11-12] MEDS ORDERED: LORazepam 2 MG/ML INJ IV STA ×2 (12:15→14:02)
--- NOTE | 2018-11-12 12:45 | ED ---
General Adult HPI - General Chief complaint: Weakness Stated complaint: POSS PNEUMONIA, LOW O2 Time Seen by Provider: 11/12/18 11:25 Source: patient, RN notes reviewed Mode of arrival: ambulatory Limitations: no limitations - History of Present Illness Initial comments: This is a 73-year-old male who has a past medical history significant for stroke in his brainstem. Caregiver brings him in today because patient had a lower pulse ox then normal. They are also told by the primary medical care provider that he might have pneumonia and potassium might be low so they wanted this checked as well. Caregiver states that the patient himself did not appear to be in any more respiratory distress than normal and ever since the stroke he is bent over breathing very hard but that is been since December according to the family and they see no difference in that today. Patient has not indicated any new areas of pain. Patient's had no fevers. Patient has had no vomiting or diarrhea. - Related Data Home Medications Medication Instructions Recorded Confirmed Cyanocobalamin [Vitamin B-12] 500 mcg PEG/G-TUBE DAILY 01/10/18 11/12/18 traZODone HCL 100 mg PEG/G-TUBE HS 01/10/18 11/12/18 Baclofen [Lioresal] 10 mg PEG/G-TUBE TID 03/01/18 11/12/18 Melatonin 3 mg PEG/G-TUBE HS 03/01/18 11/12/18 Metoclopramide [Reglan] 5 mg PEG/G-TUBE TID 03/01/18 11/12/18 diphenhydrAMINE ELIXIR [Benadryl 25 mg PEG/G-TUBE Q6H PRN 03/01/18 11/12/18 Elixir] Aspirin 81 mg PEG/G-TUBE DAILY 06/23/18 11/12/18 Ferrous Sulfate 330 mg PEG/G-TUBE DAILY 06/23/18 11/12/18 cloNIDine 0.1 MG/24HR PATCH 1 patch TRANSDERM TH 06/23/18 11/12/18 [Catapres-TTS] PARoxetine HCL [Paxil] 40 mg PEG/G-TUBE DAILY 10/18/18 11/12/18 Ranitidine Syrup [Zantac Syrup] 15 mg PEG/G-TUBE BID 10/18/18 11/12/18 Terazosin [Hytrin] 5 mg PEG/G-TUBE HS 10/18/18 11/12/18 amLODIPine [Norvasc] 5 mg PEG/G-TUBE BID 10/18/18 11/12/18 Pantoprazole Sodium [Protonix] 40 mg PEG/G-TUBE DAILY 11/12/18 11/12/18 clonazePAM [KlonoPIN] 0.5 mg PO TID 11/12/18 11/12/18 Previous Rx's Medication Instructions Recorded Azithromycin [Zithromax Tri-Nadir] 500 mg PO DAILY #3 tab 11/12/18 Allergies Allergy/AdvReac Type Severity Reaction Status Date / Time lisinopril Allergy Unknown Verified 11/12/18 11:59 simvastatin [From Zocor] Allergy Unknown Verified 11/12/18 11:59 Review of Systems ROS Statement: Those systems with pertinent positive or pertinent negative responses have been documented in the HPI. ROS Other: All systems not noted in ROS Statement are negative. Past Medical History Past Medical History: Asthma, Cancer, COPD, CVA/TIA, Eye Disorder, GERD/Reflux, Hyperlipidemia, Hypertension, Liver Disease, Osteoarthritis (OA), Pneumonia Additional Past Medical History / Comment(s): 01/2018 CVA with chronic dysphagia-has peg tube and is NPO, aspiration pneumonia, childhood asthma, liver "problem" before which pt states he was told was d/t taking tylenol #3, past ETOH abuse-sober for 19yrs then started drinking 1-2 beers on occasion only and none for past 4 months, arthritis-bilateral shoulder and knee pains, skin cancer removed from nose. History of Any Multi-Drug Resistant Organisms: None Reported Past Surgical History: Hernia Repair Additional Past Surgical History / Comment(s): EGD/Peg tube, colonoscopy, total R knee arthroplasty, bilateral knee arthroscopies, R foot titanium implant, bilateral shoulder surgery, L/R inguinal hernia repairs, septoplasty and skin cancer removed from nose. Past Anesthesia/Blood Transfusion Reactions: No Reported Reaction Additional Past Anesthesia/Blood Transfusion Reaction / Comment(s): Pt received blood as a . Past Psychological History: Depression Smoking Status: Former smoker Past Alcohol Use History: None Reported Past Drug Use History: None Reported - Past Family History Father Family Medical History: Cancer Additional Family Medical History / Comment(s): Father had prostrate cancer. He is . Mother Family Medical History: Cancer, Thyroid Disorder Additional Family Medical History / Comment(s): Mother is . Pt states she had thyroid disease/surgeries. He thinks she had cancer in her "back". General Exam - General Exam Comments Initial Comments: GENERAL: Patient is well-developed and well-nourished. Patient is nontoxic and well- hydrated and is in no acute distress. Patient sits up bent over and rocks and breathing fairly rapidly according to friends in the room they state that this is ongoing since December ENT: Neck has full range of motion without eliciting any pain. EYES: The sclera were anicteric and conjunctiva were pink and moist. Extraocular movements were intact and pupils were equal round and reactive to light. Eyelids were unremarkable. PULMONARY: Unlabored respirations. Good breath sounds bilaterally. No audible rales rhonchi or wheezing was noted. CARDIOVASCULAR: There is a regular rate and rhythm without any murmurs gallops or rubs. ABDOMEN: Soft and nontender with normal bowel sounds. SKIN: Skin is clear with no lesions or rashes and otherwise unremarkable. NEUROLOGIC: Patient is alert and oriented difficult to assess secondary to patient's inability to speak. Friend states that the patient is acting at his baseline Cranial nerves II through XII are grossly intact. Motor and sensory are also intact. Normal speech, volume and content. Symmetrical smile. LYMPHATICS: No significant lymphadenopathy is noted PSYCHIATRIC: Unable to assess Limitations: no limitations Course Vital Signs 11/12/18 11/12/18 11:26 14:46 Temperature 98.8 F 98.3 F Pulse Rate 102 H 80 Respiratory 18 18 Rate Blood Pressure 166/112 123/87 O2 Sat by Pulse 93 L 95 Oximetry Medical Decision Making - Medical Decision Making EKG shows sinus tachycardia at 101 bpm ID interval 224 QRS is 72 QT interval 350 QTC is 453. Patient's EKG shows no ST segment elevation or depression. Chest x-ray shows no acute abnormality. - Lab Data Result diagrams: 11/12/18 12:33 11/12/18 12:33 Lab Results 11/12/18 11/12/18 11/12/18 Range/Units 12:33 12:33 12:33 WBC 15.6 H (3.8-10.6) k/uL RBC 4.93 (4.30-5.90) m/uL Hgb 13.7 (13.0-17.5) gm/dL Hct 43.2 (39.0-53.0) % MCV 87.7 (80.0-100.0) fL MCH 27.8 (25.0-35.0) pg MCHC 31.7 (31.0-37.0) g/dL RDW 14.4 (11.5-15.5) % Plt Count 301 (150-450) k/uL Neutrophils % 84 % Lymphocytes % 5 % Monocytes % 5 % Eosinophils % 4 % Basophils % 0 % Neutrophils # 13.2 H (1.3-7.7) k/uL Lymphocytes # 0.8 L (1.0-4.8) k/uL Monocytes # 0.8 (0-1.0) k/uL Eosinophils # 0.6 (0-0.7) k/uL Basophils # 0.1 (0-0.2) k/uL PT (9.0-12.0) sec INR (<1.2) APTT (22.0-30.0) sec Sodium 146 H (137-145) mmol/L Potassium 4.8 (3.5-5.1) mmol/L Chloride 106 (98-107) mmol/L Carbon Dioxide 33 H (22-30) mmol/L Anion Gap 7 mmol/L BUN 34 H (9-20) mg/dL Creatinine 0.84 (0.66-1.25) mg/dL Est GFR (CKD-EPI)AfAm >90 (>60 ml/min/1.73 sqM) Est GFR (CKD-EPI)NonAf 88 (>60 ml/min/1.73 sqM) Glucose 116 H (74-99) mg/dL Plasma Lactic Acid Darci 1.9 (0.7-2.0) mmol/L Calcium 9.6 (8.4-10.2) mg/dL Total Bilirubin 0.3 (0.2-1.3) mg/dL AST 40 (17-59) U/L ALT 76 H (21-72) U/L Alkaline Phosphatase 142 H (38-126) U/L Troponin I (0.000-0.034) ng/mL Total Protein 6.6 (6.3-8.2) g/dL Albumin 4.1 (3.5-5.0) g/dL 11/12/18 11/12/18 Range/Units 12:33 12:33 WBC (3.8-10.6) k/uL RBC (4.30-5.90) m/uL Hgb (13.0-17.5) gm/dL Hct (39.0-53.0) % MCV (80.0-100.0) fL MCH (25.0-35.0) pg MCHC (31.0-37.0) g/dL RDW (11.5-15.5) % Plt Count (150-450) k/uL Neutrophils % % Lymphocytes % % Monocytes % % Eosinophils % % Basophils % % Neutrophils # (1.3-7.7) k/uL Lymphocytes # (1.0-4.8) k/uL Monocytes # (0-1.0) k/uL Eosinophils # (0-0.7) k/uL Basophils # (0-0.2) k/uL PT 9.5 (9.0-12.0) sec INR 0.9 (<1.2) APTT 24.7 (22.0-30.0) sec Sodium (137-145) mmol/L Potassium (3.5-5.1) mmol/L Chloride (98-107) mmol/L Carbon Dioxide (22-30) mmol/L Anion Gap mmol/L BUN (9-20) mg/dL Creatinine (0.66-1.25) mg/dL Est GFR (CKD-EPI)AfAm (>60 ml/min/1.73 sqM) Est GFR (CKD-EPI)NonAf (>60 ml/min/1.73 sqM) Glucose (74-99) mg/dL Plasma Lactic Acid Darci (0.7-2.0) mmol/L Calcium (8.4-10.2) mg/dL Total Bilirubin (0.2-1.3) mg/dL AST (17-59) U/L ALT (21-72) U/L Alkaline Phosphatase (38-126) U/L Troponin I <0.012 (0.000-0.034) ng/mL Total Protein (6.3-8.2) g/dL Albumin (3.5-5.0) g/dL Disposition Clinical Impression: Acute bronchitis Disposition: HOME SELF-CARE Condition: Good Instructions (If sedation given, give patient instructions): Acute Bronchitis (ED) Prescriptions: Azithromycin [Zithromax Tri-Nadir] 500 mg PO DAILY #3 tab Is patient prescribed a controlled substance at d/c from ED?: No Referrals: [facility],Clinic [Primary Care Provider] - 1-2 days Time of Disposition: 15:03
[2018-11-12 12:52] LABS: Basophils # (A) 0.1 k/uL (0-0.2); Basophils % (A) 0 %; Eosinophils # (A) 0.6 k/uL (0-0.7); Eosinophils % (A) 4 %; HCT 43.2 % (39.0-53.0); HGB 13.7 gm/dL (13.0-17.5); Lymphocytes # (A) 0.8 k/uL (1.0-4.8); Lymphocytes % (A) 5 %; MCH 27.8 pg (25.0-35.0); MCHC 31.7 g/dL (31.0-37.0); MCV 87.7 fL (80.0-100.0); Mean Platelet Volume 8.3; Monocytes # (A) 0.8 k/uL (0-1.0); Monocytes % (A) 5 %; Neutrophils # (A) 13.2 k/uL (1.3-7.7); Neutrophils % (A) 84 %; Platelet Count 301 k/uL (150-450); RBC 4.93 m/uL (4.30-5.90); RDW 14.4 % (11.5-15.5); WBC 15.6 k/uL (3.8-10.6)
[2018-11-12 13:05] LABS: ALT 76 U/L (21-72); AST 40 U/L (17-59); African American GFR (CKD) >90 (>60 ml/min/1.73 sqM); Albumin 4.1 g/dL (3.5-5.0); Alkaline Phosphatase 142 U/L (38-126); Anion Gap 7 mmol/L; Blood Urea Nitrogen 34 mg/dL (9-20); Calcium 9.6 mg/dL (8.4-10.2); Carbon Dioxide 33 mmol/L (22-30); Chloride 106 mmol/L (98-107); Glucose 116 mg/dL (74-99); Non-African American GFR(CKD) 88 (>60 ml/min/1.73 sqM); Potassium 4.8 mmol/L (3.5-5.1); Sodium 146 mmol/L (137-145); Total Bilirubin 0.3 mg/dL (0.2-1.3); Total Protein 6.6 g/dL (6.3-8.2)
[2018-11-12 13:10] LABS: INR 0.9 (<1.2); Partial Thromboplastin Time 24.7 sec (22.0-30.0); Prothrombin Time 9.5 sec (9.0-12.0)
--- NOTE | 2018-11-12 13:12 | XR ---
EXAMINATION TYPE: XR chest 2V DATE OF EXAM: 11/12/2018 HISTORY: difficulty breathing. REFERENCE: Previous study dated 10/23/2018. FINDINGS: Unfortunately, the patient's chin projects over the chest. The patient is taking a poor ins piration. Allowing for this the lungs appear clear. Pleural spaces are clear. The heart is mildly pro minent. IMPRESSION: 1. SUBOPTIMAL EXAMINATION. 2. MILD CARDIOMEGALY.
[2018-11-12 14:47] VITALS: BP 123/87; PULSE 80; TEMP 98.3
[2018-11-12] MEDS ORDERED: cefTRIAXone IN SWFI 1,000 MG/10 ML SYRINGE IVP STA (14:49)
== END 2018-11-12 15:32 | disposition home or self-care (01) ==
LOC: EC 11:03
DX: J20.9 Acute bronchitis, unspecified (principal); R53.1 Weakness; K21.9 Gastro-esophageal reflux disease without esophagitis; F32.9 Major depressive disorder, single episode, unspecified; I10 Essential (primary) hypertension; M19.012 Primary osteoarthritis, left shoulder; M19.011 Primary osteoarthritis, right shoulder; Z79.82 Long term (current) use of aspirin; Z79.899 Other long term (current) drug therapy; Z88.8 Allergy status to other drugs, medicaments and biological substances; Z87.891 Personal history of nicotine dependence; Z86.73 Personal history of transient ischemic attack (TIA), and cerebral infarction without residual deficits; Z93.1 Gastrostomy status; Z96.653 Presence of artificial knee joint, bilateral; Z85.828 Personal history of other malignant neoplasm of skin; Z98.890 Other specified postprocedural states
CPT/HCPCS: 36415; 93005; 80053; 83605; 84484; 85025; 85610; 85730; 87040; 71046; 99285; 96374; 96375; 96376; J2060; J0696

== ENCOUNTER 2018-11-20 19:12 | Inpatient (IN) | payer OTHER, MEDICARE ==
[2018-11-20] MEDS ORDERED: SODIUM CHLORIDE 0.9% 1,000 ML IV STA (19:33)
--- NOTE | 2018-11-20 19:37 | ED ---
SOB HPI - General Chief Complaint: Shortness of Breath Stated Complaint: respiratory distress Time Seen by Provider: 11/20/18 19:30 Source: EMS, RN notes reviewed, old records reviewed Mode of arrival: EMS Limitations: altered mental status, physical limitation - History of Present Illness Initial Comments: This is a 73-year-old male history of CVA with left side jimmy-paresis also some dementia with a normal and 02 saturation of 90. who is currently being treated with Zithromax for bronchitis who was brought in by EMS to generalized weakness he also was noted be short of breath with respiratory distress and hypoxemia. He was given unit dose DuoNeb on the way to the hospital and did improve somewhat. He was noted initially been using accessory muscles. Other complaints patient himself is a poor historian. f Complaint: shortness of breath - Related Data Home Medications Medication Instructions Recorded Confirmed Cyanocobalamin [Vitamin B-12] 500 mcg PEG/G-TUBE DAILY@0800 01/10/18 11/20/18 traZODone HCL 100 mg PEG/G-TUBE HS@199901/10/18 11/20/18 Melatonin 3 mg PEG/G-TUBE HS@199903/01/18 11/20/18 Metoclopramide [Reglan] 5 mg PEG/G-TUBE TID@0800,1200,199903/01/18 11/20/18 diphenhydrAMINE ELIXIR [Benadryl 25 mg PEG/G-TUBE HS@199903/01/18 11/20/18 Elixir] Aspirin 81 mg PEG/G-TUBE DAILY@0800 06/23/18 11/20/18 Ferrous Sulfate 330 mg PEG/G-TUBE DAILY@0800 06/23/18 11/20/18 cloNIDine 0.1 MG/24HR PATCH 1 patch TRANSDERM TH 06/23/18 11/20/18 [Catapres-TTS] PARoxetine HCL [Paxil] 40 mg PEG/G-TUBE DAILY@0800 10/18/18 11/20/18 Ranitidine Syrup [Zantac Syrup] 75 mg PEG/G-TUBE BID@0800,1500 10/18/18 11/20/18 Terazosin [Hytrin] 5 mg PEG/G-TUBE HS@199910/18/18 11/20/18 amLODIPine [Norvasc] 5 mg PEG/G-TUBE BID@0800,1600 10/18/18 11/20/18 Pantoprazole Sodium [Protonix] 40 mg PEG/G-TUBE DAILY@1200 11/12/18 11/20/18 Allergies Allergy/AdvReac Type Severity Reaction Status Date / Time lisinopril Allergy Unknown Verified 11/20/18 19:49 simvastatin [From Zocor] Allergy Unknown Verified 11/20/18 19:49 Review of Systems ROS Statement: Those systems with pertinent positive or pertinent negative responses have been documented in the HPI. ROS Other: All systems not noted in ROS Statement are negative. Past Medical History Past Medical History: Asthma, Cancer, COPD, CVA/TIA, Eye Disorder, GERD/Reflux, Hyperlipidemia, Hypertension, Liver Disease, Osteoarthritis (OA), Pneumonia Additional Past Medical History / Comment(s): 01/2018 CVA with chronic dysphagia-has peg tube and is NPO, aspiration pneumonia, childhood asthma, liver "problem" before which pt states he was told was d/t taking tylenol #3, past ETOH abuse-sober for 19yrs then started drinking 1-2 beers on occasion only and none for past 4 months, arthritis-bilateral shoulder and knee pains, skin cancer removed from nose. History of Any Multi-Drug Resistant Organisms: None Reported Past Surgical History: Hernia Repair Additional Past Surgical History / Comment(s): EGD/Peg tube, colonoscopy, total R knee arthroplasty, bilateral knee arthroscopies, R foot titanium implant, bilateral shoulder surgery, L/R inguinal hernia repairs, septoplasty and skin cancer removed from nose. Past Anesthesia/Blood Transfusion Reactions: No Reported Reaction Additional Past Anesthesia/Blood Transfusion Reaction / Comment(s): Pt received blood as a . Past Psychological History: Depression Smoking Status: Former smoker Past Alcohol Use History: None Reported Past Drug Use History: None Reported - Past Family History Father Family Medical History: Cancer Additional Family Medical History / Comment(s): Father had prostrate cancer. He is . Mother Family Medical History: Cancer, Thyroid Disorder Additional Family Medical History / Comment(s): Mother is . Pt states she had thyroid disease/surgeries. He thinks she had cancer in her "back". General Exam - General Exam Comments Initial Comments: Is a well-developed well-nourished lethargic male Limitations: altered mental status, physical limitation General appearance: alert, in no apparent distress Head exam: Present: atraumatic, normocephalic, normal inspection Eye exam: Present: normal appearance, PERRL, EOMI. Absent: scleral icterus, conjunctival injection, periorbital swelling ENT exam: Present: mucous membranes dry Neck exam: Present: normal inspection. Absent: tenderness, meningismus, lymphadenopathy Respiratory exam: Present: decreased breath sounds. Absent: respiratory distress, wheezes, rales, rhonchi, stridor Cardiovascular Exam: Present: regular rate, normal rhythm, normal heart sounds. Absent: systolic murmur, diastolic murmur, rubs, gallop, clicks GI/Abdominal exam: Present: soft, normal bowel sounds. Absent: distended, tenderness, guarding, rebound, rigid Extremities exam: Present: full ROM, normal capillary refill. Absent: tenderness, pedal edema, joint swelling, calf tenderness Back exam: Present: normal inspection Neurological exam: Present: alert, altered, CN II-XII intact, motor sensory deficit Psychiatric exam: Present: normal affect, normal mood Skin exam: Present: warm, dry, intact, normal color. Absent: rash Course Vital Signs 11/20/18 19:15 Temperature 98.6 F Pulse Rate 85 Respiratory 20 Rate Blood Pressure 135/88 O2 Sat by Pulse 97 Oximetry - Reevaluation(s) Reevaluation #1: 11/20/18 20:32 I did discuss the presentation of the patient's caregivers patient has been on antibiotics and finished them. He is a risk for aspiration is nothing by mouth otherwise. He also is been demonstrating a lot of anxiety recently. This was not evident after his CVA. He has been evaluated for this but the medication seems to sedate him and last short period time. No trauma reported Medical Decision Making - Medical Decision Making I did discuss the findings with the patient's caregivers. Patient will be admitted case is also discussed with Dr. Brar prior to complete evaluation. Be placed on appropriate antibiotics due to the tentative changes neurology will be consulted. - Lab Data Result diagrams: 11/20/18 19:27 11/20/18 19:27 Lab Results 11/20/18 11/20/18 11/20/18 Range/Units 19:27 19:27 19:27 WBC 12.1 H (3.8-10.6) k/uL RBC 5.18 (4.30-5.90) m/uL Hgb 14.3 (13.0-17.5) gm/dL Hct 45.4 (39.0-53.0) % MCV 87.6 (80.0-100.0) fL MCH 27.5 (25.0-35.0) pg MCHC 31.4 (31.0-37.0) g/dL RDW 14.2 (11.5-15.5) % Plt Count 275 (150-450) k/uL Neutrophils % 75 % Lymphocytes % 10 % Monocytes % 6 % Eosinophils % 7 % Basophils % 1 % Neutrophils # 9.0 H (1.3-7.7) k/uL Lymphocytes # 1.2 (1.0-4.8) k/uL Monocytes # 0.7 (0-1.0) k/uL Eosinophils # 0.8 H (0-0.7) k/uL Basophils # 0.1 (0-0.2) k/uL PT (9.0-12.0) sec INR (<1.2) APTT (22.0-30.0) sec Sodium 146 H (137-145) mmol/L Potassium 4.7 (3.5-5.1) mmol/L Chloride 112 H (98-107) mmol/L Carbon Dioxide 30 (22-30) mmol/L Anion Gap 4 mmol/L BUN 32 H (9-20) mg/dL Creatinine 0.77 (0.66-1.25) mg/dL Est GFR (CKD-EPI)AfAm >90 (>60 ml/min/1.73 sqM) Est GFR (CKD-EPI)NonAf >90 (>60 ml/min/1.73 sqM) Glucose 90 (74-99) mg/dL Calcium 9.2 (8.4-10.2) mg/dL Magnesium 2.2 (1.6-2.3) mg/dL Total Bilirubin 0.5 (0.2-1.3) mg/dL AST 110 H (17-59) U/L ALT 221 H (21-72) U/L Alkaline Phosphatase 115 (38-126) U/L Creatine Kinase 83 (55-170) U/L Troponin I (0.000-0.034) ng/mL NT-Pro-B Natriuret Pep 31 pg/mL Total Protein 6.3 (6.3-8.2) g/dL Albumin 3.8 (3.5-5.0) g/dL 11/20/18 11/20/18 Range/Units 19:27 19:27 WBC (3.8-10.6) k/uL RBC (4.30-5.90) m/uL Hgb (13.0-17.5) gm/dL Hct (39.0-53.0) % MCV (80.0-100.0) fL MCH (25.0-35.0) pg MCHC (31.0-37.0) g/dL RDW (11.5-15.5) % Plt Count (150-450) k/uL Neutrophils % % Lymphocytes % % Monocytes % % Eosinophils % % Basophils % % Neutrophils # (1.3-7.7) k/uL Lymphocytes # (1.0-4.8) k/uL Monocytes # (0-1.0) k/uL Eosinophils # (0-0.7) k/uL Basophils # (0-0.2) k/uL PT 10.2 (9.0-12.0) sec INR 0.9 (<1.2) APTT 25.9 (22.0-30.0) sec Sodium (137-145) mmol/L Potassium (3.5-5.1) mmol/L Chloride (98-107) mmol/L Carbon Dioxide (22-30) mmol/L Anion Gap mmol/L BUN (9-20) mg/dL Creatinine (0.66-1.25) mg/dL Est GFR (CKD-EPI)AfAm (>60 ml/min/1.73 sqM) Est GFR (CKD-EPI)NonAf (>60 ml/min/1.73 sqM) Glucose (74-99) mg/dL Calcium (8.4-10.2) mg/dL Magnesium (1.6-2.3) mg/dL Total Bilirubin (0.2-1.3) mg/dL AST (17-59) U/L ALT (21-72) U/L Alkaline Phosphatase (38-126) U/L Creatine Kinase (55-170) U/L Troponin I <0.012 (0.000-0.034) ng/mL NT-Pro-B Natriuret Pep pg/mL Total Protein (6.3-8.2) g/dL Albumin (3.5-5.0) g/dL - EKG Data -: EKG Interpreted by Me EKG shows normal: sinus rhythm (Sinus rhythm with PACs rate was 82. Interval 114 QRS duration 80 QT since QTC 388/453 evidence of left axis deviation.) - Radiology Data Radiology results: report reviewed (I did review the imaging and report evidence of a new left lower lobe infiltrate.), image reviewed Disposition Clinical Impression: Left lower lobe pneumonia, Acute exacerbation of chronic obstructive airways disease, Dehydration, Failure of outpatient treatment Disposition: ADMITTED IP TO THIS HOSP Condition: Fair Referrals: None,Stated [REFERRING] - 1-2 days
[2018-11-20 19:56] LABS: Basophils # (A) 0.1 k/uL (0-0.2); Basophils % (A) 1 %; Eosinophils # (A) 0.8 k/uL (0-0.7); Eosinophils % (A) 7 %; HCT 45.4 % (39.0-53.0); HGB 14.3 gm/dL (13.0-17.5); Lymphocytes # (A) 1.2 k/uL (1.0-4.8); Lymphocytes % (A) 10 %; MCH 27.5 pg (25.0-35.0); MCHC 31.4 g/dL (31.0-37.0); MCV 87.6 fL (80.0-100.0); Mean Platelet Volume 8.3; Monocytes # (A) 0.7 k/uL (0-1.0); Monocytes % (A) 6 %; Neutrophils % (A) 75 %; Platelet Count 275 k/uL (150-450); RBC 5.18 m/uL (4.30-5.90); RDW 14.2 % (11.5-15.5); WBC 12.1 k/uL (3.8-10.6)
[2018-11-20 20:04] LABS: ALT 221 U/L (21-72); AST 110 U/L (17-59); African American GFR (CKD) >90 (>60 ml/min/1.73 sqM); Albumin 3.8 g/dL (3.5-5.0); Alkaline Phosphatase 115 U/L (38-126); Anion Gap 4 mmol/L; Blood Urea Nitrogen 32 mg/dL (9-20); Calcium 9.2 mg/dL (8.4-10.2); Carbon Dioxide 30 mmol/L (22-30); Chloride 112 mmol/L (98-107); Creatine Kinase 83 U/L (55-170); Glucose 90 mg/dL (74-99); INR 0.9 (<1.2); Magnesium 2.2 mg/dL (1.6-2.3); Partial Thromboplastin Time 25.9 sec (22.0-30.0); Prothrombin Time 10.2 sec (9.0-12.0); Sodium 146 mmol/L (137-145); Total Bilirubin 0.5 mg/dL (0.2-1.3); Total Protein 6.3 g/dL (6.3-8.2)
--- NOTE | 2018-11-20 20:06 | XR ---
EXAMINATION TYPE: XR chest 2V DATE OF EXAM: 11/20/2018 COMPARISON: 11/12/2018 HISTORY: Difficulty breathing TECHNIQUE: Frontal and lateral views of the chest are obtained. FINDINGS: Heart is normal. There is some patchy infiltrate and atelectasis at the left lung base. Th ere is no heart failure. Thoracic aorta is atheromatous. There are chest leads. IMPRESSION: There is new mild patchy infiltrate and atelectasis left lung base compared to last exam . Normal heart.
[2018-11-20 20:09] LABS: Potassium 4.7 mmol/L (3.5-5.1)
[2018-11-20] MEDS ORDERED: LORazepam 2 MG/ML INJ IV STA (20:36)
[2018-11-20] MEDS ORDERED: PNEUMONIA PROTOCOL UTILIZED 1 EACH MISC PO PRN (20:37)
[2018-11-20] MEDS ORDERED: LEVOFLOXACIN 750MG-D5W PMX 750 MG in DEXTROSE/WATER 1 150ML.BAG IVPB STA (20:37)
[2018-11-20] MEDS: SODIUM CHLORIDE 0.9% 1,000 ML IV SCH (21:14)
[2018-11-20] MEDS: IPRATROPIUM-ALBUTEROL 3 ML NEB INHALATION SCH (21:20)
--- NOTE | 2018-11-20 22:17 | P.CNNES ---
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 Family at the bedside states as a result of the stroke, he cedillo d chronic left sided weakness. He was seen by Dr. Lua in neurology during that hospitalization; he documented that he had left-sided weakness and sensory deficits, diplopia, dysphagia,and mild facial droop. EEG and carotid duplex were both unrevealing. He had a PEG tube placed due to persistent dysphagia. He was then re-evaluated by neurology during his 03/2018 hospitalization for AMS. The recommendations at the time were continuation of aspirin therapy and SP evaluation. On 10/23/18, he once again presented to the ER, this time for right- sided weakness. CT Head was unrevealing. He was discharged home. Today, family brought him in because of extreme anxiety and restlessness. He basically sits up and lies down and rocks himself back and forth up and down in bed incessantly unable to stop. There is no stereotypy to these movements. There is no report of myoclonus, hemiballismus, chorea or tonic-clonic activity. Family states the only time he can rest is when he is under heavy sedation. He [facility] a [facility]. He was once diagnosed with depression and was followed by psychiatry locally, but reportedly has not seen a psychiatrist for some years. All of the above history is obtained from patient's family and reviewing available medical records in the chart. Patient is currently sedated and cannot provide any meaningful history. Review of Systems Unable to obtain due to AMS/sedation Past Medical History Past Medical History: Asthma, Cancer, COPD, CVA/TIA, Eye Disorder, GERD/Reflux, Hyperlipidemia, Hypertension, Liver Disease, Osteoarthritis (OA), Pneumonia Additional Past Medical History / Comment(s): 01/2018 CVA with chronic dysphagia-has peg tube and is NPO, aspiration pneumonia, childhood asthma, liver "problem" before which pt states he was told was d/t taking tylenol #3, past ETOH abuse-sober for 19yrs then started drinking 1-2 beers on occasion only and none for past 4 months, arthritis-bilateral shoulder and knee pains, skin cancer removed from nose. History of Any Multi-Drug Resistant Organisms: None Reported Past Surgical History: Hernia Repair Additional Past Surgical History / Comment(s): EGD/Peg tube, colonoscopy, total R knee arthroplasty, bilateral knee arthroscopies, R foot titanium implant, bilateral shoulder surgery, L/R inguinal hernia repairs, septoplasty and skin ca ncer removed from nose. Past Anesthesia/Blood Transfusion Reactions: No Reported Reaction Additional Past Anesthesia/Blood Transfusion Reaction / Comment(s): Pt received blood as a . Past Psychological History: Depression Smoking Status: Former smoker Past Alcohol Use History: None Reported Past Drug Use History: None Reported - Past Family History Father Family Medical History: Cancer Additional Family Medical History / Comment(s): Father had prostrate cancer. He is . Mother Family Medical History: Cancer, Thyroid Disorder Additional Family Medical History / Comment(s): Mother is . Pt states she had thyroid disease/surgeries. He thinks she had cancer in her "back". Medications and Allergies Home Medications Medication Instructions Recorded Confirmed Type Cyanocobalamin [Vitamin B-12] 500 mcg PEG/G-TUBE DAILY@0800 01/10/18 11/20/18 History traZODone HCL 100 mg PEG/G-TUBE HS@199901/10/18 11/20/18 History Melatonin 3 mg PEG/G-TUBE HS@199903/01/18 11/20/18 History Metoclopramide [Reglan] 5 mg PEG/G-TUBE TID@0800,1199,199903/01/18 11/20/18 History diphenhydrAMINE ELIXIR [Benadryl 25 mg PEG/G-TUBE HS@199903/01/18 11/20/18 History Elixir] Aspirin 81 mg PEG/G-TUBE DAILY@0800 06/23/18 11/20/18 History Ferrous Sulfate 330 mg PEG/G-TUBE DAILY@0800 06/23/18 11/20/18 History cloNIDine 0.1 MG/24HR PATCH 1 patch TRANSDERM TH 06/23/18 11/20/18 History [Catapres-TTS] PARoxetine HCL [Paxil] 40 mg PEG/G-TUBE DAILY@0800 10/18/18 11/20/18 History Ranitidine Syrup [Zantac Syrup] 75 mg PEG/G-TUBE BID@0800,1500 10/18/18 11/20/18 History Terazosin [Hytrin] 5 mg PEG/G-TUBE HS@2000 10/18/18 11/20/18 History amLODIPine [Norvasc] 5 mg PEG/G-TUBE BID@0800,1600 10/18/18 11/20/18 History Pantoprazole Sodium [Protonix] 40 mg PEG/G-TUBE DAILY@1200 11/12/18 11/20/18 History Allergies Allergy/AdvReac Type Severity Reaction Status Date / Time lisinopril Allergy Unknown Verified 11/20/18 19:49 simvastatin [From Zocor] Allergy Unknown Verified 11/20/18 19:49 Physical Examination - Vital Signs Vital Signs: Vital Signs Temp Pulse Resp BP Pulse Ox 11/20/18 21:28 78 11/20/18 21:22 81 11/20/18 21:10 86 18 112/92 96 11/20/18 19:15 98.6 F 85 20 135/88 97 Intake and Output 11/20/18 11/20/18 11/20/18 06:59 14:59 22:59 Other: Weight 81.647 kg Gen NAD Sedated HEENT NCAT Sclera without icterus O/P clear Neck Supple No carotid bruit Cor RRR no m/r/g Lungs CTAB Soft NTND +BS Ext Warm no edema MS Sedated briefly arousable to noxious stim but falls back asleep does not follow commands CN PERRL resists Doll's maneuver +corneal's decreased left NLF +cough Motor Normal bulk Bilateral [place] No tremors, asterixis, myoclonus or other adventitious movements LEACH R>L Sens W/D to nailbed stim R>L Coord Cannot test due to AMS DTRs 2+/4 right 3+/4 left Toes mute bilaterally no ankle clonus Gait Deferred Results - Laboratory Findings CBC and BMP: 11/20/18 19:27 11/20/18 19:27 Abnormal Lab Findings: Abnormal Labs 11/20/18 11/20/18 19:27 19:27 WBC 12.1 H Neutrophils # 9.0 H Eosinophils # 0.8 H Sodium 146 H Chloride 112 H BUN 32 H AST 110 H ALT 221 H - Diagnostic Findings Additional findings: CT Head wo cont 10/23/18. No ICH. Nil acute. MRI Brain wo xander 01/21/18. Area of restricted diffusion in left dorsal medulla. EEG 01/11/18. Normal awake EEG. Carotid duplex 01/10/18. No BICA stenosis. Antegrade flow in both vertebral arteries. I have reviewed neuroimages myself. Assessment and Plan Assessment: Restlessness and anxiety s/p brainstem CVA. His movements do not sound neurological. 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 Typically, we can manage with SSRIs, but seems like this is a challenging case especially given his h/o depression pre-stroke -Will need psychiatry to review his psychotropics and see if we can achieve a fine balance between controlling his mood without sacrificing his level of consciousness -TSH/B12 -MRI would not be feasible at this time given his extreme anxiety and restlessness -Attempt EEG -d/w family at bedside. All questions answered. Thank you for this consultation. Please call with ?. Time with Patient: Greater than 30 (Time spent in direct patient care, greater than 50% of which was spent in [id number] counseling and coordination of care: 70 minutes)
[2018-11-20] MEDS ORDERED: LORazepam 1 MG TAB PO PRN (22:56)
[2018-11-20] MEDS: PANTOPRAZOLE 40 MG/10 ML VIAL IVP SCH (23:07)
[2018-11-21] MEDS ORDERED: IPRATROPIUM-ALBUTEROL 3 ML NEB INHALATION SCH
[2018-11-21] MEDS: PIPERACILLIN-TAZOBACTAM 3.375 GM in SODIUM CHLORIDE 0.9% 100 ML IVPB SCH ×3 (00:45→17:40)
[2018-11-21] MEDS: SODIUM CHLORIDE 0.9% 1,000 ML IV SCH (06:09)
[2018-11-21] MEDS ORDERED: ASPIRIN 81 MG PEG/G-TUBE SCH (08:00)
[2018-11-21] MEDS ORDERED: FERROUS SULFATE ORAL ELIXIR 300 MG/5 ML CUP PEG/G-TUBE SCH (08:00)
[2018-11-21] MEDS ORDERED: CYANOCOBALAMIN 500 MCG TAB PEG/G-TUBE SCH (08:00)
[2018-11-21] MEDS ORDERED: PARoxetine 20 MG TAB PEG/G-TUBE SCH (08:00)
[2018-11-21] MEDS: PANTOPRAZOLE 40 MG/10 ML VIAL IVP SCH (08:39)
[2018-11-21] MEDS: RANITIDINE SYRUP 150 MG/10 ML CUP PEG/G-TUBE SCH ×2 (08:40→19:07)
[2018-11-21] MEDS: METOCLOPRAMIDE 5 MG TAB PEG/G-TUBE SCH ×2 (08:40→11:41)
[2018-11-21] MEDS: amLODIPine 5 MG TAB PEG/G-TUBE SCH ×2 (08:41→17:41)
[2018-11-21] MEDS: IPRATROPIUM-ALBUTEROL 3 ML NEB INHALATION SCH ×4 (09:16→20:30)
[2018-11-21] MEDS ORDERED: LORazepam 2 MG/ML INJ IV PRN (11:00)
[2018-11-21] MEDS ORDERED: diphenhydrAMINE ELIXIR 25 MG/10 ML CUP PEG/G-TUBE PRN (11:01)
[2018-11-21] MEDS ORDERED: IPRATROPIUM-ALBUTEROL 3 ML NEB INHALATION PRN (11:17)
[2018-11-21] MEDS ORDERED: FUROSEMIDE 10 MG/ML 4 ML VIAL IV SCH (11:30)
[2018-11-21 11:58] VITALS: BMI 23.8
--- NOTE | 2018-11-21 13:01 | XR ---
EXAMINATION TYPE: XR chest 1V DATE OF EXAM: 11/21/2018 COMPARISON: 11/20/2018 INDICATION: Pneumonia TECHNIQUE: Single frontal view of the chest is obtained. FINDINGS: The heart size is normal. The pulmonary vasculature is normal. All infiltrate remains above the left diaphragm slightly improved from comparison. IMPRESSION: 1. Left basilar infiltrate more likely related to atelectasis although pneumonia remains within the d ifferential.
[2018-11-21 13:24] LABS: Glucose,Whole Blood 169 mg/dL (75-99)
[2018-11-21] MEDS ORDERED: clonazePAM 0.5 MG TAB PO SCH (16:00)
--- NOTE | 2018-11-21 17:52 | HP ---
HISTORY AND PHYSICAL DATE OF SERVICE: 11/21/2018 CHIEF COMPLAINT: Shortness of breath and cough. HISTORY OF PRESENT ILLNESS: This 73-year-old gentleman with a past medical history of asthma, COPD, history of GERD, hyperlipidemia, hypertension, history of liver disease, history of CVA, history of PEG tube placement, history of ETOH, being followed Dr. Tim Ramos in the outpatient setting, was complaining of shortness of breath and cough for the last several days. Patient was on Zithromax for bronchitis. Because of lack of improvement, the patient came to [facility] and was admitted for further evaluation and treatment. The patient is unable to complete a sentence and chest x-ray showed bilateral pneumonia, just left more than the right, possibly. The patient has been admitted for further evaluation. The patient was also having significant features of acute hypoxic respiratory failure. I also had a detailed discussion with the caregiver at the bedside, who indicated that they were trying to get the patient to hospice program as well. The patient also opted for the hospice program apparently, but currently the patient is extremely short of breath, unable to give a coherent history. Most of the history was taken from my discussion with staff as well as discussion with the caregiver at the bedside. PAST MEDICAL HISTORY: 1. History of asthma. 2. COPD. 3. History of CVA, TIA. 4. GERD. 5. Hypertension. 6. Hyperlipidemia. 7. History of DJD. 8. History of liver disease. 9. History of hernia repair. 10.Depression. HOME MEDICATIONS: 1. Trazodone 100 mg per PEG daily. 2. Benadryl 25 mg at bedtime. 3. Catapres TTS 1 patch at bedtime. 4. Norvasc 5 mg per PEG tube b.i.d. 5. Hytrin 5 mg at bedtime. 6. Zantac 75 mg p.o. b.i.d. 7. Protonix 40 mg p.o. daily. 8. Paxil 40 mg p.o. daily. 9. Reglan 5 mg p.o. t.i.d. 10.Melatonin 3 mg p.o. at bedtime. 11.Iron sulfate 330 mg p.o. daily. 12.Vitamin B12 500 mcg p.o. daily. 13.Aspirin 81 mg p.o. daily. 14.Clonazepam t.i.d. ALLERGIES: LISINOPRIL and ZOCOR. Family history, social history, review of systems could not be taken at length because of the patient's shortness of breath. Previous smoking and alcohol, as mentioned earlier. PHYSICAL EXAMINATION: Patient is conscious, confused, short of breath. Pulse is 90, blood pressure 120/64, respiration 34, temperature 98.6, pulse ox 96% on 2 L. HEENT: Conjunctivae normal. Oral mucosa moist. NECK: No jugular venous distention. No carotid bruit. No lymph node enlargement. CARDIOVASCULAR SYSTEM: S1, S2 muffled. RESPIRATORY SYSTEM: Breath sounds diminished at the bases. Bilateral scattered rhonchi and crackles. Expiratory wheezing also present. ABDOMEN: Soft, non-tender. No mass palpable. LEGS: No edema. No swelling. NERVOUS SYSTEM: Diffusely weak and emaciated. SKIN: No ulcer, rash, bleeding. JOINTS: No active deforming arthropathy. LABS: WBC 12.1, sodium 146, potassium 4.7. AST 110 and ALT is 221. ASSESSMENT: 1. Chronic obstructive pulmonary disease, acute exacerbation, with possible left lower lobe pneumonia, possibly gram-negative, with acute hypoxic respiratory failure and with possible sepsis. 2. Hypernatremia. 3. Change in mental status, metabolic encephalopathy, secondary to possible sepsis. 4. Increased white count. 5. History of asthma, chronic obstructive pulmonary disease. 6. History of cerebrovascular accident, transient ischemic attack. 7. History of gastroesophageal reflux disease. 8. Hypertension. 9. Hyperlipidemia. 10.History of degenerative joint disease. 11.History of pneumonia. 12.History of chronic dysphagia, status post PEG tube placement. 13.History of ethanol remotely. 14.Hernia repair. 15.History of depression. 16.NO CODE, NO CPR, NO VENT. RECOMMENDATIONS AND DISCUSSION: In this 73-year-old gentleman who presented with multiple complex medical issues, we will monitor the patient closely, continue the current management, continue symptomatic treatment. Will initiate broad-spectrum antibiotics and steroids as well as bronchodilators. I would also recommend consultation with Hospice. Continue to monitor. The prognosis is extremely guarded, which I discussed with the caregiver at the bedside, who understands and agrees. Further recommendations to follow. Old charts are reviewed. See medication reconciliation for list of medications. A copy of this dictation is being forwarded to Dr. Ramos, who is the primary physician. MMODL / IJN: [id number] /
[2018-11-21] MEDS ORDERED: methylPREDNISolone SOD SUCCI 125 MG/2 ML VIAL IV SCH (18:00)
[2018-11-21 18:03] VITALS: BP 124/73; RESP 12; TEMP 98.7
[2018-11-21] MEDS ORDERED: BUDESONIDE 1 MG/2 ML NEBU INHALATION SCH (20:00)
[2018-11-21] MEDS ORDERED: DOXAZOSIN 4 MG TAB PEG/G-TUBE SCH (20:00)
[2018-11-21] MEDS ORDERED: FORMOTEROL FUMARATE 20 MCG/2 ML NEBU INHALATION SCH (20:00)
[2018-11-21] MEDS ORDERED: traZODone HCL 50 MG TAB PEG/G-TUBE SCH (20:00)
[2018-11-21] MEDS ORDERED: MELATONIN 3 MG TABLET PEG/G-TUBE SCH (20:00)
[2018-11-21] MEDS ORDERED: diphenhydrAMINE ELIXIR 25 MG/10 ML CUP PEG/G-TUBE SCH (20:00)
[2018-11-21 20:50] VITALS: PULSE 101
[2018-11-24] MEDS ORDERED: cloNIDine 0.1 MG/24HR PATCH TRANSDERM SCH (09:00)
== END 2018-11-21 21:46 | disposition hospice, inpatient (51) | DRG 177 ==
LOC: EC 19:12 → 4SSUR 20:41 → 2SICU 11-21 13:20
PROVIDERS: ADMIT Internal Medicine; ATTEND Internal Medicine
DX: J15.6 Pneumonia due to other Gram-negative bacteria (principal); J96.01 Acute respiratory failure with hypoxia; G93.41 Metabolic encephalopathy; E87.0 Hyperosmolality and hypernatremia; I69.354 Hemiplegia and hemiparesis following cerebral infarction affecting left non-dominant side; J44.0 Chronic obstructive pulmonary disease with (acute) lower respiratory infection; J44.1 Chronic obstructive pulmonary disease with (acute) exacerbation; E78.5 Hyperlipidemia, unspecified; E86.0 Dehydration; F03.90 Unspecified dementia, unspecified severity, without behavioral disturbance, psychotic disturbance, mood disturbance, and anxiety; F32.9 Major depressive disorder, single episode, unspecified; F41.9 Anxiety disorder, unspecified; I10 Essential (primary) hypertension; K21.9 Gastro-esophageal reflux disease without esophagitis; R13.10 Dysphagia, unspecified; Z79.82 Long term (current) use of aspirin; Z79.899 Other long term (current) drug therapy; Z85.828 Personal history of other malignant neoplasm of skin; Z87.01 Personal history of pneumonia (recurrent); Z87.891 Personal history of nicotine dependence; Z93.1 Gastrostomy status; Z96.651 Presence of right artificial knee joint; Z66 Do not resuscitate; Z51.5 Encounter for palliative care; K76.9 Liver disease, unspecified; F10.11 Alcohol abuse, in remission
CPT/HCPCS: 36415; 71045; 71046; 80053; 82550; 83735; 83880; 84484; 85025; 85610; 85730; 87040; 87070; 87205; 93005; 94640; 96361; 96365; 96375; 99285

== ENCOUNTER 2018-11-21 14:00 | Inpatient (IN) | payer MEDICAID ==
[2018-11-21] MEDS ORDERED: ACETAMINOPHEN SUPPOSITORY 650 MG SUPP RECTAL PRN (21:49)
[2018-11-21] MEDS ORDERED: SCOPOLAMINE 1.5MG/72HR PATCH TRANSDERM PRN (21:49)
[2018-11-21] MEDS ORDERED: MORPHINE SULFATE 2 MG/ML SYRINGE IV PRN (21:49)
[2018-11-21] MEDS ORDERED: ONDANSETRON 4 MG/2 ML VIAL IVP PRN (21:49)
[2018-11-21] MEDS ORDERED: ATROPINE OPHTH SOLN 1% 5ML BTL SUBLINGUAL PRN (21:49)
[2018-11-21] MEDS ORDERED: MORPHINE SULFATE 4 MG/ML SYRINGE IVP ONE (21:49)
[2018-11-21] MEDS ORDERED: BISACODYL 10 MG SUPP RECTAL PRN (21:56)
[2018-11-21] MEDS: MORPHINE SULFATE (100 MG/2 ML) 100 MG in SODIUM CHLORIDE 0.9% 100 ML IV SCH (22:33)
[2018-11-21] MEDS: LORazepam 2 MG/ML INJ IV PRN (22:35)
[2018-11-22] MEDS: LORazepam 2 MG/ML INJ IV PRN (07:14)
[2018-11-22 13:13] VITALS: TEMP 98.5
--- NOTE | 2018-11-22 15:36 | PN ---
PROGRESS NOTE DATE OF SERVICE: 11/22/2018 This 73-year-old gentleman who was admitted with COPD acute exacerbation with possible left lower pneumonia, possibly gram-negative with acute hypoxic respiratory failure and possible sepsis was initially monitored, but however, because of lack of improvement, the patient and family preference hospice was consulted and the patient is being closely monitored under hospice at this time. The patient is on morphine drip at 4 mg/hour. PAST MEDICAL HISTORY: Past medical history is reviewed. PHYSICAL EXAM: Patient is sedated. Pulse 96. Blood pressure 148/55. Respirations 10. Temperature 98.4, pulse ox 81 percent. HEENT: Conjunctivae normal. NECK: No jugular venous distention. CARDIOVASCULAR: S1, S2 muffled. RESPIRATORY: Breath sounds diminished in the bases. Bilateral scattered rhonchi and crackles. ABDOMEN: Soft, nontender. LEGS: No edema. No swelling. NERVOUS SYSTEM: Diffusely weak. LABS: Not available. ASSESSMENT: 1. Chronic obstructive pulmonary disease acute exacerbation with left lower lobe pneumonia possibly gram-negative with acute hypoxic respiratory failure with possible sepsis present on admission. 2. Hyponatremia. 3. Change in mental status, metabolic encephalopathy, acute, possibly secondary to sepsis. 4. Increased WBC. 5. History of asthma/chronic obstructive pulmonary disease. 6. History of cerebrovascular accident, transient ischemic attack. 7. History of gastroesophageal reflux disease. 8. Hypertension. 9. Hyperlipidemia. 10.History of degenerative joint disease. 11.History of pneumonia. 12.History of chronic dysphagia status post PEG tube placement. 13.History of ethanol remotely. 14.Hernia repair. 15.History of depression. 16.NO CODE, NO CPR, NO VENT. RECOMMENDATIONS AND DISCUSSION: I recommend to continue current medications, symptomatic treatment. Continue with hospice measures. The prognosis is extremely guarded because of the multiple complex medical issues. Further recommendations to follow. MMODL / IJN: [id number] /
[2018-11-22 21:30] VITALS: BP 130/93; PULSE 112
[2018-11-23] MEDS: MORPHINE SULFATE (100 MG/2 ML) 100 MG in SODIUM CHLORIDE 0.9% 100 ML IV SCH (00:37)
[2018-11-23 01:48] VITALS: RESP 4
[2018-11-23] MEDS ORDERED: LORazepam 2 MG/ML INJ ONE (05:09)
--- NOTE | 2018-11-23 14:23 | P.PN ---
Subjective Progress Note Date: 11/23/18 Principal diagnosis: This is a 73-year-old male who was recently admitted with COPD acute exacerbation with possible left lower pneumonia, possibly gram-negative with acute hypoxic respiratory failure and possible sepsis and was being closely monitored. Due to the lack of improvement the patient and family requested a hospice consult and patient was made comfort care. Patient this morning is on a morphine drip at 5 mL/hr and is unresponsive to any verbal commands. Patient's respirations are about 4-5/m. Patient appears to be in no acute distress and is resting comfortably. No family is currently at the bedside. Will continue to follow with comfort care measures at this time. Poor prognosis. Objective - Vital Signs Vital signs: Vital Signs Temp 98.5 F 11/22/18 12:00 Pulse 112 H 11/22/18 21:00 Resp 4 L 11/23/18 08:00 BP 130/93 11/22/18 21:00 Pulse Ox 86 L 11/22/18 21:00 Intake & Output 11/22/18 11/23/18 11/23/18 18:59 06:59 18:59 Intake Total 216.694 380.216 Output Total 515 250 Balance -298.306 130.216 Intake: IV 200 325 0.9 Sodium Chloride 25ml/ 200 325 hr Intake, IV Titration 16.694 55.216 Amount Morphine Sulfate (100 mg/ 16.694 55.216 2 ml) 100 mg In Sodium Chloride 0.9% 100 ml @ 2 MG/HR 2.04 mls/hr IV . Q24H [facility] Rx#:[id number] Output: Urine 515 250 Other: Voiding Method Indwelling Catheter Indwelling Catheter Indwelling Catheter - Exam Gen: This is a 73-year-old male lying in bed in no acute distress. HEENT: Head is atraumatic, normocephalic. Pupils equal, round and pinpoint. Sclerae is anicteric. NECK: Supple. No JVD. No lymphadenopathy. No thyromegaly. LUNGS: Breath sounds diminished at the bases with scattered rhonchi and crackles noted throughout. No intercostal retractions. Agonal respirations at about 4/m HEART: S1 and S2 are muffled. ABDOMEN: Soft. Bowel sounds are present. No masses. No tenderness. EXTREMITIES: No pedal edema. No calf tenderness. NEUROLOGICAL: Patient is sleeping and unarousable. Assessment and Plan Assessment: Chronic obstructive pulmonary disease, acute exacerbation with left lower lobe pneumonia, possibly gram-negative with acute hypoxic respiratory failure with possible sepsis present on admission Hyponatremia Change in mental status, metabolic encephalopathy, acute, possibly secondary to sepsis Increased WBCs History of asthma/chronic obstructive pulmonary disease History of cerebrovascular accident/TIA History of gastroesophageal reflux disease Hypertension Hyperlipidemia History of degenerative joint disease [place] history of pneumonia next line history of chronic dysphagia status post PEG tube placement History of ethanol remotely Hernia repair next line history of depression No code, no CPR, no vent, currently comfort measures only Recommendations and discussion: Continue current medications and continue with comfort care measures. The prognosis is extremely guarded and poor because of multiple complex medical issues. Further recommendations to follow.
--- NOTE | 2018-11-23 14:53 | P.DS ---
Providers Date of admission: 11/21/18 21:48 Expected date of discharge: 11/23/18 Attending physician: Ishmael Garcia Primary care physician: [facility] Hospital Course: Preliminary cause of : Left lower lobe pneumonia with acute COPD exacerbation, possibly gram-negative with acute hypoxic respiratory failure and possible sepsis Please refer to the nursing documentation for time of Assessment: Chronic obstructive pulmonary disease acute exacerbation with left lower lobe pneumonia possibly gram-negative with acute hypoxic respiratory failure with possible sepsis present on admission Hyponatremia Change in mental status, metabolic encephalopathy, acute, possibly secondary to sepsis Increased WBC History of asthma/chronic obstructive pulmonary disease History of CVA/TIA History of GERD Hypertension Hyperlipidemia history of degenerative joint disease History of pneumonia history of chronic dysphagia status post PEG tube placement history of ethanol remotely Hernia repair history of depression No code, no CPR, no vent, hospital hospice measures with comfort care. Discharge disposition Patient was on comfort measures with hospice measures and has . Please refer to the nursing documentation for time of . History of present illness This is a 73-year-old male who was admitted with COPD acute exacerbation with possible left lower pneumonia with acute hypoxic respiratory failure and possible sepsis and due to the lack of improvement patient and family preference was to consult hospice and provide comfort measures only. Patient was maintained on a morphine drip and closely monitored. Patient Condition at Discharge: Poor Plan - Discharge Summary New Discharge Prescriptions: Discontinued Cyanocobalamin [Vitamin B-12] 500 mcg PEG/G-TUBE DAILY@0800 traZODone HCL 100 mg PEG/G-TUBE HS@2000 Metoclopramide [Reglan] 5 mg PEG/G-TUBE TID@0800,1200,2000 Melatonin 3 mg PEG/G-TUBE HS@2000 diphenhydrAMINE ELIXIR [Benadryl Elixir] 25 mg PEG/G-TUBE HS@2000 cloNIDine 0.1 MG/24HR PATCH [Catapres-TTS] 1 patch TRANSDERM TH Ferrous Sulfate 330 mg PEG/G-TUBE DAILY@0800 Aspirin 81 mg PEG/G-TUBE DAILY@0800 Ranitidine Syrup [Zantac Syrup] 75 mg PEG/G-TUBE BID@0800,1500 Terazosin [Hytrin] 5 mg PEG/G-TUBE HS@2000 amLODIPine [Norvasc] 5 mg PEG/G-TUBE BID@0800,1600 PARoxetine HCL [Paxil] 40 mg PEG/G-TUBE DAILY@0800 Pantoprazole Sodium [Protonix] 40 mg PEG/G-TUBE DAILY@1200 clonazePAM 0.5 mg PEG/G-TUBE BID Discharge Disposition: - Preliminary Cause of Preliminary Cause of : LLL pneumonia, acute exacerbation of COPD, acute hypoxic resp failure
== END 2018-11-23 16:20 | disposition expired | DRG 951 ==
LOC: 2SICU 21:48 → 3NMEDONC 11-22 23:16
PROVIDERS: ADMIT Hospitalist; ATTEND Hospitalist
DX: Z51.5 Encounter for palliative care (principal); J15.6 Pneumonia due to other Gram-negative bacteria; J96.01 Acute respiratory failure with hypoxia; A41.9 Sepsis, unspecified organism; G93.41 Metabolic encephalopathy; J44.0 Chronic obstructive pulmonary disease with (acute) lower respiratory infection; J44.1 Chronic obstructive pulmonary disease with (acute) exacerbation; E87.1 Hypo-osmolality and hyponatremia; Z66 Do not resuscitate; R13.10 Dysphagia, unspecified; K21.9 Gastro-esophageal reflux disease without esophagitis; I10 Essential (primary) hypertension; E78.5 Hyperlipidemia, unspecified; M19.90 Unspecified osteoarthritis, unspecified site; F32.9 Major depressive disorder, single episode, unspecified; Z79.82 Long term (current) use of aspirin; Z79.899 Other long term (current) drug therapy; Z87.01 Personal history of pneumonia (recurrent); Z86.73 Personal history of transient ischemic attack (TIA), and cerebral infarction without residual deficits; Z93.1 Gastrostomy status